=== PATIENT | female | born 1950 | race Caucasian/White ===

== ENCOUNTER 2016-08-09 11:06 | Inpatient (IN) | payer OTHER ==
[~2016-08-09] VITALS: Ht 162.6 cm; Wt 51.6 kg
[2016-08-09] MEDS ORDERED: VANCOMYCIN 1 GM (PMX) 250 ML IVPB STA (13:14)
[2016-08-09] MEDS ORDERED: ONDANSETRON 4 MG INJ IV STA (13:14)
[2016-08-09] MEDS ORDERED: CLINDAMYCIN 900 MG/D5W (PMX) 50 ML IVPB STA (13:14)
[2016-08-09] MEDS ORDERED: IMIPENEM-CILAST 500MG IV (PMX) 100 ML IVPB STA (13:14)
[2016-08-09] MEDS ORDERED: SODIUM CHLORIDE 0.9% 1L BAG IV* STA (13:14)
[2016-08-09] MEDS ORDERED: morphine 4 MG/ML VIAL IV STA (13:14)
[2016-08-09] MEDS ORDERED: LANT3I SC (13:15)
[2016-08-09] MEDS ORDERED: ELTR50TA PO (13:15)
--- NOTE | 2016-08-09 13:31 | ERA ---
ER Documentation Chief Complaint Date/Time DATE: 08/09/16 TIME: 13:27 Chief Complaint TIPS OF TOES BLACK X4 DAYS, SENT BY DR KNAPP FOR IV ABX HPI Patient is a 66-year-old female who has a history of ITP. She was on steroids for several weeks and then was switched to a new medication recently. Over the last several days she has noticed that 2 of her toes on her left foot have turned black with redness and pain. She noticed also that one of her toes on her right foot is now starting to turn black. She says they are all painful. She denies any fever or trauma. This is never happened to her before. Her doctor was not sure if this is arterial insufficiency or an infection. They are also not sure if this is a side effect of the new medication that she is taking. She denies any abnormal bruising or rashes elsewhere on her body. It hurts when she stands on her foot or applies pressure to the toes. It is better if she takes the pressure off of her foot. She denies any chest pain, shortness of breath, coughing, congestion, abdominal pain, nausea, vomiting, dysuria, abnormal bleeding, bruises, or rashes. Other than the above-mentioned rashes. The remainder of the systems are negative. ROS All systems reviewed and are negative except as per history of present illness. Medications Home Meds Reported Medications Insulin Glargine* (Lantus*) Unknown Strength Soln, SC DAILY, #1 VIAL 08/09/16 Eltrombopag Olamine (Promacta) 50 Mg Tablet, 50 MG PO DAILY for 14 Days, TAB 08/09/16 Allergies Allergies: Coded Allergies: Penicillins (Unverified Allergy, Unknown, RASH, 08/09/16) Physical Exam Vitals Vital Signs Date Time Temp Pulse Resp B/P Pulse Ox O2 Delivery O2 Flow Rate FiO2 08/09/16 11:28 98.3 97 20 172/72 98 Physical Exam Const: [] Well-developed well-nourished female sitting on the bed no acute distress Head: Atraumatic normocephalic Eyes: Normal Conjunctiva ENT: Normal External Ears, Nose and Mouth. Neck: Full range of motion..~ No meningismus. Resp: Clear to auscultation bilaterally Cardio: Regular rate and rhythm, no murmurs Abd: Soft, non tender, non distended. Normal bowel sounds Skin: Her toes on her left foot are erythematous and warm. They are tender to touch. They umu and quickly returned back to an erythematous color. The tips are black in color. This is most consistent with cellulitis with a gangrenous tip. She has one toe on her right foot which is developing into cellulitis with a gangrenous tip. I will order arterial and venous Dopplers As requested by her oncologist. Back: No midline or flank tenderness Ext: Exam most consistent with cellulitis and gangrene Neur: Awake and alert, GCS of 15 Psych: Normal Mood and Affect Result Diagram: 08/09/16 1345 08/09/16 1345 Results 24 hrs Laboratory Tests Test 08/09/16 13:45 White Blood Count 13.310^3/ul Red Blood Count 5.3210^6/ul Hemoglobin 15.4g/dl Hematocrit 47.7% Mean Corpuscular Volume 89.7fl Mean Corpuscular Hemoglobin 28.9pg Mean Corpuscular Hemoglobin Concent 32.3g/dl Red Cell Distribution Width 14.7% Platelet Count 87235^3/UL Mean Platelet Volume 12.6fl Neutrophils % 52.7% Lymphocytes % 35.2% Monocytes % 10.9% Eosinophils % 0.3% Basophils % 0.4% Nucleated Red Blood Cells % 0.0/100WBC Neutrophils # 7.010^3/ul Lymphocytes # 4.710^3/ul Monocytes # 1.410^3/ul Eosinophils # 0.010^3/ul Basophils # 0.110^3/ul Nucleated Red Blood Cells # 0.010^3/ul Erythrocyte Sedimentation Rate 26mm/Hr Prothrombin Time 13.6Sec Prothrombin Time Ratio 1.1 INR International Normalized Ratio 1.04 Activated Partial Thromboplast Time 27.5Sec Urine Color LT. YELLOW Urine Clarity CLEAR Urine pH 5.0 Urine Specific [place] 1.025 Urine Ketones TRACE Urine Nitrite NEGATIVE Urine Bilirubin NEGATIVE Urine Urobilinogen 0.2 E.U./dL Urine Leukocyte Esterase NEGATIVE Urine Hemoglobin NEGATIVE Urine Glucose 0.5%% Urine Total Protein NEGATIVE Sodium Level 135mmol/L Potassium Level 4.1mmol/L Chloride Level 95mmol/L Carbon Dioxide Level 29mmol/L Anion Gap 15 Blood Urea Nitrogen 12mg/dl Creatinine 0.61mg/dl Glucose Level 262mg/dl Lactic Acid Level 2.1mmol/L Calcium Level 9.8mg/dl Total Bilirubin 0.5mg/dl Direct Bilirubin 0.00mg/dl Indirect Bilirubin 0.5mg/dl Aspartate Amino Transf (AST/SGOT) 38IU/L Alanine Aminotransferase (ALT/SGPT) 38IU/L Alkaline Phosphatase 128IU/L Troponin I < 0.012ng/ml C-Reactive Protein 2.7mg/dl Total Protein 8.9g/dl Albumin 4.6g/dl Globulin 4.30g/dl Albumin/Globulin Ratio 1.06 Current Medications Medications (Trade) Dose Ordered Sig/[place] Route PRN Reason Start Time Stop Time Status Last Admin Dose Admin Sodium Chloride 1610 ml 1,610 ml BOLUS OVER 2 HOURS STAT IV* 08/09/16 13:14 08/09/16 13:24 DC 08/09/16 14:13 Vancomycin HCl 250 ml @ 125 mls/hr ONCE STAT IVPB 08/09/16 13:14 08/09/16 15:13 DC Clindamycin HCl/ Dextrose 50 ml @ 50 mls/hr ONCE STAT IVPB 08/09/16 13:14 08/09/16 14:13 DC 08/09/16 14:12 Imipenem/ Cilastatin Sodium (Primaxin 500 Mg/ 100 ml (Pmx)) 100 ml @ 100 mls/hr ONCE STAT IVPB 08/09/16 13:14 08/09/16 14:13 DC 08/09/16 15:22 Morphine Sulfate (morphine) 4 mg ONCE STAT IV 08/09/16 13:14 08/09/16 13:24 DC 08/09/16 15:22 Ondansetron HCl (Zofran Inj) 4 mg ONCE STAT IV 08/09/16 13:14 08/09/16 13:24 DC 08/09/16 15:22 Procedures/MDM Differential includes cellulitis, osteomyelitis, gangrenous toes, arterial insufficiency, sepsis EKG: Rate/Rhythm: Normal Sinus Rhythm at 85 beats a minute no evidence of acute ischemia noted, normal EKG available for comparison QRS, ST, T-waves: No changes consistent w/ acute ischemia Impression: No evidence of ischemia or arrhythmia Chest x-ray does not reveal any acute cardiopulmonary process X-ray of the right foot does not reveal any evidence of osteomyelitis X-ray left foot does not reveal any evidence of osteomyelitis Venous ultrasound does not reveal any evidence of deep vein thrombosis 1550: Reevaluation the patient this time reveals no change in her examination. She will be admitted for IV antibiotic therapy. Departure Diagnosis: Primary Impression: Cellulitis of third toe, left Additional Impressions: Cellulitis of fourth toe, left Cellulitis of fourth toe of right foot Gangrene of toe Condition: NELDA Harvey Aug 09, 2016 13:31
[2016-08-09 13:59] LABS: ADD SCAN DIFF NO
[2016-08-09 14:02] LABS: BASOPHIL # 0.1 10^3/ul (0.0-0.1); BASOPHILS % 0.4 % (0.0-2.0); EOSINOPHILS % 0.3 % (0.0-7.0); HEMATOCRIT 47.7 % (37.0-47.0); HEMOGLOBIN 15.4 g/dl (12.0-16.0); LYMPHOCYTES # 4.7 10^3/ul (0.8-2.9); LYMPHOCYTES % 35.2 % (15.0-51.0); MEAN CORPUSCULAR HEMOGLOBIN 28.9 pg (29.0-33.0); MEAN CORPUSCULAR HGB CONC 32.3 g/dl (32.0-37.0); MEAN CORPUSCULAR VOLUME 89.7 fl (82.0-101.0); MEAN PLATELET VOLUME 12.6 fl (7.4-10.4); MONOCYTE # 1.4 10^3/ul (0.3-0.9); MONOCYTES % 10.9 % (0.0-11.0); NEUTROPHILS % 52.7 % (39.0-77.0); PLATELET COUNT 145 10^3/UL (140-415); RED BLOOD COUNT 5.32 10^6/ul (4.20-5.40); RED CELL DISTRIBUTION WIDTH 14.7 % (11.5-14.5); WHITE BLOOD COUNT 13.3 10^3/ul (4.8-10.8)
[2016-08-09 14:09] LABS: ADD UMIC NO; URINE BILIRUBIN (Dip) NEGATIVE (NEGATIVE); URINE BLOOD (Dip) NEGATIVE (NEGATIVE); URINE COLOR LT. YELLOW (YELLOW); URINE KETONES (Dip) TRACE (NEGATIVE); URINE LEUKOCYTE ESTERASE (Dip) NEGATIVE (NEGATIVE); URINE NITRITE (Dip) NEGATIVE (NEGATIVE); URINE TOTAL PROTEIN (Dip) NEGATIVE (NEGATIVE); URINE UROBILINOGEN (Dip) 0.2 E.U./dL (0.1-1.0)
--- NOTE | 2016-08-09 14:10 | RADRPT ---
PROCEDURE: XR Chest 1 View. CLINICAL INDICATION: Shortness of breath, possible sepsis TECHNIQUE: AP view of the chest was obtained. COMPARISON: None. FINDINGS: The heart size is within normal limits. Calcified atherosclerosis is noted in the aorta. The lungs are hyperexpanded. Mild interstitial prominence is seen in both lungs. Atelectasis is noted at the left lung base. Mild elevation right hemidiaphragm is seen. No consolidations are identified. No pneumothorax is seen. The osseous structures are osteopenic, but appear intact. IMPRESSION: Calcified atherosclerosis in the aorta. Mild elevation right hemidiaphragm. Hyperexpanded lungs with diffuse mild interstitial prominence in both lungs. Interstitial prominenc e could be chronic. Findings could reflect COPD. Subsegmental atelectasis at the left lung base. RPTAT: AA .Pedro Arzate MD, Date Time Electronically viewed and signed by .Pedro Arzate MD, on 08/09/2016 14:10 .P/
[2016-08-09 14:19] LABS: INR 1.04; PROTIME 13.6 Sec (12.2-14.2); PT RATIO 1.1
[2016-08-09 14:20] LABS: CHLORIDE 95 mmol/L (97-110); PARTIAL THROMBOPLASTIN TIME 27.5 Sec (25.0-35.0)
[2016-08-09 14:21] LABS: ALBUMIN 4.6 g/dl (3.3-4.9); POTASSIUM 4.1 mmol/L (3.5-5.1); SODIUM 135 mmol/L (135-144)
[2016-08-09 14:24] LABS: ALANINE AMINOTRANSFERASE 38 IU/L (13-69); ALBUMIN/GLOBULIN RATIO 1.06; ALKALINE PHOSPHATASE 128 IU/L (42-121); ANION GAP 15 (8-16); ASPARTATE AMINO TRANSFERASE 38 IU/L (15-46); BILIRUBIN,INDIRECT 0.5 mg/dl (0-1.1); BILIRUBIN,TOTAL 0.5 mg/dl (0.2-1.3); BLOOD UREA NITROGEN 12 mg/dl (7-20); CARBON DIOXIDE 29 mmol/L (21-31); CREATININE 0.61 mg/dl (0.44-1.00); TOTAL PROTEIN 8.9 g/dl (6.1-8.1)
[2016-08-09 14:25] LABS: CALCIUM 9.8 mg/dl (8.4-10.2); GLUCOSE 262 mg/dl (70-220)
[2016-08-09 14:36] LABS: TROPONIN-I < 0.012 ng/ml (0.00-0.12)
--- NOTE | 2016-08-09 14:45 | RADRPT ---
PROCEDURE: US Lower extremity Venous. CLINICAL INDICATION: Bilateral lower extremity swelling TECHNIQUE: Multiple sonographic images of the bilateral lower extremity deep venous system was obt ained utilizing grayscale, color-flow, compressive sonography and doppler imaging with augmentation. The images were reviewed on a PACS workstation. COMPARISON: None. FINDINGS: There is normal compressibility and flow within the bilateral common femoral, superficial femoral , posterior tibial and popliteal veins. RPTAT: AA IMPRESSION: No sonographic evidence for deep venous thrombosis. .Teja Ann MD, MD Date Time Electronically viewed and signed by .Teja Ann MD, on 08/09/2016 14:44 .S/
--- NOTE | 2016-08-09 15:15 | RADRPT ---
PROCEDURE: XR Left Foot. CLINICAL INDICATION: Left foot pain. Gangrenous toes. TECHNIQUE: Two views. Frontal and lateral. COMPARISON: None. FINDINGS: There is no fracture or dislocation. The soft tissues are normal. Articular surfaces are intact. There is no lytic or blastic lesion. There is no radiopaque foreign body. IMPRESSION: 1. Normal images of the left foot. 2. No evidence of osteomyelitis. RPTAT: QQ .Jimmy Butler MD, MD Date Time Electronically viewed and signed by .Jimmy Butler MD, MD on 08/09/2016 15:15 .R/
--- NOTE | 2016-08-09 15:16 | RADRPT ---
PROCEDURE: XR Right Foot. CLINICAL INDICATION: Right foot pain. Gangrenous toes. TECHNIQUE: Two views. Frontal and lateral. COMPARISON: None. FINDINGS: There is no fracture or dislocation. The soft tissues are normal. Articular surfaces are intact. There is no lytic or blastic lesion. There is no radiopaque foreign body. IMPRESSION: 1. Normal images of the right foot. 2. No evidence of osteomyelitis. RPTAT: QQ .Jimmy Butler MD, MD Date Time Electronically viewed and signed by .Jimmy Butler MD, MD on 08/09/2016 15:16 .R/
[2016-08-09] MEDS ORDERED: ONDANSETRON 4 MG INJ IV PRN (16:00)
[2016-08-09] MEDS ORDERED: ACETAMINOPHEN 325 MG TAB PO PRN (16:00)
--- NOTE | 2016-08-09 16:20 | RADRPT ---
PROCEDURE: US Lower extremity Arteries. CLINICAL INDICATION: Peripheral arterial disease. Black appearance of left toes TECHNIQUE: Multiple longitudinal and transverse images of the bilateral lower extremity arteries w ere obtained with baig scale and color Doppler imaging. COMPARISON: No prior studies are available for comparison. FINDINGS: Peak systolic velocities are as follows: Location RightLeft waveforms UOP203 cm/vri076 cm/sec triphasic/triphasic IVDE834 cm/luy790 cm/sec triphasic/triphasic QPXV279 cm/vmq471 cm/sec triphasic/triphasic LVRA765 cm/sul866 cm/sec triphasic/triphasic POP91 cm/xtp909 cm/sec triphasic/triphasic DPA73 cm/yqn831 cm/sec triphasic/triphasic Ankle brachial index Posterior tibial artery: 1.2 1.0 Dorsalis pedis artery: 1.2 1.0 Toe indices: 0.81 0.68 RPTAT:HJJR IMPRESSION: 1. Mild plaque formation without evidence for hemodynamically significant stenosis or occlusion. 2. Toe pressure indices correlates with moderate to severe claudication, left side greater than righ t. 3. Normal bilateral ankle brachial indices. Physician Jesus Date Time Electronically viewed and signed by Physician Jesus on 08/09/2016 16:20 JR/
[2016-08-09 19:10] VITALS: TEMP 98.2
[2016-08-09 20:33] VITALS: Ht 162.6 cm; Wt 51.6 kg
[2016-08-09] MEDS ORDERED: DIPHENHYDRAMINE 50 MG INJ IV ONE (21:00)
[2016-08-09 21:18] VITALS: BP 129/58; RESP 18
[2016-08-09] MEDS ORDERED: VANCOMYCIN IV PER PHARMACY XX SCH (22:30)
[2016-08-09] MEDS ORDERED: GLUCOSE GEL 15 GRAM TUBE BUCCAL PRN (22:45)
[2016-08-09] MEDS ORDERED: GLUCAGON 1 MG INJ IM PRN (22:45)
[2016-08-09] MEDS ORDERED: GLUCOSE GEL 15 GRAM TUBE PO PRN ×2 (22:45)
[2016-08-09] MEDS ORDERED: DEXTROSE 50% 50 ML SYRINGE IV PRN ×2 (22:45)
--- NOTE | 2016-08-09 23:11 | QN ---
Documentation Comment [id number] ERICA MARAVILLA MD Aug 09, 2016 23:11
[2016-08-09] MEDS ORDERED: HEPARIN 1000 UNITS/ML 10 ML INJ IV ONE (23:30)
[2016-08-09] MEDS ORDERED: HEPARIN 1000 UNITS/ML 10 ML INJ IV PRN ×2 (23:30)
[2016-08-09 23:53] LABS: ADD SCAN DIFF NO
[2016-08-09 23:54] LABS: ABNORMAL IP MESSAGE 1; HEMATOCRIT 38.3 % (37.0-47.0); HEMOGLOBIN 12.7 g/dl (12.0-16.0); MEAN CORPUSCULAR HEMOGLOBIN 29.9 pg (29.0-33.0); MEAN CORPUSCULAR HGB CONC 33.2 g/dl (32.0-37.0); MEAN CORPUSCULAR VOLUME 90.1 fl (82.0-101.0); PLATELET COUNT 94 10^3/UL (140-415); RED BLOOD COUNT 4.25 10^6/ul (4.20-5.40); RED CELL DISTRIBUTION WIDTH 14.7 % (11.5-14.5); WHITE BLOOD COUNT 11.3 10^3/ul (4.8-10.8)
[2016-08-09] MEDS: IMIPENEM-CILAST 500MG IV (PMX) 100 ML IVPB SCH (23:56)
[2016-08-09] MEDS: INSULIN ASPART [NOVOLOG] 3 ML PEN SC SCH (23:58)
[2016-08-10 00:06] LABS: INR 1.09; PARTIAL THROMBOPLASTIN TIME 25.3 Sec (25.0-35.0); PROTIME 14.1 Sec (12.2-14.2); PT RATIO 1.1
--- NOTE | 2016-08-10 00:14 | HP ---
DATE OF ADMISSION: 08/09/2016 HISTORY OF PRESENT ILLNESS: The patient is 66-year-old female with history of ITP, history of diabe stefano mellitus. Presented with left foot toe pain, redness and also bluish toes for last couple of da ys. The patient sees Dr. Carrington, is currently on Promacta for ITP (eltrombopag). The patient also h as history of hypertension, diabetes mellitus. The patient's case was discussed with the ER heather yeager, Dr. Peters, as well as with Dr. Carrington, and Dr. Sultana was informed to see this patient in consul tation. The patient has ultrasound of the lower extremity, shows mild plaque formation without evid ence for hemodynamically significant stenosis or occlusion. Toe pressure indices, correlation with moderate to severe claudication. The patient has normal bilateral ankle brachial indices. PAST MEDICAL HISTORY: Diabetes, hypertension, ITP. ALLERGY HISTORY: PENICILLIN. SOCIAL HISTORY: Negative. FAMILY HISTORY: Negative. MEDICATION HISTORY: The patient is on: 1. Promacta. 2. Lantus. REVIEW OF SYSTEMS: HEENT: Unremarkable. RESPIRATORY: Unremarkable. CARDIOVASCULAR: Unremarkable. ABDOMEN: Unremarkable. EXTREMITIES: As mentioned above, left foot pain, swelling and blue toes last couple days. CENTRAL NERVOUS SYSTEM: Denies any numbness ____. PHYSICAL EXAMINATION: GENERAL: The patient is awake and alert. VITAL SIGNS: Stable with pulse 75, blood pressure 140/65. HEENT: Head is atraumatic, normocephalic. Pupils equal, reactive. NECK: Supple. No JVD. LUNGS: Clear. CARDIOVASCULAR: S1, S2 are normal. ABDOMEN: Soft. Bowel sounds are positive. No palpable mass or hepatosplenomegaly. No guarding, r ebound tenderness. EXTREMITIES: The patient has bluish discoloration of the toes and ____ foot is swollen, warm, tende r, red. CENTRAL NERVOUS SYSTEM: The patient is awake, alert. No focal deficit. LABORATORY DATA: WBC 13.3, hematocrit 47.7, platelet count of 145. The patient has glucose 238. IMAGING: Chest x-ray: Calcified atherosclerosis in the aorta, mild elevation of right hemidiaphrag m, hyperextended lungs with diffuse mild interstitial prominence in both lungs, subsegmental atelect asis at left lung base. IMPRESSION: 1. The patient has left foot cellulitis. 2. Peripheral vascular disease of the left lower extremity, rule out atheroembolization. 3. ITP history. Currently the patient's platelet count is 145. 4. Leukocytosis. 5. Diabetes mellitus. 6. Hypertension history. PLAN: Continue to give this patient diabetic diet, sliding scale, pain medication, antibiotic. The patient will have IV heparin. Discussed with Dr. Carrington. Dr. Sultana has been called. A 2D echo will be obtained. Dictated By: ERICA MARAVILLA MD BS/NTS Conf#: [id number] DID#: [id number]
[2016-08-10] MEDS: morphine 4 MG/ML VIAL IV PRN ×2 (00:40→11:10)
[2016-08-10] MEDS: HEPARIN 25000 UNITS/250 ML 250 ML IV SCH (00:56)
[2016-08-10] MEDS: VANCOMYCIN 750 MG in SOD CHLORIDE 0.9% 150 ML IVPB SCH ×2 (01:02→14:30)
[2016-08-10] MEDS: ACCU-CHEK XX SCH (02:18)
[2016-08-10 05:23] LABS: ADD SCAN DIFF NO
[2016-08-10 05:27] LABS: ABNORMAL IP MESSAGE 1; BASOPHIL # 0.1 10^3/ul (0.0-0.1); BASOPHILS % 0.6 % (0.0-2.0); EOSINOPHILS # 0.1 10^3/ul (0.0-0.5); EOSINOPHILS % 1.1 % (0.0-7.0); HEMATOCRIT 39.1 % (37.0-47.0); HEMOGLOBIN 12.6 g/dl (12.0-16.0); LYMPHOCYTES % 41.9 % (15.0-51.0); MEAN CORPUSCULAR HEMOGLOBIN 29.6 pg (29.0-33.0); MEAN CORPUSCULAR HGB CONC 32.2 g/dl (32.0-37.0); MEAN CORPUSCULAR VOLUME 91.8 fl (82.0-101.0); MEAN PLATELET VOLUME 12.1 fl (7.4-10.4); MONOCYTE # 1.4 10^3/ul (0.3-0.9); MONOCYTES % 11.7 % (0.0-11.0); NEUTROPHIL # 5.3 10^3/ul (1.6-7.5); NEUTROPHILS % 44.2 % (39.0-77.0); NUCLEATED RED BLOOD CELLS% 0.2 /100WBC (0.0-0.0); PLATELET COUNT 78 10^3/UL (140-415); RED BLOOD COUNT 4.26 10^6/ul (4.20-5.40); RED CELL DISTRIBUTION WIDTH 14.9 % (11.5-14.5)
[2016-08-10 05:45] LABS: POTASSIUM 4.2 mmol/L (3.5-5.1)
[2016-08-10 05:47] LABS: ALBUMIN/GLOBULIN RATIO 0.85; BILIRUBIN,INDIRECT 0.3 mg/dl (0-1.1); BILIRUBIN,TOTAL 0.3 mg/dl (0.2-1.3); CREATININE 0.72 mg/dl (0.44-1.00); TOTAL PROTEIN 6.5 g/dl (6.1-8.1)
[2016-08-10] MEDS: LEVOTHYROXINE 100 MCG TAB PO SCH (06:07)
[2016-08-10] MEDS: IMIPENEM-CILAST 500MG IV (PMX) 100 ML IVPB SCH ×3 (06:07→22:16)
[2016-08-10 06:20] LABS: EOSINOPHILS # 0.1 10^3/ul (0.0-0.5); LYMPHOCYTES # 2.5 10^3/ul (0.8-2.9); MONOCYTE # 1.5 10^3/ul (0.3-0.9); NEUTROPHIL # 7.2 10^3/ul (1.6-7.5)
[2016-08-10] MEDS ORDERED: INSULIN ASPART [NOVOLOG] 3 ML PEN SC SCH (08:00)
[2016-08-10] MEDS: INSULIN GLARGINE [LANtus] 3 ML PEN SC SCH (08:13)
[2016-08-10] MEDS: METOPROLOL 25 MG TAB PO SCH ×2 (08:19→20:17)
[2016-08-10] MEDS: LISINOPRIL 5 MG TAB PO SCH (08:19)
[2016-08-10 08:57] VITALS: BP 127/60; RESP 18
[2016-08-10] MEDS: INSULIN ASPART [NOVOLOG] 3 ML PEN SC SCH ×4 (09:08→20:32)
--- NOTE | 2016-08-10 12:11 | CONS ---
Date/Time of Note Date/Time of Note DATE: 08/10/16 TIME: 11:51 Assessment/Plan Assessment/Plan Chief Complaint/Hosp Course 64yo with # Thrombosis of Bilateral feet and toes - this is likely secondary to the rapid increase in platelet count from the promacta -hold promacta for now -continue heparin drip for now. will try to keep platelets > 50K while on heparin gtt to prevent spontaneous bleed # Left and Right foot Cellulitis -continue with broad spectrum antibiotics including vancomycin and primaxin. 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 Her baseline WBC count is 10-11 -no intervention to be done for this condition at this time -the higher wbc count at this time is secondary to her cellulitis -will continue to monitor her WBC count while on antibiotics Approximately 40 min were spent at patient's bedside and in coordination of her care Problems: Consultation Date/Type/Reason Admit Date/Time Aug 09, 2016 at 15:56 Date of Consultation: Aug 10, 2016 Type of Consultation: Hematology Reason for Consultation ITP/ coagulopathy Referring Provider: ERICA MARAVILLA MD Hx of Present Illness 66 yo poorly controlled diabetic female with long standing ITP 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 Pt last needed steroids 25 years ago. About 6 weeks ago , patient's platelets started to slowly decline. Given her platelet count of 7, despite prior splenectomy, patient was started on Promacta 50 mg q day. Now 2 weeks later, her platelets have dramatically improved but she has developed painful swelling of both feet Left greater than right, as well as cyanosis of several of her toe. She is barely able to bare any weight on her foot. She was thus instructed to go to the ER for further evaluation. Pt has since been started on broad spectrum antibiotics to cover infection in this poorly controlled diabetic. She has also been started on Heparin drip as it appears she has developed thrombosis with her rapidly increasing platelet count. Since admission, her foot swelling and pain have improved. Constitutional: other (pain in right foot has improved) Eyes: no complaints ENT: no complaints Respiratory: no complaints Cardiovascular: no complaints Gastrointestinal: no complaints Genitourinary: no complaints Musculoskeletal: swelling (Left > Right foot. ) Skin: no complaints Past Medical History monoclonal b cell lymphocytosis DM HTN osteoporosis Family History Significant Family History: no pertinent family hx Social History Alcohol Use: none Smoking Status: Never smoker Drug Use: none Exam/Review of Systems Vital Signs Vitals Vital Signs Date Time Temp Pulse Resp B/P Pulse Ox O2 Delivery O2 Flow Rate FiO2 08/10/16 08:57 98.5 79 18 127/60 98 08/09/16 19:10 Room Air Intake and Output 08/09/16 08/09/16 08/10/16 14:59 22:59 06:59 Intake Total 1147.5 ml Balance 1147.5 ml Exam Constitutional: alert, oriented Psych: no complaints Head: atraumatic, normocephalic Eyes: nl conjunctiva ENMT: nl external ears & nose Neck: non-tender, supple Respiratory: clear to auscultation Cardiovascular: regular rate and rhythm Gastrointestinal: soft Musculoskeletal: swelling (left > right foot . 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 II-XII intact Results Result Diagram: 08/10/16 0457 08/10/16 0457 Results 24 hrs Laboratory Tests Test 08/09/16 13:45 08/09/16 16:20 08/09/16 19:12 08/09/16 19:50 White Blood Count 13.3 H Red Blood Count 5.32 Hemoglobin 15.4 Hematocrit 47.7 H Mean Corpuscular Volume 89.7 Mean Corpuscular Hemoglobin 28.9 L Mean Corpuscular Hemoglobin Concent 32.3 Red Cell Distribution Width 14.7 H Platelet Count 145 Mean Platelet Volume 12.6 H Neutrophils % 52.7 Lymphocytes % 35.2 Monocytes % 10.9 Eosinophils % 0.3 Basophils % 0.4 Nucleated Red Blood Cells % 0.0 Neutrophils # 7.0 Lymphocytes # 4.7 H Monocytes # 1.4 H Eosinophils # 0.0 Basophils # 0.1 Nucleated Red Blood Cells # 0.0 Erythrocyte Sedimentation Rate 26 Prothrombin Time 13.6 Prothrombin Time Ratio 1.1 INR International Normalized Ratio 1.04 Activated Partial Thromboplast Time 27.5 Urine Color LT. YELLOW Urine Clarity CLEAR Urine pH 5.0 Urine Specific [place] 1.025 Urine Ketones TRACE H Urine Nitrite NEGATIVE Urine Bilirubin NEGATIVE Urine Urobilinogen 0.2 E.U./dL Urine Leukocyte Esterase NEGATIVE Urine Hemoglobin NEGATIVE Urine Glucose 0.5% H Urine Total Protein NEGATIVE Sodium Level 135 Potassium Level 4.1 Chloride Level 95 L Carbon Dioxide Level 29 Anion Gap 15 Blood Urea Nitrogen 12 Creatinine 0.61 Glucose Level 262 H Lactic Acid Level 2.1 2.6 H 2.9 H Calcium Level 9.8 Total Bilirubin 0.5 Direct Bilirubin 0.00 Indirect Bilirubin 0.5 Aspartate Amino Transf (AST/SGOT) 38 Alanine Aminotransferase (ALT/SGPT) 38 Alkaline Phosphatase 128 H Troponin I < 0.012 C-Reactive Protein 2.7 H Total Protein 8.9 H Albumin 4.6 Globulin 4.30 H Albumin/Globulin Ratio 1.06 Bedside Glucose 152 Test 08/09/16 22:25 08/09/16 23:40 08/10/16 02:16 08/10/16 04:57 Bedside Glucose 238 H 269 H White Blood Count 11.3 H 12.0 H Red Blood Count 4.25 # 4.26 Hemoglobin 12.7 12.6 Hematocrit 38.3 39.1 Mean Corpuscular Volume 90.1 91.8 Mean Corpuscular Hemoglobin 29.9 29.6 Mean Corpuscular Hemoglobin Concent 33.2 32.2 Red Cell Distribution Width 14.7 H 14.9 H Platelet Count 94 #L 78 L Mean Platelet Volume 13.0 H 12.1 H Neutrophils % 64.0 44.2 Lymphocytes % 22.0 41.9 Monocytes % 13.0 H 11.7 H Eosinophils % 1.0 1.1 Nucleated Red Blood Cells % 2.0 H 0.2 H Neutrophils # 7.2 5.3 Lymphocytes # 2.5 5.0 H Monocytes # 1.5 H 1.4 H Eosinophils # 0.1 0.1 Prothrombin Time 14.1 Prothrombin Time Ratio 1.1 INR International Normalized Ratio 1.09 Activated Partial Thromboplast Time 25.3 Basophils % 0.6 Basophils # 0.1 Nucleated Red Blood Cells # 0.0 Sodium Level 136 Potassium Level 4.2 Chloride Level 105 # Carbon Dioxide Level 27 Anion Gap 8 Blood Urea Nitrogen 12 Creatinine 0.72 Glucose Level 252 H Calcium Level 8.0 L Total Bilirubin 0.3 Direct Bilirubin 0.00 Indirect Bilirubin 0.3 Aspartate Amino Transf (AST/SGOT) 23 Alanine Aminotransferase (ALT/SGPT) 27 Alkaline Phosphatase 96 Total Protein 6.5 # Albumin 3.0 #L Globulin 3.50 H Albumin/Globulin Ratio 0.85 Test 08/10/16 06:23 08/10/16 07:50 Activated Partial Thromboplast Time 78.4 *H Bedside Glucose 155 Medications Medications Current Medications Imipenem/ Cilastatin Sodium (Primaxin 500 Mg/ 100 ml (Pmx)) 100 ml @ 100 mls/ hr Q8 IVPB Last administered on 08/10/16 06:07; Admin Dose 100 MLS/HR; Start 08/09/16 at 22:30 Morphine Sulfate (morphine) 3 mg Q4H PRN IV PAIN LEVEL 7-10 Last administered on 08/10/16 11:10; Admin Dose 3 MG; Start 08/09/16 at 22:30 Diagnostic Test (Pha) (Accu-Chek) 1 ea 02 XX Last administered on 08/10/16 02: 18; Admin Dose 1 EA; Start 08/10/16 at 02:00 Miscellaneous Information 1 ea NOTE XX ; Start 08/09/16 at 22:45 Glucose (Glutose) 15 gm Q15M PRN PO DECREASED GLUCOSE; Start 08/09/16 at 22:45 Glucose (Glutose) 22.5 gm Q15M PRN PO DECREASED GLUCOSE; Start 08/09/16 at 22: 45 Dextrose (D50w Syringe) 25 ml Q15M PRN IV DECREASED GLUCOSE; Start 08/09/16 at 22:45 Dextrose (D50w Syringe) 50 ml Q15M PRN IV DECREASED GLUCOSE; Start 08/09/16 at 22:45 Glucagon (Glucagen) 1 mg Q15M PRN IM DECREASED GLUCOSE; Start 08/09/16 at 22:45 Glucose 15 gm 15 gm Q15M PRN BUCCAL DECREASED GLUCOSE; Start 08/09/16 at 22:45 Vancomycin HCl/ Sodium Chloride (Vancocin/NS) 150 ml @ 75 mls/hr Q12H IVPB Last administered on 08/10/16 01:02; Admin Dose 75 MLS/HR; Start 08/10/16 at 01 :00 Lisinopril (Zestril) 5 mg DAILY PO Last administered on 08/10/16 08:19; Admin Dose 5 MG; Start 08/10/16 at 09:00 Levothyroxine Sodium (Synthroid) 100 mcg DAILY@06 PO Last administered on 06:07; Admin Dose 100 MCG; Start 08/10/16 at 06:00 Metoprolol Tartrate (Lopressor) 25 mg BID PO Last administered on 08/10/16 08: 19; Admin Dose 25 MG; Start 08/10/16 at 09:00 Miscellaneous Information (* Miscellaneous Pharmacy Order) PROMACTA ( ELTROMBOPAG OLAM... ONCE XX ; Start 08/11/16 at 09:00; Status UNV Miscellaneous Information (*Order Clarification Bulletin) MEDICATION REQUIRES CLARIFICATION:PROMA... Q8H XX ; Start 08/10/16 at 07:30 Miscellaneous Information (*Rx Drug Level Order Reminder*) VANCOMYCIN TROUGH AT 0000 ONCE ONCE XX ; Start 08/11/16 at 00:00; Stop 08/11/16 at 00:01 MILADY FONG M.D. Aug 10, 2016 12:01
--- NOTE | 2016-08-10 16:29 | RADRPT ---
Echocardiogram Report Patient Name: STORMY LUCAS Gender: Female Date: 1950 Study Date: 10-Aug-2016 Stunner: Jermain Choi [facility] Location: 2256 Ref. Physician: ERICA MARAVILLA Quality: Good Procedures: Transthoracic echocardiogram with complete 2D, M-Mode, and doppler examination. Indications: Evaluate Left Ventricular function. 2D/M Mode Doppler Measurement Value Normal Ranges Measurement Value Normal Ranges LVIDd 2D 4.0 3.5 - 5.6 cm AV Peak Anders 1.3 m/sec LVIDs 2D 1.9 2.1 - 4.1 cm AV Peak PG 7.0 mmHg FS 2D 53.0 % LVOT Peak Anders 0.9 m/sec LVPWd 2D 0.9 0.6 - 1.1 cm LVOT Peak PG 4.0 mmHg IVSd 2D 0.9 0.6 - 1.1 cm MV E Peak Anders 0.7 m/sec IVS/LVPW 2D 0.9 MV A Peak Anders 0.9 m/sec AoR Diam 2D 2.3 2.0 - 3.7 cm MV E/A 0.8 LA/Ao 2D 1 0 - 1 MV Decel Time 162 msec EDV 2D 65.9 cm3 MV E/A 0.8 ESV 2D 6.9 cm3 TR Peak Anders 2.3 m/sec LA Dimen 2D 2.9 2.3 - 4.0 cm TR Peak PG 21.0 mmHg RVSP 24.0 mmHg Findings Left Ventricle: Normal left ventricular systolic function. Normal left ventricular cavity size. Normal left ventricular wall thickness. Ejection fraction is visually estimated at 65 %. Right Ventricle: Normal right ventricular size. Normal right ventricular systolic function. Left Atrium: The left atrium is normal in size. Right Atrium: The right atrium is normal in size. Mitral Valve: Normal appearance and function of the mitral valve with trace physiologic regurgitation. Aortic Valve: Normal appearance of the aortic valve. No significant aortic stenosis or insufficiency. Tricuspid Valve: Normal appearance of the tricuspid valve. Estimated peak PA systolic pressure 24 mmHg. There is trace tricuspid regurgitation. Pulmonic Valve: Pulmonic valve not well visualized. Pericardium: Normal pericardium with no significant pericardial effusion. Aorta: Normal aortic root. IVC: Normal size and normal respiratory collapse consistent with normal right atrial pressure. Conclusions 1.The left ventricle is normal in size and systolic function. 2.Estimated left ventricular ejection fraction of 60-65%. Electronically Signed By: Prem Mejia 10-Aug-2016 16:28:14 -0700 Patient Name: STORMY LUCAS Study Date: 10-Aug-[id number]
--- NOTE | 2016-08-10 19:10 | PN ---
Date/Time of Note Date/Time of Note DATE: 08/10/16 TIME: 19:09 Assessment/Plan VTE Prophylaxis VTE Prophylaxis Intervention: other Lines/Catheters IV Catheter Type (from [facility]): Peripheral IV Urinary Cath still in place: No Assessment/Plan Chief Complaint/Hosp Course 1. The patient has left foot cellulitis. 2. Peripheral vascular disease of the left lower extremity, rule out atheroembolization. 3. ITP history. s/p promacta 4. Leukocytosis. 5. Diabetes mellitus. 6. Hypertension history. plan iv heparin Problems: Subjective 24 Hr Interval Summary Cardiovascular: no complaints Gastrointestinal: no complaints Genitourinary: no complaints Musculoskeletal: no complaints Skin: skin lesions (left foot/cyanosis) Exam/Review of Systems Vital Signs Vitals Vital Signs Date Time Temp Pulse Resp B/P Pulse Ox O2 Delivery O2 Flow Rate FiO2 08/10/16 08:57 98.5 79 18 127/60 98 08/09/16 19:10 Room Air Intake and Output 08/09/16 08/09/16 08/10/16 15:00 23:00 07:00 Intake Total 1147.5 ml Balance 1147.5 ml Exam Neck: supple Respiratory: clear to auscultation Cardiovascular: regular rate and rhythm Gastrointestinal: soft Musculoskeletal: nl extremities to inspection Extremities: normal pulses Results Result Diagram: 08/10/16 0457 08/10/16 0457 Results 24 hrs Laboratory Tests Test 08/09/16 19:12 08/09/16 19:50 08/09/16 22:25 08/09/16 23:40 Bedside Glucose 152 238 H Lactic Acid Level 2.9 H White Blood Count 11.3 H Red Blood Count 4.25 # Hemoglobin 12.7 Hematocrit 38.3 Mean Corpuscular Volume 90.1 Mean Corpuscular Hemoglobin 29.9 Mean Corpuscular Hemoglobin Concent 33.2 Red Cell Distribution Width 14.7 H Platelet Count 94 #L Mean Platelet Volume 13.0 H Neutrophils % 64.0 Lymphocytes % 22.0 Monocytes % 13.0 H Eosinophils % 1.0 Nucleated Red Blood Cells % 2.0 H Neutrophils # 7.2 Lymphocytes # 2.5 Monocytes # 1.5 H Eosinophils # 0.1 Prothrombin Time 14.1 Prothrombin Time Ratio 1.1 INR International Normalized Ratio 1.09 Activated Partial Thromboplast Time 25.3 Test 08/10/16 02:16 08/10/16 04:57 08/10/16 06:23 08/10/16 07:50 Bedside Glucose 269 H 155 White Blood Count 12.0 H Red Blood Count 4.26 Hemoglobin 12.6 Hematocrit 39.1 Mean Corpuscular Volume 91.8 Mean Corpuscular Hemoglobin 29.6 Mean Corpuscular Hemoglobin Concent 32.2 Red Cell Distribution Width 14.9 H Platelet Count 78 L Mean Platelet Volume 12.1 H Neutrophils % 44.2 Lymphocytes % 41.9 Monocytes % 11.7 H Eosinophils % 1.1 Basophils % 0.6 Nucleated Red Blood Cells % 0.2 H Neutrophils # 5.3 Lymphocytes # 5.0 H Monocytes # 1.4 H Eosinophils # 0.1 Basophils # 0.1 Nucleated Red Blood Cells # 0.0 Sodium Level 136 Potassium Level 4.2 Chloride Level 105 # Carbon Dioxide Level 27 Anion Gap 8 Blood Urea Nitrogen 12 Creatinine 0.72 Glucose Level 252 H Calcium Level 8.0 L Total Bilirubin 0.3 Direct Bilirubin 0.00 Indirect Bilirubin 0.3 Aspartate Amino Transf (AST/SGOT) 23 Alanine Aminotransferase (ALT/SGPT) 27 Alkaline Phosphatase 96 Total Protein 6.5 # Albumin 3.0 #L Globulin 3.50 H Albumin/Globulin Ratio 0.85 Activated Partial Thromboplast Time 78.4 *H Test 08/10/16 11:30 08/10/16 12:42 08/10/16 17:08 Bedside Glucose 231 H 160 Activated Partial Thromboplast Time 49.3 H Medications Medications Current Medications Imipenem/ Cilastatin Sodium (Primaxin 500 Mg/ 100 ml (Pmx)) 100 ml @ 100 mls/ hr Q8 IVPB Last administered on 08/10/16 18:14; Admin Dose 100 MLS/HR; Start 08/09/16 at 22:30 Morphine Sulfate (morphine) 3 mg Q4H PRN IV PAIN LEVEL 7-10 Last administered on 08/10/16 11:10; Admin Dose 3 MG; Start 08/09/16 at 22:30 Diagnostic Test (Pha) (Accu-Chek) 1 ea 02 XX Last administered on 08/10/16 02: 18; Admin Dose 1 EA; Start 08/10/16 at 02:00 Miscellaneous Information 1 ea NOTE XX ; Start 08/09/16 at 22:45 Glucose (Glutose) 15 gm Q15M PRN PO DECREASED GLUCOSE; Start 08/09/16 at 22:45 Glucose (Glutose) 22.5 gm Q15M PRN PO DECREASED GLUCOSE; Start 08/09/16 at 22: 45 Dextrose (D50w Syringe) 25 ml Q15M PRN IV DECREASED GLUCOSE; Start 08/09/16 at 22:45 Dextrose (D50w Syringe) 50 ml Q15M PRN IV DECREASED GLUCOSE; Start 08/09/16 at 22:45 Glucagon (Glucagen) 1 mg Q15M PRN IM DECREASED GLUCOSE; Start 08/09/16 at 22:45 Glucose 15 gm 15 gm Q15M PRN BUCCAL DECREASED GLUCOSE; Start 08/09/16 at 22:45 Vancomycin HCl/ Sodium Chloride (Vancocin/NS) 150 ml @ 75 mls/hr Q12H IVPB Last administered on 08/10/16 14:30; Admin Dose 75 MLS/HR; Start 08/10/16 at 01 :00 Lisinopril (Zestril) 5 mg DAILY PO Last administered on 08/10/16 08:19; Admin Dose 5 MG; Start 08/10/16 at 09:00 Levothyroxine Sodium (Synthroid) 100 mcg DAILY@06 PO Last administered on 06:07; Admin Dose 100 MCG; Start 08/10/16 at 06:00 Metoprolol Tartrate (Lopressor) 25 mg BID PO Last administered on 08/10/16 08: 19; Admin Dose 25 MG; Start 08/10/16 at 09:00 Miscellaneous Information (* Miscellaneous Pharmacy Order) PROMACTA ( ELTROMBOPAG OLAM... ONCE XX ; Start 08/11/16 at 09:00; Status UNV Miscellaneous Information (*Order Clarification Bulletin) MEDICATION REQUIRES CLARIFICATION:PROMA... Q8H XX ; Start 08/10/16 at 07:30 Miscellaneous Information (*Rx Drug Level Order Reminder*) VANCOMYCIN TROUGH AT 0000 ONCE ONCE XX ; Start 08/11/16 at 00:00; Stop 08/11/16 at 00:01 ERICA MARAVILLA MD Aug 10, 2016 19:10
[2016-08-10 20:14] VITALS: BP 129/55; RESP 20
[2016-08-11] MEDS: HEPARIN 25000 UNITS/250 ML 250 ML IV SCH ×2 (00:44→01:59)
[2016-08-11] MEDS: morphine 4 MG/ML VIAL IV PRN (00:47)
[2016-08-11] MEDS: VANCOMYCIN 750 MG in SOD CHLORIDE 0.9% 150 ML IVPB SCH ×4 (01:00→18:26)
[2016-08-11] MEDS: ACCU-CHEK XX SCH (02:00)
[2016-08-11] MEDS: LEVOTHYROXINE 100 MCG TAB PO SCH (06:00)
[2016-08-11] MEDS: IMIPENEM-CILAST 500MG IV (PMX) 100 ML IVPB SCH ×3 (06:00→21:06)
[2016-08-11 06:05] LABS: ADD SCAN DIFF NO
[2016-08-11 06:10] LABS: ABNORMAL IP MESSAGE 1; BASOPHIL # 0.1 10^3/ul (0.0-0.1); BASOPHILS % 0.6 % (0.0-2.0); EOSINOPHILS # 0.1 10^3/ul (0.0-0.5); EOSINOPHILS % 0.6 % (0.0-7.0); HEMATOCRIT 37.4 % (37.0-47.0); HEMOGLOBIN 12.4 g/dl (12.0-16.0); LYMPHOCYTES # 6.8 10^3/ul (0.8-2.9); LYMPHOCYTES % 42.3 % (15.0-51.0); MEAN CORPUSCULAR HEMOGLOBIN 29.7 pg (29.0-33.0); MEAN CORPUSCULAR HGB CONC 33.2 g/dl (32.0-37.0); MEAN CORPUSCULAR VOLUME 89.7 fl (82.0-101.0); MEAN PLATELET VOLUME 12.5 fl (7.4-10.4); MONOCYTE # 1.9 10^3/ul (0.3-0.9); MONOCYTES % 11.5 % (0.0-11.0); NEUTROPHIL # 7.2 10^3/ul (1.6-7.5); NEUTROPHILS % 44.6 % (39.0-77.0); NUCLEATED RED BLOOD CELLS% 0.1 /100WBC (0.0-0.0); PLATELET COUNT 92 10^3/UL (140-415); RED BLOOD COUNT 4.17 10^6/ul (4.20-5.40); RED CELL DISTRIBUTION WIDTH 14.9 % (11.5-14.5); WHITE BLOOD COUNT 16.1 10^3/ul (4.8-10.8)
[2016-08-11 06:47] LABS: ALBUMIN 3.2 g/dl (3.3-4.9)
[2016-08-11 06:49] LABS: BILIRUBIN,INDIRECT 0.4 mg/dl (0-1.1); BILIRUBIN,TOTAL 0.4 mg/dl (0.2-1.3); CREATININE 0.54 mg/dl (0.44-1.00)
[2016-08-11 06:50] LABS: ALBUMIN/GLOBULIN RATIO 1.06; CALCIUM 8.4 mg/dl (8.4-10.2); TOTAL PROTEIN 6.2 g/dl (6.1-8.1)
[2016-08-11 08:07] VITALS: BP 144/65; RESP 18
[2016-08-11] MEDS: METOPROLOL 25 MG TAB PO SCH ×2 (08:09→21:06)
[2016-08-11] MEDS: LISINOPRIL 5 MG TAB PO SCH (08:09)
[2016-08-11] MEDS: INSULIN GLARGINE [LANtus] 3 ML PEN SC SCH (08:13)
[2016-08-11] MEDS: INSULIN ASPART [NOVOLOG] 3 ML PEN SC SCH ×4 (08:14→21:08)
--- NOTE | 2016-08-11 08:19 | CONS ---
DATE OF ADMISSION: 08/09/2016 DATE OF CONSULTATION: 08/10/2016 TYPE OF CONSULTATION: Vascular surgery. Dear Doctors: Ms. Meyers is a 66-year-old noncompliant diabetic female with a myriad of medical conditions, who pr esented with a history of longstanding ITP in which she had undergone a splenectomy many years ago. The patient has been on steroids quite a long time and about 6 years ago had been started on a new medication called Promacta secondary to having thrombocytopenia. It seems that over the past week t he patient had developed bilateral lower extremity swelling and pain and discomfort in her feet. Sp ecifically, she feels more pain around the forefoot area and left upper quadrant abdominal pain. Th e patient does not speak [place] so a relative at the bedside is answering most of her questions. A t the moment the patient denies shortness of breath, chest pain, nausea, vomiting, fever or chills. REVIEW OF SYSTEMS: A 12-point review was performed and negative except for what is mentioned in the HPI. PAST MEDICAL HISTORY: Entails monoclonal B-cell lymphocytosis, diabetes mellitus type 2, poorly con trolled, hypertension, osteoporosis, noncompliance, bilateral lower extremity edema, unspecified, a history of smoking. PAST SURGICAL HISTORY: Splenectomy. FAMILY HISTORY: Positive for hypertension. SOCIAL HISTORY: Denies current alcohol, tobacco or illicit drug use. PHYSICAL EXAMINATION: GENERAL: The patient is alert and oriented x3, in no apparent distress. HEENT: Normocephalic, atraumatic. EOMI. Mucosa moist. NECK: Supple. No carotid bruit. PULMONARY: Clear to auscultation bilaterally. No crackles. CARDIOVASCULAR: S1, S2 present. No murmurs. ABDOMEN: Soft, nontender, nondistended. Bowel sounds positive. EXTREMITIES: Right lower extremity a palpable femoral pulse, palpable pedal pulse. Motor and senso ry intact. Cap refill of 3 to 4 seconds. Edema of 1+. Right 4th toe has bluish purple discolorati on. Left lower extremity palpable femoral pulse, palpable pedal pulse. Motor and sensory intact. Cap r efill of 3 to 4 seconds. Edema of 1 to 2+ and has 3rd and 4th toe blue/purplish discoloration. ASSESSMENT AND PLAN: 1. 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 It seems that the patient may have multiple things that can be causing these new findings. It seems that the patient's history of ITP and her new medication can be one differential that we will discuss with our hematology colleag ue, Dr. Carrington, as the possibility of the finding. Would like to also further rule out further proxi mal embolization such as cardiac source versus aortoiliac disease. Will plan to evaluate her labs a fter her IV fluid hydration and plan to obtain a CT scan of the abdomen and pelvis with angiography to evaluate for possibility of aortoiliac disease as well. 2. From the standpoint of vascular surgery, no further intervention needed at this time, as the ult rasound findings did not indicate any active thrombosis within the major vessels and the patient hav ing triphasic flow throughout. The patient does have appropriate toe brachial index as well. 3. Would recommend for the patient to be placed on antiplatelets when feasible. 4. Optimize vascular status (BP meds, diet, nutrition, exercise, sugar control, antiplatelets). 5. Bilateral lower extremity cellulitis. The patient does have some mild redness, possible erythema , from the ankle towards the knee area, and that can be managed with antibiotics per primary service recommend. 6. Discussed the findings, plan and management with the patient's family at the bedside and they un derstand. Thank you for allowing us to partake in the care of your patient. Please call with any questions. Dictated By: JAZMIN GARCIA/DYLAN Conf#: [id number] DID#: [id number]
--- NOTE | 2016-08-11 14:46 | CONS ---
Date/Time of Note Date/Time of Note DATE: 08/11/16 TIME: 14:36 Assessment/Plan Assessment/Plan Chief Complaint/Hosp Course 64yo with # Thrombosis of Bilateral feet and toes - this is likely secondary to the rapid increase in platelet count from the promacta -hold promacta for now -continue heparin drip for now. will try to keep platelets > 50K while on heparin gtt to prevent spontaneous bleed -appreciate vascular surgery recs. will add asa. f/u angiography # Left and Right foot Cellulitis -continue with broad spectrum antibiotics including vancomycin and primaxin. 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 Her baseline WBC count is 10-11 -no intervention to be done for this condition at this time -the higher wbc count at this time is secondary to her cellulitis -will continue to monitor her WBC count while on antibiotics Approximately 40 min were spent at patient's bedside and in coordination of her care Problems: Consultation Date/Type/Reason Admit Date/Time Aug 09, 2016 at 15:56 Initial Consult Date 08/10/16 Type of Consultation: Hematology Reason for Consultation ITP/ coagulopathy Referring Provider: ERICA MARAVILLA MD 24 HR Interval Summary Free Text/Dictation patient's left leg swelling and pain have improved by 50% per the patient. pt continues on Heparin and broad spectrum antibiotics Exam/Review of Systems Vital Signs Vitals Vital Signs Date Time Temp Pulse Resp B/P Pulse Ox O2 Delivery O2 Flow Rate FiO2 08/11/16 08:07 98.5 70 18 144/65 96 08/09/16 19:10 Room Air Intake and Output 08/10/16 08/10/16 08/11/16 15:00 23:00 07:00 Intake Total 100 ml 1390 ml 677 ml Output Total 1500 ml 900 ml Balance 100 ml -110 ml -223 ml Exam Constitutional: alert, frail, oriented Psych: no complaints Head: normocephalic Eyes: nl conjunctiva ENMT: nl external ears & nose Neck: non-tender, supple Respiratory: clear to auscultation, normal air movement Cardiovascular: nl pulses, regular rate and rhythm Gastrointestinal: soft Musculoskeletal: other (left foot pain and swelling have improved. still with 3 rd toe cyanosis) Results Result Diagram: 08/11/16 0520 08/11/16 0520 Results 24 hrs Laboratory Tests Test 08/10/16 17:08 08/10/16 18:28 08/10/16 20:21 08/11/16 00:10 Bedside Glucose 160 250 H Activated Partial Thromboplast Time 72.1 *H 60.3 H Vancomycin Level Trough 7.2 L Test 08/11/16 02:37 08/11/16 05:20 08/11/16 07:46 08/11/16 12:09 Bedside Glucose 147 170 274 H White Blood Count 16.1 #H Red Blood Count 4.17 L Hemoglobin 12.4 Hematocrit 37.4 Mean Corpuscular Volume 89.7 Mean Corpuscular Hemoglobin 29.7 Mean Corpuscular Hemoglobin Concent 33.2 Red Cell Distribution Width 14.9 H Platelet Count 92 L Mean Platelet Volume 12.5 H Neutrophils % 44.6 Lymphocytes % 42.3 Monocytes % 11.5 H Eosinophils % 0.6 Basophils % 0.6 Nucleated Red Blood Cells % 0.1 H Neutrophils # 7.2 Lymphocytes # 6.8 H Monocytes # 1.9 H Eosinophils # 0.1 Basophils # 0.1 Nucleated Red Blood Cells # 0.0 Activated Partial Thromboplast Time 69.6 H Sodium Level 137 Potassium Level 4.0 Chloride Level 103 Carbon Dioxide Level 25 Anion Gap 13 Blood Urea Nitrogen 10 Creatinine 0.54 Glucose Level 188 Calcium Level 8.4 Total Bilirubin 0.4 Direct Bilirubin 0.00 Indirect Bilirubin 0.4 Aspartate Amino Transf (AST/SGOT) 27 Alanine Aminotransferase (ALT/SGPT) 31 Alkaline Phosphatase 84 Total Protein 6.2 Albumin 3.2 L Globulin 3.00 Albumin/Globulin Ratio 1.06 Test 08/11/16 12:30 Activated Partial Thromboplast Time 72.6 *H Medications Medications Current Medications Imipenem/ Cilastatin Sodium (Primaxin 500 Mg/ 100 ml (Pmx)) 100 ml @ 100 mls/ hr Q8 IVPB Last administered on 08/11/16 06:00; Admin Dose 100 MLS/HR; Start 08/09/16 at 22:30 Morphine Sulfate (morphine) 3 mg Q4H PRN IV PAIN LEVEL 7-10 Last administered on 08/11/16 00:47; Admin Dose 3 MG; Start 08/09/16 at 22:30 Diagnostic Test (Pha) (Accu-Chek) 1 ea 02 XX Last administered on 08/10/16 02: 18; Admin Dose 1 EA; Start 08/10/16 at 02:00 Miscellaneous Information 1 ea NOTE XX ; Start 08/09/16 at 22:45 Glucose (Glutose) 15 gm Q15M PRN PO DECREASED GLUCOSE; Start 08/09/16 at 22:45 Glucose (Glutose) 22.5 gm Q15M PRN PO DECREASED GLUCOSE; Start 08/09/16 at 22: 45 Dextrose (D50w Syringe) 25 ml Q15M PRN IV DECREASED GLUCOSE; Start 08/09/16 at 22:45 Dextrose (D50w Syringe) 50 ml Q15M PRN IV DECREASED GLUCOSE; Start 08/09/16 at 22:45 Glucagon (Glucagen) 1 mg Q15M PRN IM DECREASED GLUCOSE; Start 08/09/16 at 22:45 Glucose (Glutose) 15 gm Q15M PRN BUCCAL DECREASED GLUCOSE; Start 08/09/16 at 22 :45 Lisinopril (Zestril) 5 mg DAILY PO Last administered on 08/11/16 08:09; Admin Dose 5 MG; Start 08/10/16 at 09:00 Levothyroxine Sodium (Synthroid) 100 mcg DAILY@06 PO Last administered on 06:00; Admin Dose 100 MCG; Start 08/10/16 at 06:00 Metoprolol Tartrate (Lopressor) 25 mg BID PO Last administered on 08/11/16 08: 09; Admin Dose 25 MG; Start 08/10/16 at 09:00 Miscellaneous Information (* Miscellaneous Pharmacy Order) PROMACTA ( ELTROMBOPAG OLAM... ONCE XX ; Start 08/11/16 at 09:00; Status UNV Miscellaneous Information MEDICATION REQUIRES CLARIFICATION:PROMA... Q8H XX ; Start 08/10/16 at 07:30 Vancomycin HCl/ Sodium Chloride (Vancocin/NS) 150 ml @ 75 mls/hr Q8H IVPB Last administered on 08/11/16 13:48; Admin Dose 75 MLS/HR; Start 08/11/16 at 11 :00 Miscellaneous Information (*Rx Drug Level Order Reminder*) VANCO TROUGH @ 1, 000 ON... ONCE ONCE XX ; Start 08/12/16 at 10:00; Stop 08/12/16 at 10:01 MILADY FONG M.D. Aug 11, 2016 14:46
--- NOTE | 2016-08-11 14:52 | PN ---
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 It seems that the patient may have multiple differentials that can be causing the new findings. With patient's history of ITP and her new medication can be one cause. Further, would rule out proximal embolization such as cardiac source versus aortoiliac disease. Will plan to obtain a CT Angiography abdomen and pelvis with runoff to evaluate for possibility of aortoiliac disease as well. -Appreciate hematology feedback and evaluation. Would like to also f -From the standpoint of vascular surgery, no further intervention needed at this time, as the ultrasound findings did not indicate any acute thrombosis within the major vessels and the patient having triphasic flow throughout. The patient does have appropriate toe brachial index as well. -Would recommend for the patient to be placed on antiplatelets when feasible. -Optimize vascular status (BP meds, diet, nutrition, exercise, sugar control, antiplatelets). -Discussed the findings, plan and management with the patient's family at the bedside and they understand. -Thank you for allowing us to partake in the care of your patient. Please call with any questions. Problems: Subjective 24 Hr Interval Summary no new vascular events overnight Exam/Review of Systems Vital Signs Vitals Vital Signs Date Time Temp Pulse Resp B/P Pulse Ox O2 Delivery O2 Flow Rate FiO2 08/11/16 08:07 98.5 70 18 144/65 96 08/09/16 19:10 Room Air Intake and Output 08/10/16 08/10/16 08/11/16 15:00 23:00 07:00 Intake Total 100 ml 1390 ml 677 ml Output Total 1500 ml 900 ml Balance 100 ml -110 ml -223 ml Exam Free Text/Dictation GENERAL: Alert and oriented x3, PULMONARY: Clear to auscultation bilaterally CARDIOVASCULAR: S1, S2 present. ABDOMEN: Soft, nontender, nondistended. Bowel sounds positive. EXTREMITIES: Right lower extremity a palpable femoral pulse, palpable pedal pulse. Motor and sensory intact. Cap refill of 3 to 4 seconds. Edema of 1+. Right 4th toe has bluish purple discoloration. Left lower extremity palpable femoral pulse, palpable pedal pulse. Motor and sensory intact. Cap refill of 3 to 4 seconds. Edema of 1 to 2+ and has 3rd and 4th toe blue/purplish discoloration. Results Result Diagram: 08/11/1651908/11/16519 JAZMIN HERRON MD Aug 11, 2016 14:52
[2016-08-11] MEDS ORDERED: SOD CHLORIDE 0.9% 100 ML ONE ×2 (17:35→17:56)
[2016-08-11] MEDS ORDERED: IOHEXOL 100 ML ONE ×2 (17:35→17:56)
[2016-08-11] MEDS ORDERED: IOHEXOL 350MG/ML 50 ML BTL ONE ×2 (17:36→17:56)
--- NOTE | 2016-08-11 18:22 | RADRPT ---
PROCEDURE: CT angiogram of the abdomen and pelvis with bilateral lower extremity runoff and with 3 -D reconstructions CLINICAL INDICATION: gangrene TECHNIQUE: CT angiogram of the abdomen and pelvis was performed on a multislice CT scanner . The patient was scanned after administration of intravenous contrast. Sagittal and coronal reformatted images were obtained from the axial source images. 3D MIP reformatted images were also created from the axial source images. DLP 1119.69 mGycm CTDI vol 16.43, 8.67 mGy COMPARISON: Duplex sonogram of the lower extremity arteries from 08/09/2016 FINDINGS: ANGIOGRAM FINDINGS: There is no acute dissection or aneurysm of the abdominal aorta. There are foci of mural thrombus within the distal descending thoracic aorta on series 3, image 12 a nd image 32 which occupy at most 15% of the luminal area. 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 The celiac, left gastric artery, and splenic artery are opacified, likely due to collatera l flow. The SMA is widely patent. There is a replaced common hepatic artery off the SMA which is widely patent. There are single renal arteries bilaterally which are widely patent. The SANG is widely patent. There is a focus of crescentic mural thrombus within the infrarenal aorta just above the iliac bifur cation which occupies approximately 20% of the luminal diameter of the aorta. Common, internal and external iliac arteries are patent bilaterally. RIGHT LOWER EXTREMITY: The [employer]STATE [employer]IST[employer], SFA, and profunda arteries are widely patent. The popliteal artery is widely patent. Infrapopliteal vessels are widely patent and there is good three-vessel runoff to the level of the a nkle. LEFT LOWER EXTREMITY: The COMM[employer] ESTATE ASSISTANT, SFA, and profunda arteries are widely patent. The popliteal artery is widely patent. Infrapopliteal vessels are widely patent and there is good three-vessel runoff to the level of the a nkle. ANCILLARY FINDINGS: There is a 2 cm left parapelvic renal cyst as well as sub-centimeter hypodensities in the left kidne y which are too small to characterize, but likely represent cysts. There are surgical clips in the gallbladder fossa consistent with cholecystectomy. There is prominent stool throughout the colon. IMPRESSION: No acute dissection or aneurysm of the abdominal aorta. The arteries of the lower extremities are widely patent bilaterally with good three-vessel runoff to the level of the ankles. 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 Replaced common hepatic artery off the SMA. RPTAT: EE Edgar Aguirre Physician Date Time Electronically viewed and signed by Edgar Aguirre Physician on 08/11/2016 18:22 RA/
[2016-08-11 21:03] VITALS: BP 123/55; RESP 19
--- NOTE | 2016-08-11 23:51 | PN ---
Date/Time of Note Date/Time of Note DATE: 08/11/16 TIME: 23:50 Assessment/Plan VTE Prophylaxis VTE Prophylaxis Intervention: other Lines/Catheters IV [facility] Type ([facility] Peripheral IV Urinary Cath still in place: No Assessment/Plan Chief Complaint/Hosp Course 1. The patient has left foot cellulitis. 2. Peripheral vascular disease of the left lower extremity, rule out atheroembolization. 3. ITP history. s/p promacta 4. Leukocytosis. 5. Diabetes mellitus. 6. Hypertension history. plan iv heparin per vascular and oncology Problems: Subjective 24 Hr Interval Summary Cardiovascular: no complaints Musculoskeletal: bone/joint pain Exam/Review of Systems Vital Signs Vitals Vital Signs Date Time Temp Pulse Resp B/P Pulse Ox O2 Delivery O2 Flow Rate FiO2 08/11/16 21:03 98.5 85 19 123/55 98 08/09/16 19:10 Room Air Intake and Output 08/10/16 08/10/16 08/11/16 15:00 23:00 07:00 Intake Total 185.5 ml 1423 ml 677 ml Output Total 1500 ml 900 ml Balance 185.5 ml -77 ml -223 ml Exam Respiratory: clear to auscultation Cardiovascular: regular rate and rhythm Gastrointestinal: soft Extremities: cyanosis Results Result Diagram: 08/11/16 0520 08/11/16 0520 Results 24 hrs Laboratory Tests Test 08/11/16 00:10 08/11/16 02:37 08/11/16 05:20 08/11/16 07:46 Activated Partial Thromboplast Time 60.3 H 69.6 H Vancomycin Level Trough 7.2 L Bedside Glucose 147 170 White Blood Count 16.1 #H Red Blood Count 4.17 L Hemoglobin 12.4 Hematocrit 37.4 Mean Corpuscular Volume 89.7 Mean Corpuscular Hemoglobin 29.7 Mean Corpuscular Hemoglobin Concent 33.2 Red Cell Distribution Width 14.9 H Platelet Count 92 L Mean Platelet Volume 12.5 H Neutrophils % 44.6 Lymphocytes % 42.3 Monocytes % 11.5 H Eosinophils % 0.6 Basophils % 0.6 Nucleated Red Blood Cells % 0.1 H Neutrophils # 7.2 Lymphocytes # 6.8 H Monocytes # 1.9 H Eosinophils # 0.1 Basophils # 0.1 Nucleated Red Blood Cells # 0.0 Sodium Level 137 Potassium Level 4.0 Chloride Level 103 Carbon Dioxide Level 25 Anion Gap 13 Blood Urea Nitrogen 10 Creatinine 0.54 Glucose Level 188 Calcium Level 8.4 Total Bilirubin 0.4 Direct Bilirubin 0.00 Indirect Bilirubin 0.4 Aspartate Amino Transf (AST/SGOT) 27 Alanine Aminotransferase (ALT/SGPT) 31 Alkaline Phosphatase 84 Total Protein 6.2 Albumin 3.2 L Globulin 3.00 Albumin/Globulin Ratio 1.06 Test 08/11/16 12:09 08/11/16 12:30 08/11/16 16:51 08/11/16 20:56 Bedside Glucose 274 H 190 256 H Activated Partial Thromboplast Time 72.6 *H Medications Medications Current Medications Imipenem/ Cilastatin Sodium (Primaxin 500 Mg/ 100 ml (Pmx)) 100 ml @ 100 mls/ hr Q8 IVPB Last administered on 08/11/16 21:06; Admin Dose 100 MLS/HR; Start 08/09/16 at 22:30 Morphine Sulfate (morphine) 3 mg Q4H PRN IV PAIN LEVEL 7-10 Last administered on 08/11/16 00:47; Admin Dose 3 MG; Start 08/09/16 at 22:30 Diagnostic Test (Pha) (Accu-Chek) 1 ea 02 XX Last administered on 08/10/16 02: 18; Admin Dose 1 EA; Start 08/10/16 at 02:00 Miscellaneous Information 1 ea NOTE XX ; Start 08/09/16 at 22:45 Glucose (Glutose) 15 gm Q15M PRN PO DECREASED GLUCOSE; Start 08/09/16 at 22:45 Glucose (Glutose) 22.5 gm Q15M PRN PO DECREASED GLUCOSE; Start 08/09/16 at 22: 45 Dextrose (D50w Syringe) 25 ml Q15M PRN IV DECREASED GLUCOSE; Start 08/09/16 at 22:45 Dextrose (D50w Syringe) 50 ml Q15M PRN IV DECREASED GLUCOSE; Start 08/09/16 at 22:45 Glucagon (Glucagen) 1 mg Q15M PRN IM DECREASED GLUCOSE; Start 08/09/16 at 22:45 Glucose (Glutose) 15 gm Q15M PRN BUCCAL DECREASED GLUCOSE; Start 08/09/16 at 22 :45 Lisinopril (Zestril) 5 mg DAILY PO Last administered on 08/11/16 08:09; Admin Dose 5 MG; Start 08/10/16 at 09:00 Levothyroxine Sodium (Synthroid) 100 mcg DAILY@06 PO Last administered on 06:00; Admin Dose 100 MCG; Start 08/10/16 at 06:00 Metoprolol Tartrate 25 mg 25 mg BID PO Last administered on 08/11/16 21:06; Admin Dose 25 MG; Start 08/10/16 at 09:00 Vancomycin HCl/ Sodium Chloride (Vancocin/NS) 150 ml @ 75 mls/hr Q8H IVPB Last administered on 08/11/16 18:26; Admin Dose 75 MLS/HR; Start 08/11/16 at 11 :00 Miscellaneous Information (*Rx Drug Level Order Reminder*) VANCO TROUGH @ 1, 000 ON... ONCE ONCE XX ; Start 08/12/16 at 10:00; Stop 08/12/16 at 10:01 ERICA MARAVILLA MD Aug 11, 2016 23:51
[2016-08-12] MEDS: HEPARIN 25000 UNITS/250 ML 250 ML IV SCH ×2 (01:36→21:22)
[2016-08-12] MEDS: ACCU-CHEK XX SCH (02:08)
[2016-08-12] MEDS: VANCOMYCIN 750 MG in SOD CHLORIDE 0.9% 150 ML IVPB SCH (03:27)
[2016-08-12] MEDS: IMIPENEM-CILAST 500MG IV (PMX) 100 ML IVPB SCH ×3 (06:05→21:20)
[2016-08-12] MEDS: LEVOTHYROXINE 100 MCG TAB PO SCH (06:05)
[2016-08-12 07:50] VITALS: BP 139/64; RESP 16
[2016-08-12] MEDS: INSULIN ASPART [NOVOLOG] 3 ML PEN SC SCH ×4 (08:00→21:23)
[2016-08-12 08:10] LABS: ADD SCAN DIFF NO
[2016-08-12 08:23] LABS: ABNORMAL IP MESSAGE 1; BASOPHIL # 0.1 10^3/ul (0.0-0.1); BASOPHILS % 0.6 % (0.0-2.0); EOSINOPHILS # 0.1 10^3/ul (0.0-0.5); EOSINOPHILS % 0.5 % (0.0-7.0); HEMATOCRIT 40.2 % (37.0-47.0); HEMOGLOBIN 13.2 g/dl (12.0-16.0); LYMPHOCYTES # 6.7 10^3/ul (0.8-2.9); LYMPHOCYTES % 43.5 % (15.0-51.0); MEAN CORPUSCULAR HEMOGLOBIN 29.3 pg (29.0-33.0); MEAN CORPUSCULAR HGB CONC 32.8 g/dl (32.0-37.0); MEAN CORPUSCULAR VOLUME 89.1 fl (82.0-101.0); MEAN PLATELET VOLUME 13.1 fl (7.4-10.4); MONOCYTE # 1.7 10^3/ul (0.3-0.9); MONOCYTES % 11.3 % (0.0-11.0); NEUTROPHIL # 6.7 10^3/ul (1.6-7.5); NEUTROPHILS % 43.8 % (39.0-77.0); NUCLEATED RED BLOOD CELLS% 0.1 /100WBC (0.0-0.0); PLATELET COUNT 81 10^3/UL (140-415); RED BLOOD COUNT 4.51 10^6/ul (4.20-5.40); RED CELL DISTRIBUTION WIDTH 14.9 % (11.5-14.5); WHITE BLOOD COUNT 15.3 10^3/ul (4.8-10.8)
[2016-08-12 08:37] LABS: ALBUMIN 3.5 g/dl (3.3-4.9)
[2016-08-12 08:38] LABS: POTASSIUM 3.7 mmol/L (3.5-5.1)
[2016-08-12 08:40] LABS: BILIRUBIN,INDIRECT 0.4 mg/dl (0-1.1); BILIRUBIN,TOTAL 0.4 mg/dl (0.2-1.3); CREATININE 0.53 mg/dl (0.44-1.00)
[2016-08-12 08:41] LABS: CALCIUM 8.8 mg/dl (8.4-10.2)
[2016-08-12] MEDS ORDERED: ASPIRIN 81 MG TAB PO SCH (09:00)
[2016-08-12] MEDS: METOPROLOL 25 MG TAB PO SCH ×2 (09:03→21:20)
[2016-08-12] MEDS: LISINOPRIL 5 MG TAB PO SCH (09:03)
[2016-08-12] MEDS: INSULIN GLARGINE [LANtus] 3 ML PEN SC SCH (09:04)
[2016-08-12] MEDS: ASPIRIN (EC) 325 MG TAB PO SCH (09:06)
--- NOTE | 2016-08-12 13:36 | CONS ---
Date/Time of Note Date/Time of Note DATE: 08/12/16 TIME: 13:32 Assessment/Plan Assessment/Plan Chief Complaint/Hosp Course 64yo with # Ischemia to Bilateral feet and toes - this is likely secondary to the rapid increase in platelet count from the promacta -hold promacta for now -continue heparin drip for now. will try to keep platelets > 50K while on heparin gtt to prevent spontaneous bleed -full dose asa 325 started - angiography reveals arteries of the lower extremities are widely patent bilaterally with good three-vessel runoff to the level of the ankles. will speak wt vascular as to whether any intervention would be needed but this is unlikely # Left and Right foot Cellulitis -continue with broad spectrum antibiotics including vancomycin and primaxin. 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 Her baseline WBC count is 10-11 -no intervention to be done for this condition at this time -the higher wbc count at this time is secondary to her cellulitis -will continue to monitor her WBC count while on antibiotics Approximately 40 min were spent at patient's bedside and in coordination of her care Problems: Consultation Date/Type/Reason Admit Date/Time Aug 09, 2016 at 15:56 Initial Consult Date 08/10/16 Type of Consultation: Hematology Reason for Consultation ITP/ coagulopathy Referring Provider: ERICA MARAVILLA MD 24 HR Interval Summary Free Text/Dictation pt still with L> R foot pain. not able to bear weight. swelling has improved Exam/Review of Systems Vital Signs Vitals Vital Signs Date Time Temp Pulse Resp B/P Pulse Ox O2 Delivery O2 Flow Rate FiO2 08/12/16 07:50 98.6 78 16 139/64 96 08/09/16 19:10 Room Air Intake and Output 08/11/16 08/11/16 08/12/16 15:00 23:00 07:00 Intake Total 482 ml 730 ml Balance 482 ml 730 ml Exam Constitutional: alert Psych: nl mood/affect, no complaints Head: normocephalic Eyes: nl conjunctiva ENMT: nl external ears & nose Neck: non-tender, supple Respiratory: clear to auscultation, normal air movement Cardiovascular: regular rate and rhythm Gastrointestinal: soft Musculoskeletal: other (L foot swelling, still with blue toes worse at 3rd digit) Extremities: normal pulses Results Result Diagram: 08/12/16 0725 08/12/16 0725 Results 24 hrs Laboratory Tests Test 08/11/16 16:51 08/11/16 20:56 08/12/16 02:07 08/12/16 07:25 Bedside Glucose 190 256 H 158 White Blood Count 15.3 H Red Blood Count 4.51 Hemoglobin 13.2 Hematocrit 40.2 Mean Corpuscular Volume 89.1 Mean Corpuscular Hemoglobin 29.3 Mean Corpuscular Hemoglobin Concent 32.8 Red Cell Distribution Width 14.9 H Platelet Count 81 L Mean Platelet Volume 13.1 H Neutrophils % 43.8 Lymphocytes % 43.5 Monocytes % 11.3 H Eosinophils % 0.5 Basophils % 0.6 Nucleated Red Blood Cells % 0.1 H Neutrophils # 6.7 Lymphocytes # 6.7 H Monocytes # 1.7 H Eosinophils # 0.1 Basophils # 0.1 Nucleated Red Blood Cells # 0.0 Activated Partial Thromboplast Time 67.1 H Sodium Level 138 Potassium Level 3.7 Chloride Level 104 Carbon Dioxide Level 27 Anion Gap 11 Blood Urea Nitrogen 7 Creatinine 0.53 Glucose Level 150 Calcium Level 8.8 Total Bilirubin 0.4 Direct Bilirubin 0.00 Indirect Bilirubin 0.4 Aspartate Amino Transf (AST/SGOT) 27 Alanine Aminotransferase (ALT/SGPT) 35 Alkaline Phosphatase 89 Total Protein 7.0 Albumin 3.5 Globulin 3.50 H Albumin/Globulin Ratio 1.00 Test 08/12/16 07:59 08/12/16 10:00 08/12/16 11:42 Bedside Glucose 135 279 H Vancomycin Level Trough 15.3 Medications Medications Current Medications Imipenem/ Cilastatin Sodium (Primaxin 500 Mg/ 100 ml (Pmx)) 100 ml @ 100 mls/ hr Q8 IVPB Last administered on 08/12/16 06:05; Admin Dose 100 MLS/HR; Start 08/09/16 at 22:30 Morphine Sulfate (morphine) 3 mg Q4H PRN IV PAIN LEVEL 7-10 Last administered on 08/11/16 00:47; Admin Dose 3 MG; Start 08/09/16 at 22:30 Diagnostic Test (Pha) (Accu-Chek) 1 02 XX Last administered on 08/12/16 02: 08; Admin Dose 1 EA; Start 08/10/16 at 02:00 Miscellaneous Information 1 ea NOTE XX ; Start 08/09/16 at 22:45 Glucose (Glutose) 15 gm Q15M PRN PO DECREASED GLUCOSE; Start 08/09/16 at 22:45 Glucose (Glutose) 22.5 gm Q15M PRN PO DECREASED GLUCOSE; Start 08/09/16 at 22: 45 Dextrose (D50w Syringe) 25 ml Q15M PRN IV DECREASED GLUCOSE; Start 08/09/16 at 22:45 Dextrose (D50w Syringe) 50 ml Q15M PRN IV DECREASED GLUCOSE; Start 08/09/16 at 22:45 Glucagon (Glucagen) 1 mg Q15M PRN IM DECREASED GLUCOSE; Start 08/09/16 at 22:45 Glucose (Glutose) 15 gm Q15M PRN BUCCAL DECREASED GLUCOSE; Start 08/09/16 at 22 :45 Lisinopril (Zestril) 5 mg DAILY PO Last administered on 08/12/16 09:03; Admin Dose 5 MG; Start 08/10/16 at 09:00 Levothyroxine Sodium (Synthroid) 100 mcg DAILY@06 PO Last administered on 06:05; Admin Dose 100 MCG; Start 08/10/16 at 06:00 Metoprolol Tartrate (Lopressor) 25 mg BID PO Last administered on 08/12/16 09: 03; Admin Dose 25 MG; Start 08/10/16 at 09:00 Insulin Glargine (Lantus) 45 unit DAILY SC Last administered on 08/12/16 09:04 ; Admin Dose 45 UNIT; Start 08/12/16 at 09:00 Aspirin 325 mg 325 mg DAILY PO Last administered on 08/12/16 09:06; Admin Dose 325 MG; Start 08/12/16 at 09:00 Vancomycin HCl (Vancocin) 100 ml @ 100 mls/hr Q8 IVPB ; Start 08/12/16 at 14:00 MILADY FONG M.D. Aug 12, 2016 13:36
--- NOTE | 2016-08-12 14:58 | PN ---
Date/Time of Note Date/Time of Note DATE: 08/12/16 TIME: 14:56 Assessment/Plan VTE Prophylaxis VTE Prophylaxis Intervention: ambulation, LMWH Lines/Catheters [facility] Type (from [facility] Peripheral IV Urinary Cath still in place: No Assessment/Plan Chief Complaint/Hosp Course 1. PVD of the left lower extremity, rule out atheroembolization. 2. COPD 3.. The patient has left foot cellulitis. 4. ITP history. Currently the patient's platelet count is 145. 5. Leukocytosis. 6. Diabetes mellitus. 7. Hypertension history. Problems: Assessment/Plan 1. Continue a/b 2. VAscular abnormalities mild Subjective 24 Hr Interval Summary Subjective hx not possible: other (pt speaking language is do not undersatnad, sign language involved) Musculoskeletal: bone/joint pain Exam/Review of Systems Vital Signs Vitals Vital Signs Date Time Temp Pulse Resp B/P Pulse Ox O2 Delivery O2 Flow Rate FiO2 08/12/16 07:50 98.6 78 16 139/64 96 08/09/16 19:10 Room Air Intake and Output 08/11/16 08/11/16 08/12/16 15:00 23:00 07:00 Intake Total 482 ml 730 ml Balance 482 ml 730 ml Exam Constitutional: alert, oriented, well developed Psych: nl mood/affect Head: normocephalic Eyes: nl conjunctiva ENMT: nl external ears & nose Neck: supple Respiratory: clear to auscultation Cardiovascular: regular rate and rhythm Gastrointestinal: soft Musculoskeletal: muscle weakness Results Result Diagram: 08/12/16 0725 08/12/16 0725 Results 24 hrs Laboratory Tests Test 08/11/16 16:51 08/11/16 20:56 08/12/16 02:07 08/12/16 07:25 Bedside Glucose 190 256 H 158 White Blood Count 15.3 H Red Blood Count 4.51 Hemoglobin 13.2 Hematocrit 40.2 Mean Corpuscular Volume 89.1 Mean Corpuscular Hemoglobin 29.3 Mean Corpuscular Hemoglobin Concent 32.8 Red Cell Distribution Width 14.9 H Platelet Count 81 L Mean Platelet Volume 13.1 H Neutrophils % 43.8 Lymphocytes % 43.5 Monocytes % 11.3 H Eosinophils % 0.5 Basophils % 0.6 Nucleated Red Blood Cells % 0.1 H Neutrophils # 6.7 Lymphocytes # 6.7 H Monocytes # 1.7 H Eosinophils # 0.1 Basophils # 0.1 Nucleated Red Blood Cells # 0.0 Activated Partial Thromboplast Time 67.1 H Sodium Level 138 Potassium Level 3.7 Chloride Level 104 Carbon Dioxide Level 27 Anion Gap 11 Blood Urea Nitrogen 7 Creatinine 0.53 Glucose Level 150 Calcium Level 8.8 Total Bilirubin 0.4 Direct Bilirubin 0.00 Indirect Bilirubin 0.4 Aspartate Amino Transf (AST/SGOT) 27 Alanine Aminotransferase (ALT/SGPT) 35 Alkaline Phosphatase 89 Total Protein 7.0 Albumin 3.5 Globulin 3.50 H Albumin/Globulin Ratio 1.00 Test 08/12/16 07:59 08/12/16 10:00 08/12/16 11:42 Bedside Glucose 135 279 H Vancomycin Level Trough 15.3 Medications Medications Current Medications Imipenem/ Cilastatin Sodium (Primaxin 500 Mg/ 100 ml (Pmx)) 100 ml @ 100 mls/ hr Q8 IVPB Last administered on 08/12/16 14:23; Admin Dose 100 MLS/HR; Start 08/09/16 at 22:30 Morphine Sulfate (morphine) 3 mg Q4H PRN IV PAIN LEVEL 7-10 Last administered on 08/11/16 00:47; Admin Dose 3 MG; Start 08/09/16 at 22:30 Diagnostic Test (Pha) (Accu-Chek) 1 ea 02 XX Last administered on 08/12/16 02: 08; Admin Dose 1 EA; Start 08/10/16 at 02:00 Miscellaneous Information 1 ea NOTE XX ; Start 08/09/16 at 22:45 Glucose (Glutose) 15 gm Q15M PRN PO DECREASED GLUCOSE; Start 08/09/16 at 22:45 Glucose (Glutose) 22.5 gm Q15M PRN PO DECREASED GLUCOSE; Start 08/09/16 at 22: 45 Dextrose (D50w Syringe) 25 ml Q15M PRN IV DECREASED GLUCOSE; Start 08/09/16 at 22:45 Dextrose (D50w Syringe) 50 ml Q15M PRN IV DECREASED GLUCOSE; Start 08/09/16 at 22:45 Glucagon (Glucagen) 1 mg Q15M PRN IM DECREASED GLUCOSE; Start 08/09/16 at 22:45 Glucose (Glutose) 15 gm Q15M PRN BUCCAL DECREASED GLUCOSE; Start 08/09/16 at 22 :45 Lisinopril (Zestril) 5 mg DAILY PO Last administered on 08/12/16 09:03; Admin Dose 5 MG; Start 08/10/16 at 09:00 Levothyroxine Sodium (Synthroid) 100 mcg DAILY@06 PO Last administered on 06:05; Admin Dose 100 MCG; Start 08/10/16 at 06:00 Metoprolol Tartrate (Lopressor) 25 mg BID PO Last administered on 08/12/16 09: 03; Admin Dose 25 MG; Start 08/10/16 at 09:00 Insulin Glargine (Lantus) 45 unit DAILY SC Last administered on 08/12/16 09:04 ; Admin Dose 45 UNIT; Start 08/12/16 at 09:00 Aspirin 325 mg 325 mg DAILY PO Last administered on 08/12/16 09:06; Admin Dose 325 MG; Start 08/12/16 at 09:00 Vancomycin HCl (Vancocin) 100 ml @ 100 mls/hr Q8 IVPB ; Start 08/12/16 at 14:00 BRANDON GREGORY Aug 12, 2016 14:58
--- NOTE | 2016-08-12 16:01 | CONS ---
DATE OF ADMISSION: 08/09/2016 DATE OF CONSULTATION: 08/12/2016 TYPE OF CONSULTATION: Infectious Disease. REASON FOR CONSULTATION: Antibiotic management. HISTORY OF PRESENT ILLNESS: The patient is a 66-year-old female who has a history of ITP and was on steroids for several weeks. She now presents with blackened tips of her toes x4 days. As noted, t he patient was on steroids for several weeks and was switched to a new medication. Over the last se veral days, she noted that 2 of her toes on her left foot began to turn black with redness and pain. One of her toes on her right foot is now starting to turn black and painful. She denies trauma. She therefore was admitted to the hospital. She is an adult onset diabetic on insulin. SHE IS ALLERGIC TO PENICILLIN. On admission, her white count was 13.3, H and H of 15.4 and 47.7, platelet count 145,000. BUN and creatinine 12 and 0.61. Patient was seen in consultation by Dr. Carrington , who noted thrombosis of bilateral feet and toes, probably secondary to rapid increase in platelet count from the Promacta that she was on. She was placed on heparin drip to try to keep platelets greate r than 50,000. Left and right foot cellulitis, started on vancomycin and Primaxin. This foot swell ing is already improved. Leukocytosis: The patient had a bone marrow biopsy proven monoclonal beta cell lymphocytosis or increased CLL. Her white count is 10 to 11. Her elevated white count is sec ondary to cellulitis. PAST MEDICAL HISTORY: Operations as outlined. FAMILY HISTORY: Noncontributory. She as noted is diabetic, hypertension and she also has osteoporosis. SOCIAL HISTORY: She does not smoke, drink or abuse drugs. ALLERGIES: NONE TO PENICILLIN, SULFA OR FOODS. MEDICATIONS: Per chart. REVIEW OF SYSTEMS: As per HPI. PHYSICAL EXAMINATION: GENERAL: The patient is a well-developed, well-nourished female, alert, responsive, in no acute dis tress. VITAL SIGNS: Stable. She is afebrile. SKIN: Without generalized rash. HEENT: Within normal limits. NECK: Supple. LYMPH NODES: None palpable. CHEST: Decreased breath sounds at the bases. HEART: Without murmur or gallop. ABDOMEN: Soft, nontender, without organosplenomegaly or masses. EXTREMITIES: As noted, gangrenous changes of the feet, left greater than right. RECTAL AND GENITAL: Deferred. NEUROLOGIC: No focal neurological abnormalities. HOSPITAL COURSE: The patient was seen by Dr. Green, vascular surgery. 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 The medication for the ITP as noted by Dr. Carrington seems to be the major cause. On August 11 her white count was still 16.1 and on August 12, she is aga in seen by oncology. She continued to have left foot cellulitis. White count is 15.3. IMPRESSION AND PLAN: The patient is currently on vancomycin and imipenem. Primary cause is not inf ectious, but she has cellulitis related to the gangrenous changes. We will continue her on vancomyc in and imipenem. I will dictate my findings to Dr. Carrington, Dr. Hennessy, Dr. Green and ____ . Dictated By: PA DE LA TORRE MD, JD/DYLAN Conf#: [id number] DID#: [id number]
[2016-08-12] MEDS: VANCOMYCIN 500MG/NS (PMX) 100 ML IVPB SCH ×2 (16:43→21:20)
[2016-08-12] MEDS ORDERED: WARFARIN 5 MG TAB PO SCH (20:00)
[2016-08-13] MEDS: ACCU-CHEK XX SCH (01:41)
[2016-08-13] MEDS: VANCOMYCIN 500MG/NS (PMX) 100 ML IVPB SCH ×2 (04:30→15:57)
[2016-08-13] MEDS: LEVOTHYROXINE 100 MCG TAB PO SCH (04:35)
[2016-08-13] MEDS: IMIPENEM-CILAST 500MG IV (PMX) 100 ML IVPB SCH ×2 (04:35→14:09)
[2016-08-13 07:38] LABS: ADD SCAN DIFF NO
[2016-08-13 07:43] LABS: ABNORMAL IP MESSAGE 1; BASOPHIL # 0.1 10^3/ul (0.0-0.1); BASOPHILS % 0.5 % (0.0-2.0); EOSINOPHILS # 0.1 10^3/ul (0.0-0.5); EOSINOPHILS % 0.5 % (0.0-7.0); HEMATOCRIT 37.8 % (37.0-47.0); HEMOGLOBIN 12.4 g/dl (12.0-16.0); LYMPHOCYTES # 4.5 10^3/ul (0.8-2.9); LYMPHOCYTES % 33.6 % (15.0-51.0); MEAN CORPUSCULAR HEMOGLOBIN 29.4 pg (29.0-33.0); MEAN CORPUSCULAR HGB CONC 32.8 g/dl (32.0-37.0); MEAN CORPUSCULAR VOLUME 89.6 fl (82.0-101.0); MEAN PLATELET VOLUME 12.4 fl (7.4-10.4); MONOCYTE # 1.7 10^3/ul (0.3-0.9); MONOCYTES % 13.1 % (0.0-11.0); NEUTROPHIL # 6.9 10^3/ul (1.6-7.5); NEUTROPHILS % 51.7 % (39.0-77.0); NUCLEATED RED BLOOD CELLS% 0.2 /100WBC (0.0-0.0); PLATELET COUNT 50 10^3/UL (140-415); RED BLOOD COUNT 4.22 10^6/ul (4.20-5.40); RED CELL DISTRIBUTION WIDTH 15.1 % (11.5-14.5); WHITE BLOOD COUNT 13.3 10^3/ul (4.8-10.8)
[2016-08-13 07:45] VITALS: BP 134/62; RESP 16
[2016-08-13 07:53] LABS: INR 1.03; PROTIME 13.5 Sec (12.2-14.2); PT RATIO 1.1
[2016-08-13] MEDS: LISINOPRIL 5 MG TAB PO SCH (08:33)
--- NOTE | 2016-08-13 08:33 | PN ---
Date/Time of Note Date/Time of Note DATE: 08/13/16 TIME: 08:32 Assessment/Plan Lines/Catheters IV Catheter Type (from [facility]): Peripheral IV Echols in Place (from [facility]): No Assessment/Plan Chief Complaint/Hosp Course -Bilateral lower extremity atherosclerosis and blue toe syndrome. It seems that the patient may have multiple differentials that can be causing the new findings. With patient's history of ITP and her new medication can be one cause. As far cardiac source - echo was negative and no significant atherosclerotic aortoiliac disease identified on CT Angiography of abdomen and pelvis. 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 -Recommend anticoagulation for now 3-6months and will repeat CTA as outpatient in few weeks. -Recommend hypercoagulable workup as the patient reports some history of being told when she was younger that she may had thrombotic syndrome in addition to ITP -Appreciate hematology feedback and evaluation. -No vascular intervention needed at this time will continue to follow her progress -Would recommend for the patient to be placed on antiplatelets ASA 81mg when feasible. -Optimize vascular status (BP meds, diet, nutrition, exercise, sugar control, antiplatelets). -Discussed the findings, plan and management with the patient's family at the bedside and they understand. -Thank you for allowing us to partake in the care of your patient. Please call with any questions. Problems: Subjective 24 Hr Interval Summary no new vascular events overnight. toe pain improved Exam/Review of Systems Vital Signs Vitals Vital Signs Date Time Temp Pulse Resp B/P Pulse Ox O2 Delivery O2 Flow Rate FiO2 08/13/16 07:45 98.3 77 16 134/62 98 08/09/16 19:10 Room Air Intake and Output 08/12/16 08/12/16 08/13/16 15:00 23:00 07:00 Intake Total 48 ml 1500 ml 1080 ml Balance 48 ml 1500 ml 1080 ml Exam Free Text/Dictation GENERAL: Alert and oriented x3, PULMONARY: Clear to auscultation bilaterally CARDIOVASCULAR: S1, S2 present. ABDOMEN: Soft, nontender, nondistended. Bowel sounds positive. EXTREMITIES: Right lower extremity a palpable femoral pulse, palpable pedal pulse. Motor and sensory intact. Cap refill of 3 to 4 seconds. Edema of 1+. Right 4th toe has bluish purple discoloration - seems somewhat improved. Left lower extremity palpable femoral pulse, palpable pedal pulse. Motor and sensory intact. Cap refill of 3 to 4 seconds. Edema of 1 to 2+ and has 3rd and 4th toe blue/purplish discoloration - seems somewhat improved. Results Result Diagram: 08/13/16 0552 08/12/16 0725 JAZMIN HERRON MD Aug 13, 2016 08:33
[2016-08-13] MEDS: METOPROLOL 25 MG TAB PO SCH ×2 (08:34→20:49)
[2016-08-13] MEDS: ASPIRIN (EC) 325 MG TAB PO SCH (08:34)
[2016-08-13] MEDS: INSULIN ASPART [NOVOLOG] 3 ML PEN SC SCH ×4 (08:35→20:50)
[2016-08-13] MEDS: INSULIN GLARGINE [LANtus] 3 ML PEN SC SCH (08:36)
[2016-08-13 08:57] LABS: POTASSIUM 3.7 mmol/L (3.5-5.1)
[2016-08-13 09:00] LABS: CREATININE 0.53 mg/dl (0.44-1.00)
[2016-08-13 09:01] LABS: CALCIUM 8.7 mg/dl (8.4-10.2)
[2016-08-13] MEDS: HEPARIN 25000 UNITS/250 ML 250 ML IV SCH (10:53)
--- NOTE | 2016-08-13 14:30 | CONS ---
Date/Time of Note Date/Time of Note DATE: 08/13/16 TIME: 14:28 Assessment/Plan Assessment/Plan Chief Complaint/Hosp Course 64yo with # Ischemia to Bilateral feet and toes - this is likely secondary to the rapid increase in platelet count from the promacta -hold promacta for now -given platelets have falledn to 50K will hold coumadin for now but will continue with baby asa 81 -angiography reveals arteries of the lower extremities are widely patent bilaterally with good three-vessel runoff to the level of the ankles. will speak wt vascular as to whether any intervention would be needed but this is unlikely -hypercoag workup ordered # Left and Right foot Cellulitis -continue with broad spectrum antibiotics including vancomycin and primaxin. 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 Her baseline WBC count is 10-11 -no intervention to be done for this condition at this time -the higher wbc count at this time is secondary to her cellulitis -will continue to monitor her WBC count while on antibiotics Approximately 40 min were spent at patient's bedside and in coordination of her care Problems: Consultation Date/Type/Reason Admit Date/Time Aug 09, 2016 at 15:56 Initial Consult Date 08/10/16 Type of Consultation: Hematology Reason for Consultation ITP, ischemic digits Referring Provider: ERICA MARAVILLA MD 24 HR Interval Summary Free Text/Dictation pt's L foot pain has greatly improved. swelling has decreased. platelets did drop to 50K. no overt signs of bleeding Exam/Review of Systems Vital Signs Vitals Vital Signs Date Time Temp Pulse Resp B/P Pulse Ox O2 Delivery O2 Flow Rate FiO2 08/13/16 07:45 98.3 77 16 134/62 98 08/09/16 19:10 Room Air Intake and Output 08/12/16 08/12/16 08/13/16 15:00 23:00 07:00 Intake Total 48 ml 1500 ml 1080 ml Balance 48 ml 1500 ml 1080 ml Exam Constitutional: alert, oriented Psych: no complaints Head: normocephalic Eyes: nl conjunctiva ENMT: nl external ears & nose Neck: non-tender, supple Respiratory: clear to auscultation Cardiovascular: regular rate and rhythm Gastrointestinal: soft Musculoskeletal: nl extremities to inspection Extremities: other (L foot swelling has improved, still with cyanotic 3rd digit. less pain) Results Result Diagram: 08/13/16 0552 08/13/16 0552 Results 24 hrs Laboratory Tests Test 08/12/16 16:25 08/12/16 16:47 08/12/16 21:18 08/12/16 23:19 Activated Partial Thromboplast Time 64.0 H 72.8 *H Bedside Glucose 163 224 H Test 08/13/16 05:52 08/13/16 07:51 08/13/16 11:56 White Blood Count 13.3 H Red Blood Count 4.22 Hemoglobin 12.4 Hematocrit 37.8 Mean Corpuscular Volume 89.6 Mean Corpuscular Hemoglobin 29.4 Mean Corpuscular Hemoglobin Concent 32.8 Red Cell Distribution Width 15.1 H Platelet Count 50 #L Mean Platelet Volume 12.4 H Neutrophils % 51.7 Lymphocytes % 33.6 Monocytes % 13.1 H Eosinophils % 0.5 Basophils % 0.5 Nucleated Red Blood Cells % 0.2 H Neutrophils # 6.9 Lymphocytes # 4.5 H Monocytes # 1.7 H Eosinophils # 0.1 Basophils # 0.1 Nucleated Red Blood Cells # 0.0 Prothrombin Time 13.5 Prothrombin Time Ratio 1.1 INR International Normalized Ratio 1.03 Activated Partial Thromboplast Time 105.0 *H Sodium Level 138 Potassium Level 3.7 Chloride Level 107 Carbon Dioxide Level 23 Anion Gap 12 Blood Urea Nitrogen 9 Creatinine 0.53 Glucose Level 165 Calcium Level 8.7 Bedside Glucose 165 240 H Medications Medications Current Medications Imipenem/ Cilastatin Sodium (Primaxin 500 Mg/ 100 ml (Pmx)) 100 ml @ 100 mls/ hr Q8 IVPB Last administered on 08/13/16 14:09; Admin Dose 100 MLS/HR; Start at 22:30 Morphine Sulfate (morphine) 3 mg Q4H PRN IV PAIN LEVEL 7-10 Last administered on 08/11/16 00:47; Admin Dose 3 MG; Start 08/09/16 at 22:30 Diagnostic Test (Pha) (Accu-Chek) 1 ea 02 XX Last administered on 08/12/16 02: 08; Admin Dose 1 EA; Start 08/10/16 at 02:00 Miscellaneous Information 1 ea NOTE XX ; Start 08/09/16 at 22:45 Glucose (Glutose) 15 gm Q15M PRN PO DECREASED GLUCOSE; Start 08/09/16 at 22:45 Glucose (Glutose) 22.5 gm Q15M PRN PO DECREASED GLUCOSE; Start 08/09/16 at 22: 45 Dextrose (D50w Syringe) 25 ml Q15M PRN IV DECREASED GLUCOSE; Start 08/09/16 at 22:45 Dextrose (D50w Syringe) 50 ml Q15M PRN IV DECREASED GLUCOSE; Start 08/09/16 at 22:45 Glucagon (Glucagen) 1 mg Q15M PRN IM DECREASED GLUCOSE; Start 08/09/16 at 22:45 Glucose (Glutose) 15 gm Q15M PRN BUCCAL DECREASED GLUCOSE; Start 08/09/16 at 22 :45 Lisinopril (Zestril) 5 mg DAILY PO Last administered on 08/13/16 08:33; Admin Dose 5 MG; Start 08/10/16 at 09:00 Levothyroxine Sodium (Synthroid) 100 mcg DAILY@06 PO Last administered on 04:35; Admin Dose 100 MCG; Start 08/10/16 at 06:00 Metoprolol Tartrate (Lopressor) 25 mg BID PO Last administered on 08/13/16 08: 34; Admin Dose 25 MG; Start 08/10/16 at 09:00 Insulin Glargine 45 unit 45 unit DAILY SC Last administered on 08/13/16 08:36; Admin Dose 45 UNIT; Start 08/12/16 at 09:00 Vancomycin HCl (Vancocin) 100 ml @ 100 mls/hr Q8 IVPB Last administered on 08/13 04:30; Admin Dose 100 MLS/HR; Start 08/12/16 at 14:00 Warfarin Sodium (Coumadin) 5 mg DAILY@17 PO Last administered on 08/12/16 21: 14; Admin Dose 5 MG; Start 08/12/16 at 20:00; Status Future Hold Aspirin (Aspirin) 81 mg DAILY PO ; Start 08/14/16 at 09:00 MILADY FONG M.D. Aug 13, 2016 14:30
--- NOTE | 2016-08-13 14:55 | PN ---
Date/Time of Note Date/Time of Note DATE: 08/13/16 TIME: 14:54 Assessment/Plan VTE Prophylaxis VTE Prophylaxis Intervention: ambulation Lines/Catheters IV C[facility] Type (from [facility]): Peripheral IV Urinary Cath still in place: No Assessment/Plan Chief Complaint/Hosp Course 1. PVD of the left lower extremity, rule out atheroembolization. 2. COPD 3.. The patient has left foot cellulitis. 4. ITP history. Currently the patient's platelet count is 145. 5. Leukocytosis. 6. Diabetes mellitus. 7. Hypertension history. Problems: Assessment/Plan 1. Continue coumadin 7 mg by mouth f for 3 days to have therapeutic PT Subjective 24 Hr Interval Summary Constitutional: no complaints Eyes: no complaints ENT: no complaints Respiratory: no complaints Cardiovascular: no complaints Exam/Review of Systems Vital Signs Vitals Vital Signs Date Time Temp Pulse Resp B/P Pulse Ox O2 Delivery O2 Flow Rate FiO2 08/13/16 07:45 98.3 77 16 134/62 98 08/09/16 19:10 Room Air Intake and Output 08/12/16 08/12/16 08/13/16 15:00 23:00 07:00 Intake Total 48 ml 1500 ml 1080 ml Balance 48 ml 1500 ml 1080 ml Exam Constitutional: alert, oriented, well developed Psych: nl mood/affect, no complaints Head: normocephalic Eyes: nl conjunctiva ENMT: nl external ears & nose Neck: supple Respiratory: clear to auscultation Cardiovascular: regular rate and rhythm Results Result Diagram: 08/13/16 0552 08/13/16 0552 Results 24 hrs Laboratory Tests Test 08/12/16 16:25 08/12/16 16:47 08/12/16 21:18 08/12/16 23:19 Activated Partial Thromboplast Time 64.0 H 72.8 *H Bedside Glucose 163 224 H Test 08/13/16 05:52 08/13/16 07:51 08/13/16 11:56 White Blood Count 13.3 H Red Blood Count 4.22 Hemoglobin 12.4 Hematocrit 37.8 Mean Corpuscular Volume 89.6 Mean Corpuscular Hemoglobin 29.4 Mean Corpuscular Hemoglobin Concent 32.8 Red Cell Distribution Width 15.1 H Platelet Count 50 #L Mean Platelet Volume 12.4 H Neutrophils % 51.7 Lymphocytes % 33.6 Monocytes % 13.1 H Eosinophils % 0.5 Basophils % 0.5 Nucleated Red Blood Cells % 0.2 H Neutrophils # 6.9 Lymphocytes # 4.5 H Monocytes # 1.7 H Eosinophils # 0.1 Basophils # 0.1 Nucleated Red Blood Cells # 0.0 Prothrombin Time 13.5 Prothrombin Time Ratio 1.1 INR International Normalized Ratio 1.03 Activated Partial Thromboplast Time 105.0 *H Sodium Level 138 Potassium Level 3.7 Chloride Level 107 Carbon Dioxide Level 23 Anion Gap 12 Blood Urea Nitrogen 9 Creatinine 0.53 Glucose Level 165 Calcium Level 8.7 Bedside Glucose 165 240 H Medications Medications Current Medications Imipenem/ Cilastatin Sodium (Primaxin 500 Mg/ 100 ml (Pmx)) 100 ml @ 100 mls/ hr Q8 IVPB Last administered on 08/13/16 14:09; Admin Dose 100 MLS/HR; Start at 22:30 Morphine Sulfate (morphine) 3 mg Q4H PRN IV PAIN LEVEL 7-10 Last administered on 08/11/16 00:47; Admin Dose 3 MG; Start 08/09/16 at 22:30 Diagnostic Test (Pha) (Accu-Chek) 1 ea 02 XX Last administered on 08/12/16 02: 08; Admin Dose 1 EA; Start 08/10/16 at 02:00 Miscellaneous Information 1 ea NOTE XX ; Start 08/09/16 at 22:45 Glucose (Glutose) 15 gm Q15M PRN PO DECREASED GLUCOSE; Start 08/09/16 at 22:45 Glucose (Glutose) 22.5 gm Q15M PRN PO DECREASED GLUCOSE; Start 08/09/16 at 22: 45 Dextrose (D50w Syringe) 25 ml Q15M PRN IV DECREASED GLUCOSE; Start 08/09/16 at 22:45 Dextrose (D50w Syringe) 50 ml Q15M PRN IV DECREASED GLUCOSE; Start 08/09/16 at 22:45 Glucagon (Glucagen) 1 mg Q15M PRN IM DECREASED GLUCOSE; Start 08/09/16 at 22:45 Glucose (Glutose) 15 gm Q15M PRN BUCCAL DECREASED GLUCOSE; Start 08/09/16 at 22 :45 Lisinopril (Zestril) 5 mg DAILY PO Last administered on 08/13/16 08:33; Admin Dose 5 MG; Start 08/10/16 at 09:00 Levothyroxine Sodium (Synthroid) 100 mcg DAILY@06 PO Last administered on 04:35; Admin Dose 100 MCG; Start 08/10/16 at 06:00 Metoprolol Tartrate (Lopressor) 25 mg BID PO Last administered on 08/13/16 08: 34; Admin Dose 25 MG; Start 08/10/16 at 09:00 Insulin Glargine 45 unit 45 unit DAILY SC Last administered on 08/13/16 08:36; Admin Dose 45 UNIT; Start 08/12/16 at 09:00 Vancomycin HCl (Vancocin) 100 ml @ 100 mls/hr Q8 IVPB Last administered on 08/13 04:30; Admin Dose 100 MLS/HR; Start 08/12/16 at 14:00 Warfarin Sodium (Coumadin) 5 mg DAILY@17 PO Last administered on 08/12/16 21: 14; Admin Dose 5 MG; Start 08/12/16 at 20:00; Status Future Hold Aspirin (Aspirin) 81 mg DAILY PO ; Start 08/14/16 at 09:00 Miscellaneous Information (*Rx Drug Level Order Reminder*) VANCOMYCIN TROUGH 08/13 AT 2100 ONCE ONCE XX ; Start 08/13/16 at 21:00; Stop 08/13/16 at 21:01 BRANDON GREGORY Aug 13, 2016 14:55
[2016-08-13 20:55] VITALS: BP 134/60; RESP 20
[2016-08-14] MEDS: ACCU-CHEK XX SCH (02:21)
--- NOTE | 2016-08-14 05:26 | PN ---
DATE: 08/13/2016 INFECTIOUS DISEASE PROGRESS NOTE SUBJECTIVE: No acute changes overnight. The patient is alert, feels okay, looks comfortable. She is afebrile. LABORATORY DATA: WBC 13.3, platelets 60, neutrophils 51.7. BUN 9, creatinine 0.53. MICROBIOLOGY: Blood cultures remain negative. Urinalysis on admission was negative. DIAGNOSTICS: Chest x-ray on admission revealed possible COPD with atelectasis at the lung bases. ANTIMICROBIALS: The patient is on IV vancomycin and imipenem. PHYSICAL EXAMINATION: GENERAL: This is a well-developed, well-nourished elderly [place] woman who is alert, in no distress. HEENT: Atraumatic, normocephalic. Sclerae anicteric. Buccal mucosa pink. NECK: Supple. CHEST: Rise symmetrical. Breath sounds clear. HEART: S1, S2. ABDOMEN: Soft, bowel sounds present. EXTREMITIES: With cyanotic toes, more on the left. ASSESSMENT: 1. Systemic inflammatory response syndrome with leukocytosis==> multifactorial. 2. Bilateral lower extremity ischemia with resolving cellulitis of L foot. 3. Idiopathic thrombocytopenic purpura. 4. 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 PLAN: The patient remained stable. SHE IS ALLERGIC TO PENICILLIN. She is afebrile We are going to discontinue Primaxin and start PO Levaquin. If she spikes fever, we will kim culture her. Dictated By: EDWARD RHODES PILLOW FILLER for PA DE LA TORRE MD NI/NTS Conf#: [id number] DID#: [id number] [facility] PSY[facility]ATRIC CENTERAshley
[2016-08-14] MEDS: LEVOTHYROXINE 100 MCG TAB PO SCH (05:27)
[2016-08-14 06:46] LABS: INR 1.12; PROTIME 14.4 Sec (12.2-14.2); PT RATIO 1.1
[2016-08-14 06:49] LABS: POTASSIUM 3.6 mmol/L (3.5-5.1)
[2016-08-14 06:51] LABS: CREATININE 0.5 mg/dl (0.44-1.00)
[2016-08-14 06:52] LABS: CALCIUM 9.1 mg/dl (8.4-10.2)
[2016-08-14 07:40] VITALS: BP 135/59; RESP 18
[2016-08-14] MEDS: INSULIN ASPART [NOVOLOG] 3 ML PEN SC SCH ×4 (08:00→20:21)
[2016-08-14] MEDS: LISINOPRIL 5 MG TAB PO SCH (08:35)
[2016-08-14] MEDS: METOPROLOL 25 MG TAB PO SCH ×2 (08:35→21:13)
[2016-08-14] MEDS: INSULIN GLARGINE [LANtus] 3 ML PEN SC SCH (08:36)
[2016-08-14] MEDS ORDERED: ASPIRIN 81 MG TAB PO SCH (09:00)
[2016-08-14 11:19] LABS: ADD SCAN DIFF NO
[2016-08-14 11:35] LABS: ABNORMAL IP MESSAGE 1; BASOPHIL # 0.1 10^3/ul (0.0-0.1); BASOPHILS % 0.5 % (0.0-2.0); EOSINOPHILS # 0.1 10^3/ul (0.0-0.5); EOSINOPHILS % 0.4 % (0.0-7.0); HEMATOCRIT 38.3 % (37.0-47.0); HEMOGLOBIN 12.7 g/dl (12.0-16.0); LYMPHOCYTES # 5.8 10^3/ul (0.8-2.9); LYMPHOCYTES % 40.7 % (15.0-51.0); MEAN CORPUSCULAR HEMOGLOBIN 29.8 pg (29.0-33.0); MEAN CORPUSCULAR HGB CONC 33.2 g/dl (32.0-37.0); MEAN CORPUSCULAR VOLUME 89.9 fl (82.0-101.0); MONOCYTE # 1.7 10^3/ul (0.3-0.9); MONOCYTES % 11.7 % (0.0-11.0); NEUTROPHIL # 6.6 10^3/ul (1.6-7.5); NEUTROPHILS % 46.1 % (39.0-77.0); NUCLEATED RED BLOOD CELLS% 0.2 /100WBC (0.0-0.0); PLATELET COUNT 51 10^3/UL (140-415); RED BLOOD COUNT 4.26 10^6/ul (4.20-5.40); RED CELL DISTRIBUTION WIDTH 15.2 % (11.5-14.5); WHITE BLOOD COUNT 14.2 10^3/ul (4.8-10.8)
[2016-08-14] MEDS ORDERED: VANCOMYCIN IV PER PHARMACY XX SCH (14:00)
[2016-08-14] MEDS: LEVOFLOXACIN 500 MG TAB PO SCH (14:48)
[2016-08-14] MEDS ORDERED: VANCOMYCIN 500MG/NS (PMX) 100 ML IVPB SCH (15:00)
--- NOTE | 2016-08-14 16:54 | PN ---
Date/Time of Note Date/Time of Note DATE: 08/14/16 TIME: 16:53 Assessment/Plan VTE Prophylaxis VTE Prophylaxis Intervention: other Lines/Catheters IV Catheter Type (from [facility]): Peripheral IV Urinary Cath still in place: No Assessment/Plan Chief Complaint/Hosp Course 1. The patient has left foot cellulitis.better 2. Peripheral vascular disease of the left lower extremity, rule out atheroembolization. 3. ITP history. s/p promacta 4. Leukocytosis. 5. Diabetes mellitus. 6. Hypertension history. plan asa per vascular and oncology Problems: Subjective 24 Hr Interval Summary ENT: no complaints Respiratory: no complaints Gastrointestinal: no complaints Genitourinary: no complaints Exam/Review of Systems Vital Signs Vitals Vital Signs Date Time Temp Pulse Resp B/P Pulse Ox O2 Delivery O2 Flow Rate FiO2 08/14/16 07:40 98.0 77 18 135/59 97 Intake and Output 08/13/16 08/13/16 08/14/16 15:00 23:00 07:00 Intake Total 1201.5 ml 900 ml Balance 1201.5 ml 900 ml Exam Respiratory: clear to auscultation Cardiovascular: regular rate and rhythm Gastrointestinal: soft Musculoskeletal: nl extremities to inspection Extremities: No edema Results Result Diagram: 08/14/16 0539 08/14/16 0530 Results 24 hrs Laboratory Tests Test 08/13/16 17:03 08/13/16 20:47 08/13/16 21:00 08/14/16 02:17 Bedside Glucose 151 284 H 109 Vancomycin Level Trough 9.7 L Test 08/14/16 05:30 08/14/16 05:39 08/14/16 08:03 08/14/16 11:52 Prothrombin Time 14.4 H Prothrombin Time Ratio 1.1 INR International Normalized Ratio 1.12 Sodium Level 144 Potassium Level 3.6 Chloride Level 105 Carbon Dioxide Level 27 Anion Gap 16 Blood Urea Nitrogen 8 Creatinine 0.50 Glucose Level 101 # Calcium Level 9.1 White Blood Count 14.2 H Red Blood Count 4.26 Hemoglobin 12.7 Hematocrit 38.3 Mean Corpuscular Volume 89.9 Mean Corpuscular Hemoglobin 29.8 Mean Corpuscular Hemoglobin Concent 33.2 Red Cell Distribution Width 15.2 H Platelet Count 51 L Mean Platelet Volume 14.0 H Neutrophils % 46.1 Lymphocytes % 40.7 Monocytes % 11.7 H Eosinophils % 0.4 Basophils % 0.5 Nucleated Red Blood Cells % 0.2 H Neutrophils # 6.6 Lymphocytes # 5.8 H Monocytes # 1.7 H Eosinophils # 0.1 Basophils # 0.1 Nucleated Red Blood Cells # 0.0 Bedside Glucose 119 160 Medications Medications Current Medications Morphine Sulfate (morphine) 3 mg Q4H PRN IV PAIN LEVEL 7-10 Last administered on 08/11/16 00:47; Admin Dose 3 MG; Start 08/09/16 at 22:30 Diagnostic Test (Pha) (Accu-Chek) 1 ea 02 XX Last administered on 08/14/16 02: 21; Admin Dose 1 EA; Start 08/10/16 at 02:00 Miscellaneous Information 1 ea NOTE XX ; Start 08/09/16 at 22:45 Glucose (Glutose) 15 gm Q15M PRN PO DECREASED GLUCOSE; Start 08/09/16 at 22:45 Glucose (Glutose) 22.5 gm Q15M PRN PO DECREASED GLUCOSE; Start 08/09/16 at 22: 45 Dextrose (D50w Syringe) 25 ml Q15M PRN IV DECREASED GLUCOSE; Start 08/09/16 at 22:45 Dextrose (D50w Syringe) 50 ml Q15M PRN IV DECREASED GLUCOSE; Start 08/09/16 at 22:45 Glucagon (Glucagen) 1 mg Q15M PRN IM DECREASED GLUCOSE; Start 08/09/16 at 22:45 Glucose (Glutose) 15 gm Q15M PRN BUCCAL DECREASED GLUCOSE; Start 08/09/16 at 22 :45 Lisinopril (Zestril) 5 mg DAILY PO Last administered on 08/14/16 08:35; Admin Dose 5 MG; Start 08/10/16 at 09:00 Levothyroxine Sodium (Synthroid) 100 mcg DAILY@06 PO Last administered on 05:27; Admin Dose 100 MCG; Start 08/10/16 at 06:00 Metoprolol Tartrate (Lopressor) 25 mg BID PO Last administered on 08/14/16 08: 35; Admin Dose 25 MG; Start 08/10/16 at 09:00 Insulin Glargine (Lantus) 45 unit DAILY SC Last administered on 08/14/16 08:36 ; Admin Dose 45 UNIT; Start 08/12/16 at 09:00 Warfarin Sodium (Coumadin) 5 mg DAILY@17 PO Last administered on 08/12/16 21: 14; Admin Dose 5 MG; Start 08/12/16 at 20:00; Status Future Hold Aspirin (Aspirin) 81 mg DAILY PO Last administered on 08/14/16 08:35; Admin Dose 81 MG; Start 08/14/16 at 09:00 Levofloxacin 500 mg 500 mg DAILY@06 PO Last administered on 08/14/16 14:48; Admin Dose 500 MG; Start 08/14/16 at 14:00 Vancomycin HCl (Vancocin) 250 ml @ 125 mls/hr Q12H IVPB ; Start 08/14/16 at 22: 00 ERICA MARAVILLA MD Aug 14, 2016 16:54
--- NOTE | 2016-08-14 17:46 | CONS ---
Date/Time of Note Date/Time of Note DATE: 08/14/16 TIME: 17:44 Assessment/Plan Assessment/Plan Chief Complaint/Hosp Course SUBJECTIVE: No acute changes overnight. The patient is alert, feels okay, looks comfortable. She is afebrile. MICROBIOLOGY: Blood cultures remain negative. Urinalysis on admission was negative. DIAGNOSTICS: Chest x-ray on admission revealed possible COPD with atelectasis at the lung bases. ANTIMICROBIALS: IV vancomycin, Levaquin PHYSICAL EXAMINATION: GENERAL: This is a well-developed, well-nourished elderly [place]ian woman who is alert, in no distress. HEENT: Atraumatic, normocephalic. Sclerae anicteric. Buccal mucosa pink. NECK: Supple. CHEST: Rise symmetrical. Breath sounds clear. HEART: S1, S2. ABDOMEN: Soft, bowel sounds present. EXTREMITIES: With cyanotic toes, more on the left. ASSESSMENT: 1. Systemic inflammatory response syndrome with leukocytosis==> multifactorial. 2. Bilateral lower extremity ischemia with resolving cellulitis of L foot. 3. Idiopathic thrombocytopenic purpura. 4. 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 PLAN: The patient remained stable. Continue abx, monitor L foot for cellulitis= => improving, f/u recommendations of specialists DW staff Problems: Consultation Date/Type/Reason Admit Date/Time Aug 09, 2016 at 15:56 Initial Consult Date 08/10/16 Type of Consultation: id Referring Provider: ERICA MARAVILLA MD Exam/Review of Systems Vital Signs Vitals Vital Signs Date Time Temp Pulse Resp B/P Pulse Ox O2 Delivery O2 Flow Rate FiO2 08/14/16 07:40 98.0 77 18 135/59 97 Intake and Output 08/13/16 08/13/16 08/14/16 15:00 23:00 07:00 Intake Total 1201.5 ml 900 ml Balance 1201.5 ml 900 ml Results Result Diagram: 08/14/16 0539 08/14/16 0530 Results 24 hrs Laboratory Tests Test 08/13/16 20:47 08/13/16 21:00 08/14/16 02:17 08/14/16 05:30 Bedside Glucose 284 H 109 Vancomycin Level Trough 9.7 L Prothrombin Time 14.4 H Prothrombin Time Ratio 1.1 INR International Normalized Ratio 1.12 Sodium Level 144 Potassium Level 3.6 Chloride Level 105 Carbon Dioxide Level 27 Anion Gap 16 Blood Urea Nitrogen 8 Creatinine 0.50 Glucose Level 101 # Calcium Level 9.1 Test 08/14/16 05:39 08/14/16 08:03 08/14/16 11:52 08/14/16 16:54 White Blood Count 14.2 H Red Blood Count 4.26 Hemoglobin 12.7 Hematocrit 38.3 Mean Corpuscular Volume 89.9 Mean Corpuscular Hemoglobin 29.8 Mean Corpuscular Hemoglobin Concent 33.2 Red Cell Distribution Width 15.2 H Platelet Count 51 L Mean Platelet Volume 14.0 H Neutrophils % 46.1 Lymphocytes % 40.7 Monocytes % 11.7 H Eosinophils % 0.4 Basophils % 0.5 Nucleated Red Blood Cells % 0.2 H Neutrophils # 6.6 Lymphocytes # 5.8 H Monocytes # 1.7 H Eosinophils # 0.1 Basophils # 0.1 Nucleated Red Blood Cells # 0.0 Bedside Glucose 119 160 276 H Medications Medications Current Medications Morphine Sulfate (morphine) 3 mg Q4H PRN IV PAIN LEVEL 7-10 Last administered on 08/11/16 00:47; Admin Dose 3 MG; Start 08/09/16 at 22:30 Diagnostic Test (Pha) (Accu-Chek) 1 ea 02 XX Last administered on 08/14/16 02: 21; Admin Dose 1 EA; Start 08/10/16 at 02:00 Miscellaneous Information 1 ea NOTE XX ; Start 08/09/16 at 22:45 Glucose (Glutose) 15 gm Q15M PRN PO DECREASED GLUCOSE; Start 08/09/16 at 22:45 Glucose (Glutose) 22.5 gm Q15M PRN PO DECREASED GLUCOSE; Start 08/09/16 at 22: 45 Dextrose (D50w Syringe) 25 ml Q15M PRN IV DECREASED GLUCOSE; Start 08/09/16 at 22:45 Dextrose (D50w Syringe) 50 ml Q15M PRN IV DECREASED GLUCOSE; Start 08/09/16 at 22:45 Glucagon (Glucagen) 1 mg Q15M PRN IM DECREASED GLUCOSE; Start 08/09/16 at 22:45 Glucose (Glutose) 15 gm Q15M PRN BUCCAL DECREASED GLUCOSE; Start 08/09/16 at 22 :45 Lisinopril (Zestril) 5 mg DAILY PO Last administered on 08/14/16 08:35; Admin Dose 5 MG; Start 08/10/16 at 09:00 Levothyroxine Sodium (Synthroid) 100 mcg DAILY@06 PO Last administered on 05:27; Admin Dose 100 MCG; Start 08/10/16 at 06:00 Metoprolol Tartrate (Lopressor) 25 mg BID PO Last administered on 08/14/16 08: 35; Admin Dose 25 MG; Start 08/10/16 at 09:00 Insulin Glargine (Lantus) 45 unit DAILY SC Last administered on 08/14/16 08:36 ; Admin Dose 45 UNIT; Start 08/12/16 at 09:00 Warfarin Sodium (Coumadin) 5 mg DAILY@17 PO Last administered on 08/12/16 21: 14; Admin Dose 5 MG; Start 08/12/16 at 20:00; Status Future Hold Levofloxacin 500 mg 500 mg DAILY@06 PO Last administered on 08/14/16 14:48; Admin Dose 500 MG; Start 08/14/16 at 14:00 Vancomycin HCl (Vancocin) 250 ml @ 125 mls/hr Q12H IVPB ; Start 08/14/16 at 22: 00 Aspirin (Aspirin) 325 mg DAILY PO ; Start 08/15/16 at 09:00 EDWARD RHODES NP Aug 14, 2016 17:46
[2016-08-14 20:20] VITALS: BP 132/60; RESP 18
[2016-08-14] MEDS: VANCOMYCIN 1 GM in NS 250 ML IVPB SCH (21:13)
[2016-08-15] MEDS: ACCU-CHEK XX SCH (02:00)
[2016-08-15] MEDS: LEVOTHYROXINE 100 MCG TAB PO SCH (05:31)
[2016-08-15] MEDS: LEVOFLOXACIN 500 MG TAB PO SCH (05:31)
[2016-08-15 05:58] LABS: ADD SCAN DIFF NO
[2016-08-15 06:17] LABS: ABNORMAL IP MESSAGE 1; BASOPHIL # 0.1 10^3/ul (0.0-0.1); BASOPHILS % 0.7 % (0.0-2.0); EOSINOPHILS # 0.1 10^3/ul (0.0-0.5); EOSINOPHILS % 0.5 % (0.0-7.0); HEMATOCRIT 39.2 % (37.0-47.0); HEMOGLOBIN 12.7 g/dl (12.0-16.0); LYMPHOCYTES # 3.9 10^3/ul (0.8-2.9); LYMPHOCYTES % 32.1 % (15.0-51.0); MEAN CORPUSCULAR HEMOGLOBIN 29.3 pg (29.0-33.0); MEAN CORPUSCULAR HGB CONC 32.4 g/dl (32.0-37.0); MEAN CORPUSCULAR VOLUME 90.3 fl (82.0-101.0); MEAN PLATELET VOLUME 14.1 fl (7.4-10.4); MONOCYTE # 1.5 10^3/ul (0.3-0.9); MONOCYTES % 11.9 % (0.0-11.0); NEUTROPHIL # 6.6 10^3/ul (1.6-7.5); NEUTROPHILS % 54.1 % (39.0-77.0); PLATELET COUNT 51 10^3/UL (140-415); RED BLOOD COUNT 4.34 10^6/ul (4.20-5.40); RED CELL DISTRIBUTION WIDTH 15.3 % (11.5-14.5); WHITE BLOOD COUNT 12.2 10^3/ul (4.8-10.8)
[2016-08-15 06:28] LABS: INR 1.16; PROTIME 14.9 Sec (12.2-14.2); PT RATIO 1.2
[2016-08-15 07:50] VITALS: BP 143/64; RESP 16
[2016-08-15] MEDS: INSULIN ASPART [NOVOLOG] 3 ML PEN SC SCH ×3 (08:00→17:19)
[2016-08-15] MEDS: INSULIN GLARGINE [LANtus] 3 ML PEN SC SCH (08:55)
[2016-08-15] MEDS: METOPROLOL 25 MG TAB PO SCH (08:57)
[2016-08-15] MEDS: LISINOPRIL 5 MG TAB PO SCH (08:57)
[2016-08-15] MEDS ORDERED: ASPIRIN 325 MG TAB PO SCH (09:00)
[2016-08-15] MEDS: VANCOMYCIN 1 GM in NS 250 ML IVPB SCH (10:00)
--- NOTE | 2016-08-15 11:59 | CONS ---
Date/Time of Note Date/Time of Note DATE: 08/15/16 TIME: 11:54 Assessment/Plan Assessment/Plan Chief Complaint/Hosp Course 64yo with # Ischemia to Bilateral feet and toes - this is likely secondary to the rapid increase in platelet count from the promacta. this has significantly improved with anticoagulation -hold promacta for now -given platelets have fallen to 50K and there was evidence of epistaxis, will hold coumadin for now but will continue with baby asa 81 -angiography reveals arteries of the lower extremities are widely patent bilaterally with good three-vessel runoff to the level of the ankles. will speak [facility] vascular as to whether any intervention would be needed but this is unlikely -hypercoag workup ordered # Left and Right foot Cellulitis -continue with broad spectrum antibiotics including vancomycin and primaxin. 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 Her baseline WBC count is 10-11 -no intervention to be done for this condition at this time -the higher wbc count at this time is secondary to her cellulitis -will continue to monitor her WBC count while on antibiotics Approximately 40 min were spent at patient's bedside and in coordination of her care Problems: Consultation Date/Type/Reason Admit Date/Time Aug 09, 2016 at 15:56 Initial Consult Date 08/10/16 Type of Consultation: Hematology Reason for Consultation ITP/ toe ischemia Referring Provider: ERICA MARAVILLA MD 24 HR Interval Summary Free Text/Dictation pt continues to have marked improvement in her L foot cellulitis and ischemic digits. She did have 1 episode of epistaxis which has resolved. Coumadin is on hold . Pt continues on baby asa Exam/Review of Systems Vital Signs Vitals Vital Signs Date Time Temp Pulse Resp B/P Pulse Ox O2 Delivery O2 Flow Rate FiO2 08/15/16 07:50 98.1 82 16 143/64 95 Intake and Output 08/14/16 08/14/16 08/15/16 15:00 23:00 07:00 Intake Total 1130 ml 610 ml Balance 1130 ml 610 ml Exam Constitutional: alert Psych: nl mood/affect, no complaints Head: normocephalic Eyes: nl conjunctiva ENMT: nl external ears & nose Neck: non-tender, supple Respiratory: clear to auscultation, normal air movement Cardiovascular: regular rate and rhythm Gastrointestinal: soft Musculoskeletal: other (L Foot swelling improved. toe cyanosis has improved) Results Result Diagram: 08/15/16 0540 08/14/16 0530 Results 24 hrs Laboratory Tests Test 08/14/16 16:54 08/14/16 20:18 08/15/16 05:40 08/15/16 08:08 Bedside Glucose 276 H 174 134 White Blood Count 12.2 H Red Blood Count 4.34 Hemoglobin 12.7 Hematocrit 39.2 Mean Corpuscular Volume 90.3 Mean Corpuscular Hemoglobin 29.3 Mean Corpuscular Hemoglobin Concent 32.4 Red Cell Distribution Width 15.3 H Platelet Count 51 L Mean Platelet Volume 14.1 H Neutrophils % 54.1 Lymphocytes % 32.1 Monocytes % 11.9 H Eosinophils % 0.5 Basophils % 0.7 Nucleated Red Blood Cells % 0.0 Neutrophils # 6.6 Lymphocytes # 3.9 H Monocytes # 1.5 H Eosinophils # 0.1 Basophils # 0.1 Nucleated Red Blood Cells # 0.0 Prothrombin Time 14.9 H Prothrombin Time Ratio 1.2 INR International Normalized Ratio 1.16 Medications Medications Current Medications Morphine Sulfate (morphine) 3 mg Q4H PRN IV PAIN LEVEL 7-10 Last administered on 08/11/16 00:47; Admin Dose 3 MG; Start 08/09/16 at 22:30 Diagnostic Test (Pha) (Accu-Chek) 1 ea 02 XX Last administered on 08/14/16 02: 21; Admin Dose 1 EA; Start 08/10/16 at 02:00 Miscellaneous Information 1 ea NOTE XX ; Start 08/09/16 at 22:45 Glucose (Glutose) 15 gm Q15M PRN PO DECREASED GLUCOSE; Start 08/09/16 at 22:45 Glucose (Glutose) 22.5 gm Q15M PRN PO DECREASED GLUCOSE; Start 08/09/16 at 22: 45 Dextrose (D50w Syringe) 25 ml Q15M PRN IV DECREASED GLUCOSE; Start 08/09/16 at 22:45 Dextrose (D50w Syringe) 50 ml Q15M PRN IV DECREASED GLUCOSE; Start 08/09/16 at 22:45 Glucagon (Glucagen) 1 mg Q15M PRN IM DECREASED GLUCOSE; Start 08/09/16 at 22:45 Glucose (Glutose) 15 gm Q15M PRN BUCCAL DECREASED GLUCOSE; Start 08/09/16 at 22 :45 Lisinopril (Zestril) 5 mg DAILY PO Last administered on 08/15/16 08:57; Admin Dose 5 MG; Start 08/10/16 at 09:00 Levothyroxine Sodium (Synthroid) 100 mcg DAILY@06 PO Last administered on 05:31; Admin Dose 100 MCG; Start 08/10/16 at 06:00 Metoprolol Tartrate (Lopressor) 25 mg BID PO Last administered on 08/15/16 08: 57; Admin Dose 25 MG; Start 08/10/16 at 09:00 Insulin Glargine (Lantus) 45 unit DAILY SC Last administered on 08/15/16 08:55 ; Admin Dose 45 UNIT; Start 08/12/16 at 09:00 Warfarin Sodium (Coumadin) 5 mg DAILY@17 PO Last administered on 08/12/16 21: 14; Admin Dose 5 MG; Start 08/12/16 at 20:00; Status Future Hold Levofloxacin 500 mg 500 mg DAILY@06 PO Last administered on 08/15/16 05:31; Admin Dose 500 MG; Start 08/14/16 at 14:00 Vancomycin HCl (Vancocin) 250 ml @ 125 mls/hr Q12H IVPB Last administered on 10:00; Admin Dose 125 MLS/HR; Start 08/14/16 at 22:00 Aspirin (Aspirin) 325 mg DAILY PO Last administered on 08/15/16 08:57; Admin Dose 325 MG; Start 08/15/16 at 09:00 Miscellaneous Information (*Rx Drug Level Order Reminder*) VANCOMYCIN TROUGH 08/16 AT 0900 ONCE ONCE XX ; Start 08/16/16 at 09:00; Stop 08/16/16 at 09:01 MILADY FONG M.D. Aug 15, 2016 11:59
--- NOTE | 2016-08-15 14:20 | CONS ---
Date/Time of Note Date/Time of Note DATE: 08/15/16 TIME: 14:20 Assessment/Plan Assessment/Plan Chief Complaint/Hosp Course SUBJECTIVE: No acute changes overnight. The patient is alert, feels okay, looks comfortable. She is afebrile. MICROBIOLOGY: Blood cultures remain negative. Urinalysis on admission was negative. DIAGNOSTICS: Chest x-ray on admission revealed possible COPD with atelectasis at the lung bases. ANTIMICROBIALS: IV vancomycin, Levaquin PHYSICAL EXAMINATION: GENERAL: This is a well-developed, well-nourished elderly [place] woman who is alert, in no distress. HEENT: Atraumatic, normocephalic. Sclerae anicteric. Buccal mucosa pink. NECK: Supple. CHEST: Rise symmetrical. Breath sounds clear. HEART: S1, S2. ABDOMEN: Soft, bowel sounds present. EXTREMITIES: With cyanotic toes, more on the left. ASSESSMENT: 1. Systemic inflammatory response syndrome with leukocytosis==> multifactorial. 2. Bilateral lower extremity ischemia with resolving cellulitis of L foot. 3. Idiopathic thrombocytopenic purpura. 4. 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 PLAN: The patient remained stable. Continue abx, monitor L foot for cellulitis= => improving, f/u recommendations of specialists [facility] staff Problems: Consultation Date/Type/Reason Admit Date/Time Aug 09, 2016 at 15:56 Initial Consult Date 08/10/16 Type of Consultation: ID Referring Provider: ERICA MARAVILLA MD Exam/Review of Systems Vital Signs Vitals Vital Signs Date Time Temp Pulse Resp B/P Pulse Ox O2 Delivery O2 Flow Rate FiO2 08/15/16 07:50 98.1 82 16 143/64 95 Intake and Output 08/14/16 08/14/16 08/15/16 15:00 23:00 07:00 Intake Total 1130 ml 610 ml Balance 1130 ml 610 ml Results Result Diagram: 08/15/16 0540 08/14/16 0530 Results 24 hrs Laboratory Tests Test 08/14/16 16:54 08/14/16 20:18 08/15/16 05:40 08/15/16 08:08 Bedside Glucose 276 H 174 134 White Blood Count 12.2 H Red Blood Count 4.34 Hemoglobin 12.7 Hematocrit 39.2 Mean Corpuscular Volume 90.3 Mean Corpuscular Hemoglobin 29.3 Mean Corpuscular Hemoglobin Concent 32.4 Red Cell Distribution Width 15.3 H Platelet Count 51 L Mean Platelet Volume 14.1 H Neutrophils % 54.1 Lymphocytes % 32.1 Monocytes % 11.9 H Eosinophils % 0.5 Basophils % 0.7 Nucleated Red Blood Cells % 0.0 Neutrophils # 6.6 Lymphocytes # 3.9 H Monocytes # 1.5 H Eosinophils # 0.1 Basophils # 0.1 Nucleated Red Blood Cells # 0.0 Prothrombin Time 14.9 H Prothrombin Time Ratio 1.2 INR International Normalized Ratio 1.16 Test 08/15/16 12:16 Bedside Glucose 204 Medications Medications Current Medications Morphine Sulfate (morphine) 3 mg Q4H PRN IV PAIN LEVEL 7-10 Last administered on 08/11/16 00:47; Admin Dose 3 MG; Start 08/09/16 at 22:30 Diagnostic Test (Pha) (Accu-Chek) 1 ea 02 XX Last administered on 08/14/16 02: 21; Admin Dose 1 EA; Start 08/10/16 at 02:00 Miscellaneous Information 1 ea NOTE XX ; Start 08/09/16 at 22:45 Glucose (Glutose) 15 gm Q15M PRN PO DECREASED GLUCOSE; Start 08/09/16 at 22:45 Glucose (Glutose) 22.5 gm Q15M PRN PO DECREASED GLUCOSE; Start 08/09/16 at 22: 45 Dextrose (D50w Syringe) 25 ml Q15M PRN IV DECREASED GLUCOSE; Start 08/09/16 at 22:45 Dextrose (D50w Syringe) 50 ml Q15M PRN IV DECREASED GLUCOSE; Start 08/09/16 at 22:45 Glucagon (Glucagen) 1 mg Q15M PRN IM DECREASED GLUCOSE; Start 08/09/16 at 22:45 Glucose (Glutose) 15 gm Q15M PRN BUCCAL DECREASED GLUCOSE; Start 08/09/16 at 22 :45 Lisinopril (Zestril) 5 mg DAILY PO Last administered on 08/15/16 08:57; Admin Dose 5 MG; Start 08/10/16 at 09:00 Levothyroxine Sodium (Synthroid) 100 mcg DAILY@06 PO Last administered on 05:31; Admin Dose 100 MCG; Start 08/10/16 at 06:00 Metoprolol Tartrate (Lopressor) 25 mg BID PO Last administered on 08/15/16 08: 57; Admin Dose 25 MG; Start 08/10/16 at 09:00 Insulin Glargine (Lantus) 45 unit DAILY SC Last administered on 08/15/16 08:55 ; Admin Dose 45 UNIT; Start 08/12/16 at 09:00 Warfarin Sodium (Coumadin) 5 mg DAILY@17 PO Last administered on 08/12/16 21: 14; Admin Dose 5 MG; Start 08/12/16 at 20:00; Status Future Hold Levofloxacin 500 mg 500 mg DAILY@06 PO Last administered on 08/15/16 05:31; Admin Dose 500 MG; Start 08/14/16 at 14:00 Vancomycin HCl (Vancocin) 250 ml @ 125 mls/hr Q12H IVPB Last administered on 10:00; Admin Dose 125 MLS/HR; Start 08/14/16 at 22:00 Aspirin (Aspirin) 325 mg DAILY PO Last administered on 08/15/16 08:57; Admin Dose 325 MG; Start 08/15/16 at 09:00 Miscellaneous Information (*Rx Drug Level Order Reminder*) VANCOMYCIN TROUGH 08/16 AT 0900 ONCE ONCE XX ; Start 08/16/16 at 09:00; Stop 08/16/16 at 09:01 EDWARD RHODES NP Aug 15, 2016 14:20
--- NOTE | 2016-08-15 17:15 | PDOCDIS ---
Discharge Instructions CONDITION Patient Condition: Stable ACTIVITY: Activity Restrictions: Slowly Increase Activity FOLLOW UP/APPOINTMENTS Appointments f/u dr solomon [address] khanna [address] rivers 2 wks see own pcp 1 wk ERICA MARAVILLA MD Aug 15, 2016 17:15
[2016-08-15] MEDS ORDERED: DOXY100T20 PO (17:18)
[2016-08-15] MEDS ORDERED: LISI-313 PO (17:18)
[2016-08-15] MEDS ORDERED: METO-448 PO (17:18)
[2016-08-15] MEDS ORDERED: LANT3I SC (17:18)
[2016-08-15] MEDS ORDERED: SYN1 PO (17:18)
[2016-08-15] MEDS ORDERED: ASPI-664 PO (17:20)
--- NOTE | 2016-08-15 17:21 | PDOCDIS ---
Discharge Instructions CONDITION Patient Condition: Stable ACTIVITY: Activity Restrictions: Slowly Increase Activity ERICA MARAVILLA MD Aug 15, 2016 17:21
--- NOTE | 2016-08-15 18:53 | PN ---
Date/Time of Note Date/Time of Note DATE: 08/15/16 TIME: 18:52 Assessment/Plan VTE Prophylaxis VTE Prophylaxis Intervention: other Lines/Catheters IV [facility] Urinary Cath still in place: No Assessment/Plan Chief Complaint/Hosp Course 1. The patient has left foot cellulitis.better 2. Peripheral vascular disease of the left lower extremity, rule out atheroembolization. 3. ITP history. s/p promacta 4. Leukocytosis. 5. Diabetes mellitus. 6. Hypertension history. plan asa per vascular and oncology home Problems: Subjective 24 Hr Interval Summary Subjective hx not possible: other (feeling better) Exam/Review of Systems Vital Signs Vitals Vital Signs Date Time Temp Pulse Resp B/P Pulse Ox O2 Delivery O2 Flow Rate FiO2 08/15/16 07:50 98.1 82 16 143/64 95 Intake and Output 08/14/16 08/14/16 08/15/16 15:00 23:00 07:00 Intake Total 1130 ml 610 ml Balance 1130 ml 610 ml Exam ENMT: nl external ears & nose Neck: supple Respiratory: clear to auscultation Cardiovascular: regular rate and rhythm Gastrointestinal: soft Results Result Diagram: 08/15/16 0540 08/14/16 0530 Results 24 hrs Laboratory Tests Test 08/14/16 20:18 08/15/16 05:40 08/15/16 08:08 08/15/16 12:16 Bedside Glucose 174 134 204 White Blood Count 12.2 H Red Blood Count 4.34 Hemoglobin 12.7 Hematocrit 39.2 Mean Corpuscular Volume 90.3 Mean Corpuscular Hemoglobin 29.3 Mean Corpuscular Hemoglobin Concent 32.4 Red Cell Distribution Width 15.3 H Platelet Count 51 L Mean Platelet Volume 14.1 H Neutrophils % 54.1 Lymphocytes % 32.1 Monocytes % 11.9 H Eosinophils % 0.5 Basophils % 0.7 Nucleated Red Blood Cells % 0.0 Neutrophils # 6.6 Lymphocytes # 3.9 H Monocytes # 1.5 H Eosinophils # 0.1 Basophils # 0.1 Nucleated Red Blood Cells # 0.0 Prothrombin Time 14.9 H Prothrombin Time Ratio 1.2 INR International Normalized Ratio 1.16 Test 08/15/16 17:16 Bedside Glucose 164 Medications Medications Current Medications Morphine Sulfate (morphine) 3 mg Q4H PRN IV PAIN LEVEL 7-10 Last administered on 08/11/16 00:47; Admin Dose 3 MG; Start 08/09/16 at 22:30 Diagnostic Test (Pha) (Accu-Chek) 1 ea 02 XX Last administered on 08/14/16 02: 21; Admin Dose 1 EA; Start 08/10/16 at 02:00 Miscellaneous Information 1 ea NOTE XX ; Start 08/09/16 at 22:45 Glucose (Glutose) 15 gm Q15M PRN PO DECREASED GLUCOSE; Start 08/09/16 at 22:45 Glucose (Glutose) 22.5 gm Q15M PRN PO DECREASED GLUCOSE; Start 08/09/16 at 22: 45 Dextrose (D50w Syringe) 25 ml Q15M PRN IV DECREASED GLUCOSE; Start 08/09/16 at 22:45 Dextrose (D50w Syringe) 50 ml Q15M PRN IV DECREASED GLUCOSE; Start 08/09/16 at 22:45 Glucagon (Glucagen) 1 mg Q15M PRN IM DECREASED GLUCOSE; Start 08/09/16 at 22:45 Glucose (Glutose) 15 gm Q15M PRN BUCCAL DECREASED GLUCOSE; Start 08/09/16 at 22 :45 Lisinopril (Zestril) 5 mg DAILY PO Last administered on 08/15/16 08:57; Admin Dose 5 MG; Start 08/10/16 at 09:00 Levothyroxine Sodium (Synthroid) 100 mcg DAILY@06 PO Last administered on 05:31; Admin Dose 100 MCG; Start 08/10/16 at 06:00 Metoprolol Tartrate (Lopressor) 25 mg BID PO Last administered on 08/15/16 08: 57; Admin Dose 25 MG; Start 08/10/16 at 09:00 Insulin Glargine (Lantus) 45 unit DAILY SC Last administered on 08/15/16 08:55 ; Admin Dose 45 UNIT; Start 08/12/16 at 09:00 Warfarin Sodium (Coumadin) 5 mg DAILY@17 PO Last administered on 08/12/16 21: 14; Admin Dose 5 MG; Start 08/12/16 at 20:00; Status Future Hold Levofloxacin 500 mg 500 mg DAILY@06 PO Last administered on 08/15/16 05:31; Admin Dose 500 MG; Start 08/14/16 at 14:00 Vancomycin HCl (Vancocin) 250 ml @ 125 mls/hr Q12H IVPB Last administered on 10:00; Admin Dose 125 MLS/HR; Start 08/14/16 at 22:00 Aspirin (Aspirin) 325 mg DAILY PO Last administered on 08/15/16 08:57; Admin Dose 325 MG; Start 08/15/16 at 09:00 Miscellaneous Information (*Rx Drug Level Order Reminder*) VANCOMYCIN TROUGH 08/16 AT 0900 ONCE ONCE XX ; Start 08/16/16 at 09:00; Stop 08/16/16 at 09:01 ERICA MARAVILLA MD Aug 15, 2016 18:52
[2016-08-15 20:20] VITALS: BP 119/56; PULSE 82; RESP 18
--- NOTE | 2016-08-25 13:07 | QN ---
Documentation Comment [id number] ERICA MARAVILLA MD Aug 25, 2016 13:07
--- NOTE | 2016-08-25 17:55 | DS ---
DATE OF ADMISSION: 08/09/2016 DATE OF DISCHARGE: 08/15/2016 HOSPITAL COURSE: The patient was admitted with diagnosis of a left foot cellulitis, PVD, ITP history, leukocytosis, diabetes mellitus and hypertension. The patient was seen by Dr. Lucero Carrington in consultation. Their ITP. The patient was seen by Dr. Madhu Green in consultation as well as Dr. Choudhury in consultation. Their recommendations were as follows. Patient was started on anticoagulation, which was tapered down to aspirin. The patient was cleared by Dr. Carrington and infectious disease consultants to be discharged. DISCHARGE DIAGNOSES: Include: 1. Systemic inflammatory response syndrome with leukocytosis. 2. Bilateral lower extremity ischemia and resolving cellulitis of the left foot. 3. Idiopathic thrombocytopenic purpura. 4. Bilateral lower extremity atherosclerosis and blue toe. The patient has gangrene of the lower extremity. 5. Status post _. The patient has leukocytosis. The patient had abdominal angiography extremity arterial study and extremity venous study. Mild plaque formation without evidence of hemodynamically significant stenosis. The patient is cleared to be discharged with further workup as an outpatient. DISCHARGE DIAGNOSES: Include: 1. Left foot cellulitis. 2. Peripheral vascular disease. 3. Idiopathic thrombocytic purpura. 4. Leukocytosis. 5. Diabetes mellitus. 6. Hypertension. DISCHARGE MEDICATIONS: To continue home medication. The patient to continue on : 1. Aspirin. 2. Doxacillin. 3. Doxycycline. 4. Levothyroxine. 5. Metoprolol. The patient to follow with Dr. Carrington, Dr. Madhu Green and the patient's PCP as an outpatient. DISPOSITION: Patient is stable at the time of discharge. Dictated By: ERICA MARAVILLA MD BS/NTS Conf#: [id number] DID#: [id number] MTDD
== END 2016-08-15 20:32 | disposition home or self-care (01) | DRG 603 ==
LOC: E/R 11:06 → PP2 15:56
PROVIDERS: ADMIT Internal Medicine Nephrology; ATTEND Internal Medicine Nephrology
DX: L03.116 Cellulitis of left lower limb (principal); I75.023 Atheroembolism of bilateral lower extremities; D69.3 Immune thrombocytopenic purpura; I70.263 Atherosclerosis of native arteries of extremities with gangrene, bilateral legs; E11.52 Type 2 diabetes mellitus with diabetic peripheral angiopathy with gangrene; J98.11 Atelectasis; D72.829 Elevated white blood cell count, unspecified; I10 Essential (primary) hypertension; Z79.4 Long term (current) use of insulin
CPT/HCPCS: 36415; 71010; 73620; 75635; 80048; 80053; 80202; 81003; 81240; 82962; 83605; 83890; 84484; 85025; 85300; 85302; 85305; 85610; 85613; 85651; 85730; 86140; 86146; 86147; 87040; 87045; 87086; 93005; 93306; 93922; 93923; 96374; 96375; J0743; J1200; J1644; J1815; J2270; J2405; J3370; J7030; Q9967

== ENCOUNTER 2016-08-19 02:23 | Inpatient (IN) | payer OTHER ==
[~2016-08-19] VITALS: Ht 152.4 cm; Wt 52.0 kg
[~2016-08-19 02:23] MED LIST: ASPI-664 PO; DOXY100T20 PO; LANT3I SC; LISI-313 PO; METO-448 PO; SYN1 PO
--- NOTE | 2016-08-19 03:34 | ERA ---
ER Documentation Chief Complaint Date/Time DATE: 08/19/16 TIME: 03:33 Chief Complaint Low platelet HPI The patient is a 66-year-old female, was asked by her oncologist Dr. Ureña, to go to the ER because of low platelet 1,700. She had similar symptoms previously, was discharge about 4 days ago from the hospital. She had history of ITP, thrombosis of bilateral lateral feet, cellulitis of bilateral feet, peripheral vascular disease. She denies any bleeding, headache, neck pain, chest pain, abdominal pain, vomiting, dysuria, diarrhea. He does not smoke nor drink Past medical history: Hypothyroidism, hypertension, diabetes mellitus, osteoporosis Past surgical history: Thyroidectomy, splenectomy, cholecystectomy, hysterectomy ROS All systems reviewed and are negative except as per history of present illness. Medications Home Meds Active Scripts Aspirin* (Aspirin* EC) 81 Mg Tablet.dr, 81 MG PO DAILY for 28 Days, TAB Prov:ERICA MARAVILLA MD 08/15/16 Doxycycline Hyclate* (Doxycycline Hyclate*) 100 Mg Tablet.dr, 100 MG PO BID for 10 Days, TAB Prov:ERICA MARAVILLA MD 08/15/16 Levothyroxine Sodium (Levothroid) 100 Mcg Tablet, 100 MCG PO DAILY@06 for 14 Days, TAB Prov:ERICA MARAVILLA MD 08/15/16 Insulin Glargine* (Lantus*) 100 Unit/Ml Soln, 45 UNIT SC DAILY for 28 Days Prov:ERICA MARAVILLA MD 08/15/16 Metoprolol Tartrate* (Lopressor*) 25 Mg Tab, 25 MG PO BID for 28 Days, TAB Prov:ERICA MARAVILLA MD 08/15/16 Lisinopril* (Lisinopril*) 5 Mg Tablet, 5 MG PO DAILY for 28 Days, TAB Prov:ERICA MARAVILLA MD 08/15/16 Reported Medications Insulin Glargine* (Lantus*) Unknown Strength Soln, SC DAILY, #1 VIAL 08/09/16 Discontinued Reported Medications Eltrombopag Olamine (Promacta) 50 Mg Tablet, 50 MG PO DAILY for 14 Days, TAB 08/09/16 Allergies Allergies: Coded Allergies: Penicillins (Unverified Allergy, Unknown, RASH, 08/09/16) PMhx/Soc History of Surgery: Yes (SPLEEN REMOVED ,THYROID REMOVED , GALLBLADDER REMOVED , HYSTERECTOMY ) Anesthesia Reaction: No Hx Neurological Disorder: No Hx Respiratory Disorders: No Hx Cardiac Disorders: Yes (HTN ) Hx Psychiatric Problems: No Hx Miscellaneous Medical Probl: No Hx Alcohol Use: No Hx Substance Use: No Hx Tobacco Use: No Physical Exam Vitals Vital Signs Date Time Temp Pulse Resp B/P Pulse Ox O2 Delivery O2 Flow Rate FiO2 08/19/16 02:26 97.7 99 18 186/81 98 Physical Exam Const: No acute distress. Head: Atraumatic. Eyes: Normal Conjunctiva. ENT: Normal External Ears, Nose and Mouth. Neck: Full range of motion. No meningismus. Resp: Clear to auscultation bilaterally. Cardio: Regular rate and rhythm, no murmurs. Abd: Soft, non distended, normal bowel sounds, non tender. Skin: No petechiae or rashes. Back: No midline or flank tenderness. Ext: No cyanosis, or edema. Petechia Neur: Awake and alert. No focal deficit Psych: Normal Mood and Affect. Result Diagram: 08/19/16 0432 Results 24 hrs Laboratory Tests Test 08/19/16 04:32 Sodium Level 137mmol/L Potassium Level 5.1mmol/L Chloride Level 102mmol/L Carbon Dioxide Level 22mmol/L Anion Gap 18 Blood Urea Nitrogen 18mg/dl Creatinine 0.55mg/dl Glucose Level 308mg/dl Calcium Level 9.4mg/dl Total Bilirubin 0.3mg/dl Direct Bilirubin 0.00mg/dl Indirect Bilirubin 0.3mg/dl Aspartate Amino Transf (AST/SGOT) 50IU/L Alanine Aminotransferase (ALT/SGPT) 45IU/L Alkaline Phosphatase 112IU/L Total Protein 8.7g/dl Albumin 4.5g/dl Globulin 4.20g/dl Albumin/Globulin Ratio 1.07 Current Medications Medications (Trade) Dose Ordered Sig/[place] Route PRN Reason Start Time Stop Time Status Last Admin Dose Admin Prednisone (Prednisone) 50 mg ONCE ONCE PO 08/19/16 05:00 08/19/16 05:01 DC 08/19/16 05:21 Procedures/MDM MEDICAL MAKING DECISION: The patient is a 66-year-old female, presenting with worsening thrombocytopenia of unclear etiology. She would need to be evaluated by cardiovascular invasive specialist. He was treated with prednisone 1 mg/kg p.o. per Dr. Ureña's recommendation. She does not want to transfuse platelets yet because of thrombosis concern Departure Diagnosis: Primary Impression: Thrombocytopenia Additional Impression: Diabetes mellitus with hyperglycemia Condition: Stable Comments I discussed the findings with the patient. I discussed the patient with his physician Dr. Maravilla who was made aware of the lab, the treatment, the patient condition. The patient is admitted to medical surgery bed at 5 AM JAJA JAVIER MD Aug 19, 2016 03:34
[2016-08-19] MEDS ORDERED: predniSONE 50 MG TAB PO ONE (05:00)
[2016-08-19 05:30] LABS: ALBUMIN 4.5 g/dl (3.3-4.9); ALBUMIN/GLOBULIN RATIO 1.07; BILIRUBIN,INDIRECT 0.3 mg/dl (0-1.1); BILIRUBIN,TOTAL 0.3 mg/dl (0.2-1.3); CALCIUM 9.4 mg/dl (8.4-10.2); CREATININE 0.55 mg/dl (0.44-1.00); POTASSIUM 5.1 mmol/L (3.5-5.1); TOTAL PROTEIN 8.7 g/dl (6.1-8.1)
[2016-08-19 06:00] LABS: ADD SCAN DIFF NO
[2016-08-19 06:19] LABS: ABNORMAL IP MESSAGE 1; BASOPHIL # 0.1 10^3/ul (0.0-0.1); BASOPHILS % 0.7 % (0.0-2.0); EOSINOPHILS % 0.1 % (0.0-7.0); HEMOGLOBIN 13.9 g/dl (12.0-16.0); LYMPHOCYTES # 3.7 10^3/ul (0.8-2.9); LYMPHOCYTES % 23.7 % (15.0-51.0); MEAN CORPUSCULAR HEMOGLOBIN 29.7 pg (29.0-33.0); MEAN CORPUSCULAR HGB CONC 33.1 g/dl (32.0-37.0); MEAN CORPUSCULAR VOLUME 89.7 fl (82.0-101.0); MONOCYTE # 1.3 10^3/ul (0.3-0.9); MONOCYTES % 8.4 % (0.0-11.0); NEUTROPHIL # 10.3 10^3/ul (1.6-7.5); NEUTROPHILS % 66.6 % (39.0-77.0); RED BLOOD COUNT 4.68 10^6/ul (4.20-5.40); RED CELL DISTRIBUTION WIDTH 14.7 % (11.5-14.5); WHITE BLOOD COUNT 15.5 10^3/ul (4.8-10.8)
[2016-08-19 06:24] LABS: INR 0.98
[2016-08-19 06:25] LABS: PARTIAL THROMBOPLASTIN TIME 25.3 Sec (25.0-35.0)
[2016-08-19 06:35] VITALS: BP 180/79; PULSE 86; RESP 18
[2016-08-19] MEDS ORDERED: GLUCOSE GEL 15 GRAM TUBE BUCCAL PRN (07:30)
[2016-08-19] MEDS ORDERED: GLUCOSE GEL 15 GRAM TUBE PO PRN ×2 (07:30)
[2016-08-19] MEDS ORDERED: DEXTROSE 50% 50 ML SYRINGE IV PRN ×2 (07:30)
[2016-08-19] MEDS ORDERED: ONDANSETRON 4 MG INJ IV PRN (07:30)
[2016-08-19] MEDS ORDERED: GLUCAGON 1 MG INJ IM PRN (07:30)
[2016-08-19 08:01] VITALS: BP 174/73; RESP 18
[2016-08-19] MEDS: METOPROLOL 25 MG TAB PO SCH ×2 (08:22→21:13)
[2016-08-19] MEDS: LISINOPRIL 5 MG TAB PO SCH (08:23)
[2016-08-19] MEDS: PANTOPRAZOLE (EC) 40 MG TAB PO SCH (08:23)
[2016-08-19] MEDS: LEVOTHYROXINE 100 MCG TAB PO SCH (08:23)
[2016-08-19] MEDS ORDERED: IMMUNE GLOBULIN (HUMAN) 6 GM INJ IV SCH (08:30)
[2016-08-19] MEDS: INSULIN ASPART [NOVOLOG] 3 ML PEN SC SCH ×4 (08:31→21:21)
[2016-08-19] MEDS: INSULIN GLARGINE [LANtus] 3 ML PEN SC SCH (08:34)
--- NOTE | 2016-08-19 09:12 | CONS ---
Date/Time of Note Date/Time of Note DATE: 08/19/16 TIME: 08:55 Assessment/Plan Assessment/Plan Chief Complaint/Hosp Course 64yo with #IITP- pt was off promacta and her platelet count fell to <4K. She has been given 1 dose of prednisone 1mg/Kg in the ER. She currently has no evidence of active bleed and her Hg is stable at 13. -Patient's daughter is to bring in her home dose of Promacta. Will start the patient on 25mg of Promacta once the medication arrives at the hospital (note the promacta tablets are 50mg each. We will need to cut in half each tablet and given it daily). The platelet count should begin to rise after a few days. After platelet count is >50K, will need to start ASA 81mg. Once her platelet count is consistently greater than 50K, we should decrease the promacta dose to 12.5mg, which the patient will have delivered to her home. Once her platelets are greater than 50K and she is on ASA, she can be discharged to continue with Promacta 12.5mg with ASA 81 to take on a daily basis. -will stop steroids given patient has severe diabetes -will start IVIG 400mg/kg. Will write for 1 dose at this time # Ischemia to Bilateral feet and toes - this was likely secondary to the rapid increase in platelet count from the promacta. -this has dramatically improved since last admission -as stated above, cannot start Aspirin until patient's platelet count is consistently greater than 50K - Note, angiography done during last admission reveals arteries of the lower extremities are widely patent bilaterally with good three-vessel runoff to the level of the ankles. 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 Her baseline WBC count is 10-11 -no intervention to be done for this condition at this time -the WBC count of 15 may be secondary to the steroids she was receiving. 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 Pt last needed steroids 25 years ago. About 2months ago , patient's platelets started to slowly decline. Given her platelet count of 7, despite prior splenectomy, patient was started on Promacta 50 mg q day. After 2 weeks of taking Promacta, her platelet count jumped to greater than 140K. With the dramatic increase in her platelet count she developed painful swelling of both feet Left greater than right, as well as cyanosis of several of her toe. She was admitted and started on broad spectrum antibiotics as well as anticoagulation with vascular surgery consultation. It Her L foot sx improved greatly and she was discharged on baby Aspirin without Promacta given the cyanosis and ischemia thought to be secondary to the Promacta. Now 1 week later , off Promacta, she has developed a petechial rash over her bilateral lower extremities and trunk. As an out patient platelet count was found to be 1K. She was instructed to come to the ER where a dose of steroids 1mg/kg were given to her. She is now on the fourth floor. Despite the petechial rash, she denies any blood in the stool , or urine. Her mental status is at baseline. She also denies any pain or swelling in that left foot. Constitutional: no complaints Eyes: no complaints ENT: no complaints Respiratory: no complaints Cardiovascular: no complaints Gastrointestinal: no complaints Genitourinary: no complaints Musculoskeletal: no complaints Skin: other (rash over her BLE and trunk) Past Medical History monoclonal b cell lymphocytosis DM HTN osteoporosis Family History Significant Family History: no pertinent family hx Social History Alcohol Use: none Smoking Status: Never smoker Drug Use: none Exam/Review of Systems Vital Signs Vitals Vital Signs Date Time Temp Pulse Resp B/P Pulse Ox O2 Delivery O2 Flow Rate FiO2 08/19/16 08:01 97.9 82 18 174/73 97 08/19/16 06:35 Room Air Exam Constitutional: alert, oriented Head: atraumatic, normocephalic Eyes: nl conjunctiva ENMT: nl external ears & nose Neck: non-tender, supple Respiratory: clear to auscultation, normal air movement Cardiovascular: nl pulses, regular rate and rhythm Gastrointestinal: soft Musculoskeletal: nl extremities to inspection, nl gait and stance Extremities: other (petichael rash over her BLE and BLE as well as trunk) Results Result Diagram: 08/19/16 0548 08/19/16 0432 Results 24 hrs Laboratory Tests Test 08/19/16 04:32 08/19/16 05:48 08/19/16 08:03 Sodium Level 137 Potassium Level 5.1 Chloride Level 102 Carbon Dioxide Level 22 Anion Gap 18 H Blood Urea Nitrogen 18 Creatinine 0.55 Glucose Level 308 H Calcium Level 9.4 Total Bilirubin 0.3 Direct Bilirubin 0.00 Indirect Bilirubin 0.3 Aspartate Amino Transf (AST/SGOT) 50 H Alanine Aminotransferase (ALT/SGPT) 45 Alkaline Phosphatase 112 Total Protein 8.7 H Albumin 4.5 Globulin 4.20 H Albumin/Globulin Ratio 1.07 White Blood Count 15.5 #H Red Blood Count 4.68 Hemoglobin 13.9 Hematocrit 42.0 Mean Corpuscular Volume 89.7 Mean Corpuscular Hemoglobin 29.7 Mean Corpuscular Hemoglobin Concent 33.1 Red Cell Distribution Width 14.7 H Platelet Count 4 #*L Mean Platelet Volume Neutrophils % 66.6 Lymphocytes % 23.7 Monocytes % 8.4 Eosinophils % 0.1 Basophils % 0.7 Nucleated Red Blood Cells % 0.0 Neutrophils # 10.3 H Lymphocytes # 3.7 H Monocytes # 1.3 H Eosinophils # 0.0 Basophils # 0.1 Nucleated Red Blood Cells # 0.0 Prothrombin Time 13.0 Prothrombin Time Ratio 1.0 INR International Normalized Ratio 0.98 Activated Partial Thromboplast Time 25.3 Bedside Glucose 265 H Medications Medications Current Medications Insulin Glargine (Lantus) 45 unit DAILY SC Last administered on 08/19/16 08:34 ; Admin Dose 45 UNIT; Start 08/19/16 at 09:00 Levothyroxine Sodium (Synthroid) 100 mcg DAILY@06 PO Last administered on 08:23; Admin Dose 100 MCG; Start 08/19/16 at 07:30 Lisinopril (Zestril) 5 mg DAILY PO Last administered on 08/19/16 08:23; Admin Dose 5 MG; Start 08/19/16 at 09:00 Metoprolol Tartrate (Lopressor) 25 mg BID PO Last administered on 08/19/16 08: 22; Admin Dose 25 MG; Start 08/19/16 at 09:00 Acetaminophen (Tylenol Tab) 650 mg Q6H PRN PO PAIN AND OR ELEVATED TEMP; Start 08/19/16 at 07:30 Ondansetron HCl (Zofran Inj) 4 mg Q6H PRN IV NAUSEA AND/OR VOMITING; Start 08/19 at 07:30 Pantoprazole (Protonix Tab) 40 mg DAILY@06 PO Last administered on 08/19/16 08: 23; Admin Dose 40 MG; Start 08/19/16 at 07:30 Miscellaneous Information 1 ea NOTE XX ; Start 08/19/16 at 07:30 Glucose (Glutose) 15 gm Q15M PRN PO DECREASED GLUCOSE; Start 08/19/16 at 07:30 Glucose (Glutose) 22.5 gm Q15M PRN PO DECREASED GLUCOSE; Start 08/19/16 at 07:30 Dextrose (D50w Syringe) 25 ml Q15M PRN IV DECREASED GLUCOSE; Start 08/19/16 at 07:30 Dextrose (D50w Syringe) 50 ml Q15M PRN IV DECREASED GLUCOSE; Start 08/19/16 at 07:30 Glucagon (Glucagen) 1 mg Q15M PRN IM DECREASED GLUCOSE; Start 08/19/16 at 07:30 Glucose (Glutose) 15 gm Q15M PRN BUCCAL DECREASED GLUCOSE; Start 08/19/16 at 07: 30 Immune Globulin (Carimune Nf) 0.4 gm ONCE IV ; Start 08/19/16 at 08:30; Status MILADY KOROMA M.D. Aug 19, 2016 09:10
[2016-08-19] MEDS ORDERED: PROMACTA 50 MG PO SCH (11:00)
[2016-08-19] MEDS ORDERED: EVAC CONTAINER IV ONE (11:00)
[2016-08-19] MEDS ORDERED: WATER STERILE FOR IV ONE (11:00)
[2016-08-19] MEDS ORDERED: IMMUNE GLOBULIN IV ONE (11:00)
[2016-08-19] MEDS: ACETAMINOPHEN 325 MG TAB PO PRN (12:05)
[2016-08-19 12:06] VITALS: BP 132/66; PULSE 77; RESP 16
[2016-08-19] MEDS: PROMACTA 50 MG PO SCH (12:06)
[2016-08-19 13:02] VITALS: BP 128/61; PULSE 73; RESP 16
--- NOTE | 2016-08-19 17:15 | QN ---
Documentation Comment [id number] ERICA MARAVILLA MD Aug 19, 2016 17:15
[2016-08-19 17:43] VITALS: BP 144/67; PULSE 74; RESP 16
--- NOTE | 2016-08-19 17:57 | HP ---
DATE OF ADMISSION: 08/19/2016 HISTORY OF PRESENT ILLNESS: The patient is a 66-year-old female recently discharged with a history of left foot toe gangrene and cellulitis. The patient has history of ITP on treatment. She present ed with severe thrombocytopenia and is being admitted for further management. PAST MEDICAL HISTORY: The patient has history of left foot toe gangrene. The patient has thromboc ytopenia. The patient's other history includes diabetes, hypertension and ITP. ALLERGY HISTORY: PENICILLIN. SOCIAL HISTORY: Negative. MEDICATION HISTORY: Includes at home. 1. Aspirin. 2. Doxycycline. 3. Insulin. 4. Levothyroxine. 5. Metoprolol. 6. Lisinopril. REVIEW OF SYSTEMS HEENT: Unremarkable. RESPIRATORY: Unremarkable. CARDIOVASCULAR: Unremarkable. ABDOMEN: Unremarkable for any GI bleed. No hematemesis, melena. EXTREMITIES: The patient has petechia left foot toe, gangrene noted. PHYSICAL EXAMINATION: GENERAL: The patient is awake, alert. VITAL SIGNS: Stable. HEAD: Atraumatic, normocephalic. Pupils equal, reactive to light. NECK: Supple. No JVD. LUNGS: Clear. CARDIOVASCULAR: S1, S2 normal. ABDOMEN: Soft, nontender. Bowel sounds present. No palpable mass. EXTREMITIES: No cyanosis, clubbing, or edema. CENTRAL NERVOUS SYSTEM: The patient is awake, alert, no focal deficit. LABORATORY DATA: As mentioned above. The patient has WBC 15.5, hematocrit 42. Sodium 130, potassi um 5.1. Patient's platelet count is 4. IMPRESSION: Thrombocytopenia, diabetes mellitus, peripheral vascular disease, hypertension and hist ory of idiopathic thrombocytopenic purpura. PLAN: To follow recommendation from hematology. Continue sliding scale insulin, pain medications. IVIG orders were done. Dictated By: ERICA MARAVILLA MD BS/NTS Conf#: [id number] DID#: [id number]
[2016-08-19 19:20] VITALS: BP 157/66; RESP 18
[2016-08-20 05:29] LABS: ADD SCAN DIFF NO
[2016-08-20 05:31] LABS: ABNORMAL IP MESSAGE 1; HEMOGLOBIN 12.6 g/dl (12.0-16.0); MEAN CORPUSCULAR HEMOGLOBIN 29.5 pg (29.0-33.0); MEAN CORPUSCULAR HGB CONC 33.2 g/dl (32.0-37.0); RED BLOOD COUNT 4.27 10^6/ul (4.20-5.40); RED CELL DISTRIBUTION WIDTH 14.6 % (11.5-14.5); WHITE BLOOD COUNT 14.2 10^3/ul (4.8-10.8)
[2016-08-20 05:50] LABS: ALBUMIN 3.8 g/dl (3.3-4.9)
[2016-08-20 05:51] LABS: POTASSIUM 3.3 mmol/L (3.5-5.1)
[2016-08-20 05:53] LABS: BILIRUBIN,INDIRECT 0.7 mg/dl (0-1.1); BILIRUBIN,TOTAL 0.7 mg/dl (0.2-1.3); CREATININE 0.59 mg/dl (0.44-1.00)
[2016-08-20 05:54] LABS: ALBUMIN/GLOBULIN RATIO 0.88; CALCIUM 9.3 mg/dl (8.4-10.2); TOTAL PROTEIN 8.1 g/dl (6.1-8.1)
[2016-08-20 06:14] LABS: PLATELET COUNT 2 10^3/UL (140-415)
[2016-08-20 06:30] VITALS: BP 143/65; PULSE 80; RESP 18
[2016-08-20] MEDS: PANTOPRAZOLE (EC) 40 MG TAB PO SCH (06:39)
[2016-08-20] MEDS: LEVOTHYROXINE 100 MCG TAB PO SCH (06:41)
--- NOTE | 2016-08-20 07:28 | CONS ---
Date/Time of Note Date/Time of Note DATE: 08/20/16 TIME: 07:23 Assessment/Plan Assessment/Plan Chief Complaint/Hosp Course 64yo with #IITP- pt was off promacta and her platelet count fell to <4K. She was given 1 dose of prednisone 1mg/kg in the ER. This morning she has bleeding in her left sclera and complains of neck/ear pain though now improved. - Will give 1 unit platelets, along with concurrent IVIG 0.5 gm/kg today and re- check platelet count after IVIG/platelets - Will continue home dose of Promacta 25 mg daily (note the promacta tablets are 50mg each. We will need to cut in half each tablet and given it daily). The platelet count should begin to rise after a few days. After platelet count is >50K, will need to start ASA 81mg. Once her platelet count is consistently greater than 50K, we should decrease the promacta dose to 12.5mg, which the patient will have delivered to her home. Once her platelets are greater than 50K and she is on ASA, she can be discharged to continue with Promacta 12.5mg with ASA 81 to take on a daily basis. - Will stop steroids given patient has severe diabetes - Will obtain STAT non-contrast head and neck CT to rule out bleed. CT head 08/20 showed 1. Limited examination secondary to motion artifact. 2. Otherwise, no acute intracranial pathology. 3. Right frontal calvarial exostosis. # Ischemia to Bilateral feet and toes - this was likely secondary to the rapid increase in platelet count from the promacta. - This has dramatically improved since last admission - As stated above, cannot start Aspirin until patient's platelet count is consistently greater than 50K - Note, angiography done during last admission reveals arteries of the lower extremities are widely patent bilaterally with good three-vessel runoff to the level of the ankles. 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 Her baseline WBC count is 10-11 - No intervention to be done for this condition at this time - The WBC count of 14-15 may be secondary to the steroids she was receiving. at this time there is no evidence of active infection Problems: Consultation Date/Type/Reason Admit Date/Time Aug 19, 2016 at 05:00 Initial Consult Date 08/19/16 Type of Consultation: Hematology Referring Provider: ERICA MARAVILLA MD 24 HR Interval Summary Free Text/Dictation Patient has bleeding in her left sclera this morning and complained of pain in her neck and ear. Now only has tenderness of right scalp, improved. She is walking without problems. Exam/Review of Systems Vital Signs Vitals Vital Signs Date Time Temp Pulse Resp B/P Pulse Ox O2 Delivery O2 Flow Rate FiO2 08/19/16 19:20 98.0 72 18 157/66 94 08/19/16 17:43 Room Air Intake and Output 08/19/16 08/19/16 08/20/16 15:00 23:00 07:00 Intake Total 800 ml 600 ml Balance 800 ml 600 ml Exam Constitutional: alert, oriented Eyes: other (left conjuntival hemorrahge) Neck: supple Respiratory: clear to auscultation Cardiovascular: regular rate and rhythm Gastrointestinal: non-tender, soft Musculoskeletal: other (diffuse petechiae) Results Result Diagram: 08/20/16 0424 08/20/16 0424 Results 24 hrs Laboratory Tests Test 08/19/16 08:03 08/19/16 11:41 08/19/16 17:42 08/19/16 21:12 Bedside Glucose 265 H 301 H 234 H 226 H Test 08/20/16 03:50 08/20/16 04:24 Bedside Glucose 98 White Blood Count 14.2 H Red Blood Count 4.27 Hemoglobin 12.6 Hematocrit 38.0 Mean Corpuscular Volume 89.0 Mean Corpuscular Hemoglobin 29.5 Mean Corpuscular Hemoglobin Concent 33.2 Red Cell Distribution Width 14.6 H Platelet Count 2 #*L Mean Platelet Volume Pending Neutrophils % Lymphocytes % Monocytes % Eosinophils % Basophils % Nucleated Red Blood Cells % Neutrophils # Lymphocytes # Monocytes # Eosinophils # Basophils # Nucleated Red Blood Cells # Sodium Level 141 Potassium Level 3.3 L Chloride Level 101 Carbon Dioxide Level 26 Anion Gap 17 H Blood Urea Nitrogen 18 Creatinine 0.59 Glucose Level 99 # Calcium Level 9.3 Total Bilirubin 0.7 Direct Bilirubin 0.00 Indirect Bilirubin 0.7 Aspartate Amino Transf (AST/SGOT) 19 Alanine Aminotransferase (ALT/SGPT) 31 Alkaline Phosphatase 73 Total Protein 8.1 Albumin 3.8 Globulin 4.30 H Albumin/Globulin Ratio 0.88 Medications Medications Current Medications Insulin Glargine (Lantus) 45 unit DAILY SC Last administered on 08/19/16 08:34 ; Admin Dose 45 UNIT; Start 08/19/16 at 09:00 Levothyroxine Sodium (Synthroid) 100 mcg DAILY@06 PO Last administered on 06:41; Admin Dose 100 MCG; Start 08/19/16 at 07:30 Lisinopril (Zestril) 5 mg DAILY PO Last administered on 08/19/16 08:23; Admin Dose 5 MG; Start 08/19/16 at 09:00 Metoprolol Tartrate (Lopressor) 25 mg BID PO Last administered on 08/19/16 21: 13; Admin Dose 25 MG; Start 08/19/16 at 09:00 Acetaminophen (Tylenol Tab) 650 mg Q6H PRN PO PAIN AND OR ELEVATED TEMP Last administered on 08/19/16 12:05; Admin Dose 650 MG; Start 08/19/16 at 07:30 Ondansetron HCl (Zofran Inj) 4 mg Q6H PRN IV NAUSEA AND/OR VOMITING; Start 08/19 at 07:30 Pantoprazole (Protonix Tab) 40 mg DAILY@06 PO Last administered on 08/20/16 06: 39; Admin Dose 40 MG; Start 08/19/16 at 07:30 Miscellaneous Information 1 ea NOTE XX ; Start 08/19/16 at 07:30 Glucose (Glutose) 15 gm Q15M PRN PO DECREASED GLUCOSE; Start 08/19/16 at 07:30 Glucose (Glutose) 22.5 gm Q15M PRN PO DECREASED GLUCOSE; Start 08/19/16 at 07:30 Dextrose (D50w Syringe) 25 ml Q15M PRN IV DECREASED GLUCOSE; Start 08/19/16 at 07:30 Dextrose (D50w Syringe) 50 ml Q15M PRN IV DECREASED GLUCOSE; Start 08/19/16 at 07:30 Glucagon (Glucagen) 1 mg Q15M PRN IM DECREASED GLUCOSE; Start 08/19/16 at 07:30 Glucose (Glutose) 15 gm Q15M PRN BUCCAL DECREASED GLUCOSE; Start 08/19/16 at 07: 30 Patient Own Medication 0.5 ea DAILY PO Last administered on 08/19/16t 12:06; Admin Dose 0.5 EA; Start 08/19/16 at 11:00 Immune Globulin (Carimune Nf) 26 gm ONCE ONCE IV ; Start 08/20/16 at 07:30; Stop 08/20/16 at 07:31; Status UNV TO,DA Ibrahim MD Aug 20, 2016 07:28
[2016-08-20 08:09] VITALS: BP 128/62; RESP 18
[2016-08-20] MEDS ORDERED: PATIENT'S OWN MEDICATION PO SCH (09:00)
[2016-08-20] MEDS: INSULIN ASPART [NOVOLOG] 3 ML PEN SC SCH ×4 (09:04→20:43)
[2016-08-20] MEDS: INSULIN GLARGINE [LANtus] 3 ML PEN SC SCH (09:05)
[2016-08-20] MEDS: LISINOPRIL 5 MG TAB PO SCH (09:10)
[2016-08-20] MEDS: METOPROLOL 25 MG TAB PO SCH ×2 (09:11→20:31)
[2016-08-20] MEDS: PROMACTA 50 MG PO SCH (09:14)
--- NOTE | 2016-08-20 09:50 | RADRPT ---
PROCEDURE: CT Head without contrast. CLINICAL INDICATION: Pain TECHNIQUE: The study was performed utilizing a GE 64-slice multidetector CT scanner. Direct spiral axial CT images of the brain were obtained from the vertex to the skull base without contrast. Cor onal and sagittal reformat images are provided. The CTDI vol is 44.19 mGy and the DLP is 720.23 mGy -cm. The images were reviewed on a PACS workstation. COMPARISON: No prior studies are available for comparison. FINDINGS: Exam is limited secondary to motion artifact. The ventricles and cortical sulci are within normal l imits. The baig-white matter differentiation is maintained. No intra or extra-axial fluid collecti on or mass effect or shift in the midline structures is seen. An exostosis is seen in the right fro ntal calvarium measuring approximately 1.5 cm in size. The visualized paranasal sinuses, mastoid ai r cells, orbits, and remainder of the calvarium are unremarkable. IMPRESSION: 1. Limited examination secondary to motion artifact. 2. Otherwise, no acute intracranial pathology. 3. Right frontal calvarial exostosis. RPTAT: HPNM Physician Carter Date Time Electronically viewed and signed by Physician Carter on 08/20/2016 09:50 /
[2016-08-20 09:59] LABS: BASOPHIL # 0.3 10^3/ul (0.0-0.1); LYMPHOCYTES # 5.7 10^3/ul (0.8-2.9); MONOCYTE # 1.4 10^3/ul (0.3-0.9); NEUTROPHIL # 6.8 10^3/ul (1.6-7.5)
[2016-08-20 10:00] LABS: PLATELET ESTIMATE PLT APPEAR DECREASED
[2016-08-20 10:01] LABS: TARGET CELLS OCCASIONAL
[2016-08-20 10:18] LABS: PLATELET COUNT 4 10^3/UL (140-415)
--- NOTE | 2016-08-20 11:46 | RADRPT ---
PROCEDURE: CT soft tissue neck without contrast. CLINICAL INDICATION: Neck pain. History of diabetes, hypertension, and ITP. TECHNIQUE: The study was performed utilizing a GE 64-slice multidetector CT scanner. Direct thin s ection helically acquired axial sections were obtained through the neck without contrast. Coronal a nd sagittal reformations were obtained. The images were reviewed on a PACS workstation. One or more the following does reduction techniques were utilized: Automated exposure control, adjustment of th e mA/ or kV according to patient's size, or use of iterative reconstruction technique. The CTDIvol is 9.3 mGy and the DLP is 214.8 mGycm. COMPARISON: No prior studies are available for comparison. FINDINGS: The nasopharynx, oropharynx, hypopharynx, and larynx are all normal in appearance. There is a 2.3 x 2.1 x 3.1 cm heterogeneous nodule in the left lobe of the thyroid gland with 2 coarse calcification s. This nodule does not cause significant mass effect upon the trachea. The submandibular and paro tid glands are unremarkable and normal in appearance. No pathologically enlarged lymph nodes are de tected. Note is made of a mixed lucent and sclerotic lesion filling the T1 vertebral body, most com patible with an intraosseous hemangioma. IMPRESSION: 1. There is a 2.3 x 2.1 x 3.1 cm heterogeneous solid nodule in the left lobe of the thyroid gland w ith 2 coarse calcifications. This can be followed with ultrasound and possible FNA. 2. 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 3. Otherwise, grossly unremarkable noncontrast CT of the soft tissues of the neck. RPTAT: AA .Korin Sharma MD, MD Date Time Electronically viewed and signed by .Korin Sharma MD, MD on 08/20/2016 11:46 .H/
[2016-08-20] MEDS ORDERED: WATER STERILE FOR IV SCH ×2 (12:30→14:00)
[2016-08-20] MEDS ORDERED: IMMUNE GLOBULIN IV SCH ×2 (12:30→14:00)
[2016-08-20] MEDS ORDERED: POTASSIUM CHLORIDE (SR) 20 MEQ TAB PO STA (13:44)
[2016-08-20] MEDS ORDERED: IMMUNE GLOBULIN (HUMAN) 6 GM INJ IV ONE (14:00)
[2016-08-20 14:55] VITALS: BP 120/70; PULSE 70; RESP 18
[2016-08-20 17:28] LABS: ADD SCAN DIFF NO
[2016-08-20 17:33] LABS: ABNORMAL IP MESSAGE 1; HEMATOCRIT 37.5 % (37.0-47.0); HEMOGLOBIN 12.7 g/dl (12.0-16.0); MEAN CORPUSCULAR HGB CONC 33.9 g/dl (32.0-37.0); MEAN CORPUSCULAR VOLUME 88.7 fl (82.0-101.0); MEAN PLATELET VOLUME 9.6 fl (7.4-10.4); RED BLOOD COUNT 4.23 10^6/ul (4.20-5.40); RED CELL DISTRIBUTION WIDTH 14.6 % (11.5-14.5); WHITE BLOOD COUNT 13.9 10^3/ul (4.8-10.8)
[2016-08-20 17:40] LABS: PLATELET COUNT 12 10^3/UL (140-415)
[2016-08-20 18:22] LABS: BASOPHIL # 0.1 10^3/ul (0.0-0.1); LYMPHOCYTES # 4.9 10^3/ul (0.8-2.9); MONOCYTE # 1.1 10^3/ul (0.3-0.9); NEUTROPHIL # 7.4 10^3/ul (1.6-7.5)
[2016-08-20 18:23] LABS: PLATELET ESTIMATE PLT APPEAR DECREASED
[2016-08-20 19:53] VITALS: BP 123/60; RESP 20
[2016-08-20] MEDS ORDERED: DIPHENHYDRAMINE 25 MG CAP PO PRN (20:30)
--- NOTE | 2016-08-20 22:04 | PN ---
Date/Time of Note Date/Time of Note DATE: 08/20/16 TIME: 22:03 Assessment/Plan VTE Prophylaxis VTE Prophylaxis Intervention: other Lines/Catheters IV [facility]from [facility] Saline Lock Assessment/Plan Chief Complaint/Hosp Course IMPRESSION: Thrombocytopenia, diabetes mellitus, peripheral vascular disease, hypertension and history of idiopathic thrombocytopenic purpura. plan ivig and prednisone Problems: Subjective 24 Hr Interval Summary Respiratory: No shortness of breath Cardiovascular: no complaints Gastrointestinal: no complaints Genitourinary: no complaints Exam/Review of Systems Vital Signs Vitals Vital Signs Date Time Temp Pulse Resp B/P Pulse Ox O2 Delivery O2 Flow Rate FiO2 08/20/16 19:53 98.5 74 20 123/60 96 08/20/16 14:55 Room Air Intake and Output 08/19/16 08/19/16 08/20/16 15:00 23:00 07:00 Intake Total 800 ml 600 ml Balance 800 ml 600 ml Exam Respiratory: diminished breath sounds Cardiovascular: regular rate and rhythm Gastrointestinal: soft Extremities: normal pulses Neurological: NURSE ASSESSOR II-XII intact Results Result Diagram: 08/20/16 1703 08/20/16 0424 Results 24 hrs Laboratory Tests Test 08/20/16 03:50 08/20/16 04:24 08/20/16 08:13 08/20/16 11:41 Bedside Glucose 98 124 304 H White Blood Count 14.2 H Red Blood Count 4.27 Hemoglobin 12.6 Hematocrit 38.0 Mean Corpuscular Volume 89.0 Mean Corpuscular Hemoglobin 29.5 Mean Corpuscular Hemoglobin Concent 33.2 Red Cell Distribution Width 14.6 H Platelet Count 2 #*L Mean Platelet Volume Neutrophils % 48.0 Lymphocytes % 40.0 Monocytes % 10.0 Eosinophils % Basophils % 2.0 Nucleated Red Blood Cells % Neutrophils # 6.8 Lymphocytes # 5.7 H Monocytes # 1.4 H Eosinophils # Basophils # 0.3 H Nucleated Red Blood Cells # Platelet Estimate PLT APPEAR DECREASED Large Platelets OCCASIONAL Giant Platelets OCCASIONAL Target Cells OCCASIONAL Sodium Level 141 Potassium Level 3.3 L Chloride Level 101 Carbon Dioxide Level 26 Anion Gap 17 H Blood Urea Nitrogen 18 Creatinine 0.59 Glucose Level 99 # Calcium Level 9.3 Total Bilirubin 0.7 Direct Bilirubin 0.00 Indirect Bilirubin 0.7 Aspartate Amino Transf (AST/SGOT) 19 Alanine Aminotransferase (ALT/SGPT) 31 Alkaline Phosphatase 73 Total Protein 8.1 Albumin 3.8 Globulin 4.30 H Albumin/Globulin Ratio 0.88 Test 08/20/16 17:03 08/20/16 18:05 08/20/16 20:34 White Blood Count 13.9 H Red Blood Count 4.23 Hemoglobin 12.7 Hematocrit 37.5 Mean Corpuscular Volume 88.7 Mean Corpuscular Hemoglobin 30.0 Mean Corpuscular Hemoglobin Concent 33.9 Red Cell Distribution Width 14.6 H Platelet Count 12 #*L Mean Platelet Volume 9.6 # Neutrophils % 53.0 Lymphocytes % 35.0 Reactive Lymphocytes % 3.0 Monocytes % 8.0 Basophils % 1.0 Neutrophils # 7.4 Lymphocytes # 4.9 H Monocytes # 1.1 H Basophils # 0.1 Platelet Estimate PLT APPEAR DECREASED Bedside Glucose 167 191 Medications Medications Current Medications Insulin Glargine (Lantus) 45 unit DAILY SC Last administered on 08/20/16 09:05 ; Admin Dose 45 UNIT; Start 08/19/16 at 09:00 Levothyroxine Sodium (Synthroid) 100 mcg DAILY@06 PO Last administered on 06:41; Admin Dose 100 MCG; Start 08/19/16 at 07:30 Lisinopril (Zestril) 5 mg DAILY PO Last administered on 08/20/16 09:10; Admin Dose 5 MG; Start 08/19/16 at 09:00 Metoprolol Tartrate (Lopressor) 25 mg BID PO Last administered on 08/20/16 20: 31; Admin Dose 25 MG; Start 08/19/16 at 09:00 Acetaminophen (Tylenol Tab) 650 mg Q6H PRN PO PAIN AND OR ELEVATED TEMP Last administered on 08/19/16 12:05; Admin Dose 650 MG; Start 08/19/16 at 07:30 Ondansetron HCl (Zofran Inj) 4 mg Q6H PRN IV NAUSEA AND/OR VOMITING; Start 08/19 at 07:30 Pantoprazole (Protonix Tab) 40 mg DAILY@06 PO Last administered on 08/20/16 06: 39; Admin Dose 40 MG; Start 08/19/16 at 07:30 Miscellaneous Information 1 ea NOTE XX ; Start 08/19/16 at 07:30 Glucose (Glutose) 15 gm Q15M PRN PO DECREASED GLUCOSE; Start 08/19/16 at 07:30 Glucose (Glutose) 22.5 gm Q15M PRN PO DECREASED GLUCOSE; Start 08/19/16 at 07:30 Dextrose (D50w Syringe) 25 ml Q15M PRN IV DECREASED GLUCOSE; Start 08/19/16 at 07:30 Dextrose (D50w Syringe) 50 ml Q15M PRN IV DECREASED GLUCOSE; Start 08/19/16 at 07:30 Glucagon (Glucagen) 1 mg Q15M PRN IM DECREASED GLUCOSE; Start 08/19/16 at 07:30 Glucose 15 gm 15 gm Q15M PRN BUCCAL DECREASED GLUCOSE; Start 08/19/16 at 07:30 Immune Globulin/ Sterile Water (Carimune Nf/ Water Sterile For Inj) 870 ml @ 0 mls/hr Q0M IV Last administered on 08/20/16 14:55; Admin Dose 50 MLS/HR; Start 08/20/16 at 14:00; Stop 08/20/16 at 23:45 Patient Own Medication 1 ea DAILY PO ; Start 08/21/16 at 09:00 Diphenhydramine HCl (Benadryl) 25 mg TID PRN PO ITCHING Last administered on 20:31; Admin Dose 25 MG; Start 08/20/16 at 20:30 ERICA MARAVILLA MD Aug 20, 2016 22:04
[2016-08-21 00:50] VITALS: BP 140/66; RESP 20
[2016-08-21] MEDS: PANTOPRAZOLE (EC) 40 MG TAB PO SCH (05:28)
[2016-08-21] MEDS: LEVOTHYROXINE 100 MCG TAB PO SCH (05:28)
[2016-08-21 05:30] VITALS: BP 142/75; PULSE 76; RESP 18
[2016-08-21 05:31] LABS: ADD SCAN DIFF NO
[2016-08-21 05:54] LABS: ABNORMAL IP MESSAGE 1; HEMATOCRIT 40.5 % (37.0-47.0); HEMOGLOBIN 13.5 g/dl (12.0-16.0); MEAN CORPUSCULAR HEMOGLOBIN 29.9 pg (29.0-33.0); MEAN CORPUSCULAR HGB CONC 33.3 g/dl (32.0-37.0); MEAN CORPUSCULAR VOLUME 89.8 fl (82.0-101.0); MEAN PLATELET VOLUME 9.6 fl (7.4-10.4); RED BLOOD COUNT 4.51 10^6/ul (4.20-5.40); RED CELL DISTRIBUTION WIDTH 14.7 % (11.5-14.5); WHITE BLOOD COUNT 12.2 10^3/ul (4.8-10.8)
[2016-08-21 06:14] LABS: POTASSIUM 4.5 mmol/L (3.5-5.1)
[2016-08-21 06:17] LABS: CREATININE 0.64 mg/dl (0.44-1.00)
[2016-08-21 06:18] LABS: CALCIUM 9.6 mg/dl (8.4-10.2)
[2016-08-21 07:10] LABS: PLATELET COUNT 11 10^3/UL (140-415)
--- NOTE | 2016-08-21 07:37 | CONS ---
Date/Time of Note Date/Time of Note DATE: 08/21/16 TIME: 07:27 Assessment/Plan Assessment/Plan Chief Complaint/Hosp Course 64yo with #IITP- pt was off promacta and her platelet count fell to <4K. She was given 1 dose of prednisone 1mg/kg in the ER. This morning she has bleeding in her left sclera and complains of neck/ear pain though now improved. - s/p 1 unit platelets, along with concurrent IVIG 0.5 gm/kg on 08/20/16 with rise in platelet count from 2 to 12, now 11 today. Will give an additional dose of IVIG 0.5 gm/kg today. - Will start Promacta 12.5 mg daily given that she had previously developed ischemic feet/toes on 25 mg daily. The platelet count should begin to rise after a few days. After platelet count is >50K, will need to start ASA 81mg. Once her platelets are greater than 50K and she is on ASA, she can be discharged to continue with Promacta 12.5mg with ASA 81 to take on a daily basis. - Will stop steroids given patient has severe diabetes - Non-contrast head and neck CT was obtained to rule out bleed. CT head 08/20/16 showed 1. Limited examination secondary to motion artifact. 2. Otherwise, no acute intracranial pathology. 3. Right frontal calvarial exostosis. CT neck with and without contrast showed 1. There is a 2.3 x 2.1 x 3.1 cm heterogeneous solid nodule in the left lobe of the thyroid gland with 2 coarse calcifications. This can be followed with ultrasound and possible FNA. 2. 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 3. Otherwise, grossly unremarkable noncontrast CT of the soft tissues of the neck. Discussed with Dr. Butler, intraosseous hemangioma is benign and thyroid nodule and hemangioma are incidental findings. Otherwise unremarkable CT head and neck. Can obtain ultrasound of thyroid and possible FNA once platelets improved. # Ischemia to Bilateral feet and toes - this was likely secondary to the rapid increase in platelet count from the promacta. - This has dramatically improved since last admission - As stated above, cannot start Aspirin until patient's platelet count is consistently greater than 50K - Note, angiography done during last admission reveals arteries of the lower extremities are widely patent bilaterally with good three-vessel runoff to the level of the ankles. 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 Her baseline WBC count is 10-11 - No intervention to be done for this condition at this time - May be secondary to the steroids she was receiving. At this time there is no evidence of active infection Problems: Consultation Date/Type/Reason Admit Date/Time Aug 19, 2016 at 05:00 Initial Consult Date 08/19/16 Type of Consultation: Hematology Referring Provider: ERICA MARAVILLA MD 24 HR Interval Summary Free Text/Dictation No bleeding. Subconjuntival hemorrhage in left eye stable. Exam/Review of Systems Vital Signs Vitals Vital Signs Date Time Temp Pulse Resp B/P Pulse Ox O2 Delivery O2 Flow Rate FiO2 08/21/16 05:30 98.0 76 18 142/75 97 Room Air Intake and Output 08/20/16 08/20/16 08/21/16 15:00 23:00 07:00 Intake Total 1828 ml 700 ml Output Total 800 ml 900 ml Balance 1028 ml -200 ml Exam Constitutional: alert, oriented Head: atraumatic, normocephalic Eyes: nl conjunctiva ENMT: nl external ears & nose Neck: non-tender, supple Respiratory: clear to auscultation, normal air movement Cardiovascular: nl pulses, regular rate and rhythm Gastrointestinal: soft Musculoskeletal: nl extremities to inspection, nl gait and stance Extremities: other (petichael rash over her BLE and BLE as well as trunk) Results Result Diagram: 08/21/16 0454 08/21/16 0454 Results 24 hrs Laboratory Tests Test 08/20/16 08:13 08/20/16 11:41 08/20/16 17:03 08/20/16 18:05 Bedside Glucose 124 304 H 167 White Blood Count 13.9 H Red Blood Count 4.23 Hemoglobin 12.7 Hematocrit 37.5 Mean Corpuscular Volume 88.7 Mean Corpuscular Hemoglobin 30.0 Mean Corpuscular Hemoglobin Concent 33.9 Red Cell Distribution Width 14.6 H Platelet Count 12 #*L Mean Platelet Volume 9.6 # Neutrophils % 53.0 Lymphocytes % 35.0 Reactive Lymphocytes % 3.0 Monocytes % 8.0 Basophils % 1.0 Neutrophils # 7.4 Lymphocytes # 4.9 H Monocytes # 1.1 H Basophils # 0.1 Platelet Estimate PLT APPEAR DECREASED Test 08/20/16 20:34 08/21/16 02:40 08/21/16 04:54 Bedside Glucose 191 231 H White Blood Count 12.2 H Red Blood Count 4.51 Hemoglobin 13.5 Hematocrit 40.5 Mean Corpuscular Volume 89.8 Mean Corpuscular Hemoglobin 29.9 Mean Corpuscular Hemoglobin Concent 33.3 Red Cell Distribution Width 14.7 H Platelet Count 11 *L Mean Platelet Volume 9.6 Sodium Level 137 Potassium Level 4.5 Chloride Level 101 Carbon Dioxide Level 22 Anion Gap 19 H Blood Urea Nitrogen 19 Creatinine 0.64 Glucose Level 234 #H Calcium Level 9.6 Medications Medications Current Medications Insulin Glargine (Lantus) 45 unit DAILY SC Last administered on 08/20/16 09:05 ; Admin Dose 45 UNIT; Start 08/19/16 at 09:00 Levothyroxine Sodium (Synthroid) 100 mcg DAILY@06 PO Last administered on 05:28; Admin Dose 100 MCG; Start 08/19/16 at 07:30 Lisinopril (Zestril) 5 mg DAILY PO Last administered on 08/20/16 09:10; Admin Dose 5 MG; Start 08/19/16 at 09:00 Metoprolol Tartrate (Lopressor) 25 mg BID PO Last administered on 08/20/16 20: 31; Admin Dose 25 MG; Start 08/19/16 at 09:00 Acetaminophen (Tylenol Tab) 650 mg Q6H PRN PO PAIN AND OR ELEVATED TEMP Last administered on 08/19/16 12:05; Admin Dose 650 MG; Start 08/19/16 at 07:30 Ondansetron HCl (Zofran Inj) 4 mg Q6H PRN IV NAUSEA AND/OR VOMITING; Start 08/19 at 07:30 Pantoprazole (Protonix Tab) 40 mg DAILY@06 PO Last administered on 08/21/16 05: 28; Admin Dose 40 MG; Start 08/19/16 at 07:30 Miscellaneous Information 1 ea NOTE XX ; Start 08/19/16 at 07:30 Glucose (Glutose) 15 gm Q15M PRN PO DECREASED GLUCOSE; Start 08/19/16 at 07:30 Glucose (Glutose) 22.5 gm Q15M PRN PO DECREASED GLUCOSE; Start 08/19/16 at 07:30 Dextrose (D50w Syringe) 25 ml Q15M PRN IV DECREASED GLUCOSE; Start 08/19/16 at 07:30 Dextrose (D50w Syringe) 50 ml Q15M PRN IV DECREASED GLUCOSE; Start 08/19/16 at 07:30 Glucagon (Glucagen) 1 mg Q15M PRN IM DECREASED GLUCOSE; Start 08/19/16 at 07:30 Glucose (Glutose) 15 gm Q15M PRN BUCCAL DECREASED GLUCOSE; Start 08/19/16 at 07: 30 Patient Own Medication 1 ea DAILY PO ; Start 08/21/16 at 09:00 Diphenhydramine HCl (Benadryl) 25 mg TID PRN PO ITCHING Last administered on t 20:31; Admin Dose 25 MG; Start 08/20/16 at 20:30 TODA MD Aug 21, 2016 07:37
[2016-08-21 08:42] VITALS: BP 146/69; RESP 18
[2016-08-21] MEDS: INSULIN GLARGINE [LANtus] 3 ML PEN SC SCH (09:08)
[2016-08-21] MEDS: INSULIN ASPART [NOVOLOG] 3 ML PEN SC SCH ×4 (09:10→21:05)
[2016-08-21] MEDS: LISINOPRIL 5 MG TAB PO SCH (09:11)
[2016-08-21] MEDS: METOPROLOL 25 MG TAB PO SCH ×2 (09:12→20:56)
[2016-08-21] MEDS: PROMACTA 12.5 MG PO SCH (09:15)
[2016-08-21 10:19] LABS: BASOPHIL # 0.1 10^3/ul (0.0-0.1); EOSINOPHILS # 0.1 10^3/ul (0.0-0.5); LYMPHOCYTES # 4.5 10^3/ul (0.8-2.9); MONOCYTE # 1.1 10^3/ul (0.3-0.9); NEUTROPHIL # 6.2 10^3/ul (1.6-7.5); PLATELET ESTIMATE PLT APPEAR DECREASED; POLYCHROMASIA OCCASIONAL
[2016-08-21] MEDS ORDERED: IMMUNE GLOBULIN (HUMAN) 6 GM INJ IV ONE (14:00)
[2016-08-21] MEDS ORDERED: IMMUNE GLOBULIN IV SCH (14:00)
[2016-08-21] MEDS ORDERED: WATER STERILE FOR IV SCH (14:00)
[2016-08-21 19:47] VITALS: BP 126/59; RESP 18
--- NOTE | 2016-08-21 22:35 | PN ---
Date/Time of Note Date/Time of Note DATE: 08/21/16 TIME: 22:34 Assessment/Plan VTE Prophylaxis VTE Prophylaxis Intervention: other Lines/Catheters IV [facility] Type (from [facility]): Peripheral IV Assessment/Plan Chief Complaint/Hosp Course IMPRESSION: Thrombocytopenia, diabetes mellitus, peripheral vascular disease, hypertension and history of idiopathic thrombocytopenic purpura. plan ivig and prednisone lantus Problems: Subjective 24 Hr Interval Summary Eyes: redness (left+) Respiratory: no complaints Cardiovascular: no complaints Gastrointestinal: no complaints Exam/Review of Systems Vital Signs Vitals Vital Signs Date Time Temp Pulse Resp B/P Pulse Ox O2 Delivery O2 Flow Rate FiO2 08/21/16 19:47 98.4 84 18 126/59 96 08/21/16 05:30 Room Air Intake and Output 08/20/16 08/20/16 08/21/16 14:59 22:59 06:59 Intake Total 1828 ml 700 ml Output Total 800 ml 900 ml Balance 1028 ml -200 ml Exam Respiratory: clear to auscultation Cardiovascular: regular rate and rhythm Gastrointestinal: soft Musculoskeletal: nl extremities to inspection Extremities: normal pulses Results Result Diagram: 08/21/16 0800 08/21/16 0454 Results 24 hrs Laboratory Tests Test 08/21/16 02:40 08/21/16 04:54 08/21/16 08:00 08/21/16 08:10 Bedside Glucose 231 H 223 H Sodium Level 137 Potassium Level 4.5 Chloride Level 101 Carbon Dioxide Level 22 Anion Gap 19 H Blood Urea Nitrogen 19 Creatinine 0.64 Glucose Level 234 #H Calcium Level 9.6 White Blood Count 12.2 H Red Blood Count 4.51 Hemoglobin 13.5 Hematocrit 40.5 Mean Corpuscular Volume 89.8 Mean Corpuscular Hemoglobin 29.9 Mean Corpuscular Hemoglobin Concent 33.3 Red Cell Distribution Width 14.7 H Platelet Count 11 *L Mean Platelet Volume 9.6 Neutrophils % 51.0 Lymphocytes % 37.0 Monocytes % 9.0 Eosinophils % 1.0 Basophils % 1.0 Metamyelocytes % 1.0 H Neutrophils # 6.2 Lymphocytes # 4.5 H Monocytes # 1.1 H Eosinophils # 0.1 Basophils # 0.1 Metamyelocytes # 0.1 Differential Comment MANUAL DIFF Platelet Estimate PLT APPEAR DECREASED Giant Platelets OCCASIONAL Polychromasia OCCASIONAL Test 08/21/16 11:26 08/21/16 17:32 08/21/16 20:58 Bedside Glucose 274 H 124 247 H Medications Medications Current Medications Insulin Glargine (Lantus) 45 unit DAILY SC Last administered on 08/21/16 09:08 ; Admin Dose 45 UNIT; Start 08/19/16 at 09:00 Levothyroxine Sodium (Synthroid) 100 mcg DAILY@06 PO Last administered on 05:28; Admin Dose 100 MCG; Start 08/19/16 at 07:30 Lisinopril (Zestril) 5 mg DAILY PO Last administered on 08/21/16 09:11; Admin Dose 5 MG; Start 08/19/16 at 09:00 Metoprolol Tartrate (Lopressor) 25 mg BID PO Last administered on 08/21/16 20: 56; Admin Dose 25 MG; Start 08/19/16 at 09:00 Acetaminophen (Tylenol Tab) 650 mg Q6H PRN PO PAIN AND OR ELEVATED TEMP Last administered on 08/19/16 12:05; Admin Dose 650 MG; Start 08/19/16 at 07:30 Ondansetron HCl (Zofran Inj) 4 mg Q6H PRN IV NAUSEA AND/OR VOMITING; Start 08/19 at 07:30 Pantoprazole (Protonix Tab) 40 mg DAILY@06 PO Last administered on 08/21/16 05: 28; Admin Dose 40 MG; Start 08/19/16 at 07:30 Miscellaneous Information 1 ea NOTE XX ; Start 08/19/16 at 07:30 Glucose (Glutose) 15 gm Q15M PRN PO DECREASED GLUCOSE; Start 08/19/16 at 07:30 Glucose (Glutose) 22.5 gm Q15M PRN PO DECREASED GLUCOSE; Start 08/19/16 at 07:30 Dextrose (D50w Syringe) 25 ml Q15M PRN IV DECREASED GLUCOSE; Start 08/19/16 at 07:30 Dextrose (D50w Syringe) 50 ml Q15M PRN IV DECREASED GLUCOSE; Start 08/19/16 at 07:30 Glucagon (Glucagen) 1 mg Q15M PRN IM DECREASED GLUCOSE; Start 08/19/16 at 07:30 Glucose (Glutose) 15 gm Q15M PRN BUCCAL DECREASED GLUCOSE; Start 08/19/16 at 07: 30 Patient Own Medication 1 ea DAILY PO Last administered on 08/21/16 09:15; Admin Dose 1 EA; Start 08/21/16 at 09:00 Diphenhydramine HCl 25 mg 25 mg TID PRN PO ITCHING Last administered on 20:31; Admin Dose 25 MG; Start 08/20/16 at 20:30 Immune Globulin/ Sterile Water (Carimune Nf/ Water Sterile For Inj) 870 ml @ 0 mls/hr Q0M IV Last administered on 08/21/16 14:43; Admin Dose 50 MLS/HR; Start 08/21/16 at 14:00; Stop 08/21/16 at 23:45 ERICA MARAVILLA MD Aug 21, 2016 22:35
[2016-08-22 04:53] LABS: ADD SCAN DIFF NO
[2016-08-22 05:04] LABS: ABNORMAL IP MESSAGE 1; BASOPHIL # 0.1 10^3/ul (0.0-0.1); BASOPHILS % 0.8 % (0.0-2.0); EOSINOPHILS # 0.1 10^3/ul (0.0-0.5); EOSINOPHILS % 0.9 % (0.0-7.0); HEMATOCRIT 37.6 % (37.0-47.0); HEMOGLOBIN 12.7 g/dl (12.0-16.0); LYMPHOCYTES # 4.2 10^3/ul (0.8-2.9); LYMPHOCYTES % 34.2 % (15.0-51.0); MEAN CORPUSCULAR HEMOGLOBIN 29.9 pg (29.0-33.0); MEAN CORPUSCULAR HGB CONC 33.8 g/dl (32.0-37.0); MEAN CORPUSCULAR VOLUME 88.5 fl (82.0-101.0); MEAN PLATELET VOLUME 13.3 fl (7.4-10.4); MONOCYTE # 1.4 10^3/ul (0.3-0.9); MONOCYTES % 11.3 % (0.0-11.0); NEUTROPHIL # 6.5 10^3/ul (1.6-7.5); NEUTROPHILS % 52.4 % (39.0-77.0); PLATELET COUNT 39 10^3/UL (140-415); RED BLOOD COUNT 4.25 10^6/ul (4.20-5.40); RED CELL DISTRIBUTION WIDTH 14.6 % (11.5-14.5); WHITE BLOOD COUNT 12.4 10^3/ul (4.8-10.8)
[2016-08-22] MEDS: LEVOTHYROXINE 100 MCG TAB PO SCH (06:54)
[2016-08-22] MEDS: PANTOPRAZOLE (EC) 40 MG TAB PO SCH (06:54)
[2016-08-22 08:20] VITALS: BP 142/62; RESP 16
[2016-08-22] MEDS: INSULIN ASPART [NOVOLOG] 3 ML PEN SC SCH ×4 (09:22→22:14)
[2016-08-22] MEDS: INSULIN GLARGINE [LANtus] 3 ML PEN SC SCH (09:23)
[2016-08-22] MEDS: METOPROLOL 25 MG TAB PO SCH ×2 (09:24→22:24)
[2016-08-22] MEDS: LISINOPRIL 5 MG TAB PO SCH (09:24)
[2016-08-22] MEDS: PROMACTA 12.5 MG PO SCH (09:25)
--- NOTE | 2016-08-22 14:12 | CONS ---
Date/Time of Note Date/Time of Note DATE: 08/22/16 TIME: 14:10 Assessment/Plan Assessment/Plan Chief Complaint/Hosp Course 64yo with #IITP- pt was off promacta and her platelet count fell to <4K. She was given 1 dose of prednisone 1mg/kg in the ER. This morning she has bleeding in her left sclera and complains of neck/ear pain though now improved. - s/p 3 days of IVIG 0.5 gm/kg 08/19/16-08/21/16, with 1 unit of platelets on . Plt now improved to 39. - Will continue Promacta 12.5 mg daily given that she had previously developed ischemic feet/toes on 25 mg daily. After platelet count is >50K, will need to start ASA 81mg. Once her platelets are greater than 50K and she is on ASA, she can be discharged to continue with Promacta 12.5mg with ASA 81 to take on a daily basis. - Will stop steroids given patient has severe diabetes - Non-contrast head and neck CT was obtained to rule out bleed. CT head 08/20/16 showed 1. Limited examination secondary to motion artifact. 2. Otherwise, no acute intracranial pathology. 3. Right frontal calvarial exostosis. CT neck with and without contrast showed 1. There is a 2.3 x 2.1 x 3.1 cm heterogeneous solid nodule in the left lobe of the thyroid gland with 2 coarse calcifications. This can be followed with ultrasound and possible FNA. 2. 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 3. Otherwise, grossly unremarkable noncontrast CT of the soft tissues of the neck. Discussed with Dr. Butler, intraosseous hemangioma is benign and thyroid nodule and hemangioma are incidental findings. Otherwise unremarkable CT head and neck. Will obtain ultrasound of thyroid, only biopsy once platelets improved. # Ischemia to Bilateral feet and toes - this was likely secondary to the rapid increase in platelet count from the promacta. - This has dramatically improved since last admission - As stated above, cannot start Aspirin until patient's platelet count is consistently greater than 50K - Note, angiography done during last admission reveals arteries of the lower extremities are widely patent bilaterally with good three-vessel runoff to the level of the ankles. 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 Her baseline WBC count is 10-11 - No intervention to be done for this condition at this time - May be secondary to the steroids she was receiving. At this time there is no evidence of active infection Problems: Consultation Date/Type/Reason Admit Date/Time Aug 19, 2016 at 05:00 Initial Consult Date 08/19/16 Type of Consultation: Hematology Referring Provider: ERICA MARAVILLA MD 24 HR Interval Summary Free Text/Dictation Patient feels better today, no bleeding. Bleeding in left eye improved. Exam/Review of Systems Vital Signs Vitals Vital Signs Date Time Temp Pulse Resp B/P Pulse Ox O2 Delivery O2 Flow Rate FiO2 08/22/16 08:20 98.2 76 16 142/62 98 08/21/16 05:30 Room Air Intake and Output 08/21/16 08/21/16 08/22/16 15:00 23:00 07:00 Intake Total 700 ml 1070 ml Output Total 600 ml 1000 ml Balance 100 ml 70 ml Exam Constitutional: alert, oriented Head: atraumatic, normocephalic Eyes: left conjunctival hemorrhage, resolving ENMT: nl external ears & nose Neck: non-tender, supple Respiratory: clear to auscultation, normal air movement Cardiovascular: nl pulses, regular rate and rhythm Gastrointestinal: soft Musculoskeletal: nl extremities to inspection, nl gait and stance Extremities: other (petichael rash over her BLE and BLE as well as trunk) Results Result Diagram: 08/22/16 0430 08/21/16 0454 Results 24 hrs Laboratory Tests Test 08/21/16 17:32 08/21/16 20:58 08/22/16 02:33 08/22/16 04:30 Bedside Glucose 124 247 H 143 White Blood Count 12.4 H Red Blood Count 4.25 Hemoglobin 12.7 Hematocrit 37.6 Mean Corpuscular Volume 88.5 Mean Corpuscular Hemoglobin 29.9 Mean Corpuscular Hemoglobin Concent 33.8 Red Cell Distribution Width 14.6 H Platelet Count 39 #L Mean Platelet Volume 13.3 #H Neutrophils % 52.4 Lymphocytes % 34.2 Monocytes % 11.3 H Eosinophils % 0.9 Basophils % 0.8 Nucleated Red Blood Cells % 0.0 Neutrophils # 6.5 Lymphocytes # 4.2 H Monocytes # 1.4 H Eosinophils # 0.1 Basophils # 0.1 Nucleated Red Blood Cells # 0.0 Test 08/22/16 07:48 08/22/16 11:53 Bedside Glucose 148 215 Medications Medications Current Medications Levothyroxine Sodium (Synthroid) 100 mcg DAILY@06 PO Last administered on 06:54; Admin Dose 100 MCG; Start 08/19/16 at 07:30 Lisinopril (Zestril) 5 mg DAILY PO Last administered on 08/22/16 09:24; Admin Dose 5 MG; Start 08/19/16 at 09:00 Metoprolol Tartrate (Lopressor) 25 mg BID PO Last administered on 08/22/16 09: 24; Admin Dose 25 MG; Start 08/19/16 at 09:00 Acetaminophen (Tylenol Tab) 650 mg Q6H PRN PO PAIN AND OR ELEVATED TEMP Last administered on 08/19/16 12:05; Admin Dose 650 MG; Start 08/19/16 at 07:30 Ondansetron HCl (Zofran Inj) 4 mg Q6H PRN IV NAUSEA AND/OR VOMITING; Start 08/19 at 07:30 Pantoprazole (Protonix Tab) 40 mg DAILY@06 PO Last administered on 08/22/16 06 :54; Admin Dose 40 MG; Start 08/19/16 at 07:30 Miscellaneous Information 1 ea NOTE XX ; Start 08/19/16 at 07:30 Glucose (Glutose) 15 gm Q15M PRN PO DECREASED GLUCOSE; Start 08/19/16 at 07:30 Glucose (Glutose) 22.5 gm Q15M PRN PO DECREASED GLUCOSE; Start 08/19/16 at 07:30 Dextrose (D50w Syringe) 25 ml Q15M PRN IV DECREASED GLUCOSE; Start 08/19/16 at 07:30 Dextrose (D50w Syringe) 50 ml Q15M PRN IV DECREASED GLUCOSE; Start 08/19/16 at 07:30 Glucagon (Glucagen) 1 mg Q15M PRN IM DECREASED GLUCOSE; Start 08/19/16 at 07:30 Glucose (Glutose) 15 gm Q15M PRN BUCCAL DECREASED GLUCOSE; Start 08/19/16 at 07: 30 Patient Own Medication 1 ea DAILY PO Last administered on 08/22/16 09:25; Admin Dose 1 EA; Start 08/21/16 at 09:00 Diphenhydramine HCl (Benadryl) 25 mg TID PRN PO ITCHING Last administered on 20:31; Admin Dose 25 MG; Start 08/20/16 at 20:30 Insulin Glargine (Lantus) 50 unit DAILY SC Last administered on 08/22/16 09:23 ; Admin Dose 50 UNIT; Start 08/22/16 at 09:00 DA ROJAS MD Aug 22, 2016 14:12
[2016-08-22 19:35] VITALS: BP 133/63; RESP 18
--- NOTE | 2016-08-22 22:43 | PN ---
Date/Time of Note Date/Time of Note DATE: 08/22/16 TIME: 22:41 Assessment/Plan VTE Prophylaxis VTE Prophylaxis Intervention: other Lines/Catheters IV [facility] [place] Assessment/Plan Chief Complaint/Hosp Course IMPRESSION: Thrombocytopenia, diabetes mellitus, peripheral vascular disease, hypertension and history of idiopathic thrombocytopenic purpura. plan ivig and prednisone lantus promacta Problems: Subjective 24 Hr Interval Summary Cardiovascular: no complaints Gastrointestinal: no complaints Exam/Review of Systems Vital Signs Vitals Vital Signs Date Time Temp Pulse Resp B/P Pulse Ox O2 Delivery O2 Flow Rate FiO2 08/22/16 19:35 97.7 84 18 133/63 95 08/21/16 05:30 Room Air Intake and Output 08/21/16 08/21/16 08/22/16 14:59 22:59 06:59 Intake Total 700 ml 1070 ml Output Total 600 ml 1000 ml Balance 100 ml 70 ml Exam Respiratory: clear to auscultation Cardiovascular: regular rate and rhythm Gastrointestinal: soft Extremities: cyanosis, No edema Results Result Diagram: 08/22/16 0430 08/21/16 0454 Results 24 hrs Laboratory Tests Test 08/22/16 02:33 08/22/16 04:30 08/22/16 07:48 08/22/16 11:53 Bedside Glucose 143 148 215 White Blood Count 12.4 H Red Blood Count 4.25 Hemoglobin 12.7 Hematocrit 37.6 Mean Corpuscular Volume 88.5 Mean Corpuscular Hemoglobin 29.9 Mean Corpuscular Hemoglobin Concent 33.8 Red Cell Distribution Width 14.6 H Platelet Count 39 #L Mean Platelet Volume 13.3 #H Neutrophils % 52.4 Lymphocytes % 34.2 Monocytes % 11.3 H Eosinophils % 0.9 Basophils % 0.8 Nucleated Red Blood Cells % 0.0 Neutrophils # 6.5 Lymphocytes # 4.2 H Monocytes # 1.4 H Eosinophils # 0.1 Basophils # 0.1 Nucleated Red Blood Cells # 0.0 Test 08/22/16 16:45 08/22/16 22:11 Bedside Glucose 153 188 Medications Medications Current Medications Levothyroxine Sodium (Synthroid) 100 mcg DAILY@06 PO Last administered on t 06:54; Admin Dose 100 MCG; Start 08/19/16 at 07:30 Lisinopril (Zestril) 5 mg DAILY PO Last administered on 08/22/16 09:24; Admin Dose 5 MG; Start 08/19/16 at 09:00 Metoprolol Tartrate (Lopressor) 25 mg BID PO Last administered on 08/22/16 22: 24; Admin Dose 25 MG; Start 08/19/16 at 09:00 Acetaminophen (Tylenol Tab) 650 mg Q6H PRN PO PAIN AND OR ELEVATED TEMP Last administered on 08/19/16 12:05; Admin Dose 650 MG; Start 08/19/16 at 07:30 Ondansetron HCl (Zofran Inj) 4 mg Q6H PRN IV NAUSEA AND/OR VOMITING; Start 08/19 at 07:30 Pantoprazole (Protonix Tab) 40 mg DAILY@06 PO Last administered on 08/22/16 06 :54; Admin Dose 40 MG; Start 08/19/16 at 07:30 Miscellaneous Information 1 ea NOTE XX ; Start 08/19/16 at 07:30 Glucose (Glutose) 15 gm Q15M PRN PO DECREASED GLUCOSE; Start 08/19/16 at 07:30 Glucose (Glutose) 22.5 gm Q15M PRN PO DECREASED GLUCOSE; Start 08/19/16 at 07:30 Dextrose (D50w Syringe) 25 ml Q15M PRN IV DECREASED GLUCOSE; Start 08/19/16 at 07:30 Dextrose (D50w Syringe) 50 ml Q15M PRN IV DECREASED GLUCOSE; Start 08/19/16 at 07:30 Glucagon (Glucagen) 1 mg Q15M PRN IM DECREASED GLUCOSE; Start 08/19/16 at 07:30 Glucose (Glutose) 15 gm Q15M PRN BUCCAL DECREASED GLUCOSE; Start 08/19/16 at 07: 30 Patient Own Medication 1 ea DAILY PO Last administered on 08/22/16 09:25; Admin Dose 1 EA; Start 08/21/16 at 09:00 Diphenhydramine HCl (Benadryl) 25 mg TID PRN PO ITCHING Last administered on 20:31; Admin Dose 25 MG; Start 08/20/16 at 20:30 Insulin Glargine (Lantus) 50 unit DAILY SC Last administered on 08/22/16 09:23 ; Admin Dose 50 UNIT; Start 08/22/16 at 09:00 ERICA MARAVILLA MD Aug 22, 2016 22:43
[2016-08-23] MEDS: LEVOTHYROXINE 100 MCG TAB PO SCH (06:34)
[2016-08-23] MEDS: PANTOPRAZOLE (EC) 40 MG TAB PO SCH (06:34)
[2016-08-23 07:47] VITALS: BP 127/59; RESP 18
[2016-08-23] MEDS: INSULIN ASPART [NOVOLOG] 3 ML PEN SC SCH ×4 (07:50→20:33)
[2016-08-23] MEDS: LISINOPRIL 5 MG TAB PO SCH (08:53)
[2016-08-23] MEDS: PROMACTA 12.5 MG PO SCH (08:54)
[2016-08-23] MEDS: METOPROLOL 25 MG TAB PO SCH ×2 (08:54→20:31)
[2016-08-23] MEDS: INSULIN GLARGINE [LANtus] 3 ML PEN SC SCH (08:59)
[2016-08-23 10:52] LABS: ADD SCAN DIFF NO
[2016-08-23 10:57] LABS: ABNORMAL IP MESSAGE 1; BASOPHIL # 0.1 10^3/ul (0.0-0.1); EOSINOPHILS # 0.1 10^3/ul (0.0-0.5); EOSINOPHILS % 0.9 % (0.0-7.0); HEMATOCRIT 38.7 % (37.0-47.0); HEMOGLOBIN 12.7 g/dl (12.0-16.0); LYMPHOCYTES # 2.7 10^3/ul (0.8-2.9); LYMPHOCYTES % 29.4 % (15.0-51.0); MEAN CORPUSCULAR HEMOGLOBIN 29.5 pg (29.0-33.0); MEAN CORPUSCULAR HGB CONC 32.8 g/dl (32.0-37.0); MEAN CORPUSCULAR VOLUME 89.8 fl (82.0-101.0); MEAN PLATELET VOLUME 12.2 fl (7.4-10.4); MONOCYTE # 1.1 10^3/ul (0.3-0.9); MONOCYTES % 11.8 % (0.0-11.0); NEUTROPHIL # 5.2 10^3/ul (1.6-7.5); NEUTROPHILS % 56.7 % (39.0-77.0); RED BLOOD COUNT 4.31 10^6/ul (4.20-5.40); RED CELL DISTRIBUTION WIDTH 14.9 % (11.5-14.5); WHITE BLOOD COUNT 9.2 10^3/ul (4.8-10.8)
[2016-08-23 10:58] LABS: PLATELET COUNT 69 10^3/UL (140-415)
[2016-08-23 11:07] LABS: ALBUMIN 3.7 g/dl (3.3-4.9); ALBUMIN/GLOBULIN RATIO 0.75; BILIRUBIN,INDIRECT 0.4 mg/dl (0-1.1); BILIRUBIN,TOTAL 0.4 mg/dl (0.2-1.3); CALCIUM 8.8 mg/dl (8.4-10.2); CREATININE 0.64 mg/dl (0.44-1.00); POTASSIUM 4.1 mmol/L (3.5-5.1); TOTAL PROTEIN 8.6 g/dl (6.1-8.1)
--- NOTE | 2016-08-23 11:08 | RADRPT ---
PROCEDURE: Ultrasound of the soft tissues of the neck. CLINICAL INDICATION: History of thyroidectomy. CT scan of the neck dated 08/20/2016 demonstrated a solid nodule in the left thyroid bed measuring 2.3 x 2.1 x 3.1 cm. TECHNIQUE: High-resolution sonography of the thyroid bed and the left side of the neck was perform ed in the axial and sagittal planes. COMPARISON: CT scan of the neck dated 08/20/2016. FINDINGS: The thyroid is surgically absent. There is a solid heterogeneous mass in the left side of the neck as seen on prior CT scan measuring 3.7 x 2.1 x 2.2 cm. There is no other neck mass. IMPRESSION: 1. Status post thyroidectomy. 2. Solid heterogeneous mass in the left side of the neck measuring 3.7 x 2.1 x 2.2 cm. Ultrasound- guided biopsy should be considered. RPTAT: QQ .Jimmy Butler MD, MD Date Time Electronically viewed and signed by .Jimmy Butler MD, MD on 08/23/2016 11:08 .R/
--- NOTE | 2016-08-23 15:28 | CONS ---
Date/Time of Note Date/Time of Note DATE: 08/23/16 TIME: 15:25 Assessment/Plan Assessment/Plan Chief Complaint/Hosp Course 64yo with #IITP- pt was off promacta and her platelet count fell to <4K. She was given 1 dose of prednisone 1mg/kg in the ER. This morning she has bleeding in her left sclera and complains of neck/ear pain though now improved. - s/p 3 days of IVIG 0.5 gm/kg 08/19/16-08/21/16, with 1 unit of platelets on . Plt now improved to 69 from 39 yesterday. - Will continue Promacta 12.5 mg daily given that she had previously developed ischemic feet/toes on 25 mg daily. Now that platelet count is >50K, will need to start ASA 81mg after thyroid biopsy (see below). Once her platelets are greater than 50K and she is on ASA, she can be discharged to continue with Promacta 12.5mg with ASA 81 to take on a daily basis. - Will stop steroids given patient has severe diabetes - Non-contrast head and neck CT was obtained to rule out bleed. CT head 08/20/16 showed 1. Limited examination secondary to motion artifact. 2. Otherwise, no acute intracranial pathology. 3. Right frontal calvarial exostosis. CT neck with and without contrast showed 1. There is a 2.3 x 2.1 x 3.1 cm heterogeneous solid nodule in the left lobe of the thyroid gland with 2 coarse calcifications. This can be followed with ultrasound and possible FNA. 2. 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 3. Otherwise, grossly unremarkable noncontrast CT of the soft tissues of the neck. Discussed with Dr. Butler, intraosseous hemangioma is benign and thyroid nodule and hemangioma are incidental findings. Otherwise unremarkable CT head and neck. - US neck 08/23/16 showed 1. Status post thyroidectomy. 2. Solid heterogeneous mass in the left side of the neck measuring 3.7 x 2.1 x 2.2 cm. Ultrasound-guided biopsy should be considered. Will obtain biopsy tomorrow now that platelets improved. NPO after midnight. # Ischemia to Bilateral feet and toes - this was likely secondary to the rapid increase in platelet count from the promacta. - This has dramatically improved since last admission - As stated above, cannot start Aspirin until patient's platelet count is consistently greater than 50K - Note, angiography done during last admission reveals arteries of the lower extremities are widely patent bilaterally with good three-vessel runoff to the level of the ankles. 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 Her baseline WBC count is 10-11. Now resolved. - No intervention to be done for this condition at this time - May be secondary to the steroids she was receiving. At this time there is no evidence of active infection Dispo - pending US guided thryoid nodule biopsy and monitoring of platelet count for at least 1-2 more days Problems: Consultation Date/Type/Reason Admit Date/Time Aug 19, 2016 at 05:00 Initial Consult Date 08/19/16 Type of Consultation: Hematology Referring Provider: ERICA MARAVILLA MD 24 HR Interval Summary Free Text/Dictation Patient doing well, no bleeding. Exam/Review of Systems Vital Signs Vitals Vital Signs Date Time Temp Pulse Resp B/P Pulse Ox O2 Delivery O2 Flow Rate FiO2 08/23/16 07:47 97.4 79 18 127/59 96 08/21/16 05:30 Room Air Intake and Output 08/22/16 08/22/16 08/23/16 15:00 23:00 07:00 Intake Total 700 ml 570 ml Balance 700 ml 570 ml Exam Constitutional: alert, oriented Head: atraumatic, normocephalic Eyes: left conjunctival hemorrhage, resolving ENMT: nl external ears & nose Neck: non-tender, supple Respiratory: clear to auscultation, normal air movement Cardiovascular: nl pulses, regular rate and rhythm Gastrointestinal: soft Musculoskeletal: nl extremities to inspection, nl gait and stance Extremities: other (petichael rash over her BLE and BLE as well as trunk, improved) Results Result Diagram: 08/23/1692408/23/1625 Results 24 hrs Laboratory Tests Test 08/22/16 16:45 08/22/16 22:11 08/23/16 02:25 08/23/16 08:51 Bedside Glucose 153 188 138 137 Test 08/23/16 09:25 08/23/16 12:30 White Blood Count 9.2 # Red Blood Count 4.31 Hemoglobin 12.7 Hematocrit 38.7 Mean Corpuscular Volume 89.8 Mean Corpuscular Hemoglobin 29.5 Mean Corpuscular Hemoglobin Concent 32.8 Red Cell Distribution Width 14.9 H Platelet Count 69 #L Mean Platelet Volume 12.2 H Neutrophils % 56.7 Lymphocytes % 29.4 Monocytes % 11.8 H Eosinophils % 0.9 Basophils % 1.0 Nucleated Red Blood Cells % 0.0 Neutrophils # 5.2 Lymphocytes # 2.7 Monocytes # 1.1 H Eosinophils # 0.1 Basophils # 0.1 Nucleated Red Blood Cells # 0.0 Sodium Level 133 L Potassium Level 4.1 Chloride Level 99 Carbon Dioxide Level 25 Anion Gap 13 Blood Urea Nitrogen 15 Creatinine 0.64 Glucose Level 323 H Calcium Level 8.8 Total Bilirubin 0.4 Direct Bilirubin 0.00 Indirect Bilirubin 0.4 Aspartate Amino Transf (AST/SGOT) 35 Alanine Aminotransferase (ALT/SGPT) 32 Alkaline Phosphatase 78 Total Protein 8.6 H Albumin 3.7 Globulin 4.90 H Albumin/Globulin Ratio 0.75 Bedside Glucose 205 Medications Medications Current Medications Levothyroxine Sodium (Synthroid) 100 mcg DAILY@06 PO Last administered on 06:34; Admin Dose 100 MCG; Start 08/19/16 at 07:30 Lisinopril (Zestril) 5 mg DAILY PO Last administered on 08/23/16 08:53; Admin Dose 5 MG; Start 08/19/16 at 09:00 Metoprolol Tartrate (Lopressor) 25 mg BID PO Last administered on 08/23/16 08: 54; Admin Dose 25 MG; Start 08/19/16 at 09:00 Acetaminophen (Tylenol Tab) 650 mg Q6H PRN PO PAIN AND OR ELEVATED TEMP Last administered on 08/19/16 12:05; Admin Dose 650 MG; Start 08/19/16 at 07:30 Ondansetron HCl (Zofran Inj) 4 mg Q6H PRN IV NAUSEA AND/OR VOMITING; Start 08/19 at 07:30 Pantoprazole (Protonix Tab) 40 mg DAILY@06 PO Last administered on 08/23/16 06 :34; Admin Dose 40 MG; Start 08/19/16 at 07:30 Miscellaneous Information 1 ea NOTE XX ; Start 08/19/16 at 07:30 Glucose (Glutose) 15 gm Q15M PRN PO DECREASED GLUCOSE; Start 08/19/16 at 07:30 Glucose (Glutose) 22.5 gm Q15M PRN PO DECREASED GLUCOSE; Start 08/19/16 at 07:30 Dextrose (D50w Syringe) 25 ml Q15M PRN IV DECREASED GLUCOSE; Start 08/19/16 at 07:30 Dextrose (D50w Syringe) 50 ml Q15M PRN IV DECREASED GLUCOSE; Start 08/19/16 at 07:30 Glucagon (Glucagen) 1 mg Q15M PRN IM DECREASED GLUCOSE; Start 08/19/16 at 07:30 Glucose (Glutose) 15 gm Q15M PRN BUCCAL DECREASED GLUCOSE; Start 08/19/16 at 07: 30 Patient Own Medication 1 ea DAILY PO Last administered on 08/23/16 08:54; Admin Dose 1 EA; Start 08/21/16 at 09:00 Diphenhydramine HCl (Benadryl) 25 mg TID PRN PO ITCHING Last administered on 20:31; Admin Dose 25 MG; Start 08/20/16 at 20:30 Insulin Glargine (Lantus) 50 unit DAILY SC Last administered on 08/23/16 08:59 ; Admin Dose 50 UNIT; Start 08/22/16 at 09:00 Aspirin (Aspirin) 81 mg DAILY PO ; Start 08/24/16 at 09:00 DA ROJAS MD Aug 23, 2016 15:28
[2016-08-23 19:51] VITALS: BP 126/60; RESP 18
[2016-08-23 19:52] VITALS: Ht 152.4 cm; Wt 52.0 kg
--- NOTE | 2016-08-23 22:13 | PN ---
Date/Time of Note Date/Time of Note DATE: 08/23/16 TIME: 22:12 Assessment/Plan VTE Prophylaxis VTE Prophylaxis Intervention: other Lines/Catheters IV [facility] Saline Lock Assessment/Plan Chief Complaint/Hosp Course IMPRESSION: Thrombocytopenia, diabetes mellitus, peripheral vascular disease, hypertension and history of idiopathic thrombocytopenic purpura.,throid mass plan ivig and prednisone, lantus promacta yhyroid biopsy Problems: Subjective 24 Hr Interval Summary Respiratory: no complaints Cardiovascular: no complaints Gastrointestinal: no complaints Exam/Review of Systems Vital Signs Vitals Vital Signs Date Time Temp Pulse Resp B/P Pulse Ox O2 Delivery O2 Flow Rate FiO2 08/23/16 19:51 97.9 79 18 126/60 95 08/21/16 05:30 Room Air Intake and Output 08/22/16 08/22/16 08/23/16 15:00 23:00 07:00 Intake Total 700 ml 570 ml Balance 700 ml 570 ml Exam Respiratory: clear to auscultation Cardiovascular: regular rate and rhythm Gastrointestinal: soft Musculoskeletal: nl extremities to inspection Results Result Diagram: 08/23/1625 08/23/16 0925 Results 24 hrs Laboratory Tests Test 08/23/16 02:25 08/23/16 08:51 08/23/16 09:25 08/23/16 12:30 Bedside Glucose 138 137 205 White Blood Count 9.2 # Red Blood Count 4.31 Hemoglobin 12.7 Hematocrit 38.7 Mean Corpuscular Volume 89.8 Mean Corpuscular Hemoglobin 29.5 Mean Corpuscular Hemoglobin Concent 32.8 Red Cell Distribution Width 14.9 H Platelet Count 69 #L Mean Platelet Volume 12.2 H Neutrophils % 56.7 Lymphocytes % 29.4 Monocytes % 11.8 H Eosinophils % 0.9 Basophils % 1.0 Nucleated Red Blood Cells % 0.0 Neutrophils # 5.2 Lymphocytes # 2.7 Monocytes # 1.1 H Eosinophils # 0.1 Basophils # 0.1 Nucleated Red Blood Cells # 0.0 Sodium Level 133 L Potassium Level 4.1 Chloride Level 99 Carbon Dioxide Level 25 Anion Gap 13 Blood Urea Nitrogen 15 Creatinine 0.64 Glucose Level 323 H Hemoglobin A1c 9.5 H Calcium Level 8.8 Total Bilirubin 0.4 Direct Bilirubin 0.00 Indirect Bilirubin 0.4 Aspartate Amino Transf (AST/SGOT) 35 Alanine Aminotransferase (ALT/SGPT) 32 Alkaline Phosphatase 78 Total Protein 8.6 H Albumin 3.7 Globulin 4.90 H Albumin/Globulin Ratio 0.75 Test 08/23/16 17:33 08/23/16 20:32 Bedside Glucose 149 117 Medications Medications Current Medications Levothyroxine Sodium (Synthroid) 100 mcg DAILY@06 PO Last administered on 06:34; Admin Dose 100 MCG; Start 08/19/16 at 07:30 Lisinopril (Zestril) 5 mg DAILY PO Last administered on 08/23/16 08:53; Admin Dose 5 MG; Start 08/19/16 at 09:00 Metoprolol Tartrate (Lopressor) 25 mg BID PO Last administered on 08/23/16 20: 31; Admin Dose 25 MG; Start 08/19/16 at 09:00 Acetaminophen (Tylenol Tab) 650 mg Q6H PRN PO PAIN AND OR ELEVATED TEMP Last administered on 08/19/16 12:05; Admin Dose 650 MG; Start 08/19/16 at 07:30 Ondansetron HCl (Zofran Inj) 4 mg Q6H PRN IV NAUSEA AND/OR VOMITING; Start 08/19 at 07:30 Pantoprazole (Protonix Tab) 40 mg DAILY@06 PO Last administered on 08/23/16 06 :34; Admin Dose 40 MG; Start 08/19/16 at 07:30 Miscellaneous Information 1 ea NOTE XX ; Start 08/19/16 at 07:30 Glucose (Glutose) 15 gm Q15M PRN PO DECREASED GLUCOSE; Start 08/19/16 at 07:30 Glucose (Glutose) 22.5 gm Q15M PRN PO DECREASED GLUCOSE; Start 08/19/16 at 07:30 Dextrose (D50w Syringe) 25 ml Q15M PRN IV DECREASED GLUCOSE; Start 08/19/16 at 07:30 Dextrose (D50w Syringe) 50 ml Q15M PRN IV DECREASED GLUCOSE; Start 08/19/16 at 07:30 Glucagon (Glucagen) 1 mg Q15M PRN IM DECREASED GLUCOSE; Start 08/19/16 at 07:30 Glucose (Glutose) 15 gm Q15M PRN BUCCAL DECREASED GLUCOSE; Start 08/19/16 at 07: 30 Patient Own Medication 1 ea DAILY PO Last administered on 08/23/16 08:54; Admin Dose 1 EA; Start 08/21/16 at 09:00 Diphenhydramine HCl (Benadryl) 25 mg TID PRN PO ITCHING Last administered on 20:31; Admin Dose 25 MG; Start 08/20/16 at 20:30 Insulin Glargine (Lantus) 50 unit DAILY SC Last administered on 08/23/16 08:59 ; Admin Dose 50 UNIT; Start 08/22/16 at 09:00 Aspirin 81 mg 81 mg DAILY PO ; Start 08/24/16 at 17:00 Dextrose/Sodium Chloride (D5-1/2ns) 1,000 ml @ 50 mls/hr Q20H IV ; Start at 00:00 ERICA MARAVILLA MD Aug 23, 2016 22:13
[2016-08-23 23:18] LABS: FREE T3 5.15 pg/ml (2.77-5.27)
[2016-08-23 23:31] LABS: THYROID STIMULATING HORMONE 0.445 MIU/L (0.465-4.680); TRIIODOTHYRONINE 1.62 ng/ml (0.97-1.69)
[2016-08-24] VITALS (7 sets, daily range): BP systolic 119–141; BP diastolic 53–66; PULSE 75–85; RESP 17–20
[2016-08-24] MEDS ORDERED: DEXTROSE 5%-0.45% NACL 1,000 ML IV SCH
[2016-08-24 05:00] LABS: ADD SCAN DIFF NO
[2016-08-24 05:05] LABS: BASOPHIL # 0.1 10^3/ul (0.0-0.1); EOSINOPHILS # 0.1 10^3/ul (0.0-0.5); EOSINOPHILS % 1.1 % (0.0-7.0); HEMATOCRIT 38.8 % (37.0-47.0); HEMOGLOBIN 12.9 g/dl (12.0-16.0); LYMPHOCYTES # 4.4 10^3/ul (0.8-2.9); LYMPHOCYTES % 38.2 % (15.0-51.0); MEAN CORPUSCULAR HEMOGLOBIN 29.6 pg (29.0-33.0); MEAN CORPUSCULAR HGB CONC 33.2 g/dl (32.0-37.0); MEAN PLATELET VOLUME 11.9 fl (7.4-10.4); MONOCYTE # 1.4 10^3/ul (0.3-0.9); MONOCYTES % 12.1 % (0.0-11.0); NEUTROPHIL # 5.4 10^3/ul (1.6-7.5); NEUTROPHILS % 47.2 % (39.0-77.0); PLATELET COUNT 107 10^3/UL (140-415); RED BLOOD COUNT 4.36 10^6/ul (4.20-5.40); RED CELL DISTRIBUTION WIDTH 14.6 % (11.5-14.5); WHITE BLOOD COUNT 11.5 10^3/ul (4.8-10.8)
[2016-08-24 05:14] LABS: INR 1.01; PROTIME 13.3 Sec (12.2-14.2)
[2016-08-24 05:21] LABS: ALBUMIN 3.8 g/dl (3.3-4.9)
[2016-08-24 05:22] LABS: POTASSIUM 3.7 mmol/L (3.5-5.1)
[2016-08-24 05:24] LABS: ALBUMIN/GLOBULIN RATIO 0.73; BILIRUBIN,INDIRECT 0.5 mg/dl (0-1.1); BILIRUBIN,TOTAL 0.5 mg/dl (0.2-1.3); CREATININE 0.63 mg/dl (0.44-1.00)
[2016-08-24 05:25] LABS: CALCIUM 9.1 mg/dl (8.4-10.2)
[2016-08-24] MEDS: LEVOTHYROXINE 100 MCG TAB PO SCH (05:53)
[2016-08-24] MEDS: PANTOPRAZOLE (EC) 40 MG TAB PO SCH (05:53)
[2016-08-24] MEDS: INSULIN ASPART [NOVOLOG] 3 ML PEN SC SCH ×4 (07:50→20:21)
[2016-08-24] MEDS: INSULIN GLARGINE [LANtus] 3 ML PEN SC SCH (08:56)
[2016-08-24] MEDS ORDERED: ASPIRIN 81 MG TAB PO SCH (09:00)
--- NOTE | 2016-08-24 10:46 | RADRPT ---
PROCEDURE: Ultrasound guided thyroid biopsy. CLINICAL INDICATION: Mass in the left thyroid bed. History of total thyroidectomy. TECHNIQUE: Prior to the procedure, informed consent was obtained. Risks including bleeding and in fection were explained to the patient. The patient understood was willing to proceed. A procedural pause was performed. The patient's name, date of , and procedure to be performed were verifie d. Using local anesthetic, sterile technique and ultrasound guidance, a 25-gauge needle was advanced in to the mass in the left thyroid bed. Multiple passes were made. Adequate tissue was obtained and s ent for pathologic analysis. The pathologist indicated there was adequate tissue for diagnostic pur poses. The patient tolerated the procedure well. COMPARISON: Ultrasound dated 08/23/2016. FINDINGS: Images demonstrate the needle within the mass in question. IMPRESSION: 1. Satisfactory ultrasound-guided biopsy of the mass in the left thyroid bed. RPTAT: QQ .Jimmy Butler MD, MD Date Time Electronically viewed and signed by .Jimmy Butler MD, MD on 08/24/2016 10:45 .R/
[2016-08-24] MEDS: LISINOPRIL 5 MG TAB PO SCH (11:48)
[2016-08-24] MEDS: PROMACTA 12.5 MG PO SCH (11:48)
[2016-08-24] MEDS: METOPROLOL 25 MG TAB PO SCH ×2 (11:49→20:19)
--- NOTE | 2016-08-24 16:57 | CONS ---
Date/Time of Note Date/Time of Note DATE: 08/24/16 TIME: 16:52 Assessment/Plan Assessment/Plan Chief Complaint/Hosp Course 64yo with # IITP- pt was off promacta and her platelet count fell to <4K. She was given 1 dose of prednisone 1mg/kg in the ER. This morning she has bleeding in her left sclera and complains of neck/ear pain though now improved. - s/p 3 days of IVIG 0.5 gm/kg 08/19/16-08/21/16, with 1 unit of platelets on . Plt now improved to 107 from 69 from 39. - Given rapid rise in platelet count with concern for thrombosis, will hold Promacta at this point and monitor platelet count and monitor for thrombosis. - Now that platelet count is >50K, will need to start ASA 81mg. - Will stop steroids given patient has severe diabetes # L neck mass - Non-contrast head and neck CT was obtained to rule out bleed. CT head 08/20/16 showed 1. Limited examination secondary to motion artifact. 2. Otherwise, no acute intracranial pathology. 3. Right frontal calvarial exostosis. CT neck with and without contrast showed 1. There is a 2.3 x 2.1 x 3.1 cm heterogeneous solid nodule in the left lobe of the thyroid gland with 2 coarse calcifications. This can be followed with ultrasound and possible FNA. 2. 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 3. Otherwise, grossly unremarkable noncontrast CT of the soft tissues of the neck. Discussed with Dr. Butler, intraosseous hemangioma is benign and thyroid nodule and hemangioma are incidental findings. Otherwise unremarkable CT head and neck. - US neck 08/23/16 showed 1. Status post thyroidectomy. 2. Solid heterogeneous mass in the left side of the neck measuring 3.7 x 2.1 x 2.2 cm. Ultrasound-guided biopsy should be considered. Now s/p US guided biopsy of left thyroid bed 08/24/16, pending results. # Ischemia to Bilateral feet and toes - this was likely secondary to the rapid increase in platelet count from the promacta. - This has dramatically improved since last admission - As stated above, cannot start Aspirin until patient's platelet count is consistently greater than 50K - Note, angiography done during last admission reveals arteries of the lower extremities are widely patent bilaterally with good three-vessel runoff to the level of the ankles. 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 Her baseline WBC count is 10-11. Now resolved. - No intervention to be done for this condition at this time - May be secondary to the steroids she was receiving. At this time there is no evidence of active infection Dispo - pending monitoring of platelet count for at least 1-2 more days to ensure does not rise too quickly due to risk of thrombosis Problems: Consultation Date/Type/Reason Admit Date/Time Aug 19, 2016 at 05:00 Initial Consult Date 08/19/16 Type of Consultation: Hematology Referring Provider: ERICA MARAVILLA MD 24 HR Interval Summary Free Text/Dictation The patient is doing well, no bleeding, no complaints. She had the biopsy of the left thyroid bed today. Exam/Review of Systems Vital Signs Vitals Vital Signs Date Time Temp Pulse Resp B/P Pulse Ox O2 Delivery O2 Flow Rate FiO2 08/24/16 11:15 98.0 81 20 130/58 94 Room Air Intake and Output 08/23/16 08/23/16 08/24/16 15:00 23:00 07:00 Intake Total 960 ml 1100 ml Output Total 1100 ml Balance 960 ml 0 ml Exam Constitutional: alert, oriented Head: atraumatic, normocephalic Eyes: left conjunctival hemorrhage, resolving ENMT: nl external ears & nose Neck: non-tender, supple Respiratory: clear to auscultation, normal air movement Cardiovascular: nl pulses, regular rate and rhythm Gastrointestinal: soft Musculoskeletal: nl extremities to inspection, nl gait and stance Extremities: other (petichael rash over her BLE and BLE as well as trunk, improved) Results Result Diagram: 08/24/16 0446 08/24/166 Results 24 hrs Laboratory Tests Test 08/23/16 17:33 08/23/16 20:32 08/23/16 22:18 08/24/16 04:46 Bedside Glucose 149 117 Thyroid Stimulating Hormone (TSH) 0.445 L Free Thyroxine 2.11 Thyroxine (T4) 17.0 H Free Triiodothyronine (T3) pg/mL 5.15 Total Triiodothyronine 1.62 White Blood Count 11.5 #H Red Blood Count 4.36 Hemoglobin 12.9 Hematocrit 38.8 Mean Corpuscular Volume 89.0 Mean Corpuscular Hemoglobin 29.6 Mean Corpuscular Hemoglobin Concent 33.2 Red Cell Distribution Width 14.6 H Platelet Count 107 #L Mean Platelet Volume 11.9 H Neutrophils % 47.2 Lymphocytes % 38.2 Monocytes % 12.1 H Eosinophils % 1.1 Basophils % 1.0 Nucleated Red Blood Cells % 0.0 Neutrophils # 5.4 Lymphocytes # 4.4 H Monocytes # 1.4 H Eosinophils # 0.1 Basophils # 0.1 Nucleated Red Blood Cells # 0.0 Prothrombin Time 13.3 Prothrombin Time Ratio 1.0 INR International Normalized Ratio 1.01 Activated Partial Thromboplast Time 25.9 Sodium Level 138 Potassium Level 3.7 Chloride Level 99 Carbon Dioxide Level 28 Anion Gap 15 Blood Urea Nitrogen 14 Creatinine 0.63 Glucose Level 136 # Calcium Level 9.1 Total Bilirubin 0.5 Direct Bilirubin 0.00 Indirect Bilirubin 0.5 Aspartate Amino Transf (AST/SGOT) 33 Alanine Aminotransferase (ALT/SGPT) 27 Alkaline Phosphatase 82 Total Protein 9.0 H Albumin 3.8 Globulin 5.20 H Albumin/Globulin Ratio 0.73 Test 08/24/16 08:09 08/24/16 11:46 Bedside Glucose 137 227 H Medications Medications Current Medications Levothyroxine Sodium (Synthroid) 100 mcg DAILY@06 PO Last administered on 06:34; Admin Dose 100 MCG; Start 08/19/16 at 07:30 Lisinopril (Zestril) 5 mg DAILY PO Last administered on 08/24/16 11:48; Admin Dose 5 MG; Start 08/19/16 at 09:00 Metoprolol Tartrate (Lopressor) 25 mg BID PO Last administered on 08/24/16 11: 49; Admin Dose 25 MG; Start 08/19/16 at 09:00 Acetaminophen (Tylenol Tab) 650 mg Q6H PRN PO PAIN AND OR ELEVATED TEMP Last administered on 08/19/16 12:05; Admin Dose 650 MG; Start 08/19/16 at 07:30 Ondansetron HCl (Zofran Inj) 4 mg Q6H PRN IV NAUSEA AND/OR VOMITING; Start 08/19 at 07:30 Pantoprazole (Protonix Tab) 40 mg DAILY@06 PO Last administered on 08/23/16 06 :34; Admin Dose 40 MG; Start 08/19/16 at 07:30 Miscellaneous Information 1 ea NOTE XX ; Start 08/19/16 at 07:30 Glucose (Glutose) 15 gm Q15M PRN PO DECREASED GLUCOSE; Start 08/19/16 at 07:30 Glucose (Glutose) 22.5 gm Q15M PRN PO DECREASED GLUCOSE; Start 08/19/16 at 07:30 Dextrose (D50w Syringe) 25 ml Q15M PRN IV DECREASED GLUCOSE; Start 08/19/16 at 07:30 Dextrose (D50w Syringe) 50 ml Q15M PRN IV DECREASED GLUCOSE; Start 08/19/16 at 07:30 Glucagon (Glucagen) 1 mg Q15M PRN IM DECREASED GLUCOSE; Start 08/19/16 at 07:30 Glucose (Glutose) 15 gm Q15M PRN BUCCAL DECREASED GLUCOSE; Start 08/19/16 at 07: 30 Patient Own Medication 1 ea DAILY PO Last administered on 08/24/16 11:48; Admin Dose 1 EA; Start 08/21/16 at 09:00 Diphenhydramine HCl (Benadryl) 25 mg TID PRN PO ITCHING Last administered on 20:31; Admin Dose 25 MG; Start 08/20/16 at 20:30 Insulin Glargine (Lantus) 50 unit DAILY SC Last administered on 08/24/16 08:56 ; Admin Dose 50 UNIT; Start 08/22/16 at 09:00 Aspirin (Aspirin) 81 mg DAILY PO ; Start 08/24/16 at 17:00 TODA MD Aug 24, 2016 16:57
[2016-08-24] MEDS: ASPIRIN 81 MG TAB PO SCH (17:43)
--- NOTE | 2016-08-24 19:36 | PN ---
Date/Time of Note Date/Time of Note DATE: 08/24/16 TIME: 19:34 Assessment/Plan VTE Prophylaxis VTE Prophylaxis Intervention: other Lines/Catheters IV [facility]from [facility] Saline Lock Urinary Cath still in place: No Assessment/Plan Chief Complaint/Hosp Course IMPRESSION: Thrombocytopenia,better diabetes mellitus, peripheral vascular disease, hypertension and history of idiopathic thrombocytopenic purpura., thyroid mass plan ivig and prednisone, lantus promacta tyhyroid biopsy done Problems: Subjective 24 Hr Interval Summary Subjective hx not possible: other (s/p neck mass biopsy) Respiratory: no complaints Cardiovascular: no complaints Exam/Review of Systems Vital Signs Vitals Vital Signs Date Time Temp Pulse Resp B/P Pulse Ox O2 Delivery O2 Flow Rate FiO2 08/24/16 19:24 98.4 78 19 119/57 100 08/24/16 11:15 Room Air Intake and Output 08/23/16 08/23/16 08/24/16 15:00 23:00 07:00 Intake Total 960 ml 1100 ml Output Total 1100 ml Balance 960 ml 0 ml Exam Respiratory: clear to auscultation Cardiovascular: regular rate and rhythm Gastrointestinal: soft Musculoskeletal: nl extremities to inspection Extremities: normal pulses Results Result Diagram: 08/24/16 0446 08/24/16 0446 Results 24 hrs Laboratory Tests Test 08/23/16 20:32 08/23/16 22:18 08/24/16 04:46 08/24/16 08:09 Bedside Glucose 117 137 Thyroid Stimulating Hormone (TSH) 0.445 L Free Thyroxine 2.11 Thyroxine (T4) 17.0 H Free Triiodothyronine (T3) pg/mL 5.15 Total Triiodothyronine 1.62 White Blood Count 11.5 #H Red Blood Count 4.36 Hemoglobin 12.9 Hematocrit 38.8 Mean Corpuscular Volume 89.0 Mean Corpuscular Hemoglobin 29.6 Mean Corpuscular Hemoglobin Concent 33.2 Red Cell Distribution Width 14.6 H Platelet Count 107 #L Mean Platelet Volume 11.9 H Neutrophils % 47.2 Lymphocytes % 38.2 Monocytes % 12.1 H Eosinophils % 1.1 Basophils % 1.0 Nucleated Red Blood Cells % 0.0 Neutrophils # 5.4 Lymphocytes # 4.4 H Monocytes # 1.4 H Eosinophils # 0.1 Basophils # 0.1 Nucleated Red Blood Cells # 0.0 Prothrombin Time 13.3 Prothrombin Time Ratio 1.0 INR International Normalized Ratio 1.01 Activated Partial Thromboplast Time 25.9 Sodium Level 138 Potassium Level 3.7 Chloride Level 99 Carbon Dioxide Level 28 Anion Gap 15 Blood Urea Nitrogen 14 Creatinine 0.63 Glucose Level 136 # Calcium Level 9.1 Total Bilirubin 0.5 Direct Bilirubin 0.00 Indirect Bilirubin 0.5 Aspartate Amino Transf (AST/SGOT) 33 Alanine Aminotransferase (ALT/SGPT) 27 Alkaline Phosphatase 82 Total Protein 9.0 H Albumin 3.8 Globulin 5.20 H Albumin/Globulin Ratio 0.73 Test 08/24/16 11:46 08/24/16 17:38 Bedside Glucose 227 H 157 Medications Medications Current Medications Levothyroxine Sodium (Synthroid) 100 mcg DAILY@06 PO Last administered on 06:34; Admin Dose 100 MCG; Start 08/19/16 at 07:30 Lisinopril (Zestril) 5 mg DAILY PO Last administered on 08/24/16 11:48; Admin Dose 5 MG; Start 08/19/16 at 09:00 Metoprolol Tartrate (Lopressor) 25 mg BID PO Last administered on 08/24/16 11: 49; Admin Dose 25 MG; Start 08/19/16 at 09:00 Acetaminophen (Tylenol Tab) 650 mg Q6H PRN PO PAIN AND OR ELEVATED TEMP Last administered on 08/19/16 12:05; Admin Dose 650 MG; Start 08/19/16 at 07:30 Ondansetron HCl (Zofran Inj) 4 mg Q6H PRN IV NAUSEA AND/OR VOMITING; Start 08/19 at 07:30 Pantoprazole (Protonix Tab) 40 mg DAILY@06 PO Last administered on 08/23/16 06 :34; Admin Dose 40 MG; Start 08/19/16 at 07:30 Miscellaneous Information 1 ea NOTE XX ; Start 08/19/16 at 07:30 Glucose (Glutose) 15 gm Q15M PRN PO DECREASED GLUCOSE; Start 08/19/16 at 07:30 Glucose (Glutose) 22.5 gm Q15M PRN PO DECREASED GLUCOSE; Start 08/19/16 at 07:30 Dextrose (D50w Syringe) 25 ml Q15M PRN IV DECREASED GLUCOSE; Start 4/7/17 at 07:30 Dextrose (D50w Syringe) 50 ml Q15M PRN IV DECREASED GLUCOSE; Start 08/19/16 at 07:30 Glucagon (Glucagen) 1 mg Q15M PRN IM DECREASED GLUCOSE; Start 08/19/16 at 07:30 Glucose (Glutose) 15 gm Q15M PRN BUCCAL DECREASED GLUCOSE; Start 08/19/16 at 07: 30 Diphenhydramine HCl (Benadryl) 25 mg TID PRN PO ITCHING Last administered on 20:31; Admin Dose 25 MG; Start 08/20/16 at 20:30 Insulin Glargine (Lantus) 50 unit DAILY SC Last administered on 08/24/16 08:56 ; Admin Dose 50 UNIT; Start 08/22/16 at 09:00 Aspirin (Aspirin) 81 mg DAILY PO Last administered on 08/24/16 17:43; Admin Dose 81 MG; Start 08/24/16 at 17:00 ERICA MARAVILLA MD Aug 24, 2016 19:36
[2016-08-25 05:11] LABS: ADD SCAN DIFF NO
[2016-08-25 05:24] LABS: ABNORMAL IP MESSAGE 1; HEMATOCRIT 40.2 % (37.0-47.0); HEMOGLOBIN 13.4 g/dl (12.0-16.0); MEAN CORPUSCULAR HEMOGLOBIN 29.8 pg (29.0-33.0); MEAN CORPUSCULAR HGB CONC 33.3 g/dl (32.0-37.0); MEAN CORPUSCULAR VOLUME 89.5 fl (82.0-101.0); MEAN PLATELET VOLUME 11.4 fl (7.4-10.4); RED BLOOD COUNT 4.49 10^6/ul (4.20-5.40); RED CELL DISTRIBUTION WIDTH 14.6 % (11.5-14.5); WHITE BLOOD COUNT 11.8 10^3/ul (4.8-10.8)
[2016-08-25 05:28] LABS: PLATELET COUNT 29 10^3/UL (140-415)
[2016-08-25 05:32] LABS: ALBUMIN 4.1 g/dl (3.3-4.9); ALBUMIN/GLOBULIN RATIO 0.82; BILIRUBIN,INDIRECT 0.3 mg/dl (0-1.1); BILIRUBIN,TOTAL 0.3 mg/dl (0.2-1.3); CALCIUM 9.2 mg/dl (8.4-10.2); CREATININE 0.65 mg/dl (0.44-1.00); TOTAL PROTEIN 9.1 g/dl (6.1-8.1)
[2016-08-25] MEDS: PANTOPRAZOLE (EC) 40 MG TAB PO SCH (05:45)
[2016-08-25] MEDS: LEVOTHYROXINE 100 MCG TAB PO SCH (05:45)
[2016-08-25] MEDS: INSULIN ASPART [NOVOLOG] 3 ML PEN SC SCH ×4 (07:50→20:26)
[2016-08-25 08:07] VITALS: BP 168/76; RESP 18
[2016-08-25 08:07] LABS: ADD SCAN DIFF NO
[2016-08-25 08:14] LABS: ABNORMAL IP MESSAGE 1; BASOPHIL # 0.1 10^3/ul (0.0-0.1); EOSINOPHILS # 0.1 10^3/ul (0.0-0.5); EOSINOPHILS % 0.9 % (0.0-7.0); HEMATOCRIT 43.6 % (37.0-47.0); LYMPHOCYTES # 5.8 10^3/ul (0.8-2.9); LYMPHOCYTES % 47.1 % (15.0-51.0); MEAN CORPUSCULAR HEMOGLOBIN 29.1 pg (29.0-33.0); MEAN CORPUSCULAR HGB CONC 32.1 g/dl (32.0-37.0); MEAN CORPUSCULAR VOLUME 90.6 fl (82.0-101.0); MEAN PLATELET VOLUME 11.6 fl (7.4-10.4); MONOCYTE # 1.3 10^3/ul (0.3-0.9); MONOCYTES % 10.7 % (0.0-11.0); NEUTROPHILS % 40.1 % (39.0-77.0); PLATELET COUNT 51 10^3/UL (140-415); RED BLOOD COUNT 4.81 10^6/ul (4.20-5.40); RED CELL DISTRIBUTION WIDTH 14.7 % (11.5-14.5); WHITE BLOOD COUNT 12.4 10^3/ul (4.8-10.8)
[2016-08-25] MEDS: LISINOPRIL 5 MG TAB PO SCH (08:37)
[2016-08-25] MEDS: METOPROLOL 25 MG TAB PO SCH ×2 (08:38→20:23)
[2016-08-25 08:43] LABS: EOSINOPHILS # 0.4 10^3/ul (0.0-0.5); LYMPHOCYTES # 7.6 10^3/ul (0.8-2.9); MONOCYTE # 0.8 10^3/ul (0.3-0.9)
[2016-08-25 08:45] LABS: PLATELETS CLUMPS FEW
[2016-08-25] MEDS: INSULIN GLARGINE [LANtus] 3 ML PEN SC SCH (08:51)
[2016-08-25] MEDS: ASPIRIN 81 MG TAB PO SCH (12:13)
--- NOTE | 2016-08-25 13:45 | CONS ---
Date/Time of Note Date/Time of Note DATE: 08/25/16 TIME: 13:43 Assessment/Plan Assessment/Plan Chief Complaint/Hosp Course 64yo with # IITP- pt was off promacta and her platelet count fell to <4K. She was given 1 dose of prednisone 1mg/kg in the ER. This morning she has bleeding in her left sclera and complains of neck/ear pain though now improved. - s/p 3 days of IVIG 0.5 gm/kg 08/19/16-08/21/16, with 1 unit of platelets on . As of yesterday, plt improved to 107 from 69 from 39. Given rapid rise in platelet count with concern for thrombosis, held Promacta though patient did receive a dose yesterday 08/24/16. Platelet count this a.m. was 29, however re- check revealed a platelet count of 51. Will hold promacta today and monitor platelet count and monitor for thrombosis. - Now that platelet count is >50K, will continue ASA 81mg. Hold aspirin if platelet count less than 50. - Will stop steroids given patient has severe diabetes # L neck mass - Non-contrast head and neck CT was obtained to rule out bleed. CT head 08/20/16 showed 1. Limited examination secondary to motion artifact. 2. Otherwise, no acute intracranial pathology. 3. Right frontal calvarial exostosis. CT neck with and without contrast showed 1. There is a 2.3 x 2.1 x 3.1 cm heterogeneous solid nodule in the left lobe of the thyroid gland with 2 coarse calcifications. This can be followed with ultrasound and possible FNA. 2. 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 3. Otherwise, grossly unremarkable noncontrast CT of the soft tissues of the neck. Discussed with Dr. Butler, intraosseous hemangioma is benign and thyroid nodule and hemangioma are incidental findings. Otherwise unremarkable CT head and neck. - US neck 08/23/16 showed 1. Status post thyroidectomy. 2. Solid heterogeneous mass in the left side of the neck measuring 3.7 x 2.1 x 2.2 cm. Ultrasound-guided biopsy should be considered. Now s/p US guided biopsy of left thyroid bed 08/24/16, pending results. # Ischemia to Bilateral feet and toes - this was likely secondary to the rapid increase in platelet count from the promacta. - This has dramatically improved since last admission - As stated above, cannot start Aspirin until patient's platelet count is consistently greater than 50K - Note, angiography done during last admission reveals arteries of the lower extremities are widely patent bilaterally with good three-vessel runoff to the level of the ankles. 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 Her baseline WBC count is 10-11. Now resolved. - No intervention to be done for this condition at this time - May be secondary to the steroids she was receiving. At this time there is no evidence of active infection Dispo - pending monitoring of platelet count for at least 1-2 more days to ensure does not rise too quickly due to risk of thrombosis Problems: Consultation Date/Type/Reason Admit Date/Time Aug 19, 2016 at 05:00 Initial Consult Date 08/19/16 Type of Consultation: Hematology Referring Provider: ERICA MARAVILLA MD 24 HR Interval Summary Free Text/Dictation Patient doing well. No bleeding. Pending results of biopsy. Exam/Review of Systems Vital Signs Vitals Vital Signs Date Time Temp Pulse Resp B/P Pulse Ox O2 Delivery O2 Flow Rate FiO2 08/25/16 08:07 97.9 78 18 168/76 08/24/16 19:24 100 08/24/16 11:15 Room Air Intake and Output 08/24/16 08/24/16 08/25/16 15:00 23:00 07:00 Intake Total 1090 ml 900 ml Output Total 700 ml 8100 ml Balance 390 ml -7200 ml Exam Constitutional: alert, oriented Head: atraumatic, normocephalic Eyes: left conjunctival hemorrhage, resolving ENMT: nl external ears & nose Neck: non-tender, supple Respiratory: clear to auscultation, normal air movement Cardiovascular: nl pulses, regular rate and rhythm Gastrointestinal: soft Musculoskeletal: nl extremities to inspection, nl gait and stance Extremities: other (petechial rash over her BLE and BLE as well as trunk, improved) Results Result Diagram: 08/25/16 0750 08/25/16 0418 Results 24 hrs Laboratory Tests Test 08/24/16 17:38 08/24/16 20:20 08/25/16 04:18 08/25/16 07:50 Bedside Glucose 157 180 White Blood Count 11.8 H 12.4 H Red Blood Count 4.49 4.81 Hemoglobin 13.4 14.0 Hematocrit 40.2 43.6 Mean Corpuscular Volume 89.5 90.6 Mean Corpuscular Hemoglobin 29.8 29.1 Mean Corpuscular Hemoglobin Concent 33.3 32.1 Red Cell Distribution Width 14.6 H 14.7 H Platelet Count 29 #*L 51 #L Mean Platelet Volume 11.4 H 11.6 H Neutrophils % 25.0 L 40.1 Lymphocytes % 64.0 H 47.1 Reactive Lymphocytes % 1.0 Monocytes % 7.0 10.7 Eosinophils % 3.0 0.9 Neutrophils # 3.0 5.0 Lymphocytes # 7.6 H 5.8 H Monocytes # 0.8 1.3 H Eosinophils # 0.4 0.1 Clumped Platelets FEW Sodium Level 138 Potassium Level 4.0 Chloride Level 100 Carbon Dioxide Level 28 Anion Gap 14 Blood Urea Nitrogen 18 Creatinine 0.65 Glucose Level 125 Calcium Level 9.2 Total Bilirubin 0.3 Direct Bilirubin 0.00 Indirect Bilirubin 0.3 Aspartate Amino Transf (AST/SGOT) 35 Alanine Aminotransferase (ALT/SGPT) 30 Alkaline Phosphatase 89 Total Protein 9.1 H Albumin 4.1 Globulin 5.00 H Albumin/Globulin Ratio 0.82 Basophils % 1.0 Nucleated Red Blood Cells % 0.0 Basophils # 0.1 Nucleated Red Blood Cells # 0.0 Test 08/25/16 08:13 08/25/16 12:12 Bedside Glucose 139 125 Medications Medications Current Medications Levothyroxine Sodium (Synthroid) 100 mcg DAILY@06 PO Last administered on 05:45; Admin Dose 100 MCG; Start 08/19/16 at 07:30 Lisinopril (Zestril) 5 mg DAILY PO Last administered on 08/25/16 08:37; Admin Dose 5 MG; Start 08/19/16 at 09:00 Metoprolol Tartrate (Lopressor) 25 mg BID PO Last administered on 08/25/16 08: 38; Admin Dose 25 MG; Start 08/19/16 at 09:00 Acetaminophen (Tylenol Tab) 650 mg Q6H PRN PO PAIN AND OR ELEVATED TEMP Last administered on 08/19/16 12:05; Admin Dose 650 MG; Start 08/19/16 at 07:30 Ondansetron HCl (Zofran Inj) 4 mg Q6H PRN IV NAUSEA AND/OR VOMITING; Start 08/19 at 07:30 Pantoprazole (Protonix Tab) 40 mg DAILY@06 PO Last administered on 08/25/16 05 :45; Admin Dose 40 MG; Start 08/19/16 at 07:30 Miscellaneous Information 1 ea NOTE XX ; Start 08/19/16 at 07:30 Glucose (Glutose) 15 gm Q15M PRN PO DECREASED GLUCOSE; Start 08/19/16 at 07:30 Glucose (Glutose) 22.5 gm Q15M PRN PO DECREASED GLUCOSE; Start 08/19/16 at 07:30 Dextrose (D50w Syringe) 25 ml Q15M PRN IV DECREASED GLUCOSE; Start 08/19/16 at 07:30 Dextrose (D50w Syringe) 50 ml Q15M PRN IV DECREASED GLUCOSE; Start 08/19/16 at 07:30 Glucagon (Glucagen) 1 mg Q15M PRN IM DECREASED GLUCOSE; Start 08/19/16 at 07:30 Glucose (Glutose) 15 gm Q15M PRN BUCCAL DECREASED GLUCOSE; Start 08/19/16 at 07: 30 Diphenhydramine HCl (Benadryl) 25 mg TID PRN PO ITCHING Last administered on 20:31; Admin Dose 25 MG; Start 08/20/16 at 20:30 Insulin Glargine (Lantus) 50 unit DAILY SC Last administered on 08/25/16 08:51 ; Admin Dose 50 UNIT; Start 08/22/16 at 09:00 Aspirin (Aspirin) 81 mg DAILY PO Last administered on 08/25/16 12:13; Admin Dose 81 MG; Start 08/24/16 at 17:00 DA ROJAS MD Aug 25, 2016 13:44
[2016-08-25 19:27] VITALS: BP 164/72; RESP 18
[2016-08-26] MEDS: PANTOPRAZOLE (EC) 40 MG TAB PO SCH (04:41)
[2016-08-26] MEDS: LEVOTHYROXINE 100 MCG TAB PO SCH (04:41)
[2016-08-26 07:43] VITALS: BP 133/61; RESP 18
[2016-08-26] MEDS: INSULIN ASPART [NOVOLOG] 3 ML PEN SC SCH ×4 (07:50→21:00)
[2016-08-26] MEDS: LISINOPRIL 5 MG TAB PO SCH (08:34)
[2016-08-26] MEDS: METOPROLOL 25 MG TAB PO SCH ×2 (08:35→21:57)
[2016-08-26] MEDS: INSULIN GLARGINE [LANtus] 3 ML PEN SC SCH (08:42)
[2016-08-26 10:07] LABS: ADD SCAN DIFF NO
[2016-08-26 10:08] LABS: ABNORMAL IP MESSAGE 1; HEMATOCRIT 40.5 % (37.0-47.0); MEAN CORPUSCULAR HEMOGLOBIN 29.4 pg (29.0-33.0); MEAN CORPUSCULAR HGB CONC 32.1 g/dl (32.0-37.0); MEAN CORPUSCULAR VOLUME 91.6 fl (82.0-101.0); MEAN PLATELET VOLUME 13.1 fl (7.4-10.4); PLATELET COUNT 69 10^3/UL (140-415); RED BLOOD COUNT 4.42 10^6/ul (4.20-5.40); RED CELL DISTRIBUTION WIDTH 14.6 % (11.5-14.5); WHITE BLOOD COUNT 9.3 10^3/ul (4.8-10.8)
[2016-08-26] MEDS: ASPIRIN 81 MG TAB PO SCH (10:23)
[2016-08-26 11:23] LABS: EOSINOPHILS # 0.1 10^3/ul (0.0-0.5); LYMPHOCYTES # 3.6 10^3/ul (0.8-2.9); MONOCYTE # 1.2 10^3/ul (0.3-0.9); NEUTROPHIL # 4.4 10^3/ul (1.6-7.5); PLATELET ESTIMATE PLT APPEAR DECREASED
--- NOTE | 2016-08-26 14:45 | PN ---
Date/Time of Note Date/Time of Note DATE: 08/26/16 TIME: 14:44 Assessment/Plan VTE Prophylaxis VTE Prophylaxis Intervention: other Lines/Catheters IV Catheter Type (from [facility]): [facility] Urinary Cath still in place: No Assessment/Plan Chief Complaint/Hosp Course IMPRESSION: Thrombocytopenia,better diabetes mellitus, peripheral vascular disease, hypertension and history of idiopathic thrombocytopenic purpura., thyroid mass plan ivig and prednisone, lantus promacta tyhyroid biopsy seen per dr to Problems: Subjective 24 Hr Interval Summary Cardiovascular: no complaints Gastrointestinal: no complaints Exam/Review of Systems Vital Signs Vitals Vital Signs Date Time Temp Pulse Resp B/P Pulse Ox O2 Delivery O2 Flow Rate FiO2 08/26/16 07:43 98.1 77 18 133/61 08/24/16 19:24 100 08/24/16 11:15 Room Air Intake and Output 08/25/16 08/25/16 08/26/16 15:00 23:00 07:00 Intake Total 1120 ml 800 ml Output Total 800 ml 740 ml Balance 320 ml 60 ml Exam Respiratory: clear to auscultation Cardiovascular: regular rate and rhythm Gastrointestinal: soft Musculoskeletal: nl extremities to inspection Extremities: normal pulses Results Result Diagram: 08/26/16 0950 08/25/16 0418 Results 24 hrs Laboratory Tests Test 08/25/16 17:28 08/25/16 20:24 08/26/16 08:33 08/26/16 09:50 Bedside Glucose 263 H 105 129 White Blood Count 9.3 # Red Blood Count 4.42 Hemoglobin 13.0 Hematocrit 40.5 Mean Corpuscular Volume 91.6 Mean Corpuscular Hemoglobin 29.4 Mean Corpuscular Hemoglobin Concent 32.1 Red Cell Distribution Width 14.6 H Platelet Count 69 #L Mean Platelet Volume 13.1 H Neutrophils % 47.0 Lymphocytes % 39.0 Monocytes % 13.0 H Eosinophils % 1.0 Neutrophils # 4.4 Lymphocytes # 3.6 H Monocytes # 1.2 H Eosinophils # 0.1 Platelet Estimate PLT APPEAR DECREASED Test 08/26/16 11:42 08/26/16 12:33 Bedside Glucose 243 H 203 Medications Medications Current Medications Levothyroxine Sodium (Synthroid) 100 mcg DAILY@06 PO Last administered on t 04:41; Admin Dose 100 MCG; Start 08/19/16 at 07:30 Lisinopril (Zestril) 5 mg DAILY PO Last administered on 08/26/16 08:34; Admin Dose 5 MG; Start 08/19/16 at 09:00 Metoprolol Tartrate (Lopressor) 25 mg BID PO Last administered on 08/26/16 08: 35; Admin Dose 25 MG; Start 08/19/16 at 09:00 Acetaminophen (Tylenol Tab) 650 mg Q6H PRN PO PAIN AND OR ELEVATED TEMP Last administered on 08/19/16 12:05; Admin Dose 650 MG; Start 08/19/16 at 07:30 Ondansetron HCl (Zofran Inj) 4 mg Q6H PRN IV NAUSEA AND/OR VOMITING; Start 08/19 at 07:30 Pantoprazole (Protonix Tab) 40 mg DAILY@06 PO Last administered on 08/26/16 04 :41; Admin Dose 40 MG; Start 08/19/16 at 07:30 Miscellaneous Information 1 ea NOTE XX ; Start 08/19/16 at 07:30 Glucose (Glutose) 15 gm Q15M PRN PO DECREASED GLUCOSE; Start 08/19/16 at 07:30 Glucose (Glutose) 22.5 gm Q15M PRN PO DECREASED GLUCOSE; Start 08/19/16 at 07:30 Dextrose (D50w Syringe) 25 ml Q15M PRN IV DECREASED GLUCOSE; Start 08/19/16 at 07:30 Dextrose (D50w Syringe) 50 ml Q15M PRN IV DECREASED GLUCOSE; Start 08/19/16 at 07:30 Glucagon (Glucagen) 1 mg Q15M PRN IM DECREASED GLUCOSE; Start 08/19/16 at 07:30 Glucose (Glutose) 15 gm Q15M PRN BUCCAL DECREASED GLUCOSE; Start 08/19/16 at 07: 30 Diphenhydramine HCl (Benadryl) 25 mg TID PRN PO ITCHING Last administered on 20:31; Admin Dose 25 MG; Start 08/20/16 at 20:30 Insulin Glargine (Lantus) 50 unit DAILY SC Last administered on 08/26/16 08:42 ; Admin Dose 50 UNIT; Start 08/22/16 at 09:00 Aspirin (Aspirin) 81 mg DAILY PO Last administered on 08/26/16 10:23; Admin Dose 81 MG; Start 08/24/16 at 17:00 ERICA MARAVILLA MD Aug 26, 2016 14:45
--- NOTE | 2016-08-26 18:50 | CONS ---
Date/Time of Note Date/Time of Note DATE: 08/26/16 TIME: 18:46 Assessment/Plan Assessment/Plan Chief Complaint/Hosp Course 64yo with # IITP- pt was off promacta and her platelet count fell to <4K. She was given 1 dose of prednisone 1mg/kg in the ER. This morning she has bleeding in her left sclera and complains of neck/ear pain though now improved. - s/p 3 days of IVIG 0.5 gm/kg 08/19/16-08/21/16, with 1 unit of platelets on . As of yesterday, plt improved to 107 from 69 from 39. Given rapid rise in platelet count with concern for thrombosis, held Promacta though patient did receive a dose yesterday 08/24/16. Platelet count 07/25/16 was 29, however re- check revealed a platelet count of 51 and now 69,000 without further promacta. Will hold promacta today and monitor platelet count and monitor for thrombosis. - Now that platelet count is >50K, will continue ASA 81mg. Hold aspirin if platelet count less than 50. - Will stop steroids given patient has severe diabetes # L neck mass - Non-contrast head and neck CT was obtained to rule out bleed. CT head 08/20/16 showed 1. Limited examination secondary to motion artifact. 2. Otherwise, no acute intracranial pathology. 3. Right frontal calvarial exostosis. CT neck with and without contrast showed 1. There is a 2.3 x 2.1 x 3.1 cm heterogeneous solid nodule in the left lobe of the thyroid gland with 2 coarse calcifications. This can be followed with ultrasound and possible FNA. 2. 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 3. Otherwise, grossly unremarkable noncontrast CT of the soft tissues of the neck. Discussed with Dr. Butler, intraosseous hemangioma is benign and thyroid nodule and hemangioma are incidental findings. Otherwise unremarkable CT head and neck. - US neck 08/23/16 showed 1. Status post thyroidectomy. 2. Solid heterogeneous mass in the left side of the neck measuring 3.7 x 2.1 x 2.2 cm. Ultrasound-guided biopsy should be considered. Now s/p US guided biopsy of left thyroid bed 08/24/16 showing nodular goiter. Follow up with endocrinology. Path: Left thyroid nodule, ultrasound-guided fine needle aspiration: -- Compatible with nodular goiter, [place] system category II. # Ischemia to Bilateral feet and toes - this was likely secondary to the rapid increase in platelet count from the promacta. - This has dramatically improved since last admission - As stated above, cannot start Aspirin until patient's platelet count is consistently greater than 50K - Note, angiography done during last admission reveals arteries of the lower extremities are widely patent bilaterally with good three-vessel runoff to the level of the ankles. - Hypercoag workup ordered during last admission, will follow up. So far no evidence of lupus anticoagulant, beta2 glycoprotein IgM or IgG or anticardiolipin positivity (only beta2 glycoprotein IgA > 150 which is not included in criteria for antiphospholipid syndrome; consider repeating in 12 weeks). Protein C and ATIII levels noted to be low however likely to have been affected by coumadin and heparin therapy, respectively. Factor V Leiden and prothrombin gene mutations were not detected. Consider repeating as outpatient. 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 Her baseline WBC count is 10-11. Now resolved. - No intervention to be done for this condition at this time - May be secondary to the steroids she was receiving. At this time there is no evidence of active infection Dispo - pending monitoring of platelet count for at least 1-2 more days to ensure does not rise too quickly due to risk of thrombosis Problems: Consultation Date/Type/Reason Admit Date/Time Aug 19, 2016 at 05:00 Initial Consult Date 08/19/16 Type of Consultation: Hematology Referring Provider: ERICA MARAVILLA MD 24 HR Interval Summary Free Text/Dictation Patient doing well. No bleeding except slight epistaxis per patient. Exam/Review of Systems Vital Signs Vitals Vital Signs Date Time Temp Pulse Resp B/P Pulse Ox O2 Delivery O2 Flow Rate FiO2 08/26/16 07:43 98.1 77 18 133/61 08/24/16 19:24 100 08/24/16 11:15 Room Air Intake and Output 08/25/16 08/25/16 08/26/16 14:59 22:59 06:59 Intake Total 1120 ml 800 ml Output Total 800 ml 740 ml Balance 320 ml 60 ml Exam Constitutional: alert, oriented Head: atraumatic, normocephalic Eyes: left conjunctival hemorrhage, resolved ENMT: nl external ears & nose Neck: non-tender, supple Respiratory: clear to auscultation, normal air movement Cardiovascular: nl pulses, regular rate and rhythm Gastrointestinal: soft Musculoskeletal: nl extremities to inspection, nl gait and stance Extremities: other (petechial rash over her BLE and BLE as well as trunk, improved) Results Result Diagram: 08/26/16 0950 08/25/16 0418 Results 24 hrs Laboratory Tests Test 08/25/16 20:24 08/26/16 08:33 08/26/16 09:50 08/26/16 11:42 Bedside Glucose 105 129 243 H White Blood Count 9.3 # Red Blood Count 4.42 Hemoglobin 13.0 Hematocrit 40.5 Mean Corpuscular Volume 91.6 Mean Corpuscular Hemoglobin 29.4 Mean Corpuscular Hemoglobin Concent 32.1 Red Cell Distribution Width 14.6 H Platelet Count 69 #L Mean Platelet Volume 13.1 H Neutrophils % 47.0 Lymphocytes % 39.0 Monocytes % 13.0 H Eosinophils % 1.0 Neutrophils # 4.4 Lymphocytes # 3.6 H Monocytes # 1.2 H Eosinophils # 0.1 Platelet Estimate PLT APPEAR DECREASED Test 08/26/16 12:33 08/26/16 17:20 Bedside Glucose 203 123 Medications Medications Current Medications Levothyroxine Sodium (Synthroid) 100 mcg DAILY@06 PO Last administered on 04:41; Admin Dose 100 MCG; Start 08/19/16 at 07:30 Lisinopril (Zestril) 5 mg DAILY PO Last administered on 08/26/16 08:34; Admin Dose 5 MG; Start 08/19/16 at 09:00 Metoprolol Tartrate (Lopressor) 25 mg BID PO Last administered on 08/26/16 08: 35; Admin Dose 25 MG; Start 08/19/16 at 09:00 Acetaminophen (Tylenol Tab) 650 mg Q6H PRN PO PAIN AND OR ELEVATED TEMP Last administered on 08/19/16 12:05; Admin Dose 650 MG; Start 08/19/16 at 07:30 Ondansetron HCl (Zofran Inj) 4 mg Q6H PRN IV NAUSEA AND/OR VOMITING; Start 08/19 at 07:30 Pantoprazole (Protonix Tab) 40 mg DAILY@06 PO Last administered on 08/26/16 04 :41; Admin Dose 40 MG; Start 08/19/16 at 07:30 Miscellaneous Information 1 ea NOTE XX ; Start 08/19/16 at 07:30 Glucose (Glutose) 15 gm Q15M PRN PO DECREASED GLUCOSE; Start 08/19/16 at 07:30 Glucose (Glutose) 22.5 gm Q15M PRN PO DECREASED GLUCOSE; Start 08/19/16 at 07:30 Dextrose (D50w Syringe) 25 ml Q15M PRN IV DECREASED GLUCOSE; Start 08/19/16 at 07:30 Dextrose (D50w Syringe) 50 ml Q15M PRN IV DECREASED GLUCOSE; Start 08/19/16 at 07:30 Glucagon (Glucagen) 1 mg Q15M PRN IM DECREASED GLUCOSE; Start 08/19/16 at 07:30 Glucose (Glutose) 15 gm Q15M PRN BUCCAL DECREASED GLUCOSE; Start 08/19/16 at 07: 30 Diphenhydramine HCl (Benadryl) 25 mg TID PRN PO ITCHING Last administered on 20:31; Admin Dose 25 MG; Start 08/20/16 at 20:30 Insulin Glargine (Lantus) 50 unit DAILY SC Last administered on 08/26/16 08:42 ; Admin Dose 50 UNIT; Start 08/22/16 at 09:00 Aspirin (Aspirin) 81 mg DAILY PO Last administered on 08/26/16 10:23; Admin Dose 81 MG; Start 08/24/16 at 17:00 DA ROJAS MD Aug 26, 2016 18:50
[2016-08-26 20:01] VITALS: BP 127/60; RESP 18
[2016-08-27] MEDS: LEVOTHYROXINE 100 MCG TAB PO SCH (05:40)
[2016-08-27] MEDS: PANTOPRAZOLE (EC) 40 MG TAB PO SCH (05:40)
[2016-08-27 05:50] LABS: ADD SCAN DIFF NO
[2016-08-27 05:52] LABS: ABNORMAL IP MESSAGE 1; HEMATOCRIT 40.3 % (37.0-47.0); HEMOGLOBIN 13.1 g/dl (12.0-16.0); MEAN CORPUSCULAR HEMOGLOBIN 29.5 pg (29.0-33.0); MEAN CORPUSCULAR HGB CONC 32.5 g/dl (32.0-37.0); MEAN CORPUSCULAR VOLUME 90.8 fl (82.0-101.0); MEAN PLATELET VOLUME 12.2 fl (7.4-10.4); RED BLOOD COUNT 4.44 10^6/ul (4.20-5.40); RED CELL DISTRIBUTION WIDTH 14.5 % (11.5-14.5); WHITE BLOOD COUNT 13.1 10^3/ul (4.8-10.8)
[2016-08-27 07:00] VITALS: BP 128/60; RESP 18
[2016-08-27] MEDS: ASPIRIN 81 MG TAB PO SCH (08:24)
[2016-08-27] MEDS: LISINOPRIL 5 MG TAB PO SCH (08:26)
[2016-08-27] MEDS: METOPROLOL 25 MG TAB PO SCH ×2 (08:27→20:43)
[2016-08-27] MEDS: INSULIN ASPART [NOVOLOG] 3 ML PEN SC SCH ×4 (08:29→20:43)
[2016-08-27] MEDS: INSULIN GLARGINE [LANtus] 3 ML PEN SC SCH (08:32)
[2016-08-27 09:07] LABS: LYMPHOCYTES # 5.2 10^3/ul (0.8-2.9); NEUTROPHIL # 6.3 10^3/ul (1.6-7.5)
[2016-08-27 09:08] LABS: PLATELET ESTIMATE PLT APPEAR DECREASED; PLATELETS CLUMPS OCCASIONAL
[2016-08-27] MEDS ORDERED: PROMACTA 50 MG PO ONE (11:00)
--- NOTE | 2016-08-27 11:02 | PN ---
Date/Time of Note Date/Time of Note DATE: 08/27/16 TIME: 10:56 Assessment/Plan VTE Prophylaxis VTE Prophylaxis Intervention: anti-embolic stocking Lines/Catheters IV Catheter Type (from [facility]): [facility] Urinary Cath still in place: No Assessment/Plan Assessment/Plan 64yo with # ITP- pt was off promacta and her platelet count fell to <4K. She was given 1 dose of prednisone 1mg/kg in the ER. This morning she has bleeding in her left sclera and complains of neck/ear pain though now improved. - s/p 3 days of IVIG 0.5 gm/kg 08/19/16-08/21/16, with 1 unit of platelets on . Now platelets dropped to 14. Patient has her own meds at 50 mg dose promacta and will give one dose of 1/2 the tab at 25 mg today. since no signs of bleeding or neurological compromise will hold off on transfusion. # L neck mass - US neck 08/23/16 showed 1. Status post thyroidectomy. 2. Solid heterogeneous mass in the left side of the neck measuring 3.7 x 2.1 x 2.2 cm. Ultrasound-guided biopsy should be considered. Now s/p US guided biopsy of left thyroid bed 08/24/16 showing nodular goiter. Follow up with endocrinology. Path: Left thyroid nodule, ultrasound-guided fine needle aspiration: -- Compatible with nodular goiter, [place] system category II. # Ischemia to Bilateral feet and toes - this was likely secondary to the rapid increase in platelet count from the promacta. - This has dramatically improved since last admission - As stated before, holding Aspirin until patient's platelet count is consistently greater than 50K. - Note, angiography done during last admission reveals arteries of the lower extremities are widely patent bilaterally with good three-vessel runoff to the level of the ankles. - Hypercoag workup with no evidence of lupus anticoagulant, beta2 glycoprotein IgM or IgG or anticardiolipin positivity (only beta2 glycoprotein IgA > 150 which is not included in criteria for antiphospholipid syndrome; consider repeating in 12 weeks). Protein C and ATIII levels noted to be low however likely to have been affected by coumadin and heparin therapy, respectively. Factor V Leiden and prothrombin gene mutations were not detected. # Left and Right foot Cellulitis - This has resolved - Need to keep tight control of blood sugars #l Leukocytosis wbc 13, reactive. d/w To and nursing staff as well as daughter Genet Subjective 24 Hr Interval Summary Free Text/Dictation no c/o per nursing staff. no epistaxis or AMS. Exam/Review of Systems Vital Signs Vitals Vital Signs Date Time Temp Pulse Resp B/P Pulse Ox O2 Delivery O2 Flow Rate FiO2 08/27/16 07:00 97.7 76 18 128/60 95 08/24/16 11:15 Room Air Intake and Output 08/26/16 08/26/16 08/27/16 15:00 23:00 07:00 Intake Total 840 ml 960 ml Output Total 900 ml Balance -60 ml 960 ml Exam Constitutional: alert, oriented Psych: no complaints Eyes: nl conjunctiva Neck: supple Respiratory: normal air movement Results Result Diagram: 08/27/16 0502 08/25/16 0418 Results 24 hrs Laboratory Tests Test 08/26/16 11:42 08/26/16 12:33 08/26/16 17:20 08/26/16 21:56 Bedside Glucose 243 H 203 123 109 Test 08/27/16 05:02 08/27/16 07:56 White Blood Count 13.1 #H Red Blood Count 4.44 Hemoglobin 13.1 Hematocrit 40.3 Mean Corpuscular Volume 90.8 Mean Corpuscular Hemoglobin 29.5 Mean Corpuscular Hemoglobin Concent 32.5 Red Cell Distribution Width 14.5 Platelet Count 14 #*L Mean Platelet Volume 12.2 H Neutrophils % 48.0 Band Neutrophils % 1.0 Lymphocytes % 40.0 Reactive Lymphocytes % 3.0 Monocytes % 8.0 Neutrophils # 6.3 Lymphocytes # 5.2 H Monocytes # 1.0 H Platelet Estimate PLT APPEAR DECREASED Clumped Platelets OCCASIONAL Large Platelets RARE Bedside Glucose 248 H Medications Medications Current Medications Levothyroxine Sodium (Synthroid) 100 mcg DAILY@06 PO Last administered on 05:40; Admin Dose 100 MCG; Start 08/19/16 at 07:30 Lisinopril (Zestril) 5 mg DAILY PO Last administered on 08/27/16 08:26; Admin Dose 5 MG; Start 08/19/16 at 09:00 Metoprolol Tartrate (Lopressor) 25 mg BID PO Last administered on 08/27/16 08: 27; Admin Dose 25 MG; Start 08/19/16 at 09:00 Acetaminophen (Tylenol Tab) 650 mg Q6H PRN PO PAIN AND OR ELEVATED TEMP Last administered on 08/19/16 12:05; Admin Dose 650 MG; Start 08/19/16 at 07:30 Ondansetron HCl (Zofran Inj) 4 mg Q6H PRN IV NAUSEA AND/OR VOMITING; Start 08/19 at 07:30 Pantoprazole (Protonix Tab) 40 mg DAILY@06 PO Last administered on 08/27/16 05 :40; Admin Dose 40 MG; Start 08/19/16 at 07:30 Miscellaneous Information 1 ea NOTE XX ; Start 08/19/16 at 07:30 Glucose (Glutose) 15 gm Q15M PRN PO DECREASED GLUCOSE; Start 08/19/16 at 07:30 Glucose (Glutose) 22.5 gm Q15M PRN PO DECREASED GLUCOSE; Start 08/19/16 at 07:30 Dextrose (D50w Syringe) 25 ml Q15M PRN IV DECREASED GLUCOSE; Start 08/19/16 at 07:30 Dextrose (D50w Syringe) 50 ml Q15M PRN IV DECREASED GLUCOSE; Start 08/19/16 at 07:30 Glucagon (Glucagen) 1 mg Q15M PRN IM DECREASED GLUCOSE; Start 08/19/16 at 07:30 Glucose (Glutose) 15 gm Q15M PRN BUCCAL DECREASED GLUCOSE; Start 08/19/16 at 07: 30 Diphenhydramine HCl (Benadryl) 25 mg TID PRN PO ITCHING Last administered on 20:31; Admin Dose 25 MG; Start 08/20/16 at 20:30 Insulin Glargine (Lantus) 50 unit DAILY SC Last administered on 08/27/16 08:32 ; Admin Dose 50 UNIT; Start 08/22/16 at 09:00 Aspirin (Aspirin) 81 mg DAILY PO Last administered on 08/26/16 10:23; Admin Dose 81 MG; Start 08/24/16 at 17:00 Patient Own Medication 0.5 ea ONCE ONCE PO ; Start 08/27/16 at 11:00; Stop at 11:01 FRANCIS DEVLIN MD Aug 27, 2016 11:02
[2016-08-27] MEDS ORDERED: PROMACTA 12.5 MG PO ONE (14:00)
--- NOTE | 2016-08-27 17:12 | PN ---
Date/Time of Note Date/Time of Note DATE: 08/27/16 TIME: 17:12 Assessment/Plan VTE Prophylaxis VTE Prophylaxis Intervention: other Lines/Catheters IV [facility] Type [facility]from [facility] Saline Lock Urinary Cath still in place: No Assessment/Plan Chief Complaint/Hosp Course IMPRESSION: Thrombocytopenia,better diabetes mellitus, peripheral vascular disease, hypertension and history of idiopathic thrombocytopenic purpura., thyroid mass plan ivig and prednisone, lantus promacta tyhyroid biopsy seen per dr to Problems: Subjective 24 Hr Interval Summary Cardiovascular: no complaints Gastrointestinal: no complaints Exam/Review of Systems Vital Signs Vitals Vital Signs Date Time Temp Pulse Resp B/P Pulse Ox O2 Delivery O2 Flow Rate FiO2 08/27/16 07:00 97.7 76 18 128/60 95 08/24/16 11:15 Room Air Intake and Output 08/26/16 08/26/16 08/27/16 15:00 23:00 07:00 Intake Total 840 ml 960 ml Output Total 900 ml Balance -60 ml 960 ml Exam Respiratory: clear to auscultation Cardiovascular: regular rate and rhythm Gastrointestinal: soft Musculoskeletal: nl extremities to inspection Extremities: normal pulses Results Result Diagram: 08/27/16 0502 08/25/16 0418 Results 24 hrs Laboratory Tests Test 08/26/16 17:20 08/26/16 21:56 08/27/16 05:02 08/27/16 07:56 Bedside Glucose 123 109 248 H White Blood Count 13.1 #H Red Blood Count 4.44 Hemoglobin 13.1 Hematocrit 40.3 Mean Corpuscular Volume 90.8 Mean Corpuscular Hemoglobin 29.5 Mean Corpuscular Hemoglobin Concent 32.5 Red Cell Distribution Width 14.5 Platelet Count 14 #*L Mean Platelet Volume 12.2 H Neutrophils % 48.0 Band Neutrophils % 1.0 Lymphocytes % 40.0 Reactive Lymphocytes % 3.0 Monocytes % 8.0 Neutrophils # 6.3 Lymphocytes # 5.2 H Monocytes # 1.0 H Platelet Estimate PLT APPEAR DECREASED Clumped Platelets OCCASIONAL Large Platelets RARE Test 08/27/16 12:10 Bedside Glucose 132 Medications Medications Current Medications Levothyroxine Sodium (Synthroid) 100 mcg DAILY@06 PO Last administered on t 05:40; Admin Dose 100 MCG; Start 08/19/16 at 07:30 Lisinopril (Zestril) 5 mg DAILY PO Last administered on 08/27/16 08:26; Admin Dose 5 MG; Start 08/19/16 at 09:00 Metoprolol Tartrate (Lopressor) 25 mg BID PO Last administered on 08/27/16 08: 27; Admin Dose 25 MG; Start 08/19/16 at 09:00 Acetaminophen (Tylenol Tab) 650 mg Q6H PRN PO PAIN AND OR ELEVATED TEMP Last administered on 08/19/16 12:05; Admin Dose 650 MG; Start 08/19/16 at 07:30 Ondansetron HCl (Zofran Inj) 4 mg Q6H PRN IV NAUSEA AND/OR VOMITING; Start 08/19 at 07:30 Pantoprazole (Protonix Tab) 40 mg DAILY@06 PO Last administered on 08/27/16 05 :40; Admin Dose 40 MG; Start 08/19/16 at 07:30 Miscellaneous Information 1 ea NOTE XX ; Start 08/19/16 at 07:30 Glucose (Glutose) 15 gm Q15M PRN PO DECREASED GLUCOSE; Start 08/19/16 at 07:30 Glucose (Glutose) 22.5 gm Q15M PRN PO DECREASED GLUCOSE; Start 08/19/16 at 07:30 Dextrose (D50w Syringe) 25 ml Q15M PRN IV DECREASED GLUCOSE; Start 08/19/16 at 07:30 Dextrose (D50w Syringe) 50 ml Q15M PRN IV DECREASED GLUCOSE; Start 08/19/16 at 07:30 Glucagon (Glucagen) 1 mg Q15M PRN IM DECREASED GLUCOSE; Start 08/19/16 at 07:30 Glucose (Glutose) 15 gm Q15M PRN BUCCAL DECREASED GLUCOSE; Start 08/19/16 at 07: 30 Diphenhydramine HCl (Benadryl) 25 mg TID PRN PO ITCHING Last administered on 20:31; Admin Dose 25 MG; Start 08/20/16 at 20:30 Insulin Glargine (Lantus) 50 unit DAILY SC Last administered on 08/27/16 08:32 ; Admin Dose 50 UNIT; Start 08/22/16 at 09:00 Aspirin (Aspirin) 81 mg DAILY PO Last administered on 08/26/16 10:23; Admin Dose 81 MG; Start 08/24/16 at 17:00 Miscellaneous Information Patients own medicat... BID@ XX ; Start 08/28/16 at 10:00 ERICA MARAVILLA MD Aug 27, 2016 17:12
[2016-08-27 19:19] VITALS: BP 137/64; RESP 21
[2016-08-28 05:23] LABS: ADD SCAN DIFF NO
[2016-08-28 05:35] LABS: CALCIUM 9.2 mg/dl (8.4-10.2); CREATININE 0.66 mg/dl (0.44-1.00); POTASSIUM 4.1 mmol/L (3.5-5.1)
[2016-08-28 05:47] LABS: ABNORMAL IP MESSAGE 1; HEMATOCRIT 40.2 % (37.0-47.0); HEMOGLOBIN 13.2 g/dl (12.0-16.0); MEAN CORPUSCULAR HEMOGLOBIN 29.3 pg (29.0-33.0); MEAN CORPUSCULAR HGB CONC 32.8 g/dl (32.0-37.0); MEAN CORPUSCULAR VOLUME 89.3 fl (82.0-101.0); RED CELL DISTRIBUTION WIDTH 14.3 % (11.5-14.5); WHITE BLOOD COUNT 10.5 10^3/ul (4.8-10.8)
[2016-08-28] MEDS: LEVOTHYROXINE 100 MCG TAB PO SCH (05:51)
[2016-08-28] MEDS: PANTOPRAZOLE (EC) 40 MG TAB PO SCH (05:51)
[2016-08-28 06:47] LABS: PLATELET COUNT 17 10^3/UL (140-415)
[2016-08-28 07:35] VITALS: BP 125/64; RESP 20
[2016-08-28] MEDS: LISINOPRIL 5 MG TAB PO SCH (08:29)
[2016-08-28] MEDS: METOPROLOL 25 MG TAB PO SCH ×2 (08:30→21:01)
[2016-08-28] MEDS: INSULIN GLARGINE [LANtus] 3 ML PEN SC SCH (08:32)
[2016-08-28] MEDS: ASPIRIN 81 MG TAB PO SCH (08:33)
[2016-08-28] MEDS: INSULIN ASPART [NOVOLOG] 3 ML PEN SC SCH ×4 (08:33→21:00)
[2016-08-28 09:52] LABS: BASOPHIL # 0.1 10^3/ul (0.0-0.1); EOSINOPHILS # 0.1 10^3/ul (0.0-0.5); LYMPHOCYTES # 4.4 10^3/ul (0.8-2.9); MONOCYTE # 1.4 10^3/ul (0.3-0.9); NEUTROPHIL # 4.5 10^3/ul (1.6-7.5); PLATELET ESTIMATE PLT APPEAR DECREASED
[2016-08-28 09:53] LABS: PLATELETS CLUMPS OCCASIONAL
--- NOTE | 2016-08-28 11:31 | PN ---
Date/Time of Note Date/Time of Note DATE: 08/28/16 TIME: 11:30 Assessment/Plan VTE Prophylaxis VTE Prophylaxis Intervention: contraindicated Lines/Catheters IV Catheter Type (from [facility]): Saline Lock Urinary Cath still in place: No Assessment/Plan Assessment/Plan 64yo with # ITP- pt was off promacta and her platelet count fell to <4K. She was given 1 dose of prednisone 1mg/kg in the ER. This morning she has bleeding in her left sclera and complains of neck/ear pain though now improved. - s/p 3 days of IVIG 0.5 gm/kg 08/19/16-08/21/16, with 1 unit of platelets on . Now platelets dropped to 14. Patient had 12.5 mg yesterday and another dose for today because of plt 17 since no signs of bleeding or neurological compromise will hold off on transfusion. # L neck mass - US neck 08/23/16 showed 1. Status post thyroidectomy. 2. Solid heterogeneous mass in the left side of the neck measuring 3.7 x 2.1 x 2.2 cm. Ultrasound-guided biopsy should be considered. Now s/p US guided biopsy of left thyroid bed 08/24/16 showing nodular goiter. Follow up with endocrinology. Path: Left thyroid nodule, ultrasound-guided fine needle aspiration: -- Compatible with nodular goiter, [place] system category II. # Ischemia to Bilateral feet and toes - this was likely secondary to the rapid increase in platelet count from the promacta. - This has dramatically improved since last admission - As stated before, holding Aspirin until patient's platelet count is consistently greater than 50K. - Note, angiography done during last admission reveals arteries of the lower extremities are widely patent bilaterally with good three-vessel runoff to the level of the ankles. - Hypercoag workup with no evidence of lupus anticoagulant, beta2 glycoprotein IgM or IgG or anticardiolipin positivity (only beta2 glycoprotein IgA > 150 which is not included in criteria for antiphospholipid syndrome; consider repeating in 12 weeks). Protein C and ATIII levels noted to be low however likely to have been affected by coumadin and heparin therapy, respectively. Factor V Leiden and prothrombin gene mutations were not detected. # Left and Right foot Cellulitis - This has resolved - Need to keep tight control of blood sugars #l Leukocytosis wbc 10.5, reactive. Subjective 24 Hr Interval Summary Constitutional: no complaints Eyes: no complaints Gastrointestinal: no complaints Exam/Review of Systems Vital Signs Vitals Vital Signs Date Time Temp Pulse Resp B/P Pulse Ox O2 Delivery O2 Flow Rate FiO2 08/28/16 07:35 98.4 71 20 125/64 98 08/24/16 11:15 Room Air Intake and Output 08/27/16 08/27/16 08/28/16 14:59 22:59 06:59 Intake Total 1620 ml 360 ml Output Total 800 ml Balance 820 ml 360 ml Exam Constitutional: alert, oriented Eyes: nl conjunctiva Neck: supple Respiratory: normal air movement Extremities: cyanosis Results Result Diagram: 08/28/16 0430 08/28/16 0430 Results 24 hrs Laboratory Tests Test 08/27/16 12:10 08/27/16 17:17 08/27/16 20:40 08/28/16 04:30 Bedside Glucose 132 105 140 White Blood Count 10.5 Red Blood Count 4.50 Hemoglobin 13.2 Hematocrit 40.2 Mean Corpuscular Volume 89.3 Mean Corpuscular Hemoglobin 29.3 Mean Corpuscular Hemoglobin Concent 32.8 Red Cell Distribution Width 14.3 Platelet Count 17 #*L Mean Platelet Volume Neutrophils % 43.0 Lymphocytes % 42.0 Monocytes % 13.0 H Eosinophils % 1.0 Basophils % 1.0 Neutrophils # 4.5 Lymphocytes # 4.4 H Monocytes # 1.4 H Eosinophils # 0.1 Basophils # 0.1 Platelet Estimate PLT APPEAR DECREASED Clumped Platelets OCCASIONAL Sodium Level 136 Potassium Level 4.1 Chloride Level 99 Carbon Dioxide Level 29 Anion Gap 12 Blood Urea Nitrogen 18 Creatinine 0.66 Glucose Level 137 Calcium Level 9.2 Test 08/28/16 08:25 Bedside Glucose 152 Medications Medications Current Medications Levothyroxine Sodium (Synthroid) 100 mcg DAILY@06 PO Last administered on 05:51; Admin Dose 100 MCG; Start 08/19/16 at 07:30 Lisinopril (Zestril) 5 mg DAILY PO Last administered on 08/28/16 08:29; Admin Dose 5 MG; Start 08/19/16 at 09:00 Metoprolol Tartrate (Lopressor) 25 mg BID PO Last administered on 08/28/16 08: 30; Admin Dose 25 MG; Start 08/19/16 at 09:00 Acetaminophen (Tylenol Tab) 650 mg Q6H PRN PO PAIN AND OR ELEVATED TEMP Last administered on 08/19/16 12:05; Admin Dose 650 MG; Start 08/19/16 at 07:30 Ondansetron HCl (Zofran Inj) 4 mg Q6H PRN IV NAUSEA AND/OR VOMITING; Start 08/19 at 07:30 Pantoprazole (Protonix Tab) 40 mg DAILY@06 PO Last administered on 08/28/16 05 :51; Admin Dose 40 MG; Start 08/19/16 at 07:30 Miscellaneous Information 1 ea NOTE XX ; Start 08/19/16 at 07:30 Glucose (Glutose) 15 gm Q15M PRN PO DECREASED GLUCOSE; Start 08/19/16 at 07:30 Glucose (Glutose) 22.5 gm Q15M PRN PO DECREASED GLUCOSE; Start 08/19/16 at 07:30 Dextrose (D50w Syringe) 25 ml Q15M PRN IV DECREASED GLUCOSE; Start 08/19/16 at 07:30 Dextrose (D50w Syringe) 50 ml Q15M PRN IV DECREASED GLUCOSE; Start 08/19/16 at 07:30 Glucagon (Glucagen) 1 mg Q15M PRN IM DECREASED GLUCOSE; Start 08/19/16 at 07:30 Glucose (Glutose) 15 gm Q15M PRN BUCCAL DECREASED GLUCOSE; Start 08/19/16 at 07: 30 Diphenhydramine HCl (Benadryl) 25 mg TID PRN PO ITCHING Last administered on 20:31; Admin Dose 25 MG; Start 08/20/16 at 20:30 Insulin Glargine (Lantus) 50 unit DAILY SC Last administered on 08/28/16 08:32 ; Admin Dose 50 UNIT; Start 08/22/16 at 09:00 Aspirin (Aspirin) 81 mg DAILY PO Last administered on 08/26/16 10:23; Admin Dose 81 MG; Start 08/24/16 at 17:00 Miscellaneous Information Patients own medicat... BID@ XX Last administered on 08/28/16 10:47; Admin Dose 1 EA; Start 08/28/16 at 10:00 Miscellaneous Information (* Miscellaneous Pharmacy Order) 1 ea ONCE ONCE PO ; Start 08/28/16 at 11:30; Stop 08/28/16 at 11:31; Status UNV FRANCIS DEVLIN MD Aug 28, 2016 11:31
[2016-08-28] MEDS ORDERED: PROMACTA PO ONE (12:30)
--- NOTE | 2016-08-28 14:16 | PN ---
Date/Time of Note Date/Time of Note DATE: 08/28/16 TIME: 14:15 Assessment/Plan VTE Prophylaxis VTE Prophylaxis Intervention: other Lines/Catheters IV [facility] Type (from [facility] Saline Lock Urinary Cath still in place: No Assessment/Plan Chief Complaint/Hosp Course IMPRESSION: Thrombocytopenia,better diabetes mellitus, peripheral vascular disease, hypertension and history of idiopathic thrombocytopenic purpura., thyroid mass plan ivig and prednisone, lantus promacta thyroid biopsy seen per dr to Problems: Subjective 24 Hr Interval Summary Respiratory: no complaints Cardiovascular: no complaints Gastrointestinal: no complaints Skin: no complaints Exam/Review of Systems Vital Signs Vitals Vital Signs Date Time Temp Pulse Resp B/P Pulse Ox O2 Delivery O2 Flow Rate FiO2 08/28/16 07:35 98.4 71 20 125/64 98 08/24/16 11:15 Room Air Intake and Output 08/27/16 08/27/16 08/28/16 15:00 23:00 07:00 Intake Total 1620 ml 360 ml Output Total 800 ml Balance 820 ml 360 ml Exam Respiratory: clear to auscultation Cardiovascular: regular rate and rhythm Gastrointestinal: soft Musculoskeletal: nl extremities to inspection Extremities: normal pulses Results Result Diagram: 08/28/16 0430 08/28/16 0430 Results 24 hrs Laboratory Tests Test 08/27/16 17:17 08/27/16 20:40 08/28/16 04:30 08/28/16 08:25 Bedside Glucose 105 140 152 White Blood Count 10.5 Red Blood Count 4.50 Hemoglobin 13.2 Hematocrit 40.2 Mean Corpuscular Volume 89.3 Mean Corpuscular Hemoglobin 29.3 Mean Corpuscular Hemoglobin Concent 32.8 Red Cell Distribution Width 14.3 Platelet Count 17 #*L Mean Platelet Volume Neutrophils % 43.0 Lymphocytes % 42.0 Monocytes % 13.0 H Eosinophils % 1.0 Basophils % 1.0 Neutrophils # 4.5 Lymphocytes # 4.4 H Monocytes # 1.4 H Eosinophils # 0.1 Basophils # 0.1 Platelet Estimate PLT APPEAR DECREASED Clumped Platelets OCCASIONAL Sodium Level 136 Potassium Level 4.1 Chloride Level 99 Carbon Dioxide Level 29 Anion Gap 12 Blood Urea Nitrogen 18 Creatinine 0.66 Glucose Level 137 Calcium Level 9.2 Test 08/28/16 12:14 Bedside Glucose 274 H Medications Medications Current Medications Levothyroxine Sodium (Synthroid) 100 mcg DAILY@06 PO Last administered on 05:51; Admin Dose 100 MCG; Start 08/19/16 at 07:30 Lisinopril (Zestril) 5 mg DAILY PO Last administered on 08/28/16 08:29; Admin Dose 5 MG; Start 08/19/16 at 09:00 Metoprolol Tartrate (Lopressor) 25 mg BID PO Last administered on 08/28/16 08: 30; Admin Dose 25 MG; Start 08/19/16 at 09:00 Acetaminophen (Tylenol Tab) 650 mg Q6H PRN PO PAIN AND OR ELEVATED TEMP Last administered on 08/19/16 12:05; Admin Dose 650 MG; Start 08/19/16 at 07:30 Ondansetron HCl (Zofran Inj) 4 mg Q6H PRN IV NAUSEA AND/OR VOMITING; Start 08/19 at 07:30 Pantoprazole (Protonix Tab) 40 mg DAILY@06 PO Last administered on 08/28/16 05 :51; Admin Dose 40 MG; Start 08/19/16 at 07:30 Miscellaneous Information 1 ea NOTE XX ; Start 08/19/16 at 07:30 Glucose (Glutose) 15 gm Q15M PRN PO DECREASED GLUCOSE; Start 08/19/16 at 07:30 Glucose (Glutose) 22.5 gm Q15M PRN PO DECREASED GLUCOSE; Start 08/19/16 at 07:30 Dextrose (D50w Syringe) 25 ml Q15M PRN IV DECREASED GLUCOSE; Start 08/19/16 at 07:30 Dextrose (D50w Syringe) 50 ml Q15M PRN IV DECREASED GLUCOSE; Start 08/19/16 at 07:30 Glucagon (Glucagen) 1 mg Q15M PRN IM DECREASED GLUCOSE; Start 08/19/16 at 07:30 Glucose (Glutose) 15 gm Q15M PRN BUCCAL DECREASED GLUCOSE; Start 08/19/16 at 07: 30 Diphenhydramine HCl (Benadryl) 25 mg TID PRN PO ITCHING Last administered on 20:31; Admin Dose 25 MG; Start 08/20/16 at 20:30 Insulin Glargine (Lantus) 50 unit DAILY SC Last administered on 08/28/16 08:32 ; Admin Dose 50 UNIT; Start 08/22/16 at 09:00 Aspirin (Aspirin) 81 mg DAILY PO Last administered on 08/26/16 10:23; Admin Dose 81 MG; Start 08/24/16 at 17:00 Miscellaneous Information Patients own medicat... BID@ XX Last administered on 08/28/16 10:47; Admin Dose 1 EA; Start 08/28/16 at 10:00 ERICA MARAVILLA MD Aug 28, 2016 14:16
[2016-08-28 20:01] VITALS: BP 114/61; RESP 16
[2016-08-29 05:04] LABS: ADD SCAN DIFF NO
[2016-08-29 05:16] LABS: ABNORMAL IP MESSAGE 1; BASOPHIL # 0.1 10^3/ul (0.0-0.1); BASOPHILS % 1.1 % (0.0-2.0); EOSINOPHILS # 0.2 10^3/ul (0.0-0.5); EOSINOPHILS % 1.3 % (0.0-7.0); HEMATOCRIT 39.4 % (37.0-47.0); LYMPHOCYTES # 5.2 10^3/ul (0.8-2.9); LYMPHOCYTES % 42.6 % (15.0-51.0); MEAN CORPUSCULAR HEMOGLOBIN 29.5 pg (29.0-33.0); MEAN CORPUSCULAR VOLUME 89.3 fl (82.0-101.0); MONOCYTE # 1.3 10^3/ul (0.3-0.9); MONOCYTES % 10.6 % (0.0-11.0); NEUTROPHIL # 5.4 10^3/ul (1.6-7.5); NEUTROPHILS % 44.2 % (39.0-77.0); RED BLOOD COUNT 4.41 10^6/ul (4.20-5.40); RED CELL DISTRIBUTION WIDTH 14.1 % (11.5-14.5); WHITE BLOOD COUNT 12.2 10^3/ul (4.8-10.8)
[2016-08-29 05:32] LABS: CALCIUM 9.2 mg/dl (8.4-10.2); CREATININE 0.72 mg/dl (0.44-1.00); POTASSIUM 4.1 mmol/L (3.5-5.1)
[2016-08-29 05:33] LABS: PLATELET COUNT 9 10^3/UL (140-415)
[2016-08-29] MEDS: LEVOTHYROXINE 100 MCG TAB PO SCH (06:23)
[2016-08-29] MEDS: PANTOPRAZOLE (EC) 40 MG TAB PO SCH (06:23)
[2016-08-29] MEDS: INSULIN ASPART [NOVOLOG] 3 ML PEN SC SCH ×4 (07:50→21:00)
[2016-08-29 07:52] VITALS: BP 136/74; RESP 18
[2016-08-29] MEDS: ASPIRIN 81 MG TAB PO SCH (08:24)
[2016-08-29] MEDS: METOPROLOL 25 MG TAB PO SCH ×2 (08:25→20:42)
[2016-08-29] MEDS: LISINOPRIL 5 MG TAB PO SCH (08:25)
[2016-08-29] MEDS: INSULIN GLARGINE [LANtus] 3 ML PEN SC SCH (08:27)
[2016-08-29] MEDS ORDERED: PROMACTA 12.5 MG PO SCH (11:30)
[2016-08-29] MEDS ORDERED: [UNRECOGNIZED DRUG - OTHER] XX SCH (15:00)
--- NOTE | 2016-08-29 15:30 | CONS ---
Date/Time of Note Date/Time of Note DATE: 08/29/16 TIME: 15:26 Assessment/Plan Assessment/Plan Chief Complaint/Hosp Course Problems: (1) Chronic ITP (idiopathic thrombocytopenia) Status: Chronic Additional Assessment/Plan 64yo with # ITP- pt was off promacta and her platelet count fell to <4K. She was given 1 dose of prednisone 1mg/kg in the ER. This morning she has bleeding in her left sclera and complains of neck/ear pain though now improved. - s/p 3 days of IVIG 0.5 gm/kg 08/19/16-08/21/16, with 1 unit of platelets on .Pt was on Prmacta 12.5 mg q day but platelets dropped again - restart Promacta 25 mg q day # L neck mass - US neck 08/23/16 showed 1. Status post thyroidectomy. 2. Solid heterogeneous mass in the left side of the neck measuring 3.7 x 2.1 x 2.2 cm. Ultrasound-guided biopsy should be considered. Now s/p US guided biopsy of left thyroid bed 08/24/16 showing nodular goiter. Follow up with endocrinology. Path: Left thyroid nodule, ultrasound-guided fine needle aspiration: -- Compatible with nodular goiter, [place] system category II. # Ischemia to Bilateral feet and toes - this was likely secondary to the rapid increase in platelet count from the promacta. - This has dramatically improved since last admission - As stated before, holding Aspirin until patient's platelet count is consistently greater than 50K. - Note, angiography done during last admission reveals arteries of the lower extremities are widely patent bilaterally with good three-vessel runoff to the level of the ankles. - Hypercoag workup with no evidence of lupus anticoagulant, beta2 glycoprotein IgM or IgG or anticardiolipin positivity (only beta2 glycoprotein IgA > 150 which is not included in criteria for antiphospholipid syndrome; consider repeating in 12 weeks). Protein C and ATIII levels noted to be low however likely to have been affected by coumadin and heparin therapy, respectively. Factor V Leiden and prothrombin gene mutations were not detected. # Left and Right foot Cellulitis - This has resolved - Need to keep tight control of blood sugars #l Leukocytosis wbc 10.5, reactive.n. Consultation Date/Type/Reason Admit Date/Time Aug 19, 2016 at 05:00 Initial Consult Date 08/19/16 Type of Consultation: Hematology Reason for Consultation ITP Referring Provider: ERICA MARAVILLA MD 24 HR Interval Summary Free Text/Dictation platelets fell to 9 yesterday. no bleeding. Hg stable. no left foot pain Exam/Review of Systems Vital Signs Vitals Vital Signs Date Time Temp Pulse Resp B/P Pulse Ox O2 Delivery O2 Flow Rate FiO2 08/29/16 07:52 97.8 88 18 136/74 98 Intake and Output 08/28/16 08/28/16 08/29/16 15:00 23:00 07:00 Intake Total 1100 ml 600 ml Output Total 1200 ml 2 ml Balance -100 ml 598 ml Exam Constitutional: alert Psych: nl mood/affect, no complaints Head: atraumatic, normocephalic Eyes: nl conjunctiva ENMT: nl external ears & nose Neck: non-tender, supple Respiratory: clear to auscultation, normal air movement Cardiovascular: nl pulses, regular rate and rhythm Gastrointestinal: soft Extremities: normal pulses Neurological: PLANT TECH II-XII intact Results Result Diagram: 08/29/16 0420 08/29/16 0420 Results 24 hrs Laboratory Tests Test 08/28/16 17:40 08/28/16 20:59 08/29/16 04:20 08/29/16 08:03 Bedside Glucose 105 129 112 White Blood Count 12.2 H Red Blood Count 4.41 Hemoglobin 13.0 Hematocrit 39.4 Mean Corpuscular Volume 89.3 Mean Corpuscular Hemoglobin 29.5 Mean Corpuscular Hemoglobin Concent 33.0 Red Cell Distribution Width 14.1 Platelet Count 9 #*L Mean Platelet Volume Neutrophils % 44.2 Lymphocytes % 42.6 Monocytes % 10.6 Eosinophils % 1.3 Basophils % 1.1 Nucleated Red Blood Cells % 0.0 Neutrophils # 5.4 Lymphocytes # 5.2 H Monocytes # 1.3 H Eosinophils # 0.2 Basophils # 0.1 Nucleated Red Blood Cells # 0.0 Sodium Level 134 L Potassium Level 4.1 Chloride Level 99 Carbon Dioxide Level 28 Anion Gap 11 Blood Urea Nitrogen 23 H Creatinine 0.72 Glucose Level 125 Calcium Level 9.2 Test 08/29/16 11:27 Bedside Glucose 235 H Medications Medications Current Medications Levothyroxine Sodium (Synthroid) 100 mcg DAILY@06 PO Last administered on t 06:23; Admin Dose 100 MCG; Start 08/19/16 at 07:30 Lisinopril (Zestril) 5 mg DAILY PO Last administered on 08/29/16 08:25; Admin Dose 5 MG; Start 08/19/16 at 09:00 Metoprolol Tartrate (Lopressor) 25 mg BID PO Last administered on 08/29/16 08: 25; Admin Dose 25 MG; Start 08/19/16 at 09:00 Acetaminophen (Tylenol Tab) 650 mg Q6H PRN PO PAIN AND OR ELEVATED TEMP Last administered on 08/19/16 12:05; Admin Dose 650 MG; Start 08/19/16 at 07:30 Ondansetron HCl (Zofran Inj) 4 mg Q6H PRN IV NAUSEA AND/OR VOMITING; Start 08/19 at 07:30 Pantoprazole (Protonix Tab) 40 mg DAILY@06 PO Last administered on 08/29/16 06 :23; Admin Dose 40 MG; Start 08/19/16 at 07:30 Miscellaneous Information 1 ea NOTE XX ; Start 08/19/16 at 07:30 Glucose (Glutose) 15 gm Q15M PRN PO DECREASED GLUCOSE; Start 08/19/16 at 07:30 Glucose (Glutose) 22.5 gm Q15M PRN PO DECREASED GLUCOSE; Start 08/19/16 at 07:30 Dextrose (D50w Syringe) 25 ml Q15M PRN IV DECREASED GLUCOSE; Start 08/19/16 at 07:30 Dextrose (D50w Syringe) 50 ml Q15M PRN IV DECREASED GLUCOSE; Start 08/19/16 at 07:30 Glucagon (Glucagen) 1 mg Q15M PRN IM DECREASED GLUCOSE; Start 08/19/16 at 07:30 Glucose (Glutose) 15 gm Q15M PRN BUCCAL DECREASED GLUCOSE; Start 08/19/16 at 07: 30 Diphenhydramine HCl (Benadryl) 25 mg TID PRN PO ITCHING Last administered on 20:31; Admin Dose 25 MG; Start 08/20/16 at 20:30 Insulin Glargine (Lantus) 50 unit DAILY SC Last administered on 08/29/16 08:27 ; Admin Dose 50 UNIT; Start 08/22/16 at 09:00 Aspirin (Aspirin) 81 mg DAILY PO Last administered on 08/26/16 10:23; Admin Dose 81 MG; Start 08/24/16 at 17:00 Miscellaneous Information Patients own medicat... BID@ XX Last administered on 08/29/16 11:54; Admin Dose 2 EA; Start 08/28/16 at 10:00 Patient Own Medication 2 ea DAILY PO ; Start 08/30/16 at 09:00 MILADY FONG M.D. Aug 29, 2016 15:29
[2016-08-29 16:04] LABS: PLATELET COUNT 14 10^3/UL (140-415)
--- NOTE | 2016-08-29 17:25 | PN ---
Date/Time of Note Date/Time of Note DATE: 08/29/16 TIME: 17:24 Assessment/Plan VTE Prophylaxis VTE Prophylaxis Intervention: other Lines/Catheters [facility] Urinary Cath still in place: No Assessment/Plan Chief Complaint/Hosp Course IMPRESSION: Thrombocytopenia, diabetes mellitus, peripheral vascular disease, hypertension and history of idiopathic thrombocytopenic purpura.,thyroid mass , hyponatremia plan s/p ivig and prednisone, lantus promacta thyroid biopsy seen per dr to Problems: Subjective 24 Hr Interval Summary Cardiovascular: no complaints Gastrointestinal: no complaints Genitourinary: no complaints Exam/Review of Systems Vital Signs Vitals Vital Signs Date Time Temp Pulse Resp B/P Pulse Ox O2 Delivery O2 Flow Rate FiO2 08/29/16 07:52 97.8 88 18 136/74 98 Intake and Output 08/28/16 08/28/16 08/29/16 14:59 22:59 06:59 Intake Total 1100 ml 600 ml Output Total 1200 ml 2 ml Balance -100 ml 598 ml Exam Cardiovascular: regular rate and rhythm Gastrointestinal: soft Musculoskeletal: nl extremities to inspection Extremities: normal pulses Results Result Diagram: 08/29/16 0420 08/29/16 0420 Results 24 hrs Laboratory Tests Test 08/28/16 17:40 08/28/16 20:59 08/29/16 04:20 08/29/16 08:03 Bedside Glucose 105 129 112 White Blood Count 12.2 H Red Blood Count 4.41 Hemoglobin 13.0 Hematocrit 39.4 Mean Corpuscular Volume 89.3 Mean Corpuscular Hemoglobin 29.5 Mean Corpuscular Hemoglobin Concent 33.0 Red Cell Distribution Width 14.1 Platelet Count 9 #*L Mean Platelet Volume Neutrophils % 44.2 Lymphocytes % 42.6 Monocytes % 10.6 Eosinophils % 1.3 Basophils % 1.1 Nucleated Red Blood Cells % 0.0 Neutrophils # 5.4 Lymphocytes # 5.2 H Monocytes # 1.3 H Eosinophils # 0.2 Basophils # 0.1 Nucleated Red Blood Cells # 0.0 Sodium Level 134 L Potassium Level 4.1 Chloride Level 99 Carbon Dioxide Level 28 Anion Gap 11 Blood Urea Nitrogen 23 H Creatinine 0.72 Glucose Level 125 Calcium Level 9.2 Test 08/29/16 11:27 08/29/16 17:07 Bedside Glucose 235 H 107 Medications Medications Current Medications Levothyroxine Sodium (Synthroid) 100 mcg DAILY@06 PO Last administered on 06:23; Admin Dose 100 MCG; Start 08/19/16 at 07:30 Lisinopril (Zestril) 5 mg DAILY PO Last administered on 08/29/16 08:25; Admin Dose 5 MG; Start 08/19/16 at 09:00 Metoprolol Tartrate (Lopressor) 25 mg BID PO Last administered on 08/29/16 08: 25; Admin Dose 25 MG; Start 08/19/16 at 09:00 Acetaminophen (Tylenol Tab) 650 mg Q6H PRN PO PAIN AND OR ELEVATED TEMP Last administered on 08/19/16 12:05; Admin Dose 650 MG; Start 08/19/16 at 07:30 Ondansetron HCl (Zofran Inj) 4 mg Q6H PRN IV NAUSEA AND/OR VOMITING; Start 08/19 at 07:30 Pantoprazole (Protonix Tab) 40 mg DAILY@06 PO Last administered on 08/29/16 06 :23; Admin Dose 40 MG; Start 08/19/16 at 07:30 Miscellaneous Information 1 ea NOTE XX ; Start 08/19/16 at 07:30 Glucose (Glutose) 15 gm Q15M PRN PO DECREASED GLUCOSE; Start 08/19/16 at 07:30 Glucose (Glutose) 22.5 gm Q15M PRN PO DECREASED GLUCOSE; Start 08/19/16 at 07:30 Dextrose (D50w Syringe) 25 ml Q15M PRN IV DECREASED GLUCOSE; Start 08/19/16 at 07:30 Dextrose (D50w Syringe) 50 ml Q15M PRN IV DECREASED GLUCOSE; Start 08/19/16 at 07:30 Glucagon (Glucagen) 1 mg Q15M PRN IM DECREASED GLUCOSE; Start 08/19/16 at 07:30 Glucose (Glutose) 15 gm Q15M PRN BUCCAL DECREASED GLUCOSE; Start 08/19/16 at 07: 30 Diphenhydramine HCl (Benadryl) 25 mg TID PRN PO ITCHING Last administered on 20:31; Admin Dose 25 MG; Start 08/20/16 at 20:30 Insulin Glargine (Lantus) 50 unit DAILY SC Last administered on 08/29/16 08:27 ; Admin Dose 50 UNIT; Start 08/22/16 at 09:00 Aspirin (Aspirin) 81 mg DAILY PO Last administered on 08/26/16 10:23; Admin Dose 81 MG; Start 08/24/16 at 17:00 Miscellaneous Information Patients own medicat... BID@10,16 XX Last administered on 08/29/16 17:10; Admin Dose 1 EA; Start 08/28/16 at 10:00 Patient Own Medication 2 ea DAILY PO ; Start 08/30/16 at 09:00 ERICA MARAVILLA MD Aug 29, 2016 17:25
[2016-08-29 19:15] VITALS: BP 112/55; RESP 18
[2016-08-30] MEDS: PANTOPRAZOLE (EC) 40 MG TAB PO SCH (06:59)
[2016-08-30] MEDS: LEVOTHYROXINE 100 MCG TAB PO SCH (06:59)
[2016-08-30 07:00] VITALS: BP 133/62; RESP 20
[2016-08-30] MEDS: INSULIN ASPART [NOVOLOG] 3 ML PEN SC SCH ×4 (07:50→21:00)
[2016-08-30] MEDS: ASPIRIN 81 MG TAB PO SCH (09:59)
[2016-08-30] MEDS: LISINOPRIL 5 MG TAB PO SCH (10:01)
[2016-08-30] MEDS: METOPROLOL 25 MG TAB PO SCH ×2 (10:02→21:18)
[2016-08-30] MEDS: INSULIN GLARGINE [LANtus] 3 ML PEN SC SCH (10:06)
[2016-08-30] MEDS: PROMACTA 12.5 MG PO SCH (11:40)
[2016-08-30 11:59] LABS: ADD SCAN DIFF NO
[2016-08-30 12:10] LABS: ABNORMAL IP MESSAGE 1; HEMATOCRIT 40.7 % (37.0-47.0); HEMOGLOBIN 12.9 g/dl (12.0-16.0); MEAN CORPUSCULAR HEMOGLOBIN 29.2 pg (29.0-33.0); MEAN CORPUSCULAR HGB CONC 31.7 g/dl (32.0-37.0); MEAN CORPUSCULAR VOLUME 92.1 fl (82.0-101.0); POTASSIUM 4.1 mmol/L (3.5-5.1); RED BLOOD COUNT 4.42 10^6/ul (4.20-5.40); RED CELL DISTRIBUTION WIDTH 14.3 % (11.5-14.5); WHITE BLOOD COUNT 12.3 10^3/ul (4.8-10.8)
[2016-08-30 12:12] LABS: CREATININE 0.57 mg/dl (0.44-1.00)
[2016-08-30 12:17] LABS: PLATELET COUNT 2 10^3/UL (140-415)
[2016-08-30 13:30] LABS: EOSINOPHILS # 0.1 10^3/ul (0.0-0.5); MONOCYTE # 1.1 10^3/ul (0.3-0.9); NEUTROPHIL # 5.9 10^3/ul (1.6-7.5); PLATELET ESTIMATE PLT APPEAR DECREASED
--- NOTE | 2016-08-30 14:51 | CONS ---
Date/Time of Note Date/Time of Note DATE: 08/30/16 TIME: 14:49 Assessment/Plan Assessment/Plan Chief Complaint/Hosp Course 64yo with # ITP- pt was off promacta and her platelet count fell to <4K. She was given 1 dose of prednisone 1mg/kg in the ER. - s/p 3 days of IVIG 0.5 gm/kg 08/19/16-08/21/16, with 1 unit of platelets on .Pt was on Promacta 12.5 mg q day but platelets dropped again - continue Promacta 25 mg q day -will start IVIG 25 grams x 2 days. first dose to be given today # L neck mass - US neck 08/23/16 showed 1. Status post thyroidectomy. 2. Solid heterogeneous mass in the left side of the neck measuring 3.7 x 2.1 x 2.2 cm. Ultrasound-guided biopsy should be considered. Now s/p US guided biopsy of left thyroid bed 08/24/16 showing nodular goiter. Follow up with endocrinology. Path: Left thyroid nodule, ultrasound-guided fine needle aspiration: -- Compatible with nodular goiter, [place] system category II. # Ischemia to Bilateral feet and toes - this was likely secondary to the rapid increase in platelet count from the promacta. - This has dramatically improved since last admission - As stated before, holding Aspirin until patient's platelet count is consistently greater than 50K. - Note, angiography done during last admission reveals arteries of the lower extremities are widely patent bilaterally with good three-vessel runoff to the level of the ankles. - Hypercoag workup with no evidence of lupus anticoagulant, beta2 glycoprotein IgM or IgG or anticardiolipin positivity (only beta2 glycoprotein IgA > 150 which is not included in criteria for antiphospholipid syndrome; consider repeating in 12 weeks). Protein C and ATIII levels noted to be low however likely to have been affected by coumadin and heparin therapy, respectively. Factor V Leiden and prothrombin gene mutations were not detected. # Left and Right foot Cellulitis - This has resolved - Need to keep tight control of blood sugars #l Leukocytosis wbc 10.5, reactive.n. Problems: Consultation Date/Type/Reason Admit Date/Time Aug 19, 2016 at 05:00 Initial Consult Date 08/19/16 Type of Consultation: Hematology Reason for Consultation ITP Referring Provider: ERICA MARAVILLA MD 24 HR Interval Summary Free Text/Dictation no clinical bleeding. platelet count has dropped to 2K Exam/Review of Systems Vital Signs Vitals Vital Signs Date Time Temp Pulse Resp B/P Pulse Ox O2 Delivery O2 Flow Rate FiO2 08/30/16 07:00 97.2 69 20 133/62 97 Intake and Output 08/29/16 08/29/16 08/30/16 15:00 23:00 07:00 Intake Total 720 ml Balance 720 ml Exam Constitutional: alert, oriented Head: atraumatic, normocephalic Eyes: nl conjunctiva ENMT: nl external ears & nose Neck: non-tender, supple Respiratory: clear to auscultation, normal air movement Cardiovascular: nl pulses, regular rate and rhythm Gastrointestinal: soft Musculoskeletal: nl extremities to inspection, nl gait and stance Extremities: other (Left foot ischemia and cellulitis has improved. still with 2 black digits at tip) Results Result Diagram: 08/30/16 1140 08/30/16 1140 Results 24 hrs Laboratory Tests Test 08/29/16 17:07 08/29/16 20:43 08/30/16 07:58 08/30/16 11:40 Bedside Glucose 107 74 94 White Blood Count 12.3 H Red Blood Count 4.42 Hemoglobin 12.9 Hematocrit 40.7 Mean Corpuscular Volume 92.1 Mean Corpuscular Hemoglobin 29.2 Mean Corpuscular Hemoglobin Concent 31.7 L Red Cell Distribution Width 14.3 Platelet Count 2 #*L Mean Platelet Volume 10.0 Neutrophils % 48.0 Band Neutrophils % 1.0 Lymphocytes % 41.0 Monocytes % 9.0 Eosinophils % 1.0 Neutrophils # 5.9 Lymphocytes # 5.0 H Monocytes # 1.1 H Eosinophils # 0.1 Platelet Estimate PLT APPEAR DECREASED Sodium Level 138 Potassium Level 4.1 Chloride Level 101 Carbon Dioxide Level 23 Anion Gap 18 #H Blood Urea Nitrogen 20 Creatinine 0.57 Glucose Level 198 Calcium Level 9.0 Test 08/30/16 12:19 Bedside Glucose 172 Medications Medications Current Medications Levothyroxine Sodium (Synthroid) 100 mcg DAILY@06 PO Last administered on 06:59; Admin Dose 100 MCG; Start 08/19/16 at 07:30 Lisinopril (Zestril) 5 mg DAILY PO Last administered on 08/30/16 10:01; Admin Dose 5 MG; Start 08/19/16 at 09:00 Metoprolol Tartrate (Lopressor) 25 mg BID PO Last administered on 08/30/16 10: 02; Admin Dose 25 MG; Start 08/19/16 at 09:00 Acetaminophen (Tylenol Tab) 650 mg Q6H PRN PO PAIN AND OR ELEVATED TEMP Last administered on 08/19/16 12:05; Admin Dose 650 MG; Start 08/19/16 at 07:30 Ondansetron HCl (Zofran Inj) 4 mg Q6H PRN IV NAUSEA AND/OR VOMITING; Start 08/19 at 07:30 Pantoprazole (Protonix Tab) 40 mg DAILY@06 PO Last administered on 08/30/16 06 :59; Admin Dose 40 MG; Start 08/19/16 at 07:30 Miscellaneous Information 1 ea NOTE XX ; Start 08/19/16 at 07:30 Glucose (Glutose) 15 gm Q15M PRN PO DECREASED GLUCOSE; Start 08/19/16 at 07:30 Glucose (Glutose) 22.5 gm Q15M PRN PO DECREASED GLUCOSE; Start 08/19/16 at 07:30 Dextrose (D50w Syringe) 25 ml Q15M PRN IV DECREASED GLUCOSE; Start 08/19/16 at 07:30 Dextrose (D50w Syringe) 50 ml Q15M PRN IV DECREASED GLUCOSE; Start 08/19/16 at 07:30 Glucagon (Glucagen) 1 mg Q15M PRN IM DECREASED GLUCOSE; Start 08/19/16 at 07:30 Glucose (Glutose) 15 gm Q15M PRN BUCCAL DECREASED GLUCOSE; Start 08/19/16 at 07: 30 Diphenhydramine HCl (Benadryl) 25 mg TID PRN PO ITCHING Last administered on 20:31; Admin Dose 25 MG; Start 08/20/16 at 20:30 Insulin Glargine (Lantus) 50 unit DAILY SC Last administered on 08/30/16 10:06 ; Admin Dose 50 UNIT; Start 08/22/16 at 09:00 Aspirin (Aspirin) 81 mg DAILY PO Last administered on 08/30/16 09:59; Admin Dose 81 MG; Start 08/24/16 at 17:00 Miscellaneous Information Patients own medicat... BID@ XX Last administered on 08/30/16 10:00; Admin Dose 1 EA; Start 08/28/16 at 10:00 Patient Own Medication 2 ea DAILY PO Last administered on 08/30/16 11:40; Admin Dose 2 EA; Start 08/30/16 at 09:00 MILADY FONG M.D. Aug 30, 2016 14:51
[2016-08-30] MEDS ORDERED: IMMUNE GLOBULIN IV SCH (17:30)
[2016-08-30] MEDS ORDERED: WATER STERILE FOR IV SCH (17:30)
--- NOTE | 2016-08-30 18:17 | PN ---
Date/Time of Note Date/Time of Note DATE: 08/30/16 TIME: 18:16 Assessment/Plan VTE Prophylaxis VTE Prophylaxis Intervention: other Lines/Catheters [facility] Sal[facility] Lock Urinary Cath still in place: No Assessment/Plan Chief Complaint/Hosp Course IMPRESSION: Thrombocytopenia, diabetes mellitus, peripheral vascular disease, hypertension and history of idiopathic thrombocytopenic purpura.,thyroid mass , hyponatremia plan per dr neha wright thyroid biopsy seen per dr perez/dr solomon Problems: Subjective 24 Hr Interval Summary Respiratory: no complaints Gastrointestinal: no complaints Exam/Review of Systems Vital Signs Vitals Vital Signs Date Time Temp Pulse Resp B/P Pulse Ox O2 Delivery O2 Flow Rate FiO2 08/30/16 07:00 97.2 69 20 133/62 97 Intake and Output 08/29/16 08/29/16 08/30/16 15:00 23:00 07:00 Intake Total 720 ml Balance 720 ml Exam Respiratory: clear to auscultation Cardiovascular: regular rate and rhythm Gastrointestinal: soft Musculoskeletal: nl extremities to inspection Extremities: normal pulses Results Result Diagram: 08/30/16 1140 08/30/16 1140 Results 24 hrs Laboratory Tests Test 08/29/16 20:43 08/30/16 07:58 08/30/16 11:40 08/30/16 12:19 Bedside Glucose 74 94 172 White Blood Count 12.3 H Red Blood Count 4.42 Hemoglobin 12.9 Hematocrit 40.7 Mean Corpuscular Volume 92.1 Mean Corpuscular Hemoglobin 29.2 Mean Corpuscular Hemoglobin Concent 31.7 L Red Cell Distribution Width 14.3 Platelet Count 2 #*L Mean Platelet Volume 10.0 Neutrophils % 48.0 Band Neutrophils % 1.0 Lymphocytes % 41.0 Monocytes % 9.0 Eosinophils % 1.0 Neutrophils # 5.9 Lymphocytes # 5.0 H Monocytes # 1.1 H Eosinophils # 0.1 Platelet Estimate PLT APPEAR DECREASED Sodium Level 138 Potassium Level 4.1 Chloride Level 101 Carbon Dioxide Level 23 Anion Gap 18 #H Blood Urea Nitrogen 20 Creatinine 0.57 Glucose Level 198 Calcium Level 9.0 Test 08/30/16 17:44 Bedside Glucose 126 Medications Medications Current Medications Levothyroxine Sodium (Synthroid) 100 mcg DAILY@06 PO Last administered on t 06:59; Admin Dose 100 MCG; Start 08/19/16 at 07:30 Lisinopril (Zestril) 5 mg DAILY PO Last administered on 08/30/16 10:01; Admin Dose 5 MG; Start 08/19/16 at 09:00 Metoprolol Tartrate (Lopressor) 25 mg BID PO Last administered on 08/30/16 10: 02; Admin Dose 25 MG; Start 08/19/16 at 09:00 Acetaminophen (Tylenol Tab) 650 mg Q6H PRN PO PAIN AND OR ELEVATED TEMP Last administered on 08/19/16 12:05; Admin Dose 650 MG; Start 08/19/16 at 07:30 Ondansetron HCl (Zofran Inj) 4 mg Q6H PRN IV NAUSEA AND/OR VOMITING; Start 08/19 at 07:30 Pantoprazole (Protonix Tab) 40 mg DAILY@06 PO Last administered on 08/30/16 06 :59; Admin Dose 40 MG; Start 08/19/16 at 07:30 Miscellaneous Information 1 ea NOTE XX ; Start 08/19/16 at 07:30 Glucose (Glutose) 15 gm Q15M PRN PO DECREASED GLUCOSE; Start 08/19/16 at 07:30 Glucose (Glutose) 22.5 gm Q15M PRN PO DECREASED GLUCOSE; Start 08/19/16 at 07:30 Dextrose (D50w Syringe) 25 ml Q15M PRN IV DECREASED GLUCOSE; Start 08/19/16 at 07:30 Dextrose (D50w Syringe) 50 ml Q15M PRN IV DECREASED GLUCOSE; Start 08/19/16 at 07:30 Glucagon (Glucagen) 1 mg Q15M PRN IM DECREASED GLUCOSE; Start 08/19/16 at 07:30 Glucose (Glutose) 15 gm Q15M PRN BUCCAL DECREASED GLUCOSE; Start 08/19/16 at 07: 30 Diphenhydramine HCl (Benadryl) 25 mg TID PRN PO ITCHING Last administered on 20:31; Admin Dose 25 MG; Start 08/20/16 at 20:30 Insulin Glargine (Lantus) 50 unit DAILY SC Last administered on 08/30/16 10:06 ; Admin Dose 50 UNIT; Start 08/22/16 at 09:00 Aspirin (Aspirin) 81 mg DAILY PO Last administered on 08/30/16 09:59; Admin Dose 81 MG; Start 08/24/16 at 17:00 Miscellaneous Information Patients own medicat... BID@, XX Last administered on 08/30/16 16:00; Admin Dose 1 EA; Start 08/28/16 at 10:00 Patient Own Medication 2 ea 2 ea DAILY PO Last administered on 08/30/16 11:40 ; Admin Dose 2 EA; Start 08/30/16 at 09:00 Immune Globulin/ Sterile Water ([place] Nf/ Water Sterile For Inj) 800 ml @ 50 mls/hr Q24H IV ; Start 08/30/16 at 17:30; Stop 09/01/16 at 09:29 ERICA MARAVILLA MD Aug 30, 2016 18:17
[2016-08-30 19:07] VITALS: BP 143/63; RESP 18
[2016-08-31] VITALS (7 sets, daily range): BP systolic 129–161; BP diastolic 61–69; PULSE 65–74; RESP 18–20
[2016-08-31] MEDS: PANTOPRAZOLE (EC) 40 MG TAB PO SCH (06:07)
[2016-08-31] MEDS: LEVOTHYROXINE 100 MCG TAB PO SCH (06:07)
[2016-08-31] MEDS: INSULIN ASPART [NOVOLOG] 3 ML PEN SC SCH ×4 (07:50→20:41)
[2016-08-31 08:09] LABS: ADD SCAN DIFF NO
[2016-08-31 08:14] LABS: ABNORMAL IP MESSAGE 1; HEMATOCRIT 39.1 % (37.0-47.0); HEMOGLOBIN 12.7 g/dl (12.0-16.0); MEAN CORPUSCULAR HEMOGLOBIN 29.3 pg (29.0-33.0); MEAN CORPUSCULAR HGB CONC 32.5 g/dl (32.0-37.0); MEAN CORPUSCULAR VOLUME 90.3 fl (82.0-101.0); MEAN PLATELET VOLUME 11.4 fl (7.4-10.4); PLATELET COUNT 55 10^3/UL (140-415); RED BLOOD COUNT 4.33 10^6/ul (4.20-5.40); RED CELL DISTRIBUTION WIDTH 14.1 % (11.5-14.5); WHITE BLOOD COUNT 11.4 10^3/ul (4.8-10.8)
[2016-08-31 08:37] LABS: POTASSIUM 3.9 mmol/L (3.5-5.1)
[2016-08-31 08:39] LABS: CREATININE 0.56 mg/dl (0.44-1.00)
[2016-08-31 08:40] LABS: CALCIUM 9.1 mg/dl (8.4-10.2)
[2016-08-31] MEDS ORDERED: IMMUNE GLOBULIN (HUMAN) 6 GM INJ IV SCH (09:00)
[2016-08-31] MEDS: ASPIRIN 81 MG TAB PO SCH (09:00)
[2016-08-31] MEDS: METOPROLOL 25 MG TAB PO SCH ×2 (09:28→20:22)
[2016-08-31] MEDS: PROMACTA 12.5 MG PO SCH (09:29)
[2016-08-31] MEDS: LISINOPRIL 5 MG TAB PO SCH (09:29)
[2016-08-31] MEDS: INSULIN GLARGINE [LANtus] 3 ML PEN SC SCH (09:37)
[2016-08-31 10:19] LABS: LYMPHOCYTES # 5.1 10^3/ul (0.8-2.9); MONOCYTE # 0.7 10^3/ul (0.3-0.9); NEUTROPHIL # 5.6 10^3/ul (1.6-7.5); PLATELET ESTIMATE PLT APPEAR DECREASED; PLATELETS CLUMPS FEW
--- NOTE | 2016-08-31 12:47 | PN ---
Date/Time of Note Date/Time of Note DATE: 08/31/16 TIME: 12:46 Assessment/Plan VTE Prophylaxis VTE Prophylaxis Intervention: other Lines/Catheters [facility] Saline Lock Urinary Cath still in place: No Assessment/Plan Chief Complaint/Hosp Course IMPRESSION: Thrombocytopenia, diabetes mellitus, peripheral vascular disease, hypertension and history of idiopathic thrombocytopenic purpura.,thyroid mass s/ p biopsy,hyponatremia stable plan per dr solomon lantus promacta/ivig thyroid biopsy seen per dr perez/dr solomon Problems: Subjective 24 Hr Interval Summary Respiratory: no complaints Cardiovascular: no complaints Gastrointestinal: no complaints Skin: other (neg) Exam/Review of Systems Vital Signs Vitals Vital Signs Date Time Temp Pulse Resp B/P Pulse Ox O2 Delivery O2 Flow Rate FiO2 08/31/16 07:00 97.6 156 20 156/67 98 08/31/16 03:21 Room Air Intake and Output 08/30/16 08/30/16 08/31/16 15:00 23:00 07:00 Intake Total 350 ml 1300 ml 1653 ml Output Total 1200 ml Balance 350 ml 100 ml 1653 ml Exam Neck: supple Respiratory: clear to auscultation Cardiovascular: regular rate and rhythm Gastrointestinal: soft Musculoskeletal: nl extremities to inspection Extremities: normal pulses Results Result Diagram: 08/31/16 0745 08/31/16 0745 Results 24 hrs Laboratory Tests Test 08/30/16 17:44 08/30/16 21:17 08/31/16 07:45 08/31/16 08:10 Bedside Glucose 126 162 95 White Blood Count 11.4 H Red Blood Count 4.33 Hemoglobin 12.7 Hematocrit 39.1 Mean Corpuscular Volume 90.3 Mean Corpuscular Hemoglobin 29.3 Mean Corpuscular Hemoglobin Concent 32.5 Red Cell Distribution Width 14.1 Platelet Count 55 #L Mean Platelet Volume 11.4 H Neutrophils % 49.0 Lymphocytes % 45.0 Monocytes % 6.0 Neutrophils # 5.6 Lymphocytes # 5.1 H Monocytes # 0.7 Platelet Estimate PLT APPEAR DECREASED Clumped Platelets FEW Sodium Level 140 Potassium Level 3.9 Chloride Level 103 Carbon Dioxide Level 27 Anion Gap 14 Blood Urea Nitrogen 13 Creatinine 0.56 Glucose Level 101 # Calcium Level 9.1 Test 08/31/16 11:39 Bedside Glucose 195 Medications Medications Current Medications Levothyroxine Sodium (Synthroid) 100 mcg DAILY@06 PO Last administered on 06:07; Admin Dose 100 MCG; Start 08/19/16 at 07:30 Lisinopril (Zestril) 5 mg DAILY PO Last administered on 08/31/16 09:29; Admin Dose 5 MG; Start 08/19/16 at 09:00 Metoprolol Tartrate (Lopressor) 25 mg BID PO Last administered on 08/31/16 09: 28; Admin Dose 25 MG; Start 08/19/16 at 09:00 Acetaminophen (Tylenol Tab) 650 mg Q6H PRN PO PAIN AND OR ELEVATED TEMP Last administered on 08/19/16 12:05; Admin Dose 650 MG; Start 08/19/16 at 07:30 Ondansetron HCl (Zofran Inj) 4 mg Q6H PRN IV NAUSEA AND/OR VOMITING; Start 08/19 at 07:30 Pantoprazole (Protonix Tab) 40 mg DAILY@06 PO Last administered on 08/31/16 06 :07; Admin Dose 40 MG; Start 08/19/16 at 07:30 Miscellaneous Information 1 ea NOTE XX ; Start 08/19/16 at 07:30 Glucose (Glutose) 15 gm Q15M PRN PO DECREASED GLUCOSE; Start 08/19/16 at 07:30 Glucose (Glutose) 22.5 gm Q15M PRN PO DECREASED GLUCOSE; Start 08/19/16 at 07:30 Dextrose (D50w Syringe) 25 ml Q15M PRN IV DECREASED GLUCOSE; Start 08/19/16 at 07:30 Dextrose (D50w Syringe) 50 ml Q15M PRN IV DECREASED GLUCOSE; Start 08/19/16 at 07:30 Glucagon (Glucagen) 1 mg Q15M PRN IM DECREASED GLUCOSE; Start 08/19/16 at 07:30 Glucose (Glutose) 15 gm Q15M PRN BUCCAL DECREASED GLUCOSE; Start 08/19/16 at 07: 30 Diphenhydramine HCl (Benadryl) 25 mg TID PRN PO ITCHING Last administered on 20:31; Admin Dose 25 MG; Start 08/20/16 at 20:30 Insulin Glargine (Lantus) 50 unit DAILY SC Last administered on 08/31/16 09:37 ; Admin Dose 50 UNIT; Start 08/22/16 at 09:00 Aspirin (Aspirin) 81 mg DAILY PO Last administered on 08/30/16 09:59; Admin Dose 81 MG; Start 08/24/16 at 17:00 Miscellaneous Information Patients own medicat... BID@16 XX Last administered on 08/30/16 16:00; Admin Dose 1 EA; Start 08/28/16 at 10:00 Patient Own Medication 2 ea DAILY PO Last administered on 08/31/16 09:29; Admin Dose 2 EA; Start 08/30/16 at 09:00 ERICA MARAVILLA MD Aug 31, 2016 12:47
--- NOTE | 2016-08-31 15:09 | CONS ---
Date/Time of Note Date/Time of Note DATE: 08/31/16 TIME: 15:06 Assessment/Plan Assessment/Plan Chief Complaint/Hosp Course 64yo with # ITP- pt was given 1 dose of IVIG and platelets yesterday. The goal is to get patient on a stable dose of Promacta that keeps her platelets > 50K, without the help of IVIG, and to start asa at that time -will hold on more doses of IVIG at this time -cont Promacta 25 mg for now -if platelets are stable and > 50K tomorrow will give ASA 81at that time # L neck mass - US neck 08/23/16 showed 1. Status post thyroidectomy. 2. Solid heterogeneous mass in the left side of the neck measuring 3.7 x 2.1 x 2.2 cm. Ultrasound-guided biopsy should be considered. Now s/p US guided biopsy of left thyroid bed 08/24/16 showing nodular goiter. Follow up with endocrinology. Path: Left thyroid nodule, ultrasound-guided fine needle aspiration: -- Compatible with nodular goiter, [place] system category II. # Ischemia to Bilateral feet and toes - this was likely secondary to the rapid increase in platelet count from the promacta. - This has dramatically improved since last admission - As stated before, holding Aspirin until patient's platelet count is consistently greater than 50K. - Note, angiography done during last admission reveals arteries of the lower extremities are widely patent bilaterally with good three-vessel runoff to the level of the ankles. - Hypercoag workup with no evidence of lupus anticoagulant, beta2 glycoprotein IgM or IgG or anticardiolipin positivity (only beta2 glycoprotein IgA > 150 which is not included in criteria for antiphospholipid syndrome; consider repeating in 12 weeks). Protein C and ATIII levels noted to be low however likely to have been affected by coumadin and heparin therapy, respectively. Factor V Leiden and prothrombin gene mutations were not detected. 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 this is her baseline wbc count Problems: Consultation Date/Type/Reason Admit Date/Time Aug 19, 2016 at 05:00 Initial Consult Date 08/19/16 Type of Consultation: Hematology Reason for Consultation ITP Referring Provider: ERICA MARAVILLA MD 24 HR Interval Summary Free Text/Dictation pt received platelets and 1 dose of IVIG yesterday. platelets diana to 55K this morning. Exam/Review of Systems Vital Signs Vitals Vital Signs Date Time Temp Pulse Resp B/P Pulse Ox O2 Delivery O2 Flow Rate FiO2 08/31/16 07:00 97.6 156 20 156/67 98 08/31/16 03:21 Room Air Intake and Output 08/30/16 08/30/16 08/31/16 15:00 23:00 07:00 Intake Total 350 ml 1300 ml 1653 ml Output Total 1200 ml Balance 350 ml 100 ml 1653 ml Exam Constitutional: alert, oriented Psych: no complaints Head: atraumatic, normocephalic Eyes: nl conjunctiva ENMT: nl external ears & nose Neck: non-tender, supple Respiratory: clear to auscultation Cardiovascular: nl pulses, regular rate and rhythm Gastrointestinal: soft Musculoskeletal: nl extremities to inspection, nl gait and stance Extremities: normal pulses Results Result Diagram: 08/31/16 0745 08/31/16 0745 Results 24 hrs Laboratory Tests Test 08/30/16 17:44 08/30/16 21:17 08/31/16 07:45 08/31/16 08:10 Bedside Glucose 126 162 95 White Blood Count 11.4 H Red Blood Count 4.33 Hemoglobin 12.7 Hematocrit 39.1 Mean Corpuscular Volume 90.3 Mean Corpuscular Hemoglobin 29.3 Mean Corpuscular Hemoglobin Concent 32.5 Red Cell Distribution Width 14.1 Platelet Count 55 #L Mean Platelet Volume 11.4 H Neutrophils % 49.0 Lymphocytes % 45.0 Monocytes % 6.0 Neutrophils # 5.6 Lymphocytes # 5.1 H Monocytes # 0.7 Platelet Estimate PLT APPEAR DECREASED Clumped Platelets FEW Sodium Level 140 Potassium Level 3.9 Chloride Level 103 Carbon Dioxide Level 27 Anion Gap 14 Blood Urea Nitrogen 13 Creatinine 0.56 Glucose Level 101 # Calcium Level 9.1 Test 08/31/16 11:39 Bedside Glucose 195 Medications Medications Current Medications Levothyroxine Sodium (Synthroid) 100 mcg DAILY@06 PO Last administered on 06:07; Admin Dose 100 MCG; Start 08/19/16 at 07:30 Lisinopril (Zestril) 5 mg DAILY PO Last administered on 08/31/16 09:29; Admin Dose 5 MG; Start 08/19/16 at 09:00 Metoprolol Tartrate (Lopressor) 25 mg BID PO Last administered on 08/31/16 09: 28; Admin Dose 25 MG; Start 08/19/16 at 09:00 Acetaminophen (Tylenol Tab) 650 mg Q6H PRN PO PAIN AND OR ELEVATED TEMP Last administered on 08/19/16 12:05; Admin Dose 650 MG; Start 08/19/16 at 07:30 Ondansetron HCl (Zofran Inj) 4 mg Q6H PRN IV NAUSEA AND/OR VOMITING; Start 08/19 at 07:30 Pantoprazole (Protonix Tab) 40 mg DAILY@06 PO Last administered on 08/31/16 06 :07; Admin Dose 40 MG; Start 08/19/16 at 07:30 Miscellaneous Information 1 ea NOTE XX ; Start 08/19/16 at 07:30 Glucose (Glutose) 15 gm Q15M PRN PO DECREASED GLUCOSE; Start 08/19/16 at 07:30 Glucose (Glutose) 22.5 gm Q15M PRN PO DECREASED GLUCOSE; Start 08/19/16 at 07:30 Dextrose (D50w Syringe) 25 ml Q15M PRN IV DECREASED GLUCOSE; Start 08/19/16 at 07:30 Dextrose (D50w Syringe) 50 ml Q15M PRN IV DECREASED GLUCOSE; Start 08/19/16 at 07:30 Glucagon (Glucagen) 1 mg Q15M PRN IM DECREASED GLUCOSE; Start 08/19/16 at 07:30 Glucose (Glutose) 15 gm Q15M PRN BUCCAL DECREASED GLUCOSE; Start 08/19/16 at 07: 30 Diphenhydramine HCl (Benadryl) 25 mg TID PRN PO ITCHING Last administered on 20:31; Admin Dose 25 MG; Start 08/20/16 at 20:30 Insulin Glargine (Lantus) 50 unit DAILY SC Last administered on 08/31/16 09:37 ; Admin Dose 50 UNIT; Start 08/22/16 at 09:00 Aspirin (Aspirin) 81 mg DAILY PO Last administered on 08/30/16 09:59; Admin Dose 81 MG; Start 08/24/16 at 17:00 Miscellaneous Information Patients own medicat... BID@10,16 XX Last administered on 08/30/16 16:00; Admin Dose 1 EA; Start 08/28/16 at 10:00 Patient Own Medication 2 ea DAILY PO Last administered on 08/31/16 09:29; Admin Dose 2 EA; Start 08/30/16 at 09:00 MILADY FONG M.D. Aug 31, 2016 15:09
[2016-09-01] MEDS: PANTOPRAZOLE (EC) 40 MG TAB PO SCH (05:22)
[2016-09-01] MEDS: LEVOTHYROXINE 100 MCG TAB PO SCH (05:22)
[2016-09-01 07:42] VITALS: BP 133/63; RESP 18
[2016-09-01 08:21] LABS: ADD SCAN DIFF NO
[2016-09-01 08:23] LABS: ABNORMAL IP MESSAGE 1; HEMATOCRIT 38.1 % (37.0-47.0); HEMOGLOBIN 12.7 g/dl (12.0-16.0); MEAN CORPUSCULAR HGB CONC 33.3 g/dl (32.0-37.0); MEAN CORPUSCULAR VOLUME 89.9 fl (82.0-101.0); MEAN PLATELET VOLUME 12.9 fl (7.4-10.4); PLATELET COUNT 39 10^3/UL (140-415); RED BLOOD COUNT 4.24 10^6/ul (4.20-5.40); RED CELL DISTRIBUTION WIDTH 13.9 % (11.5-14.5); WHITE BLOOD COUNT 10.2 10^3/ul (4.8-10.8)
[2016-09-01] MEDS: ASPIRIN 81 MG TAB PO SCH (09:00)
[2016-09-01] MEDS: METOPROLOL 25 MG TAB PO SCH ×2 (09:30→20:54)
[2016-09-01] MEDS: LISINOPRIL 5 MG TAB PO SCH (09:30)
[2016-09-01] MEDS: INSULIN ASPART [NOVOLOG] 3 ML PEN SC SCH ×6 (09:35→20:56)
[2016-09-01] MEDS: INSULIN GLARGINE [LANtus] 3 ML PEN SC SCH (09:37)
--- NOTE | 2016-09-01 11:14 | CONS ---
Date/Time of Note Date/Time of Note DATE: 09/01/16 TIME: 11:12 Assessment/Plan Assessment/Plan Chief Complaint/Hosp Course 64yo with # ITP- pt was given 1 dose of IVIG and platelets 08/30.. The goal is to get patient on a stable dose of Promacta that keeps her platelets > 50K, without the help of IVIG, and to start asa at that time -cont Promacta 25 mg for now -if platelets are stable and > 50K tomorrow will give ASA 81at that time # L neck mass - US neck 08/23/16 showed 1. Status post thyroidectomy. 2. Solid heterogeneous mass in the left side of the neck measuring 3.7 x 2.1 x 2.2 cm. Ultrasound-guided biopsy should be considered. Now s/p US guided biopsy of left thyroid bed 08/24/16 showing nodular goiter. Follow up with endocrinology. Path: Left thyroid nodule, ultrasound-guided fine needle aspiration: -- Compatible with nodular goiter, [place] system category II. # Ischemia to Bilateral feet and toes - this was likely secondary to the rapid increase in platelet count from the promacta. - This has dramatically improved since last admission - As stated before, holding Aspirin until patient's platelet count is consistently greater than 50K. - Note, angiography done during last admission reveals arteries of the lower extremities are widely patent bilaterally with good three-vessel runoff to the level of the ankles. - Hypercoag workup with no evidence of lupus anticoagulant, beta2 glycoprotein IgM or IgG or anticardiolipin positivity (only beta2 glycoprotein IgA > 150 which is not included in criteria for antiphospholipid syndrome; consider repeating in 12 weeks). Protein C and ATIII levels noted to be low however likely to have been affected by coumadin and heparin therapy, respectively. Factor V Leiden and prothrombin gene mutations were not detected. 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 this is her baseline wbc count Problems: Consultation Date/Type/Reason Admit Date/Time Aug 19, 2016 at 05:00 Initial Consult Date 08/19/16 Type of Consultation: Hematology Reason for Consultation ITP Referring Provider: ERICA MARAVILLA MD 24 HR Interval Summary Free Text/Dictation IVIG held yesterday. pt continues on Promacta 25 mg q day. platelets did fall to 39 today. no evidence of bleed or clot at this time Exam/Review of Systems Vital Signs Vitals Vital Signs Date Time Temp Pulse Resp B/P Pulse Ox O2 Delivery O2 Flow Rate FiO2 09/01/16 07:42 98.0 66 18 133/63 96 08/31/16 03:21 Room Air Intake and Output 08/31/16 08/31/16 09/01/16 15:00 23:00 07:00 Intake Total 1240 ml 500 ml Output Total 1500 ml 500 ml Balance -260 ml 0 ml Exam Constitutional: alert, oriented Psych: no complaints Head: atraumatic, normocephalic Eyes: nl conjunctiva ENMT: nl external ears & nose Neck: non-tender, supple Respiratory: clear to auscultation, normal air movement Cardiovascular: nl pulses, regular rate and rhythm Gastrointestinal: soft Musculoskeletal: nl extremities to inspection, nl gait and stance Extremities: other (no e/o infection. ) Results Result Diagram: 09/01/16 0810 08/31/16 0745 Results 24 hrs Laboratory Tests Test 08/31/16 11:39 08/31/16 17:37 08/31/16 20:35 09/01/16 02:07 Bedside Glucose 195 167 219 229 H Test 09/01/16 08:08 09/01/16 08:10 Bedside Glucose 234 H White Blood Count 10.2 Red Blood Count 4.24 Hemoglobin 12.7 Hematocrit 38.1 Mean Corpuscular Volume 89.9 Mean Corpuscular Hemoglobin 30.0 Mean Corpuscular Hemoglobin Concent 33.3 Red Cell Distribution Width 13.9 Platelet Count 39 #L Mean Platelet Volume 12.9 H Neutrophils % Lymphocytes % Monocytes % Neutrophils # Lymphocytes # Monocytes # Medications Medications Current Medications Levothyroxine Sodium (Synthroid) 100 mcg DAILY@06 PO Last administered on 05:22; Admin Dose 100 MCG; Start 08/19/16 at 07:30 Lisinopril (Zestril) 5 mg DAILY PO Last administered on 09/01/16 09:30; Admin Dose 5 MG; Start 08/19/16 at 09:00 Metoprolol Tartrate (Lopressor) 25 mg BID PO Last administered on 09/01/16 09: 30; Admin Dose 25 MG; Start 08/19/16 at 09:00 Acetaminophen (Tylenol Tab) 650 mg Q6H PRN PO PAIN AND OR ELEVATED TEMP Last administered on 08/19/16 12:05; Admin Dose 650 MG; Start 08/19/16 at 07:30 Ondansetron HCl (Zofran Inj) 4 mg Q6H PRN IV NAUSEA AND/OR VOMITING; Start 08/19 at 07:30 Pantoprazole (Protonix Tab) 40 mg DAILY@06 PO Last administered on 09/01/16 05 :22; Admin Dose 40 MG; Start 08/19/16 at 07:30 Miscellaneous Information 1 ea NOTE XX ; Start 08/19/16 at 07:30 Glucose (Glutose) 15 gm Q15M PRN PO DECREASED GLUCOSE; Start 08/19/16 at 07:30 Glucose (Glutose) 22.5 gm Q15M PRN PO DECREASED GLUCOSE; Start 08/19/16 at 07:30 Dextrose (D50w Syringe) 25 ml Q15M PRN IV DECREASED GLUCOSE; Start 08/19/16 at 07:30 Dextrose (D50w Syringe) 50 ml Q15M PRN IV DECREASED GLUCOSE; Start 08/19/16 at 07:30 Glucagon (Glucagen) 1 mg Q15M PRN IM DECREASED GLUCOSE; Start 08/19/16 at 07:30 Glucose (Glutose) 15 gm Q15M PRN BUCCAL DECREASED GLUCOSE; Start 08/19/16 at 07: 30 Diphenhydramine HCl (Benadryl) 25 mg TID PRN PO ITCHING Last administered on 20:31; Admin Dose 25 MG; Start 08/20/16 at 20:30 Insulin Glargine (Lantus) 50 unit DAILY SC Last administered on 09/01/16 09:37 ; Admin Dose 50 UNIT; Start 08/22/16 at 09:00 Aspirin (Aspirin) 81 mg DAILY PO Last administered on 08/30/16 09:59; Admin Dose 81 MG; Start 08/24/16 at 17:00 Miscellaneous Information Patients own medicat... BID@10,16 XX Last administered on 08/30/16 16:00; Admin Dose 1 EA; Start 08/28/16 at 10:00 Patient Own Medication 2 ea DAILY PO Last administered on 4/19/17at 09:29; Admin Dose 2 EA; Start 08/30/16 at 09:00 MILADY FONG M.D. Sep 01, 2016 11:14
[2016-09-01] MEDS: PROMACTA 12.5 MG PO SCH (11:42)
[2016-09-01 13:43] LABS: LYMPHOCYTES # 4.4 10^3/ul (0.8-2.9); MONOCYTE # 0.8 10^3/ul (0.3-0.9); NEUTROPHIL # 4.9 10^3/ul (1.6-7.5)
[2016-09-01 13:44] LABS: PLATELETS CLUMPS FEW
--- NOTE | 2016-09-01 19:35 | PN ---
Date/Time of Note Date/Time of Note DATE: 09/01/16 TIME: 19:34 Assessment/Plan VTE Prophylaxis VTE Prophylaxis Intervention: other Lines/Catheters IV Catheter Type (from Nrsg): Saline Lock Central line still needed: Yes Urinary Cath still in place: No Reason Cath still needed: other (indicate) Assessment/Plan Chief Complaint/Hosp Course IMPRESSION: Thrombocytopenia, diabetes mellitus, peripheral vascular disease, hypertension and history of idiopathic thrombocytopenic purpura.,thyroid mass s/ p biopsy,hyponatremia stable plan per dr solomon lantus promacta/ivig thyroid biopsy seen per dr perez/dr solomon ck labs Problems: Subjective 24 Hr Interval Summary Cardiovascular: no complaints Gastrointestinal: no complaints Exam/Review of Systems Vital Signs Vitals Vital Signs Date Time Temp Pulse Resp B/P Pulse Ox O2 Delivery O2 Flow Rate FiO2 09/01/16 07:42 98.0 66 18 133/63 96 08/31/16 03:21 Room Air Intake and Output 08/31/16 08/31/16 09/01/16 15:00 23:00 07:00 Intake Total 1240 ml 500 ml Output Total 1500 ml 500 ml Balance -260 ml 0 ml Exam Respiratory: clear to auscultation Cardiovascular: regular rate and rhythm Gastrointestinal: soft Musculoskeletal: nl extremities to inspection Extremities: normal pulses Results Result Diagram: 09/01/16 0810 08/31/16 0745 Results 24 hrs Laboratory Tests Test 08/31/16 20:35 09/01/16 02:07 09/01/16 08:08 09/01/16 08:10 Bedside Glucose 219 229 H 234 H White Blood Count 10.2 Red Blood Count 4.24 Hemoglobin 12.7 Hematocrit 38.1 Mean Corpuscular Volume 89.9 Mean Corpuscular Hemoglobin 30.0 Mean Corpuscular Hemoglobin Concent 33.3 Red Cell Distribution Width 13.9 Platelet Count 39 #L Mean Platelet Volume 12.9 H Neutrophils % 48.0 Band Neutrophils % 1.0 Lymphocytes % 43.0 Monocytes % 8.0 Neutrophils # 4.9 Lymphocytes # 4.4 H Monocytes # 0.8 Clumped Platelets FEW Test 09/01/16 12:33 09/01/16 17:12 Bedside Glucose 309 H 220 Medications Medications Current Medications Levothyroxine Sodium (Synthroid) 100 mcg DAILY@06 PO Last administered on t 05:22; Admin Dose 100 MCG; Start 08/19/16 at 07:30 Lisinopril (Zestril) 5 mg DAILY PO Last administered on 09/01/16 09:30; Admin Dose 5 MG; Start 08/19/16 at 09:00 Metoprolol Tartrate (Lopressor) 25 mg BID PO Last administered on 09/01/16 09: 30; Admin Dose 25 MG; Start 08/19/16 at 09:00 Acetaminophen (Tylenol Tab) 650 mg Q6H PRN PO PAIN AND OR ELEVATED TEMP Last administered on 08/19/16 12:05; Admin Dose 650 MG; Start 08/19/16 at 07:30 Ondansetron HCl (Zofran Inj) 4 mg Q6H PRN IV NAUSEA AND/OR VOMITING; Start 08/19 at 07:30 Pantoprazole (Protonix Tab) 40 mg DAILY@06 PO Last administered on 09/01/16 05 :22; Admin Dose 40 MG; Start 08/19/16 at 07:30 Miscellaneous Information 1 ea NOTE XX ; Start 08/19/16 at 07:30 Glucose (Glutose) 15 gm Q15M PRN PO DECREASED GLUCOSE; Start 08/19/16 at 07:30 Glucose (Glutose) 22.5 gm Q15M PRN PO DECREASED GLUCOSE; Start 08/19/16 at 07:30 Dextrose (D50w Syringe) 25 ml Q15M PRN IV DECREASED GLUCOSE; Start 08/19/16 at 07:30 Dextrose (D50w Syringe) 50 ml Q15M PRN IV DECREASED GLUCOSE; Start 08/19/16 at 07:30 Glucagon (Glucagen) 1 mg Q15M PRN IM DECREASED GLUCOSE; Start 08/19/16 at 07:30 Glucose (Glutose) 15 gm Q15M PRN BUCCAL DECREASED GLUCOSE; Start 08/19/16 at 07: 30 Diphenhydramine HCl (Benadryl) 25 mg TID PRN PO ITCHING Last administered on 20:31; Admin Dose 25 MG; Start 08/20/16 at 20:30 Insulin Glargine (Lantus) 50 unit DAILY SC Last administered on 09/01/16 09:37 ; Admin Dose 50 UNIT; Start 08/22/16 at 09:00 Aspirin (Aspirin) 81 mg DAILY PO Last administered on 08/30/16 09:59; Admin Dose 81 MG; Start 08/24/16 at 17:00 Miscellaneous Information Patients own medicat... BID@ XX Last administered on 08/30/16 16:00; Admin Dose 1 EA; Start 08/28/16 at 10:00 Patient Own Medication 2 ea DAILY PO Last administered on 09/01/16 11:42; Admin Dose 2 EA; Start 08/30/16 at 09:00 ERICA MARAVILLA MD Sep 01, 2016 19:35
[2016-09-01 19:40] VITALS: BP 133/61; RESP 18
[2016-09-02] MEDS: LEVOTHYROXINE 100 MCG TAB PO SCH (05:39)
[2016-09-02] MEDS: PANTOPRAZOLE (EC) 40 MG TAB PO SCH (05:39)
[2016-09-02 08:00] VITALS: BP 137/64; RESP 20
[2016-09-02 08:23] LABS: ABNORMAL IP MESSAGE 1; HEMATOCRIT 38.2 % (37.0-47.0); HEMOGLOBIN 12.6 g/dl (12.0-16.0); MEAN CORPUSCULAR HEMOGLOBIN 29.5 pg (29.0-33.0); MEAN CORPUSCULAR VOLUME 89.5 fl (82.0-101.0); RED BLOOD COUNT 4.27 10^6/ul (4.20-5.40); RED CELL DISTRIBUTION WIDTH 13.8 % (11.5-14.5)
[2016-09-02] MEDS: LISINOPRIL 5 MG TAB PO SCH (08:36)
[2016-09-02 08:37] LABS: PLATELET COUNT 18 10^3/UL (140-415)
[2016-09-02] MEDS: METOPROLOL 25 MG TAB PO SCH ×2 (08:37→21:36)
[2016-09-02] MEDS: ASPIRIN 81 MG TAB PO SCH (08:38)
[2016-09-02] MEDS: INSULIN GLARGINE [LANtus] 3 ML PEN SC SCH (08:43)
[2016-09-02] MEDS: INSULIN ASPART [NOVOLOG] 3 ML PEN SC SCH ×7 (08:44→21:00)
--- NOTE | 2016-09-02 10:55 | PN ---
Date/Time of Note Date/Time of Note DATE: 09/02/16 TIME: 10:53 Assessment/Plan VTE Prophylaxis VTE Prophylaxis Intervention: ambulation Lines/Catheters [facility] Saline Lock Central line still needed: No Urinary Cath still in place: No Assessment/Plan Chief Complaint/Hosp Course 1. Thrombocytopenia, 2.diabetes mellitus, 3. peripheral vascular disease, 4.hypertension 5. history of idiopathic thrombocytopenic purpura., 6. thyroid mass s/p biopsy, 7. hyponatremia stable Problems: Assessment/Plan 1. Plan per dr Schimtt Subjective 24 Hr Interval Summary Constitutional: no complaints Eyes: no complaints ENT: no complaints Respiratory: no complaints Cardiovascular: no complaints Gastrointestinal: no complaints Genitourinary: no complaints Musculoskeletal: no complaints Exam/Review of Systems Vital Signs Vitals Vital Signs Date Time Temp Pulse Resp B/P Pulse Ox O2 Delivery O2 Flow Rate FiO2 09/02/16 08:00 98.1 70 20 137/64 97 08/31/16 03:21 Room Air Intake and Output 09/01/16 09/01/16 09/02/16 15:00 23:00 07:00 Intake Total 940 ml 480 ml Balance 940 ml 480 ml Exam Constitutional: alert, oriented, well developed Psych: no complaints Head: atraumatic, normocephalic Eyes: nl conjunctiva ENMT: nl external ears & nose Neck: supple Respiratory: clear to auscultation, normal air movement Cardiovascular: nl pulses, regular rate and rhythm Gastrointestinal: soft Genitourinary - Female: nl external genitalia Musculoskeletal: nl extremities to inspection Extremities: normal pulses Results Result Diagram: 09/02/16 0700 08/31/16 0745 Results 24 hrs Laboratory Tests Test 09/01/16 12:33 09/01/16 17:12 09/01/16 20:05 09/02/16 01:45 Bedside Glucose 309 H 220 221 H 183 Test 09/02/16 07:00 09/02/16 08:03 White Blood Count 11.0 H Red Blood Count 4.27 Hemoglobin 12.6 Hematocrit 38.2 Mean Corpuscular Volume 89.5 Mean Corpuscular Hemoglobin 29.5 Mean Corpuscular Hemoglobin Concent 33.0 Red Cell Distribution Width 13.8 Platelet Count 18 #*L Mean Platelet Volume Bedside Glucose 174 Medications Medications Current Medications Levothyroxine Sodium (Synthroid) 100 mcg DAILY@06 PO Last administered on 05:39; Admin Dose 100 MCG; Start 08/19/16 at 07:30 Lisinopril (Zestril) 5 mg DAILY PO Last administered on 09/02/16 08:36; Admin Dose 5 MG; Start 08/19/16 at 09:00 Metoprolol Tartrate (Lopressor) 25 mg BID PO Last administered on 09/02/16 08: 37; Admin Dose 25 MG; Start 08/19/16 at 09:00 Acetaminophen (Tylenol Tab) 650 mg Q6H PRN PO PAIN AND OR ELEVATED TEMP Last administered on 08/19/16 12:05; Admin Dose 650 MG; Start 08/19/16 at 07:30 Ondansetron HCl (Zofran Inj) 4 mg Q6H PRN IV NAUSEA AND/OR VOMITING; Start 08/19 at 07:30 Pantoprazole (Protonix Tab) 40 mg DAILY@06 PO Last administered on 09/02/16 05 :39; Admin Dose 40 MG; Start 08/19/16 at 07:30 Miscellaneous Information 1 ea NOTE XX ; Start 08/19/16 at 07:30 Glucose (Glutose) 15 gm Q15M PRN PO DECREASED GLUCOSE; Start 08/19/16 at 07:30 Glucose (Glutose) 22.5 gm Q15M PRN PO DECREASED GLUCOSE; Start 08/19/16 at 07:30 Dextrose (D50w Syringe) 25 ml Q15M PRN IV DECREASED GLUCOSE; Start 08/19/16 at 07:30 Dextrose (D50w Syringe) 50 ml Q15M PRN IV DECREASED GLUCOSE; Start 08/19/16 at 07:30 Glucagon (Glucagen) 1 mg Q15M PRN IM DECREASED GLUCOSE; Start 08/19/16 at 07:30 Glucose (Glutose) 15 gm Q15M PRN BUCCAL DECREASED GLUCOSE; Start 08/19/16 at 07: 30 Diphenhydramine HCl (Benadryl) 25 mg TID PRN PO ITCHING Last administered on 20:31; Admin Dose 25 MG; Start 08/20/16 at 20:30 Insulin Glargine (Lantus) 50 unit DAILY SC Last administered on 09/02/16 08:43 ; Admin Dose 50 UNIT; Start 08/22/16 at 09:00 Aspirin (Aspirin) 81 mg DAILY PO Last administered on 08/30/16 09:59; Admin Dose 81 MG; Start 08/24/16 at 17:00 Miscellaneous Information Patients own medicat... BID@ XX Last administered on 08/30/16 16:00; Admin Dose 1 EA; Start 08/28/16 at 10:00 Patient Own Medication 2 ea DAILY PO Last administered on 09/01/16 11:42; Admin Dose 2 EA; Start 08/30/16 at 09:00 BRANDON GREGORY Sep 02, 2016 10:55
[2016-09-02] MEDS: PROMACTA 12.5 MG PO SCH (11:59)
--- NOTE | 2016-09-02 12:52 | CONS ---
Date/Time of Note Date/Time of Note DATE: 09/02/16 TIME: 12:50 Assessment/Plan Assessment/Plan Chief Complaint/Hosp Course 64yo with # ITP- pt was given 1 dose of IVIG and platelets 08/30.. The goal is to get patient on a stable dose of Promacta that keeps her platelets > 50K, without the help of IVIG, and to start asa at that time -platelets have dropped to 18 today -cont Promacta 25 mg for now -if platelets are stable and > 50K tomorrow will give ASA 81at that time # L neck mass - US neck 08/23/16 showed 1. Status post thyroidectomy. 2. Solid heterogeneous mass in the left side of the neck measuring 3.7 x 2.1 x 2.2 cm. Ultrasound-guided biopsy should be considered. Now s/p US guided biopsy of left thyroid bed 08/24/16 showing nodular goiter. Follow up with endocrinology. Path: Left thyroid nodule, ultrasound-guided fine needle aspiration: -- Compatible with nodular goiter, [place] system category II. # Ischemia to Bilateral feet and toes - this was likely secondary to the rapid increase in platelet count from the promacta. - This has dramatically improved since last admission - As stated before, holding Aspirin until patient's platelet count is consistently greater than 50K. - Note, angiography done during last admission reveals arteries of the lower extremities are widely patent bilaterally with good three-vessel runoff to the level of the ankles. - Hypercoag workup with no evidence of lupus anticoagulant, beta2 glycoprotein IgM or IgG or anticardiolipin positivity (only beta2 glycoprotein IgA > 150 which is not included in criteria for antiphospholipid syndrome; consider repeating in 12 weeks). Protein C and ATIII levels noted to be low however likely to have been affected by coumadin and heparin therapy, respectively. Factor V Leiden and prothrombin gene mutations were not detected. 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 this is her baseline wbc count Problems: Consultation Date/Type/Reason Admit Date/Time Aug 19, 2016 at 05:00 Initial Consult Date 08/19/16 Type of Consultation: Hematology Reason for Consultation ITP Referring Provider: ERICA MARAVILLA MD 24 HR Interval Summary Free Text/Dictation platelets did drop to 18. no over bleeding Exam/Review of Systems Vital Signs Vitals Vital Signs Date Time Temp Pulse Resp B/P Pulse Ox O2 Delivery O2 Flow Rate FiO2 09/02/16 08:00 98.1 70 20 137/64 97 08/31/16 03:21 Room Air Intake and Output 09/01/16 09/01/16 09/02/16 15:00 23:00 07:00 Intake Total 940 ml 480 ml Balance 940 ml 480 ml Exam Constitutional: alert, oriented Psych: no complaints Head: atraumatic, normocephalic Eyes: nl conjunctiva ENMT: nl external ears & nose, nl lips & teeth Neck: non-tender, supple Respiratory: clear to auscultation, normal air movement Cardiovascular: nl pulses, regular rate and rhythm Gastrointestinal: soft Musculoskeletal: nl extremities to inspection, nl gait and stance, other (L foot no infection. toes unchanged. ) Results Result Diagram: 09/02/16 0700 08/31/16 0745 Results 24 hrs Laboratory Tests Test 09/01/16 17:12 09/01/16 20:05 09/02/16 01:45 09/02/16 07:00 Bedside Glucose 220 221 H 183 White Blood Count 11.0 H Red Blood Count 4.27 Hemoglobin 12.6 Hematocrit 38.2 Mean Corpuscular Volume 89.5 Mean Corpuscular Hemoglobin 29.5 Mean Corpuscular Hemoglobin Concent 33.0 Red Cell Distribution Width 13.8 Platelet Count 18 #*L Mean Platelet Volume Test 09/02/16 08:03 09/02/16 12:36 Bedside Glucose 174 140 Medications Medications Current Medications Levothyroxine Sodium (Synthroid) 100 mcg DAILY@06 PO Last administered on 05:39; Admin Dose 100 MCG; Start 08/19/16 at 07:30 Lisinopril (Zestril) 5 mg DAILY PO Last administered on 09/02/16 08:36; Admin Dose 5 MG; Start 08/19/16 at 09:00 Metoprolol Tartrate (Lopressor) 25 mg BID PO Last administered on 09/02/16 08: 37; Admin Dose 25 MG; Start 08/19/16 at 09:00 Acetaminophen (Tylenol Tab) 650 mg Q6H PRN PO PAIN AND OR ELEVATED TEMP Last administered on 08/19/16 12:05; Admin Dose 650 MG; Start 08/19/16 at 07:30 Ondansetron HCl (Zofran Inj) 4 mg Q6H PRN IV NAUSEA AND/OR VOMITING; Start 08/19 at 07:30 Pantoprazole (Protonix Tab) 40 mg DAILY@06 PO Last administered on 09/02/16 05 :39; Admin Dose 40 MG; Start 08/19/16 at 07:30 Miscellaneous Information 1 ea NOTE XX ; Start 08/19/16 at 07:30 Glucose (Glutose) 15 gm Q15M PRN PO DECREASED GLUCOSE; Start 08/19/16 at 07:30 Glucose (Glutose) 22.5 gm Q15M PRN PO DECREASED GLUCOSE; Start 08/19/16 at 07:30 Dextrose (D50w Syringe) 25 ml Q15M PRN IV DECREASED GLUCOSE; Start 08/19/16 at 07:30 Dextrose (D50w Syringe) 50 ml Q15M PRN IV DECREASED GLUCOSE; Start 08/19/16 at 07:30 Glucagon (Glucagen) 1 mg Q15M PRN IM DECREASED GLUCOSE; Start 08/19/16 at 07:30 Glucose (Glutose) 15 gm Q15M PRN BUCCAL DECREASED GLUCOSE; Start 08/19/16 at 07: 30 Diphenhydramine HCl (Benadryl) 25 mg TID PRN PO ITCHING Last administered on 20:31; Admin Dose 25 MG; Start 08/20/16 at 20:30 Insulin Glargine (Lantus) 50 unit DAILY SC Last administered on 09/02/16 08:43 ; Admin Dose 50 UNIT; Start 08/22/16 at 09:00 Aspirin (Aspirin) 81 mg DAILY PO Last administered on 08/30/16 09:59; Admin Dose 81 MG; Start 08/24/16 at 17:00 Miscellaneous Information Patients own medicat... BID@ XX Last administered on 08/30/16 16:00; Admin Dose 1 EA; Start 08/28/16 at 10:00 Patient Own Medication 2 ea DAILY PO Last administered on 09/02/16 11:59; Admin Dose 2 EA; Start 08/30/16 at 09:00 MILADY FONG M.D. Sep 02, 2016 12:52
[2016-09-02 13:30] LABS: EOSINOPHILS # 0.3 10^3/ul (0.0-0.5); LYMPHOCYTES # 4.2 10^3/ul (0.8-2.9); MONOCYTE # 0.4 10^3/ul (0.3-0.9); MYELOCYTES # 0.3; NEUTROPHIL # 5.6 10^3/ul (1.6-7.5)
[2016-09-02 19:30] VITALS: BP 141/65; RESP 20
[2016-09-03] MEDS: LEVOTHYROXINE 100 MCG TAB PO SCH (05:54)
[2016-09-03] MEDS: PANTOPRAZOLE (EC) 40 MG TAB PO SCH (05:54)
[2016-09-03 07:00] VITALS: BP 139/63; RESP 18
[2016-09-03 07:35] LABS: ADD SCAN DIFF NO
[2016-09-03 07:46] LABS: ABNORMAL IP MESSAGE 1; BASOPHIL # 0.1 10^3/ul (0.0-0.1); EOSINOPHILS # 0.2 10^3/ul (0.0-0.5); EOSINOPHILS % 1.6 % (0.0-7.0); HEMATOCRIT 41.4 % (37.0-47.0); HEMOGLOBIN 13.4 g/dl (12.0-16.0); LYMPHOCYTES # 5.1 10^3/ul (0.8-2.9); LYMPHOCYTES % 43.6 % (15.0-51.0); MEAN CORPUSCULAR HEMOGLOBIN 29.1 pg (29.0-33.0); MEAN CORPUSCULAR HGB CONC 32.4 g/dl (32.0-37.0); MEAN PLATELET VOLUME 12.8 fl (7.4-10.4); MONOCYTE # 1.2 10^3/ul (0.3-0.9); MONOCYTES % 10.1 % (0.0-11.0); NEUTROPHIL # 5.1 10^3/ul (1.6-7.5); NEUTROPHILS % 43.5 % (39.0-77.0); WHITE BLOOD COUNT 11.7 10^3/ul (4.8-10.8)
[2016-09-03 08:10] LABS: PLATELET COUNT 16 10^3/UL (140-415)
[2016-09-03] MEDS: METOPROLOL 25 MG TAB PO SCH ×2 (08:32→20:41)
[2016-09-03] MEDS: LISINOPRIL 5 MG TAB PO SCH (08:32)
[2016-09-03] MEDS: INSULIN GLARGINE [LANtus] 3 ML PEN SC SCH (08:33)
[2016-09-03] MEDS: INSULIN ASPART [NOVOLOG] 3 ML PEN SC SCH ×7 (08:34→20:43)
[2016-09-03] MEDS: ASPIRIN 81 MG TAB PO SCH (08:35)
[2016-09-03] MEDS: PROMACTA 12.5 MG PO SCH (10:05)
--- NOTE | 2016-09-03 15:18 | PN ---
Date/Time of Note Date/Time of Note DATE: 09/03/16 TIME: 15:17 Assessment/Plan VTE Prophylaxis VTE Prophylaxis Intervention: ambulation Lines/Catheters IV C[facility]ter Type (from [facility]): [place] Urinary Cath still in place: No Assessment/Plan Chief Complaint/Hosp Course 1. Thrombocytopenia, 2.diabetes mellitus, 3. peripheral vascular disease, 4.hypertension 5. history of idiopathic thrombocytopenic purpura., 6. thyroid mass s/p biopsy, 7. hyponatremia stable Problems: Assessment/Plan 1. Continue treatment per dr carlton Subjective 24 Hr Interval Summary Constitutional: no complaints Exam/Review of Systems Vital Signs Vitals Vital Signs Date Time Temp Pulse Resp B/P Pulse Ox O2 Delivery O2 Flow Rate FiO2 09/03/16 07:00 98.2 75 18 139/63 96 08/31/16 03:21 Room Air Intake and Output 09/02/16 09/02/16 09/03/16 15:00 23:00 07:00 Intake Total 1360 ml 660 ml Output Total 1500 ml Balance -140 ml 660 ml Exam Constitutional: alert, oriented Psych: no complaints Neck: supple Cardiovascular: regular rate and rhythm Results Result Diagram: 09/03/16 0609 08/31/16 0745 Results 24 hrs Laboratory Tests Test 09/02/16 17:15 09/02/16 21:35 09/03/16 06:09 09/03/16 07:41 Bedside Glucose 116 110 145 White Blood Count 11.7 H Red Blood Count 4.60 Hemoglobin 13.4 Hematocrit 41.4 Mean Corpuscular Volume 90.0 Mean Corpuscular Hemoglobin 29.1 Mean Corpuscular Hemoglobin Concent 32.4 Red Cell Distribution Width 14.0 Platelet Count 16 *L Mean Platelet Volume 12.8 H Neutrophils % 43.5 Lymphocytes % 43.6 Monocytes % 10.1 Eosinophils % 1.6 Basophils % 1.0 Nucleated Red Blood Cells % 0.0 Neutrophils # 5.1 Lymphocytes # 5.1 H Monocytes # 1.2 H Eosinophils # 0.2 Basophils # 0.1 Nucleated Red Blood Cells # 0.0 Test 09/03/16 11:33 Bedside Glucose 189 Medications Medications Current Medications Levothyroxine Sodium (Synthroid) 100 mcg DAILY@06 PO Last administered on t 05:54; Admin Dose 100 MCG; Start 08/19/16 at 07:30 Lisinopril (Zestril) 5 mg DAILY PO Last administered on 09/03/16 08:32; Admin Dose 5 MG; Start 08/19/16 at 09:00 Metoprolol Tartrate (Lopressor) 25 mg BID PO Last administered on 09/03/16 08: 32; Admin Dose 25 MG; Start 08/19/16 at 09:00 Acetaminophen (Tylenol Tab) 650 mg Q6H PRN PO PAIN AND OR ELEVATED TEMP Last administered on 08/19/16 12:05; Admin Dose 650 MG; Start 08/19/16 at 07:30 Ondansetron HCl (Zofran Inj) 4 mg Q6H PRN IV NAUSEA AND/OR VOMITING; Start 08/19 at 07:30 Pantoprazole (Protonix Tab) 40 mg DAILY@06 PO Last administered on 09/03/16 05 :54; Admin Dose 40 MG; Start 08/19/16 at 07:30 Miscellaneous Information 1 ea NOTE XX ; Start 08/19/16 at 07:30 Glucose (Glutose) 15 gm Q15M PRN PO DECREASED GLUCOSE; Start 08/19/16 at 07:30 Glucose (Glutose) 22.5 gm Q15M PRN PO DECREASED GLUCOSE; Start 08/19/16 at 07:30 Dextrose (D50w Syringe) 25 ml Q15M PRN IV DECREASED GLUCOSE; Start 08/19/16 at 07:30 Dextrose (D50w Syringe) 50 ml Q15M PRN IV DECREASED GLUCOSE; Start 08/19/16 at 07:30 Glucagon (Glucagen) 1 mg Q15M PRN IM DECREASED GLUCOSE; Start 08/19/16 at 07:30 Glucose (Glutose) 15 gm Q15M PRN BUCCAL DECREASED GLUCOSE; Start 08/19/16 at 07: 30 Diphenhydramine HCl (Benadryl) 25 mg TID PRN PO ITCHING Last administered on 20:31; Admin Dose 25 MG; Start 08/20/16 at 20:30 Insulin Glargine (Lantus) 50 unit DAILY SC Last administered on 09/03/16 08:33 ; Admin Dose 50 UNIT; Start 08/22/16 at 09:00 Aspirin (Aspirin) 81 mg DAILY PO Last administered on 08/30/16 09:59; Admin Dose 81 MG; Start 08/24/16 at 17:00 Miscellaneous Information Patients own medicat... BID@ XX Last administered on 08/30/16 16:00; Admin Dose 1 EA; Start 08/28/16 at 10:00 Patient Own Medication 2 ea DAILY PO Last administered on 09/03/16 10:05; Admin Dose 2 EA; Start 08/30/16 at 09:00 BRANDON GREGORY Sep 03, 2016 15:18
--- NOTE | 2016-09-03 15:30 | CONS ---
Date/Time of Note Date/Time of Note DATE: 09/03/16 TIME: 15:29 Assessment/Plan Assessment/Plan Chief Complaint/Hosp Course 64yo with # ITP- pt was given 1 dose of IVIG and platelets 08/30.. The goal is to get patient on a stable dose of Promacta that keeps her platelets > 50K, without the help of IVIG, and to start asa at that time -platelets have dropped to 16 today from 18 yesterday -cont Promacta 25 mg for now -will only give IVIG if platelets < 10. No platelet transfusion unless patient bleeding. -if platelets are stable and > 50K tomorrow will give ASA 81at that time # L neck mass - US neck 08/23/16 showed 1. Status post thyroidectomy. 2. Solid heterogeneous mass in the left side of the neck measuring 3.7 x 2.1 x 2.2 cm. Ultrasound-guided biopsy should be considered. Now s/p US guided biopsy of left thyroid bed 08/24/16 showing nodular goiter. Follow up with endocrinology. Path: Left thyroid nodule, ultrasound-guided fine needle aspiration: -- Compatible with nodular goiter, [place] system category II. # Ischemia to Bilateral feet and toes - this was likely secondary to the rapid increase in platelet count from the promacta. - This has dramatically improved since last admission - As stated before, holding Aspirin until patient's platelet count is consistently greater than 50K. - Note, angiography done during last admission reveals arteries of the lower extremities are widely patent bilaterally with good three-vessel runoff to the level of the ankles. - Hypercoag workup with no evidence of lupus anticoagulant, beta2 glycoprotein IgM or IgG or anticardiolipin positivity (only beta2 glycoprotein IgA > 150 which is not included in criteria for antiphospholipid syndrome; consider repeating in 12 weeks). Protein C and ATIII levels noted to be low however likely to have been affected by coumadin and heparin therapy, respectively. Factor V Leiden and prothrombin gene mutations were not detected. 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 this is her baseline wbc count Problems: Consultation Date/Type/Reason Admit Date/Time Aug 19, 2016 at 05:00 Initial Consult Date 08/19/16 Type of Consultation: Hematology Referring Provider: ERICA MARAVILLA MD 24 HR Interval Summary Free Text/Dictation No bleeding. No complaints. Exam/Review of Systems Vital Signs Vitals Vital Signs Date Time Temp Pulse Resp B/P Pulse Ox O2 Delivery O2 Flow Rate FiO2 09/03/16 07:00 98.2 75 18 139/63 96 08/31/16 03:21 Room Air Intake and Output 09/02/16 09/02/16 09/03/16 15:00 23:00 07:00 Intake Total 1360 ml 660 ml Output Total 1500 ml Balance -140 ml 660 ml Exam Constitutional: alert, oriented Psych: no complaints Head: atraumatic, normocephalic Eyes: nl conjunctiva ENMT: nl external ears & nose, nl lips & teeth Neck: non-tender, supple Respiratory: clear to auscultation, normal air movement Cardiovascular: nl pulses, regular rate and rhythm Gastrointestinal: soft Musculoskeletal: nl extremities to inspection, nl gait and stance, other (L foot no infection. toes unchanged) Results Result Diagram: 09/03/16 0609 08/31/16 0745 Results 24 hrs Laboratory Tests Test 09/02/16 17:15 09/02/16 21:35 09/03/16 06:09 09/03/16 07:41 Bedside Glucose 116 110 145 White Blood Count 11.7 H Red Blood Count 4.60 Hemoglobin 13.4 Hematocrit 41.4 Mean Corpuscular Volume 90.0 Mean Corpuscular Hemoglobin 29.1 Mean Corpuscular Hemoglobin Concent 32.4 Red Cell Distribution Width 14.0 Platelet Count 16 *L Mean Platelet Volume 12.8 H Neutrophils % 43.5 Lymphocytes % 43.6 Monocytes % 10.1 Eosinophils % 1.6 Basophils % 1.0 Nucleated Red Blood Cells % 0.0 Neutrophils # 5.1 Lymphocytes # 5.1 H Monocytes # 1.2 H Eosinophils # 0.2 Basophils # 0.1 Nucleated Red Blood Cells # 0.0 Test 09/03/16 11:33 Bedside Glucose 189 Medications Medications Current Medications Levothyroxine Sodium (Synthroid) 100 mcg DAILY@06 PO Last administered on 05:54; Admin Dose 100 MCG; Start 08/19/16 at 07:30 Lisinopril (Zestril) 5 mg DAILY PO Last administered on 09/03/16 08:32; Admin Dose 5 MG; Start 08/19/16 at 09:00 Metoprolol Tartrate (Lopressor) 25 mg BID PO Last administered on 09/03/16 08: 32; Admin Dose 25 MG; Start 08/19/16 at 09:00 Acetaminophen (Tylenol Tab) 650 mg Q6H PRN PO PAIN AND OR ELEVATED TEMP Last administered on 08/19/16 12:05; Admin Dose 650 MG; Start 08/19/16 at 07:30 Ondansetron HCl (Zofran Inj) 4 mg Q6H PRN IV NAUSEA AND/OR VOMITING; Start 08/19 at 07:30 Pantoprazole (Protonix Tab) 40 mg DAILY@06 PO Last administered on 09/03/16 05 :54; Admin Dose 40 MG; Start 08/19/16 at 07:30 Miscellaneous Information 1 ea NOTE XX ; Start 08/19/16 at 07:30 Glucose (Glutose) 15 gm Q15M PRN PO DECREASED GLUCOSE; Start 08/19/16 at 07:30 Glucose (Glutose) 22.5 gm Q15M PRN PO DECREASED GLUCOSE; Start 08/19/16 at 07:30 Dextrose (D50w Syringe) 25 ml Q15M PRN IV DECREASED GLUCOSE; Start 08/19/16 at 07:30 Dextrose (D50w Syringe) 50 ml Q15M PRN IV DECREASED GLUCOSE; Start 08/19/16 at 07:30 Glucagon (Glucagen) 1 mg Q15M PRN IM DECREASED GLUCOSE; Start 08/19/16 at 07:30 Glucose (Glutose) 15 gm Q15M PRN BUCCAL DECREASED GLUCOSE; Start 08/19/16 at 07: 30 Diphenhydramine HCl (Benadryl) 25 mg TID PRN PO ITCHING Last administered on 20:31; Admin Dose 25 MG; Start 08/20/16 at 20:30 Insulin Glargine (Lantus) 50 unit DAILY SC Last administered on 09/03/16 08:33 ; Admin Dose 50 UNIT; Start 08/22/16 at 09:00 Aspirin (Aspirin) 81 mg DAILY PO Last administered on 08/30/16 09:59; Admin Dose 81 MG; Start 08/24/16 at 17:00 Miscellaneous Information Patients own medicat... BID@10,16 XX Last administered on 08/30/16 16:00; Admin Dose 1 EA; Start 08/28/16 at 10:00 Patient Own Medication 2 ea DAILY PO Last administered on 09/03/16 10:05; Admin Dose 2 EA; Start 08/30/16 at 09:00 TODA MD Sep 03, 2016 15:30
[2016-09-03 19:15] VITALS: BP 115/55; RESP 18
[2016-09-04] MEDS: LEVOTHYROXINE 100 MCG TAB PO SCH (05:21)
[2016-09-04] MEDS: PANTOPRAZOLE (EC) 40 MG TAB PO SCH (05:21)
[2016-09-04] MEDS: INSULIN ASPART [NOVOLOG] 3 ML PEN SC SCH ×7 (07:50→21:00)
[2016-09-04 08:20] VITALS: BP 131/67; RESP 18
[2016-09-04] MEDS: ASPIRIN 81 MG TAB PO SCH (09:00)
[2016-09-04] MEDS: INSULIN GLARGINE [LANtus] 3 ML PEN SC SCH (09:10)
[2016-09-04] MEDS: LISINOPRIL 5 MG TAB PO SCH (09:11)
[2016-09-04] MEDS: METOPROLOL 25 MG TAB PO SCH ×2 (09:12→21:45)
[2016-09-04] MEDS: PROMACTA 12.5 MG PO SCH (09:55)
[2016-09-04 11:59] LABS: ADD SCAN DIFF NO
[2016-09-04 12:22] LABS: ABNORMAL IP MESSAGE 1; BASOPHIL # 0.1 10^3/ul (0.0-0.1); BASOPHILS % 0.8 % (0.0-2.0); EOSINOPHILS # 0.1 10^3/ul (0.0-0.5); HEMATOCRIT 41.6 % (37.0-47.0); HEMOGLOBIN 13.7 g/dl (12.0-16.0); LYMPHOCYTES # 5.2 10^3/ul (0.8-2.9); LYMPHOCYTES % 42.8 % (15.0-51.0); MEAN CORPUSCULAR HEMOGLOBIN 29.2 pg (29.0-33.0); MEAN CORPUSCULAR HGB CONC 32.9 g/dl (32.0-37.0); MEAN CORPUSCULAR VOLUME 88.7 fl (82.0-101.0); MEAN PLATELET VOLUME 14.6 fl (7.4-10.4); MONOCYTE # 1.3 10^3/ul (0.3-0.9); MONOCYTES % 10.7 % (0.0-11.0); NEUTROPHIL # 5.4 10^3/ul (1.6-7.5); NEUTROPHILS % 44.2 % (39.0-77.0); RED BLOOD COUNT 4.69 10^6/ul (4.20-5.40); RED CELL DISTRIBUTION WIDTH 13.8 % (11.5-14.5); WHITE BLOOD COUNT 12.2 10^3/ul (4.8-10.8)
[2016-09-04 12:38] LABS: PLATELET COUNT 17 10^3/UL (140-415)
--- NOTE | 2016-09-04 13:52 | CONS ---
Date/Time of Note Date/Time of Note DATE: 09/04/16 TIME: 13:51 Assessment/Plan Assessment/Plan Chief Complaint/Hosp Course 64yo with # ITP- pt was given 1 dose of IVIG and platelets 08/30.. The goal is to get patient on a stable dose of Promacta that keeps her platelets > 50K, without the help of IVIG, and to start asa at that time -platelets 17,000 today, fairly stable from yesterday -cont Promacta 25 mg for now -will only give IVIG if platelets < 10. No platelet transfusion unless patient bleeding. -if platelets are stable and > 50K tomorrow will give ASA 81at that time # L neck mass - US neck 08/23/16 showed 1. Status post thyroidectomy. 2. Solid heterogeneous mass in the left side of the neck measuring 3.7 x 2.1 x 2.2 cm. Ultrasound-guided biopsy should be considered. Now s/p US guided biopsy of left thyroid bed 08/24/16 showing nodular goiter. Follow up with endocrinology. Path: Left thyroid nodule, ultrasound-guided fine needle aspiration: -- Compatible with nodular goiter, [place] system category II. # Ischemia to Bilateral feet and toes - this was likely secondary to the rapid increase in platelet count from the promacta. - This has dramatically improved since last admission - As stated before, holding Aspirin until patient's platelet count is consistently greater than 50K. - Note, angiography done during last admission reveals arteries of the lower extremities are widely patent bilaterally with good three-vessel runoff to the level of the ankles. - Hypercoag workup with no evidence of lupus anticoagulant, beta2 glycoprotein IgM or IgG or anticardiolipin positivity (only beta2 glycoprotein IgA > 150 which is not included in criteria for antiphospholipid syndrome; consider repeating in 12 weeks). Protein C and ATIII levels noted to be low however likely to have been affected by coumadin and heparin therapy, respectively. Factor V Leiden and prothrombin gene mutations were not detected. 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 This is her baseline wbc count Problems: Consultation Date/Type/Reason Admit Date/Time Aug 19, 2016 at 05:00 Initial Consult Date 08/19/16 Type of Consultation: Hematology Referring Provider: ERICA MARAVILLA MD 24 HR Interval Summary Free Text/Dictation No complaints. No bleeding. Exam/Review of Systems Vital Signs Vitals Vital Signs Date Time Temp Pulse Resp B/P Pulse Ox O2 Delivery O2 Flow Rate FiO2 09/04/16 08:20 98.1 75 18 131/67 96 Intake and Output 09/03/16 09/03/16 09/04/16 15:00 23:00 07:00 Intake Total 1240 ml 700 ml Output Total 1200 ml Balance 40 ml 700 ml Exam Constitutional: alert, oriented Psych: no complaints Head: atraumatic, normocephalic Eyes: nl conjunctiva ENMT: nl external ears & nose, nl lips & teeth Neck: non-tender, supple Respiratory: clear to auscultation, normal air movement Cardiovascular: nl pulses, regular rate and rhythm Gastrointestinal: soft Musculoskeletal: nl extremities to inspection, nl gait and stance, other (L foot no infection. toes unchanged) Results Result Diagram: 09/04/16 1130 08/31/16 0745 Results 24 hrs Laboratory Tests Test 09/03/16 17:18 09/03/16 20:42 09/04/16 08:15 09/04/16 11:30 Bedside Glucose 135 152 101 White Blood Count 12.2 H Red Blood Count 4.69 Hemoglobin 13.7 Hematocrit 41.6 Mean Corpuscular Volume 88.7 Mean Corpuscular Hemoglobin 29.2 Mean Corpuscular Hemoglobin Concent 32.9 Red Cell Distribution Width 13.8 Platelet Count 17 *L Mean Platelet Volume 14.6 H Neutrophils % 44.2 Lymphocytes % 42.8 Monocytes % 10.7 Eosinophils % 1.0 Basophils % 0.8 Nucleated Red Blood Cells % 0.0 Neutrophils # 5.4 Lymphocytes # 5.2 H Monocytes # 1.3 H Eosinophils # 0.1 Basophils # 0.1 Nucleated Red Blood Cells # 0.0 Test 09/04/16 12:14 Bedside Glucose 153 Medications Medications Current Medications Levothyroxine Sodium (Synthroid) 100 mcg DAILY@06 PO Last administered on 05:21; Admin Dose 100 MCG; Start 08/19/16 at 07:30 Lisinopril (Zestril) 5 mg DAILY PO Last administered on 09/04/16 09:11; Admin Dose 5 MG; Start 08/19/16 at 09:00 Metoprolol Tartrate (Lopressor) 25 mg BID PO Last administered on 09/04/16 09: 12; Admin Dose 25 MG; Start 08/19/16 at 09:00 Acetaminophen (Tylenol Tab) 650 mg Q6H PRN PO PAIN AND OR ELEVATED TEMP Last administered on 08/19/16 12:05; Admin Dose 650 MG; Start 08/19/16 at 07:30 Ondansetron HCl (Zofran Inj) 4 mg Q6H PRN IV NAUSEA AND/OR VOMITING; Start 08/19 at 07:30 Pantoprazole (Protonix Tab) 40 mg DAILY@06 PO Last administered on 09/04/16 05 :21; Admin Dose 40 MG; Start 08/19/16 at 07:30 Miscellaneous Information 1 ea NOTE XX ; Start 08/19/16 at 07:30 Glucose (Glutose) 15 gm Q15M PRN PO DECREASED GLUCOSE; Start 08/19/16 at 07:30 Glucose (Glutose) 22.5 gm Q15M PRN PO DECREASED GLUCOSE; Start 08/19/16 at 07:30 Dextrose (D50w Syringe) 25 ml Q15M PRN IV DECREASED GLUCOSE; Start 08/19/16 at 07:30 Dextrose (D50w Syringe) 50 ml Q15M PRN IV DECREASED GLUCOSE; Start 08/19/16 at 07:30 Glucagon (Glucagen) 1 mg Q15M PRN IM DECREASED GLUCOSE; Start 08/19/16 at 07:30 Glucose (Glutose) 15 gm Q15M PRN BUCCAL DECREASED GLUCOSE; Start 08/19/16 at 07: 30 Diphenhydramine HCl (Benadryl) 25 mg TID PRN PO ITCHING Last administered on 20:31; Admin Dose 25 MG; Start 08/20/16 at 20:30 Insulin Glargine (Lantus) 50 unit DAILY SC Last administered on 09/04/16 09:10 ; Admin Dose 50 UNIT; Start 08/22/16 at 09:00 Aspirin (Aspirin) 81 mg DAILY PO Last administered on 08/30/16 09:59; Admin Dose 81 MG; Start 08/24/16 at 17:00 Miscellaneous Information Patients own medicat... BID@10,16 XX Last administered on 08/30/16 16:00; Admin Dose 1 EA; Start 08/28/16 at 10:00 Patient Own Medication 2 ea DAILY PO Last administered on 09/04/16 09:55; Admin Dose 2 EA; Start 08/30/16 at 09:00 TODA MD Sep 04, 2016 13:52
[2016-09-04 20:19] VITALS: BP 112/67; RESP 20
[2016-09-05] MEDS: LEVOTHYROXINE 100 MCG TAB PO SCH (05:22)
[2016-09-05] MEDS: PANTOPRAZOLE (EC) 40 MG TAB PO SCH (05:22)
[2016-09-05 07:35] LABS: ADD SCAN DIFF NO
[2016-09-05 07:46] LABS: HEMATOCRIT 40.6 % (37.0-47.0); MEAN CORPUSCULAR HEMOGLOBIN 28.7 pg (29.0-33.0); MEAN CORPUSCULAR VOLUME 89.6 fl (82.0-101.0); RED BLOOD COUNT 4.53 10^6/ul (4.20-5.40); WHITE BLOOD COUNT 10.9 10^3/ul (4.8-10.8)
[2016-09-05 07:47] LABS: ABNORMAL IP MESSAGE 1
[2016-09-05 08:02] LABS: PLATELET COUNT 11 10^3/UL (140-415)
[2016-09-05 08:53] VITALS: BP 140/63; RESP 20
[2016-09-05] MEDS: ASPIRIN 81 MG TAB PO SCH (09:00)
[2016-09-05] MEDS: METOPROLOL 25 MG TAB PO SCH ×2 (09:34→20:58)
[2016-09-05] MEDS: LISINOPRIL 5 MG TAB PO SCH (09:34)
[2016-09-05] MEDS: INSULIN GLARGINE [LANtus] 3 ML PEN SC SCH (09:36)
[2016-09-05] MEDS: INSULIN ASPART [NOVOLOG] 3 ML PEN SC SCH ×7 (09:37→20:57)
[2016-09-05] MEDS: PROMACTA 12.5 MG PO SCH (11:27)
[2016-09-05 13:01] LABS: BASOPHIL # 0.1 10^3/ul (0.0-0.1); EOSINOPHILS # 0.1 10^3/ul (0.0-0.5); LYMPHOCYTES # 3.6 10^3/ul (0.8-2.9); MONOCYTE # 1.4 10^3/ul (0.3-0.9); NEUTROPHIL # 5.6 10^3/ul (1.6-7.5); PLATELET ESTIMATE PLT APPEAR DECREASED
--- NOTE | 2016-09-05 13:06 | CONS ---
Date/Time of Note Date/Time of Note DATE: 09/05/16 TIME: 13:01 Assessment/Plan Assessment/Plan Chief Complaint/Hosp Course 64yo with # ITP- pt was given 1 dose of IVIG and platelets 08/30.. The goal is to get patient on a stable dose of Promacta that keeps her platelets > 50K, without the help of IVIG, and to start asa at that time -platelets have dropped to 11 today -cont Promacta 25 mg for now. will not given more IVIG or platelet at this time -if platelets are stable and > 50K tomorrow will give ASA 81at that time -once platelets are up trending, pt will be safe for discharge. # L neck mass - US neck 08/23/16 showed 1. Status post thyroidectomy. 2. Solid heterogeneous mass in the left side of the neck measuring 3.7 x 2.1 x 2.2 cm. Ultrasound-guided biopsy should be considered. Now s/p US guided biopsy of left thyroid bed 08/24/16 showing nodular goiter. Follow up with endocrinology. Path: Left thyroid nodule, ultrasound-guided fine needle aspiration: -- Compatible with nodular goiter, [place] system category II. # Ischemia to Bilateral feet and toes - this was likely secondary to the rapid increase in platelet count from the promacta. - This has dramatically improved since last admission - As stated before, holding Aspirin until patient's platelet count is consistently greater than 50K. - Note, angiography done during last admission reveals arteries of the lower extremities are widely patent bilaterally with good three-vessel runoff to the level of the ankles. - Hypercoag workup with no evidence of lupus anticoagulant, beta2 glycoprotein IgM or IgG or anticardiolipin positivity (only beta2 glycoprotein IgA > 150 which is not included in criteria for antiphospholipid syndrome; consider repeating in 12 weeks). Protein C and ATIII levels noted to be low however likely to have been affected by coumadin and heparin therapy, respectively. Factor V Leiden and prothrombin gene mutations were not detected. 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 this is her baseline wbc count Problems: Consultation Date/Type/Reason Admit Date/Time Aug 19, 2016 at 05:00 Initial Consult Date 08/19/16 Type of Consultation: Hematology Reason for Consultation ITP Referring Provider: ERICA MARAVILLA MD 24 HR Interval Summary Free Text/Dictation patient continues on promacta. platelets did drop to 11 but there is no evidence of bleeding Exam/Review of Systems Vital Signs Vitals Vital Signs Date Time Temp Pulse Resp B/P Pulse Ox O2 Delivery O2 Flow Rate FiO2 09/05/16 08:53 97.8 74 20 140/63 95 Intake and Output 09/04/16 09/04/16 09/05/16 15:00 23:00 07:00 Intake Total 600 ml 460 ml Balance 600 ml 460 ml Exam Constitutional: alert, oriented Psych: no complaints Head: normocephalic Eyes: nl conjunctiva ENMT: nl external ears & nose, nl lips & teeth Neck: non-tender, supple Respiratory: clear to auscultation, normal air movement Cardiovascular: nl pulses, regular rate and rhythm Gastrointestinal: soft Musculoskeletal: nl extremities to inspection Results Result Diagram: 09/05/16 0608 Results 24 hrs Laboratory Tests Test 09/04/16 17:27 09/04/16 21:43 09/05/16 06:08 09/05/16 08:10 Bedside Glucose 89 105 151 White Blood Count 10.9 H Red Blood Count 4.53 Hemoglobin 13.0 Hematocrit 40.6 Mean Corpuscular Volume 89.6 Mean Corpuscular Hemoglobin 28.7 L Mean Corpuscular Hemoglobin Concent 32.0 Red Cell Distribution Width 14.0 Platelet Count 11 #*L Mean Platelet Volume Test 09/05/16 12:46 Bedside Glucose 223 H Medications Medications Current Medications Levothyroxine Sodium (Synthroid) 100 mcg DAILY@06 PO Last administered on 05:22; Admin Dose 100 MCG; Start 08/19/16 at 07:30 Lisinopril (Zestril) 5 mg DAILY PO Last administered on 09/05/16 09:34; Admin Dose 5 MG; Start 08/19/16 at 09:00 Metoprolol Tartrate (Lopressor) 25 mg BID PO Last administered on 09/05/16 09: 34; Admin Dose 25 MG; Start 08/19/16 at 09:00 Acetaminophen (Tylenol Tab) 650 mg Q6H PRN PO PAIN AND OR ELEVATED TEMP Last administered on 08/19/16 12:05; Admin Dose 650 MG; Start 08/19/16 at 07:30 Ondansetron HCl (Zofran Inj) 4 mg Q6H PRN IV NAUSEA AND/OR VOMITING; Start 08/19 at 07:30 Pantoprazole (Protonix Tab) 40 mg DAILY@06 PO Last administered on 09/05/16 05 :22; Admin Dose 40 MG; Start 08/19/16 at 07:30 Miscellaneous Information 1 ea NOTE XX ; Start 08/19/16 at 07:30 Glucose (Glutose) 15 gm Q15M PRN PO DECREASED GLUCOSE; Start 08/19/16 at 07:30 Glucose (Glutose) 22.5 gm Q15M PRN PO DECREASED GLUCOSE; Start 08/19/16 at 07:30 Dextrose (D50w Syringe) 25 ml Q15M PRN IV DECREASED GLUCOSE; Start 08/19/16 at 07:30 Dextrose (D50w Syringe) 50 ml Q15M PRN IV DECREASED GLUCOSE; Start 08/19/16 at 07:30 Glucagon (Glucagen) 1 mg Q15M PRN IM DECREASED GLUCOSE; Start 08/19/16 at 07:30 Glucose (Glutose) 15 gm Q15M PRN BUCCAL DECREASED GLUCOSE; Start 08/19/16 at 07: 30 Diphenhydramine HCl (Benadryl) 25 mg TID PRN PO ITCHING Last administered on 20:31; Admin Dose 25 MG; Start 08/20/16 at 20:30 Insulin Glargine (Lantus) 50 unit DAILY SC Last administered on 09/05/16 09:36 ; Admin Dose 50 UNIT; Start 08/22/16 at 09:00 Aspirin (Aspirin) 81 mg DAILY PO Last administered on 08/30/16 09:59; Admin Dose 81 MG; Start 08/24/16 at 17:00 Miscellaneous Information Patients own medicat... BID@ XX Last administered on 08/30/16 16:00; Admin Dose 1 EA; Start 08/28/16 at 10:00 Patient Own Medication 2 ea DAILY PO Last administered on 09/05/16 11:27; Admin Dose 2 EA; Start 08/30/16 at 09:00 MILADY FONG M.D. Sep 05, 2016 13:06
--- NOTE | 2016-09-05 16:43 | PN ---
Date/Time of Note Date/Time of Note DATE: 09/05/16 TIME: 16:43 Assessment/Plan VTE Prophylaxis VTE Prophylaxis Intervention: other Lines/Catheters [facility]from [facility] Urinary Cath still in place: No Assessment/Plan Chief Complaint/Hosp Course IMPRESSION: Thrombocytopenia, diabetes mellitus, peripheral vascular disease, hypertension and history of idiopathic thrombocytopenic purpura.,thyroid mass s/ p biopsy,hyponatremia stable plan per dr solomon lanselmaus promacta/ivig thyroid biopsy seen per dr perez/dr solomon ck labs Problems: Subjective 24 Hr Interval Summary Subjective hx not possible: other (seen yesterday note not done) Exam/Review of Systems Vital Signs Vitals Vital Signs Date Time Temp Pulse Resp B/P Pulse Ox O2 Delivery O2 Flow Rate FiO2 09/05/16 08:53 97.8 74 20 140/63 95 Intake and Output 09/04/16 09/04/16 09/05/16 15:00 23:00 07:00 Intake Total 600 ml 460 ml Balance 600 ml 460 ml Exam Respiratory: clear to auscultation Cardiovascular: regular rate and rhythm Gastrointestinal: soft Results Result Diagram: 09/05/16 0608 Results 24 hrs Laboratory Tests Test 09/04/16 17:27 09/04/16 21:43 09/05/16 06:08 09/05/16 08:10 Bedside Glucose 89 105 151 White Blood Count 10.9 H Red Blood Count 4.53 Hemoglobin 13.0 Hematocrit 40.6 Mean Corpuscular Volume 89.6 Mean Corpuscular Hemoglobin 28.7 L Mean Corpuscular Hemoglobin Concent 32.0 Red Cell Distribution Width 14.0 Platelet Count 11 #*L Mean Platelet Volume Neutrophils % 51.0 Lymphocytes % 33.0 Reactive Lymphocytes % 1.0 Monocytes % 13.0 H Eosinophils % 1.0 Basophils % 1.0 Neutrophils # 5.6 Lymphocytes # 3.6 H Monocytes # 1.4 H Eosinophils # 0.1 Basophils # 0.1 Platelet Estimate PLT APPEAR DECREASED Test 09/05/16 12:46 Bedside Glucose 223 H Medications Medications Current Medications Levothyroxine Sodium (Synthroid) 100 mcg DAILY@06 PO Last administered on 05:22; Admin Dose 100 MCG; Start 08/19/16 at 07:30 Lisinopril (Zestril) 5 mg DAILY PO Last administered on 09/05/16 09:34; Admin Dose 5 MG; Start 08/19/16 at 09:00 Metoprolol Tartrate (Lopressor) 25 mg BID PO Last administered on 09/05/16 09: 34; Admin Dose 25 MG; Start 08/19/16 at 09:00 Acetaminophen (Tylenol Tab) 650 mg Q6H PRN PO PAIN AND OR ELEVATED TEMP Last administered on 08/19/16 12:05; Admin Dose 650 MG; Start 08/19/16 at 07:30 Ondansetron HCl (Zofran Inj) 4 mg Q6H PRN IV NAUSEA AND/OR VOMITING; Start 08/19 at 07:30 Pantoprazole (Protonix Tab) 40 mg DAILY@06 PO Last administered on 09/05/16 05 :22; Admin Dose 40 MG; Start 08/19/16 at 07:30 Miscellaneous Information 1 ea NOTE XX ; Start 08/19/16 at 07:30 Glucose (Glutose) 15 gm Q15M PRN PO DECREASED GLUCOSE; Start 08/19/16 at 07:30 Glucose (Glutose) 22.5 gm Q15M PRN PO DECREASED GLUCOSE; Start 08/19/16 at 07:30 Dextrose (D50w Syringe) 25 ml Q15M PRN IV DECREASED GLUCOSE; Start 08/19/16 at 07:30 Dextrose (D50w Syringe) 50 ml Q15M PRN IV DECREASED GLUCOSE; Start 08/19/16 at 07:30 Glucagon (Glucagen) 1 mg Q15M PRN IM DECREASED GLUCOSE; Start 08/19/16 at 07:30 Glucose (Glutose) 15 gm Q15M PRN BUCCAL DECREASED GLUCOSE; Start 08/19/16 at 07: 30 Diphenhydramine HCl (Benadryl) 25 mg TID PRN PO ITCHING Last administered on 20:31; Admin Dose 25 MG; Start 08/20/16 at 20:30 Insulin Glargine (Lantus) 50 unit DAILY SC Last administered on 09/05/16 09:36 ; Admin Dose 50 UNIT; Start 08/22/16 at 09:00 Aspirin (Aspirin) 81 mg DAILY PO Last administered on 08/30/16 09:59; Admin Dose 81 MG; Start 08/24/16 at 17:00 Miscellaneous Information Patients own medicat... BID@ XX Last administered on 08/30/16 16:00; Admin Dose 1 EA; Start 08/28/16 at 10:00 Patient Own Medication 2 ea DAILY PO Last administered on 09/05/16 11:27; Admin Dose 2 EA; Start 08/30/16 at 09:00 ERICA MARAVILLA MD Sep 05, 2016 16:43
--- NOTE | 2016-09-05 16:46 | PN ---
Date/Time of Note Date/Time of Note DATE: 09/05/16 TIME: 16:45 Assessment/Plan VTE Prophylaxis VTE Prophylaxis Intervention: other Lines/Catheters IV [facility] Urinary Cath still in place: No Assessment/Plan Chief Complaint/Hosp Course IMPRESSION: Thrombocytopenia, diabetes mellitus, peripheral vascular disease, hypertension and history of idiopathic thrombocytopenic purpura.,thyroid mass s/ p biopsy,hyponatremia stable plan per dr neha amador promacta/ivig thyroid biopsy seen per dr neha white soon ck labs Problems: Subjective 24 Hr Interval Summary Respiratory: no complaints Cardiovascular: no complaints Gastrointestinal: no complaints Genitourinary: no complaints Exam/Review of Systems Vital Signs Vitals Vital Signs Date Time Temp Pulse Resp B/P Pulse Ox O2 Delivery O2 Flow Rate FiO2 09/05/16 08:53 97.8 74 20 140/63 95 Intake and Output 09/04/16 09/04/16 09/05/16 15:00 23:00 07:00 Intake Total 600 ml 460 ml Balance 600 ml 460 ml Exam Respiratory: clear to auscultation Cardiovascular: regular rate and rhythm Gastrointestinal: soft Musculoskeletal: nl extremities to inspection Results Result Diagram: 09/05/16 0608 Results 24 hrs Laboratory Tests Test 09/04/16 17:27 09/04/16 21:43 09/05/16 06:08 09/05/16 08:10 Bedside Glucose 89 105 151 White Blood Count 10.9 H Red Blood Count 4.53 Hemoglobin 13.0 Hematocrit 40.6 Mean Corpuscular Volume 89.6 Mean Corpuscular Hemoglobin 28.7 L Mean Corpuscular Hemoglobin Concent 32.0 Red Cell Distribution Width 14.0 Platelet Count 11 #*L Mean Platelet Volume Neutrophils % 51.0 Lymphocytes % 33.0 Reactive Lymphocytes % 1.0 Monocytes % 13.0 H Eosinophils % 1.0 Basophils % 1.0 Neutrophils # 5.6 Lymphocytes # 3.6 H Monocytes # 1.4 H Eosinophils # 0.1 Basophils # 0.1 Platelet Estimate PLT APPEAR DECREASED Test 09/05/16 12:46 Bedside Glucose 223 H Medications Medications Current Medications Levothyroxine Sodium (Synthroid) 100 mcg DAILY@06 PO Last administered on t 05:22; Admin Dose 100 MCG; Start 08/19/16 at 07:30 Lisinopril (Zestril) 5 mg DAILY PO Last administered on 09/05/16 09:34; Admin Dose 5 MG; Start 08/19/16 at 09:00 Metoprolol Tartrate (Lopressor) 25 mg BID PO Last administered on 09/05/16 09: 34; Admin Dose 25 MG; Start 08/19/16 at 09:00 Acetaminophen (Tylenol Tab) 650 mg Q6H PRN PO PAIN AND OR ELEVATED TEMP Last administered on 08/19/16 12:05; Admin Dose 650 MG; Start 08/19/16 at 07:30 Ondansetron HCl (Zofran Inj) 4 mg Q6H PRN IV NAUSEA AND/OR VOMITING; Start 08/19 at 07:30 Pantoprazole (Protonix Tab) 40 mg DAILY@06 PO Last administered on 09/05/16 05 :22; Admin Dose 40 MG; Start 08/19/16 at 07:30 Miscellaneous Information 1 ea NOTE XX ; Start 08/19/16 at 07:30 Glucose (Glutose) 15 gm Q15M PRN PO DECREASED GLUCOSE; Start 08/19/16 at 07:30 Glucose (Glutose) 22.5 gm Q15M PRN PO DECREASED GLUCOSE; Start 08/19/16 at 07:30 Dextrose (D50w Syringe) 25 ml Q15M PRN IV DECREASED GLUCOSE; Start 08/19/16 at 07:30 Dextrose (D50w Syringe) 50 ml Q15M PRN IV DECREASED GLUCOSE; Start 08/19/16 at 07:30 Glucagon (Glucagen) 1 mg Q15M PRN IM DECREASED GLUCOSE; Start 08/19/16 at 07:30 Glucose (Glutose) 15 gm Q15M PRN BUCCAL DECREASED GLUCOSE; Start 08/19/16 at 07: 30 Diphenhydramine HCl (Benadryl) 25 mg TID PRN PO ITCHING Last administered on 20:31; Admin Dose 25 MG; Start 08/20/16 at 20:30 Insulin Glargine (Lantus) 50 unit DAILY SC Last administered on 09/05/16 09:36 ; Admin Dose 50 UNIT; Start 08/22/16 at 09:00 Aspirin (Aspirin) 81 mg DAILY PO Last administered on 08/30/16 09:59; Admin Dose 81 MG; Start 08/24/16 at 17:00 Miscellaneous Information Patients own medicat... BID@ XX Last administered on 08/30/16 16:00; Admin Dose 1 EA; Start 08/28/16 at 10:00 Patient Own Medication 2 ea DAILY PO Last administered on 09/05/16 11:27; Admin Dose 2 EA; Start 08/30/16 at 09:00 ERICA MARAVILLA MD Sep 05, 2016 16:45
[2016-09-05 20:14] VITALS: BP 141/65; RESP 18
[2016-09-06] MEDS: PANTOPRAZOLE (EC) 40 MG TAB PO SCH (05:20)
[2016-09-06] MEDS: LEVOTHYROXINE 100 MCG TAB PO SCH (05:20)
[2016-09-06 06:13] LABS: ADD SCAN DIFF NO
[2016-09-06 06:27] LABS: ABNORMAL IP MESSAGE 1; BASOPHIL # 0.1 10^3/ul (0.0-0.1); EOSINOPHILS # 0.2 10^3/ul (0.0-0.5); EOSINOPHILS % 1.8 % (0.0-7.0); HEMATOCRIT 40.8 % (37.0-47.0); HEMOGLOBIN 13.6 g/dl (12.0-16.0); LYMPHOCYTES # 4.8 10^3/ul (0.8-2.9); LYMPHOCYTES % 45.9 % (15.0-51.0); MEAN CORPUSCULAR HEMOGLOBIN 29.8 pg (29.0-33.0); MEAN CORPUSCULAR HGB CONC 33.3 g/dl (32.0-37.0); MEAN CORPUSCULAR VOLUME 89.3 fl (82.0-101.0); MONOCYTE # 1.4 10^3/ul (0.3-0.9); NEUTROPHILS % 38.1 % (39.0-77.0); RED BLOOD COUNT 4.57 10^6/ul (4.20-5.40); RED CELL DISTRIBUTION WIDTH 13.7 % (11.5-14.5); WHITE BLOOD COUNT 10.4 10^3/ul (4.8-10.8)
[2016-09-06 06:33] LABS: PLATELET COUNT 6 10^3/UL (140-415)
[2016-09-06] MEDS: ASPIRIN 81 MG TAB PO SCH (07:26)
[2016-09-06 08:30] VITALS: BP 145/66; RESP 20
[2016-09-06] MEDS ORDERED: PROMACTA 12.5 MG PO SCH (08:30)
[2016-09-06] MEDS ORDERED: PATIENT'S OWN MEDICATION PO SCH (09:00)
[2016-09-06] MEDS: PROMACTA 12.5 MG PO SCH (09:19)
[2016-09-06] MEDS: LISINOPRIL 5 MG TAB PO SCH (09:20)
[2016-09-06] MEDS: METOPROLOL 25 MG TAB PO SCH ×2 (09:20→20:42)
[2016-09-06] MEDS: INSULIN GLARGINE [LANtus] 3 ML PEN SC SCH (09:29)
[2016-09-06] MEDS: INSULIN ASPART [NOVOLOG] 3 ML PEN SC SCH ×7 (09:33→21:00)
--- NOTE | 2016-09-06 09:49 | CONS ---
Date/Time of Note Date/Time of Note DATE: 09/06/16 TIME: 09:45 Assessment/Plan Assessment/Plan Chief Complaint/Hosp Course 64yo with # ITP-PLATELETS HAVE DROPPED TO 6 TODAY ON PROMACTA 25MG Q DAY. no evidence of bleed -given patient has been on Promacta for more than 2 weeks now on the 25 mg dose , we will need to increase to 50mg q day as 25mg is not able to maintain her platelet count . - not pt was given 1 dose of IVIG and platelets 08/30.. The goal is to get patient on a stable dose of Promacta that keeps her platelets > 50K, without the help of IVIG, and to start asa at that time -if platelets are stable and > 50K tomorrow will give ASA 81at that time -once platelets are up trending, pt will be safe for discharge. # L neck mass - US neck 08/23/16 showed 1. Status post thyroidectomy. 2. Solid heterogeneous mass in the left side of the neck measuring 3.7 x 2.1 x 2.2 cm. Ultrasound-guided biopsy should be considered. Now s/p US guided biopsy of left thyroid bed 08/24/16 showing nodular goiter. Follow up with endocrinology. Path: Left thyroid nodule, ultrasound-guided fine needle aspiration: -- Compatible with nodular goiter, [place] system category II. # Ischemia to Bilateral feet and toes - this was likely secondary to the rapid increase in platelet count from the promacta. - This has dramatically improved since last admission - As stated before, holding Aspirin until patient's platelet count is consistently greater than 50K. - Note, angiography done during last admission reveals arteries of the lower extremities are widely patent bilaterally with good three-vessel runoff to the level of the ankles. - Hypercoag workup with no evidence of lupus anticoagulant, beta2 glycoprotein IgM or IgG or anticardiolipin positivity (only beta2 glycoprotein IgA > 150 which is not included in criteria for antiphospholipid syndrome; consider repeating in 12 weeks). Protein C and ATIII levels noted to be low however likely to have been affected by coumadin and heparin therapy, respectively. Factor V Leiden and prothrombin gene mutations were not detected. 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 this is her baseline wbc count Problems: Consultation Date/Type/Reason Admit Date/Time Aug 19, 2016 at 05:00 Initial Consult Date 08/19/16 Type of Consultation: Hematology Reason for Consultation ITP Referring Provider: ERICA MARAVILLA MD 24 HR Interval Summary Free Text/Dictation patient's platelet count fell to 6 today. there is no evidence of bleeding. pt was accidentally given 100mg Promacta last night as wrong dose was dispensed by pharmacy. event report was done. pt feels well this morning and has no complaints Exam/Review of Systems Vital Signs Vitals Vital Signs Date Time Temp Pulse Resp B/P Pulse Ox O2 Delivery O2 Flow Rate FiO2 09/06/16 08:30 98.1 79 20 145/66 97 Intake and Output 09/05/16 09/05/16 09/06/16 15:00 23:00 07:00 Intake Total 700 ml 340 ml Balance 700 ml 340 ml Exam Constitutional: oriented Psych: no complaints Head: atraumatic, normocephalic Eyes: nl conjunctiva ENMT: nl external ears & nose Neck: non-tender, supple Respiratory: clear to auscultation, normal air movement Cardiovascular: regular rate and rhythm Gastrointestinal: soft Musculoskeletal: other (L foot no infection, no cyanosis) Results Result Diagram: 09/06/16 0500 Results 24 hrs Laboratory Tests Test 09/05/16 12:46 09/05/16 17:32 09/05/16 20:56 09/06/16 05:00 Bedside Glucose 223 H 177 177 White Blood Count 10.4 Red Blood Count 4.57 Hemoglobin 13.6 Hematocrit 40.8 Mean Corpuscular Volume 89.3 Mean Corpuscular Hemoglobin 29.8 Mean Corpuscular Hemoglobin Concent 33.3 Red Cell Distribution Width 13.7 Platelet Count 6 #*L Mean Platelet Volume Neutrophils % 38.1 L Lymphocytes % 45.9 Monocytes % 13.0 H Eosinophils % 1.8 Basophils % 1.0 Nucleated Red Blood Cells % 0.0 Neutrophils # 4.0 Lymphocytes # 4.8 H Monocytes # 1.4 H Eosinophils # 0.2 Basophils # 0.1 Nucleated Red Blood Cells # 0.0 Test 09/06/16 07:57 Bedside Glucose 164 Medications Medications Current Medications Levothyroxine Sodium (Synthroid) 100 mcg DAILY@06 PO Last administered on 05:20; Admin Dose 100 MCG; Start 08/19/16 at 07:30 Lisinopril (Zestril) 5 mg DAILY PO Last administered on 09/06/16 09:20; Admin Dose 5 MG; Start 08/19/16 at 09:00 Metoprolol Tartrate (Lopressor) 25 mg BID PO Last administered on 09/06/16 09: 20; Admin Dose 25 MG; Start 08/19/16 at 09:00 Acetaminophen (Tylenol Tab) 650 mg Q6H PRN PO PAIN AND OR ELEVATED TEMP Last administered on 08/19/16 12:05; Admin Dose 650 MG; Start 08/19/16 at 07:30 Ondansetron HCl (Zofran Inj) 4 mg Q6H PRN IV NAUSEA AND/OR VOMITING; Start 08/19 at 07:30 Pantoprazole (Protonix Tab) 40 mg DAILY@06 PO Last administered on 09/06/16 05 :20; Admin Dose 40 MG; Start 08/19/16 at 07:30 Miscellaneous Information 1 ea NOTE XX ; Start 08/19/16 at 07:30 Glucose (Glutose) 15 gm Q15M PRN PO DECREASED GLUCOSE; Start 08/19/16 at 07:30 Glucose (Glutose) 22.5 gm Q15M PRN PO DECREASED GLUCOSE; Start 08/19/16 at 07:30 Dextrose (D50w Syringe) 25 ml Q15M PRN IV DECREASED GLUCOSE; Start 08/19/16 at 07:30 Dextrose (D50w Syringe) 50 ml Q15M PRN IV DECREASED GLUCOSE; Start 08/19/16 at 07:30 Glucagon (Glucagen) 1 mg Q15M PRN IM DECREASED GLUCOSE; Start 08/19/16 at 07:30 Glucose (Glutose) 15 gm Q15M PRN BUCCAL DECREASED GLUCOSE; Start 08/19/16 at 07: 30 Diphenhydramine HCl (Benadryl) 25 mg TID PRN PO ITCHING Last administered on 20:31; Admin Dose 25 MG; Start 08/20/16 at 20:30 Insulin Glargine (Lantus) 50 unit DAILY SC Last administered on 09/06/16 09:29 ; Admin Dose 50 UNIT; Start 08/22/16 at 09:00 Aspirin (Aspirin) 81 mg DAILY PO Last administered on 08/30/16 09:59; Admin Dose 81 MG; Start 08/24/16 at 17:00 Miscellaneous Information Patients own medicat... BID@ XX Last administered on 08/30/16 16:00; Admin Dose 1 EA; Start 08/28/16 at 10:00 Patient Own Medication 2 ea DAILY PO Last administered on 09/06/16 09:19; Admin Dose 2 EA; Start 08/30/16 at 09:00 Patient Own Medication 4 ea DAILY PO ; Start 09/07/16 at 09:00 Patient Own Medication 2 ea ONCE PO ; Start 09/06/16 at 08:30; Stop 09/06/16 at 13:00 MILADY FONG M.D. Sep 06, 2016 09:49
[2016-09-06] MEDS: [UNRECOGNIZED DRUG - REMARK] XX SCH ×2 (10:30→18:14)
[2016-09-06] MEDS: PROMACTA 50 MG PO SCH (11:32)
--- NOTE | 2016-09-06 19:09 | PN ---
Date/Time of Note Date/Time of Note DATE: 09/06/16 TIME: 19:08 Assessment/Plan VTE Prophylaxis VTE Prophylaxis Intervention: other Lines/Catheters IV C[facility]ter Type (from [facility] Sal[facility] Lock Urinary Cath still in place: No Assessment/Plan Chief Complaint/Hosp Course IMPRESSION: Thrombocytopenia, diabetes mellitus, peripheral vascular disease, hypertension and history of idiopathic thrombocytopenic purpura.,thyroid mass s/ p biopsy,hyponatremia stable plan per dr solomon lanselmaus promacta/ivig per dr solomon ck labs Problems: Subjective 24 Hr Interval Summary Subjective hx not possible: other Eyes: no complaints ENT: no complaints Respiratory: no complaints Cardiovascular: no complaints Exam/Review of Systems Vital Signs Vitals Vital Signs Date Time Temp Pulse Resp B/P Pulse Ox O2 Delivery O2 Flow Rate FiO2 09/06/16 08:30 98.1 79 20 145/66 97 Intake and Output 09/05/16 09/05/16 09/06/16 15:00 23:00 07:00 Intake Total 700 ml 340 ml Balance 700 ml 340 ml Exam Neck: supple Respiratory: clear to auscultation Cardiovascular: regular rate and rhythm Gastrointestinal: soft Musculoskeletal: nl extremities to inspection Results Result Diagram: 09/06/16 0500 Results 24 hrs Laboratory Tests Test 09/05/16 20:56 09/06/16 05:00 09/06/16 07:57 09/06/16 12:09 Bedside Glucose 177 164 155 White Blood Count 10.4 Red Blood Count 4.57 Hemoglobin 13.6 Hematocrit 40.8 Mean Corpuscular Volume 89.3 Mean Corpuscular Hemoglobin 29.8 Mean Corpuscular Hemoglobin Concent 33.3 Red Cell Distribution Width 13.7 Platelet Count 6 #*L Mean Platelet Volume Neutrophils % 38.1 L Lymphocytes % 45.9 Monocytes % 13.0 H Eosinophils % 1.8 Basophils % 1.0 Nucleated Red Blood Cells % 0.0 Neutrophils # 4.0 Lymphocytes # 4.8 H Monocytes # 1.4 H Eosinophils # 0.2 Basophils # 0.1 Nucleated Red Blood Cells # 0.0 Test 09/06/16 17:15 Bedside Glucose 121 Medications Medications Current Medications Levothyroxine Sodium (Synthroid) 100 mcg DAILY@06 PO Last administered on t 05:20; Admin Dose 100 MCG; Start 08/19/16 at 07:30 Lisinopril (Zestril) 5 mg DAILY PO Last administered on 09/06/16 09:20; Admin Dose 5 MG; Start 08/19/16 at 09:00 Metoprolol Tartrate (Lopressor) 25 mg BID PO Last administered on 09/06/16 09: 20; Admin Dose 25 MG; Start 08/19/16 at 09:00 Acetaminophen (Tylenol Tab) 650 mg Q6H PRN PO PAIN AND OR ELEVATED TEMP Last administered on 08/19/16 12:05; Admin Dose 650 MG; Start 08/19/16 at 07:30 Ondansetron HCl (Zofran Inj) 4 mg Q6H PRN IV NAUSEA AND/OR VOMITING; Start 08/19 at 07:30 Pantoprazole (Protonix Tab) 40 mg DAILY@06 PO Last administered on 09/06/16 05 :20; Admin Dose 40 MG; Start 08/19/16 at 07:30 Miscellaneous Information 1 ea NOTE XX ; Start 08/19/16 at 07:30 Glucose (Glutose) 15 gm Q15M PRN PO DECREASED GLUCOSE; Start 08/19/16 at 07:30 Glucose (Glutose) 22.5 gm Q15M PRN PO DECREASED GLUCOSE; Start 08/19/16 at 07:30 Dextrose (D50w Syringe) 25 ml Q15M PRN IV DECREASED GLUCOSE; Start 08/19/16 at 07:30 Dextrose (D50w Syringe) 50 ml Q15M PRN IV DECREASED GLUCOSE; Start 08/19/16 at 07:30 Glucagon (Glucagen) 1 mg Q15M PRN IM DECREASED GLUCOSE; Start 08/19/16 at 07:30 Glucose (Glutose) 15 gm Q15M PRN BUCCAL DECREASED GLUCOSE; Start 08/19/16 at 07: 30 Diphenhydramine HCl (Benadryl) 25 mg TID PRN PO ITCHING Last administered on 20:31; Admin Dose 25 MG; Start 08/20/16 at 20:30 Insulin Glargine (Lantus) 50 unit DAILY SC Last administered on 09/06/16 09:29 ; Admin Dose 50 UNIT; Start 08/22/16 at 09:00 Aspirin (Aspirin) 81 mg DAILY PO Last administered on 08/30/16 09:59; Admin Dose 81 MG; Start 08/24/16 at 17:00 Miscellaneous Information Patients own medicat... BID@ XX Last administered on 08/30/16 16:00; Admin Dose 1 EA; Start 08/28/16 at 10:00 Patient Own Medication 1 ea DAILY PO Last administered on 09/06/16 11:32; Admin Dose 1 EA; Start 09/07/16 at 09:00 Miscellaneous Information (*Order Clarification Bulletin) MEDICATION REQUIRES CLARIFICATION: Q8H XX ; Start 09/06/16 at 10:30; Stop 09/07/16 at 09:00 ERICA MARAVILLA MD Sep 06, 2016 19:09
[2016-09-06 20:11] VITALS: BP 111/56; RESP 20
[2016-09-07] MEDS: [UNRECOGNIZED DRUG - REMARK] XX SCH (02:30)
[2016-09-07] MEDS: LEVOTHYROXINE 100 MCG TAB PO SCH (05:57)
[2016-09-07] MEDS: PANTOPRAZOLE (EC) 40 MG TAB PO SCH (05:57)
[2016-09-07 07:47] LABS: ADD SCAN DIFF NO
[2016-09-07 07:50] LABS: ABNORMAL IP MESSAGE 1; HEMATOCRIT 42.3 % (37.0-47.0); HEMOGLOBIN 13.7 g/dl (12.0-16.0); MEAN CORPUSCULAR HEMOGLOBIN 28.8 pg (29.0-33.0); MEAN CORPUSCULAR HGB CONC 32.4 g/dl (32.0-37.0); MEAN CORPUSCULAR VOLUME 89.1 fl (82.0-101.0); RED BLOOD COUNT 4.75 10^6/ul (4.20-5.40); RED CELL DISTRIBUTION WIDTH 13.8 % (11.5-14.5); WHITE BLOOD COUNT 10.6 10^3/ul (4.8-10.8)
[2016-09-07] MEDS: INSULIN ASPART [NOVOLOG] 3 ML PEN SC SCH ×7 (07:50→21:00)
[2016-09-07 08:05] VITALS: BP 135/64; RESP 19
[2016-09-07 08:27] LABS: PLATELET COUNT 7 10^3/UL (140-415)
[2016-09-07] MEDS: ASPIRIN 81 MG TAB PO SCH (09:00)
[2016-09-07] MEDS: LISINOPRIL 5 MG TAB PO SCH (09:25)
[2016-09-07] MEDS: METOPROLOL 25 MG TAB PO SCH ×2 (09:25→20:41)
[2016-09-07] MEDS: INSULIN GLARGINE [LANtus] 3 ML PEN SC SCH (09:29)
--- NOTE | 2016-09-07 10:20 | RADRPT ---
PROCEDURE: CT Brain without contrast. CLINICAL INDICATION: Headache. Severe thrombocytopenia. Evaluate for intracranial bleed. TECHNIQUE: A CT of the brain was performed on a multidetector CT scanner utilizing axial sections from the skull base through the vertex without contrast. Images were reviewed on a high-resolution [id number] workstation. Exam CTDI = 44.11 mGy and the DLP = 630.20 mGy-cm. One or more of the following dose reduction techniques were used: Automated exposure control Adjustment of the mA and/or kV according to patient size. Use of iterative reconstruction technique. COMPARISON: CT head 08/20/2016 FINDINGS: There is age appropriate mild generalized volume loss. There is no evidence of intracranial hemorrh age, mass effect or midline shift. No abnormal intra-axial or extra-axial fluid collections are see n. The density of the brain is normal and the baig/white matter differentiation is well preserved. The osseous structures are unremarkable. There is a small osteoma on the outer table of the right f rontal bone. IMPRESSION: 1. No intracranial hemorrhage, mass effect or midline shift. 2. Mild microangiopathic ischemic change. RPTAT: BB .Anatoly Cunningham MD, Date Time Electronically viewed and signed by .Anatoly Cunningham MD, on 09/07/2016 10:20 .O/
[2016-09-07] MEDS: PROMACTA 50 MG PO SCH (10:47)
[2016-09-07 11:22] LABS: EOSINOPHILS # 0.3 10^3/ul (0.0-0.5); LYMPHOCYTES # 3.6 10^3/ul (0.8-2.9); MONOCYTE # 1.3 10^3/ul (0.3-0.9); MYELOCYTES # 0.1; NEUTROPHIL # 5.3 10^3/ul (1.6-7.5); PLATELET ESTIMATE PLT APPEAR DECREASED
--- NOTE | 2016-09-07 11:43 | CONS ---
Date/Time of Note Date/Time of Note DATE: 09/07/16 TIME: 11:40 Assessment/Plan Assessment/Plan Chief Complaint/Hosp Course 64yo with # ITP-PLATELETS INCREASED TO 7 TODAY ON PROMACTA 50MG Q DAY. no evidence of intracranial bleed on stat CT brain - continue Promacta 50mg q day as 25mg is not able to maintain her platelet count . - not pt was given 1 dose of IVIG and platelets 08/30.. The goal is to get patient on a stable dose of Promacta that keeps her platelets > 50K, without the help of IVIG, and to start asa at that time -if platelets are stable and > 50K tomorrow will give ASA 81at that time -once platelets are up trending, pt will be safe for discharge. # L neck mass - US neck 08/23/16 showed 1. Status post thyroidectomy. 2. Solid heterogeneous mass in the left side of the neck measuring 3.7 x 2.1 x 2.2 cm. Ultrasound-guided biopsy should be considered. Now s/p US guided biopsy of left thyroid bed 08/24/16 showing nodular goiter. Follow up with endocrinology. Path: Left thyroid nodule, ultrasound-guided fine needle aspiration: -- Compatible with nodular goiter, [place] system category II. # Ischemia to Bilateral feet and toes - this was likely secondary to the rapid increase in platelet count from the promacta. - This has dramatically improved since last admission - As stated before, holding Aspirin until patient's platelet count is consistently greater than 50K. - Note, angiography done during last admission reveals arteries of the lower extremities are widely patent bilaterally with good three-vessel runoff to the level of the ankles. - Hypercoag workup with no evidence of lupus anticoagulant, beta2 glycoprotein IgM or IgG or anticardiolipin positivity (only beta2 glycoprotein IgA > 150 which is not included in criteria for antiphospholipid syndrome; consider repeating in 12 weeks). Protein C and ATIII levels noted to be low however likely to have been affected by coumadin and heparin therapy, respectively. Factor V Leiden and prothrombin gene mutations were not detected. 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 this is her baseline wbc count Approximately 40 min were spent at patient's bedside, in coordination of her care and speaking with her daughter Genet Problems: Consultation Date/Type/Reason Admit Date/Time Aug 19, 2016 at 05:00 Initial Consult Date 08/19/16 Type of Consultation: Hematology Reason for Consultation ITP Referring Provider: ERICA MARAVILLA MD 24 HR Interval Summary Free Text/Dictation pt c/o headache this morning. stat Brain CT was done which was negative for intracranial bleed Exam/Review of Systems Vital Signs Vitals Vital Signs Date Time Temp Pulse Resp B/P Pulse Ox O2 Delivery O2 Flow Rate FiO2 09/07/16 08:05 98.0 71 19 135/64 98 Intake and Output 09/06/16 09/06/16 09/07/16 15:00 23:00 07:00 Intake Total 840 ml Balance 840 ml Exam Constitutional: alert, oriented Psych: other (headache) Head: atraumatic, normocephalic Eyes: nl conjunctiva ENMT: nl external ears & nose Neck: non-tender, supple Respiratory: clear to auscultation Cardiovascular: nl pulses, regular rate and rhythm Gastrointestinal: soft Musculoskeletal: nl extremities to inspection, nl gait and stance Extremities: normal pulses Results Result Diagram: 09/07/16 0708 Results 24 hrs Laboratory Tests Test 09/06/16 12:09 09/06/16 17:15 09/06/16 20:44 09/07/16 07:08 Bedside Glucose 155 121 135 White Blood Count 10.6 Red Blood Count 4.75 Hemoglobin 13.7 Hematocrit 42.3 Mean Corpuscular Volume 89.1 Mean Corpuscular Hemoglobin 28.8 L Mean Corpuscular Hemoglobin Concent 32.4 Red Cell Distribution Width 13.8 Platelet Count 7 *L Mean Platelet Volume Neutrophils % 50.0 Lymphocytes % 34.0 Monocytes % 12.0 H Eosinophils % 3.0 Myelocytes % 1.0 H Neutrophils # 5.3 Lymphocytes # 3.6 H Monocytes # 1.3 H Eosinophils # 0.3 Myelocytes # 0.1 Differential Comment MANUAL DIFF Platelet Estimate PLT APPEAR DECREASED Giant Platelets OCCASIONAL Test 09/07/16 07:41 Bedside Glucose 111 Medications Medications Current Medications Levothyroxine Sodium (Synthroid) 100 mcg DAILY@06 PO Last administered on t 05:57; Admin Dose 100 MCG; Start 08/19/16 at 07:30 Lisinopril (Zestril) 5 mg DAILY PO Last administered on 09/07/16 09:25; Admin Dose 5 MG; Start 08/19/16 at 09:00 Metoprolol Tartrate (Lopressor) 25 mg BID PO Last administered on 09/07/16 09: 25; Admin Dose 25 MG; Start 08/19/16 at 09:00 Acetaminophen (Tylenol Tab) 650 mg Q6H PRN PO PAIN AND OR ELEVATED TEMP Last administered on 08/19/16 12:05; Admin Dose 650 MG; Start 08/19/16 at 07:30 Ondansetron HCl (Zofran Inj) 4 mg Q6H PRN IV NAUSEA AND/OR VOMITING; Start 08/19 at 07:30 Pantoprazole (Protonix Tab) 40 mg DAILY@06 PO Last administered on 09/07/16 05 :57; Admin Dose 40 MG; Start 08/19/16 at 07:30 Miscellaneous Information 1 ea NOTE XX ; Start 08/19/16 at 07:30 Glucose (Glutose) 15 gm Q15M PRN PO DECREASED GLUCOSE; Start 08/19/16 at 07:30 Glucose (Glutose) 22.5 gm Q15M PRN PO DECREASED GLUCOSE; Start 08/19/16 at 07:30 Dextrose (D50w Syringe) 25 ml Q15M PRN IV DECREASED GLUCOSE; Start 08/19/16 at 07:30 Dextrose (D50w Syringe) 50 ml Q15M PRN IV DECREASED GLUCOSE; Start 08/19/16 at 07:30 Glucagon (Glucagen) 1 mg Q15M PRN IM DECREASED GLUCOSE; Start 08/19/16 at 07:30 Glucose (Glutose) 15 gm Q15M PRN BUCCAL DECREASED GLUCOSE; Start 08/19/16 at 07: 30 Diphenhydramine HCl (Benadryl) 25 mg TID PRN PO ITCHING Last administered on 20:31; Admin Dose 25 MG; Start 08/20/16 at 20:30 Insulin Glargine (Lantus) 50 unit DAILY SC Last administered on 09/07/16 09:29 ; Admin Dose 50 UNIT; Start 08/22/16 at 09:00 Aspirin (Aspirin) 81 mg DAILY PO Last administered on 08/30/16 09:59; Admin Dose 81 MG; Start 08/24/16 at 17:00 Miscellaneous Information Patients own medicat... BID@ XX Last administered on 08/30/16t 16:00; Admin Dose 1 EA; Start 08/28/16 at 10:00 Eltrombopag (Promacta) 50 mg DAILY PO ; Start 09/08/16 at 09:00 MILADY FONG M.D. Sep 07, 2016 11:43
[2016-09-07 20:20] VITALS: BP 122/58; RESP 20
--- NOTE | 2016-09-07 23:14 | PN ---
Date/Time of Note Date/Time of Note DATE: 09/07/16 TIME: 23:14 Assessment/Plan VTE Prophylaxis VTE Prophylaxis Intervention: other Lines/Catheters [facility] Saline Lock Urinary Cath still in place: No Assessment/Plan Chief Complaint/Hosp Course IMPRESSION: Thrombocytopenia, diabetes mellitus, peripheral vascular disease, hypertension and history of idiopathic thrombocytopenic purpura.,thyroid mass s/ p biopsy,hyponatremia stable plan per dr neha amador promacta/ivig per dr solomon ck labs hold asa Problems: Subjective 24 Hr Interval Summary Cardiovascular: no complaints Gastrointestinal: no complaints Exam/Review of Systems Vital Signs Vitals Vital Signs Date Time Temp Pulse Resp B/P Pulse Ox O2 Delivery O2 Flow Rate FiO2 09/07/16 20:20 98.1 81 20 122/58 96 Intake and Output 09/06/16 09/06/16 09/07/16 15:00 23:00 07:00 Intake Total 840 ml Balance 840 ml Exam Respiratory: clear to auscultation Cardiovascular: regular rate and rhythm Gastrointestinal: soft Genitourinary - Female: nl adnexae Musculoskeletal: nl extremities to inspection Results Result Diagram: 09/07/16 0708 Results 24 hrs Laboratory Tests Test 09/07/16 07:08 09/07/16 07:41 09/07/16 12:31 09/07/16 17:23 White Blood Count 10.6 Red Blood Count 4.75 Hemoglobin 13.7 Hematocrit 42.3 Mean Corpuscular Volume 89.1 Mean Corpuscular Hemoglobin 28.8 L Mean Corpuscular Hemoglobin Concent 32.4 Red Cell Distribution Width 13.8 Platelet Count 7 *L Mean Platelet Volume Neutrophils % 50.0 Lymphocytes % 34.0 Monocytes % 12.0 H Eosinophils % 3.0 Myelocytes % 1.0 H Neutrophils # 5.3 Lymphocytes # 3.6 H Monocytes # 1.3 H Eosinophils # 0.3 Myelocytes # 0.1 Differential Comment MANUAL DIFF Platelet Estimate PLT APPEAR DECREASED Giant Platelets OCCASIONAL Bedside Glucose 111 153 265 H Test 09/07/16 20:29 Bedside Glucose 129 Medications Medications Current Medications Levothyroxine Sodium (Synthroid) 100 mcg DAILY@06 PO Last administered on t 05:57; Admin Dose 100 MCG; Start 08/19/16 at 07:30 Lisinopril (Zestril) 5 mg DAILY PO Last administered on 09/07/16 09:25; Admin Dose 5 MG; Start 08/19/16 at 09:00 Metoprolol Tartrate (Lopressor) 25 mg BID PO Last administered on 09/07/16 20: 41; Admin Dose 25 MG; Start 08/19/16 at 09:00 Acetaminophen (Tylenol Tab) 650 mg Q6H PRN PO PAIN AND OR ELEVATED TEMP Last administered on 08/19/16 12:05; Admin Dose 650 MG; Start 08/19/16 at 07:30 Ondansetron HCl (Zofran Inj) 4 mg Q6H PRN IV NAUSEA AND/OR VOMITING; Start 08/19 at 07:30 Pantoprazole (Protonix Tab) 40 mg DAILY@06 PO Last administered on 09/07/16 05 :57; Admin Dose 40 MG; Start 08/19/16 at 07:30 Miscellaneous Information 1 ea NOTE XX ; Start 08/19/16 at 07:30 Glucose (Glutose) 15 gm Q15M PRN PO DECREASED GLUCOSE; Start 08/19/16 at 07:30 Glucose (Glutose) 22.5 gm Q15M PRN PO DECREASED GLUCOSE; Start 08/19/16 at 07:30 Dextrose (D50w Syringe) 25 ml Q15M PRN IV DECREASED GLUCOSE; Start 08/19/16 at 07:30 Dextrose (D50w Syringe) 50 ml Q15M PRN IV DECREASED GLUCOSE; Start 08/19/16 at 07:30 Glucagon (Glucagen) 1 mg Q15M PRN IM DECREASED GLUCOSE; Start 08/19/16 at 07:30 Glucose (Glutose) 15 gm Q15M PRN BUCCAL DECREASED GLUCOSE; Start 08/19/16 at 07: 30 Diphenhydramine HCl (Benadryl) 25 mg TID PRN PO ITCHING Last administered on 20:31; Admin Dose 25 MG; Start 08/20/16 at 20:30 Insulin Glargine (Lantus) 50 unit DAILY SC Last administered on 09/07/16 09:29 ; Admin Dose 50 UNIT; Start 08/22/16 at 09:00 Aspirin (Aspirin) 81 mg DAILY PO Last administered on 08/30/16 09:59; Admin Dose 81 MG; Start 08/24/16 at 17:00 Miscellaneous Information Patients own medicat... BID@ XX Last administered on 08/30/16t 16:00; Admin Dose 1 EA; Start 08/28/16 at 10:00 Eltrombopag (Promacta) 50 mg DAILY PO ; Start 09/08/16 at 09:00 ERICA MARAVILLA MD Sep 07, 2016 23:14
[2016-09-08] MEDS: PANTOPRAZOLE (EC) 40 MG TAB PO SCH (05:28)
[2016-09-08] MEDS: LEVOTHYROXINE 100 MCG TAB PO SCH (05:28)
[2016-09-08 07:38] LABS: ADD SCAN DIFF NO
[2016-09-08 07:44] LABS: ABNORMAL IP MESSAGE 1; HEMATOCRIT 41.8 % (37.0-47.0); HEMOGLOBIN 13.5 g/dl (12.0-16.0); MEAN CORPUSCULAR HEMOGLOBIN 28.9 pg (29.0-33.0); MEAN CORPUSCULAR HGB CONC 32.3 g/dl (32.0-37.0); MEAN CORPUSCULAR VOLUME 89.5 fl (82.0-101.0); RED BLOOD COUNT 4.67 10^6/ul (4.20-5.40); RED CELL DISTRIBUTION WIDTH 13.8 % (11.5-14.5); WHITE BLOOD COUNT 11.8 10^3/ul (4.8-10.8)
[2016-09-08 08:08] LABS: PLATELET COUNT 5 10^3/UL (140-415)
[2016-09-08 08:16] VITALS: BP 127/60; RESP 18
[2016-09-08] MEDS: METOPROLOL 25 MG TAB PO SCH ×2 (08:59→20:15)
[2016-09-08] MEDS: LISINOPRIL 5 MG TAB PO SCH (09:00)
[2016-09-08] MEDS: INSULIN ASPART [NOVOLOG] 3 ML PEN SC SCH ×7 (09:01→20:14)
[2016-09-08] MEDS: INSULIN GLARGINE [LANtus] 3 ML PEN SC SCH (09:06)
[2016-09-08] MEDS: ELTROMBOPAG OLAMINE 25 MG PO SCH (09:26)
[2016-09-08 11:57] LABS: BASOPHIL # 0.2 10^3/ul (0.0-0.1); EOSINOPHILS # 0.4 10^3/ul (0.0-0.5); MONOCYTE # 1.3 10^3/ul (0.3-0.9); MYELOCYTES # 0.1; NEUTROPHIL # 4.6 10^3/ul (1.6-7.5)
--- NOTE | 2016-09-08 12:45 | CONS ---
Date/Time of Note Date/Time of Note DATE: 09/08/16 TIME: 12:44 Assessment/Plan Assessment/Plan Chief Complaint/Hosp Course 64yo with # ITP-PLATELETS DECREASED TO 5 TODAY ON PROMACTA 50MG Q DAY. no evidence of intracranial bleed on stat CT brain -will hold on prednisone for now as patient has diabetes. if platelet count drops below 5 tomorrow will start prednisone - continue Promacta 50mg q day as 25mg is not able to maintain her platelet count . - pt was given 1 dose of IVIG and platelets 08/30.. The goal is to get patient on a stable dose of Promacta that keeps her platelets > 50K, without the help of IVIG, and to start asa at that time -if platelets are stable and > 50K tomorrow will give ASA 81at that time -once platelets are up trending, pt will be safe for discharge. # L neck mass - US neck 08/23/16 showed 1. Status post thyroidectomy. 2. Solid heterogeneous mass in the left side of the neck measuring 3.7 x 2.1 x 2.2 cm. Ultrasound-guided biopsy should be considered. Now s/p US guided biopsy of left thyroid bed 08/24/16 showing nodular goiter. Follow up with endocrinology. Path: Left thyroid nodule, ultrasound-guided fine needle aspiration: -- Compatible with nodular goiter, [place] system category II. # Ischemia to Bilateral feet and toes - this was likely secondary to the rapid increase in platelet count from the promacta. - This has dramatically improved since last admission - As stated before, holding Aspirin until patient's platelet count is consistently greater than 50K. - Note, angiography done during last admission reveals arteries of the lower extremities are widely patent bilaterally with good three-vessel runoff to the level of the ankles. - Hypercoag workup with no evidence of lupus anticoagulant, beta2 glycoprotein IgM or IgG or anticardiolipin positivity (only beta2 glycoprotein IgA > 150 which is not included in criteria for antiphospholipid syndrome; consider repeating in 12 weeks). Protein C and ATIII levels noted to be low however likely to have been affected by coumadin and heparin therapy, respectively. Factor V Leiden and prothrombin gene mutations were not detected. 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 this is her baseline wbc count Approximately 40 min were spent at patient's bedside, in coordination of her care and speaking with her daughter Genet Problems: Consultation Date/Type/Reason Admit Date/Time Aug 19, 2016 at 05:00 Initial Consult Date 08/19/16 Type of Consultation: Hematology Reason for Consultation ITP Referring Provider: ERICA MARAVILLA MD 24 HR Interval Summary Free Text/Dictation no bleeding. platelets continue to drop. headache improved Exam/Review of Systems Vital Signs Vitals Vital Signs Date Time Temp Pulse Resp B/P Pulse Ox O2 Delivery O2 Flow Rate FiO2 09/08/16 08:16 97.9 75 18 127/60 98 Intake and Output 09/07/16 09/07/16 09/08/16 15:00 23:00 07:00 Intake Total 420 ml 450 ml Balance 420 ml 450 ml Exam Constitutional: alert, oriented Psych: no complaints Head: normocephalic Eyes: nl conjunctiva ENMT: nl external ears & nose Neck: non-tender, supple Respiratory: clear to auscultation, normal air movement Cardiovascular: regular rate and rhythm Gastrointestinal: soft Musculoskeletal: nl extremities to inspection Results Result Diagram: 09/08/16 0654 Results 24 hrs Laboratory Tests Test 09/07/16 17:23 09/07/16 20:29 09/08/16 06:54 09/08/16 08:00 Bedside Glucose 265 H 129 171 White Blood Count 11.8 H Red Blood Count 4.67 Hemoglobin 13.5 Hematocrit 41.8 Mean Corpuscular Volume 89.5 Mean Corpuscular Hemoglobin 28.9 L Mean Corpuscular Hemoglobin Concent 32.3 Red Cell Distribution Width 13.8 Platelet Count 5 #*L Mean Platelet Volume Neutrophils % 39.0 Band Neutrophils % 1.0 Lymphocytes % 42.0 Monocytes % 11.0 Eosinophils % 3.0 Basophils % 2.0 Metamyelocytes % 1.0 H Myelocytes % 1.0 H Neutrophils # 4.6 Lymphocytes # 5.0 H Monocytes # 1.3 H Eosinophils # 0.4 Basophils # 0.2 H Metamyelocytes # 0.1 Myelocytes # 0.1 Test 09/08/16 11:50 Bedside Glucose 199 Medications Medications Current Medications Levothyroxine Sodium (Synthroid) 100 mcg DAILY@06 PO Last administered on t 05:28; Admin Dose 100 MCG; Start 08/19/16 at 07:30 Lisinopril (Zestril) 5 mg DAILY PO Last administered on 09/08/16 09:00; Admin Dose 5 MG; Start 08/19/16 at 09:00 Metoprolol Tartrate (Lopressor) 25 mg BID PO Last administered on 09/08/16 08: 59; Admin Dose 25 MG; Start 08/19/16 at 09:00 Acetaminophen (Tylenol Tab) 650 mg Q6H PRN PO PAIN AND OR ELEVATED TEMP Last administered on 08/19/16 12:05; Admin Dose 650 MG; Start 08/19/16 at 07:30 Ondansetron HCl (Zofran Inj) 4 mg Q6H PRN IV NAUSEA AND/OR VOMITING; Start 08/19 at 07:30 Pantoprazole (Protonix Tab) 40 mg DAILY@06 PO Last administered on 09/08/16 05 :28; Admin Dose 40 MG; Start 08/19/16 at 07:30 Miscellaneous Information 1 ea NOTE XX ; Start 08/19/16 at 07:30 Glucose (Glutose) 15 gm Q15M PRN PO DECREASED GLUCOSE; Start 08/19/16 at 07:30 Glucose (Glutose) 22.5 gm Q15M PRN PO DECREASED GLUCOSE; Start 08/19/16 at 07:30 Dextrose (D50w Syringe) 25 ml Q15M PRN IV DECREASED GLUCOSE; Start 08/19/16 at 07:30 Dextrose (D50w Syringe) 50 ml Q15M PRN IV DECREASED GLUCOSE; Start 08/19/16 at 07:30 Glucagon (Glucagen) 1 mg Q15M PRN IM DECREASED GLUCOSE; Start 08/19/16 at 07:30 Glucose (Glutose) 15 gm Q15M PRN BUCCAL DECREASED GLUCOSE; Start 08/19/16 at 07: 30 Diphenhydramine HCl (Benadryl) 25 mg TID PRN PO ITCHING Last administered on 20:31; Admin Dose 25 MG; Start 08/20/16 at 20:30 Insulin Glargine (Lantus) 50 unit DAILY SC Last administered on 09/08/16 09:06 ; Admin Dose 50 UNIT; Start 08/22/16 at 09:00 Aspirin (Aspirin) 81 mg DAILY PO Last administered on 08/30/16 09:59; Admin Dose 81 MG; Start 08/24/16 at 17:00; Status Future Hold Miscellaneous Information Patients own medicat... BID@ XX Last administered on 09/08/16 10:28; Admin Dose 1 EA; Start 08/28/16 at 10:00 Eltrombopag (Promacta) 50 mg DAILY PO Last administered on 09/08/16 09:26; Admin Dose 50 MG; Start 09/08/16 at 09:00 MILADY FONG M.D. Sep 08, 2016 12:45
--- NOTE | 2016-09-08 18:40 | PN ---
Date/Time of Note Date/Time of Note DATE: 09/08/16 TIME: 18:39 Assessment/Plan VTE Prophylaxis VTE Prophylaxis Intervention: other Lines/Catheters [facility] Saline Lock Urinary Cath still in place: No Assessment/Plan Chief Complaint/Hosp Course IMPRESSION: Thrombocytopenia, diabetes mellitus, peripheral vascular disease, hypertension and history of idiopathic thrombocytopenic purpura.,thyroid mass s/ p biopsy,hyponatremia stable plan per dr neha amador promacta/ivig per dr solomon ck labs hold asa Problems: Subjective 24 Hr Interval Summary Respiratory: no complaints Cardiovascular: no complaints Exam/Review of Systems Vital Signs Vitals Vital Signs Date Time Temp Pulse Resp B/P Pulse Ox O2 Delivery O2 Flow Rate FiO2 09/08/16 08:16 97.9 75 18 127/60 98 Intake and Output 09/07/16 09/07/16 09/08/16 15:00 23:00 07:00 Intake Total 420 ml 450 ml Balance 420 ml 450 ml Exam Neck: supple Respiratory: clear to auscultation Cardiovascular: regular rate and rhythm Gastrointestinal: soft Genitourinary - Female: nl adnexae Musculoskeletal: nl extremities to inspection Extremities: normal pulses Results Result Diagram: 09/08/16 0654 Results 24 hrs Laboratory Tests Test 09/07/16 20:29 09/08/16 06:54 09/08/16 08:00 09/08/16 11:50 Bedside Glucose 129 171 199 White Blood Count 11.8 H Red Blood Count 4.67 Hemoglobin 13.5 Hematocrit 41.8 Mean Corpuscular Volume 89.5 Mean Corpuscular Hemoglobin 28.9 L Mean Corpuscular Hemoglobin Concent 32.3 Red Cell Distribution Width 13.8 Platelet Count 5 #*L Mean Platelet Volume Neutrophils % 39.0 Band Neutrophils % 1.0 Lymphocytes % 42.0 Monocytes % 11.0 Eosinophils % 3.0 Basophils % 2.0 Metamyelocytes % 1.0 H Myelocytes % 1.0 H Neutrophils # 4.6 Lymphocytes # 5.0 H Monocytes # 1.3 H Eosinophils # 0.4 Basophils # 0.2 H Metamyelocytes # 0.1 Myelocytes # 0.1 Test 09/08/16 17:12 Bedside Glucose 163 Medications Medications Current Medications Levothyroxine Sodium (Synthroid) 100 mcg DAILY@06 PO Last administered on t 05:28; Admin Dose 100 MCG; Start 08/19/16 at 07:30 Lisinopril (Zestril) 5 mg DAILY PO Last administered on 09/08/16 09:00; Admin Dose 5 MG; Start 08/19/16 at 09:00 Metoprolol Tartrate (Lopressor) 25 mg BID PO Last administered on 09/08/16 08: 59; Admin Dose 25 MG; Start 08/19/16 at 09:00 Acetaminophen (Tylenol Tab) 650 mg Q6H PRN PO PAIN AND OR ELEVATED TEMP Last administered on 08/19/16 12:05; Admin Dose 650 MG; Start 08/19/16 at 07:30 Ondansetron HCl (Zofran Inj) 4 mg Q6H PRN IV NAUSEA AND/OR VOMITING; Start 08/19 at 07:30 Pantoprazole (Protonix Tab) 40 mg DAILY@06 PO Last administered on 09/08/16 05 :28; Admin Dose 40 MG; Start 08/19/16 at 07:30 Miscellaneous Information 1 ea NOTE XX ; Start 08/19/16 at 07:30 Glucose (Glutose) 15 gm Q15M PRN PO DECREASED GLUCOSE; Start 08/19/16 at 07:30 Glucose (Glutose) 22.5 gm Q15M PRN PO DECREASED GLUCOSE; Start 08/19/16 at 07:30 Dextrose (D50w Syringe) 25 ml Q15M PRN IV DECREASED GLUCOSE; Start 08/19/16 at 07:30 Dextrose (D50w Syringe) 50 ml Q15M PRN IV DECREASED GLUCOSE; Start 08/19/16 at 07:30 Glucagon (Glucagen) 1 mg Q15M PRN IM DECREASED GLUCOSE; Start 08/19/16 at 07:30 Glucose (Glutose) 15 gm Q15M PRN BUCCAL DECREASED GLUCOSE; Start 08/19/16 at 07: 30 Diphenhydramine HCl (Benadryl) 25 mg TID PRN PO ITCHING Last administered on 20:31; Admin Dose 25 MG; Start 08/20/16 at 20:30 Insulin Glargine (Lantus) 50 unit DAILY SC Last administered on 09/08/16 09:06 ; Admin Dose 50 UNIT; Start 08/22/16 at 09:00 Aspirin (Aspirin) 81 mg DAILY PO Last administered on 08/30/16 09:59; Admin Dose 81 MG; Start 08/24/16 at 17:00; Status Future Hold Miscellaneous Information Patients own medicat... BID@ XX Last administered on 08/30/16 16:00; Admin Dose 1 EA; Start 08/28/16 at 10:00 Eltrombopag (Promacta) 50 mg DAILY PO Last administered on 09/08/16 09:26; Admin Dose 50 MG; Start 09/08/16 at 09:00 ERICA MARAVILLA MD Sep 08, 2016 18:40
[2016-09-08 20:29] VITALS: BP 124/58; RESP 20
[2016-09-09] MEDS: LEVOTHYROXINE 100 MCG TAB PO SCH (05:36)
[2016-09-09] MEDS: PANTOPRAZOLE (EC) 40 MG TAB PO SCH (05:36)
[2016-09-09 07:00] VITALS: BP 139/63; RESP 20
[2016-09-09 07:21] LABS: ADD SCAN DIFF NO
[2016-09-09 07:29] LABS: ABNORMAL IP MESSAGE 1; BASOPHIL # 0.1 10^3/ul (0.0-0.1); BASOPHILS % 0.9 % (0.0-2.0); EOSINOPHILS # 0.2 10^3/ul (0.0-0.5); EOSINOPHILS % 1.8 % (0.0-7.0); HEMATOCRIT 39.5 % (37.0-47.0); HEMOGLOBIN 12.9 g/dl (12.0-16.0); LYMPHOCYTES # 4.3 10^3/ul (0.8-2.9); LYMPHOCYTES % 40.2 % (15.0-51.0); MEAN CORPUSCULAR HEMOGLOBIN 29.1 pg (29.0-33.0); MEAN CORPUSCULAR HGB CONC 32.7 g/dl (32.0-37.0); MEAN CORPUSCULAR VOLUME 89.2 fl (82.0-101.0); MONOCYTE # 1.3 10^3/ul (0.3-0.9); MONOCYTES % 11.8 % (0.0-11.0); NEUTROPHIL # 4.9 10^3/ul (1.6-7.5); NEUTROPHILS % 45.1 % (39.0-77.0); RED BLOOD COUNT 4.43 10^6/ul (4.20-5.40); RED CELL DISTRIBUTION WIDTH 13.6 % (11.5-14.5); WHITE BLOOD COUNT 10.8 10^3/ul (4.8-10.8)
[2016-09-09 07:59] LABS: PLATELET COUNT 8 10^3/UL (140-415)
[2016-09-09] MEDS: INSULIN ASPART [NOVOLOG] 3 ML PEN SC SCH ×7 (09:06→21:00)
[2016-09-09] MEDS: INSULIN GLARGINE [LANtus] 3 ML PEN SC SCH (09:07)
[2016-09-09] MEDS: LISINOPRIL 5 MG TAB PO SCH (09:44)
[2016-09-09] MEDS: METOPROLOL 25 MG TAB PO SCH ×2 (09:45→21:17)
[2016-09-09] MEDS: ELTROMBOPAG OLAMINE 25 MG PO SCH (10:48)
--- NOTE | 2016-09-09 13:41 | CONS ---
Date/Time of Note Date/Time of Note DATE: 09/09/16 TIME: 13:40 Assessment/Plan Assessment/Plan Chief Complaint/Hosp Course 64yo with # ITP-PLATELETS DECREASED TO 8 TODAY ON PROMACTA 50MG Q DAY. no evidence of intracranial bleed on stat CT brain -will hold on prednisone for now as patient has diabetes. platelet count is on the rise - continue Promacta 50mg q day as 25mg is not able to maintain her platelet count . - pt was given 1 dose of IVIG and platelets 08/30.. The goal is to get patient on a stable dose of Promacta that keeps her platelets > 50K, without the help of IVIG, and to start asa at that time -if platelets are stable and > 50K tomorrow will give ASA 81at that time -once platelets are up trending, pt will be safe for discharge. # L neck mass - US neck 08/23/16 showed 1. Status post thyroidectomy. 2. Solid heterogeneous mass in the left side of the neck measuring 3.7 x 2.1 x 2.2 cm. Ultrasound-guided biopsy should be considered. Now s/p US guided biopsy of left thyroid bed 08/24/16 showing nodular goiter. Follow up with endocrinology. Path: Left thyroid nodule, ultrasound-guided fine needle aspiration: -- Compatible with nodular goiter, [place] system category II. # Ischemia to Bilateral feet and toes - this was likely secondary to the rapid increase in platelet count from the promacta. - This has dramatically improved since last admission - As stated before, holding Aspirin until patient's platelet count is consistently greater than 50K. - Note, angiography done during last admission reveals arteries of the lower extremities are widely patent bilaterally with good three-vessel runoff to the level of the ankles. - Hypercoag workup with no evidence of lupus anticoagulant, beta2 glycoprotein IgM or IgG or anticardiolipin positivity (only beta2 glycoprotein IgA > 150 which is not included in criteria for antiphospholipid syndrome; consider repeating in 12 weeks). Protein C and ATIII levels noted to be low however likely to have been affected by Coumadin and heparin therapy, respectively. Factor V Leiden and prothrombin gene mutations were not detected. 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 this is her baseline wbc count Approximately 40 min were spent at patient's bedside, in coordination of her care and speaking with her daughter Genet Problems: Consultation Date/Type/Reason Admit Date/Time Aug 19, 2016 at 05:00 Initial Consult Date 08/19/16 Type of Consultation: Hematology Reason for Consultation ITP Referring Provider: ERICA MARAVILLA MD 24 HR Interval Summary Free Text/Dictation no bleeding. patient's Platelet count diana to 8 today. headaches are improved Exam/Review of Systems Vital Signs Vitals Vital Signs Date Time Temp Pulse Resp B/P Pulse Ox O2 Delivery O2 Flow Rate FiO2 09/09/16 07:00 98.1 74 20 139/63 95 Intake and Output 09/08/16 09/08/16 09/09/16 15:00 23:00 07:00 Intake Total 1000 ml 350 ml Balance 1000 ml 350 ml Exam Constitutional: alert, oriented Psych: nl mood/affect, no complaints Head: normocephalic Eyes: nl conjunctiva ENMT: nl external ears & nose Neck: non-tender, supple Respiratory: clear to auscultation, normal air movement Cardiovascular: regular rate and rhythm Gastrointestinal: soft Musculoskeletal: nl extremities to inspection Results Result Diagram: 09/09/16 0640 Results 24 hrs Laboratory Tests Test 09/08/16 17:12 09/08/16 20:13 09/09/16 06:40 09/09/16 08:09 Bedside Glucose 163 176 210 White Blood Count 10.8 Red Blood Count 4.43 Hemoglobin 12.9 Hematocrit 39.5 Mean Corpuscular Volume 89.2 Mean Corpuscular Hemoglobin 29.1 Mean Corpuscular Hemoglobin Concent 32.7 Red Cell Distribution Width 13.6 Platelet Count 8 #*L Mean Platelet Volume Neutrophils % 45.1 Lymphocytes % 40.2 Monocytes % 11.8 H Eosinophils % 1.8 Basophils % 0.9 Nucleated Red Blood Cells % 0.0 Neutrophils # 4.9 Lymphocytes # 4.3 H Monocytes # 1.3 H Eosinophils # 0.2 Basophils # 0.1 Nucleated Red Blood Cells # 0.0 Test 09/09/16 12:11 Bedside Glucose 212 Medications Medications Current Medications Levothyroxine Sodium (Synthroid) 100 mcg DAILY@06 PO Last administered on t 05:36; Admin Dose 100 MCG; Start 08/19/16 at 07:30 Lisinopril (Zestril) 5 mg DAILY PO Last administered on 09/09/16 09:44; Admin Dose 5 MG; Start 08/19/16 at 09:00 Metoprolol Tartrate (Lopressor) 25 mg BID PO Last administered on 09/09/16 09: 45; Admin Dose 25 MG; Start 08/19/16 at 09:00 Acetaminophen (Tylenol Tab) 650 mg Q6H PRN PO PAIN AND OR ELEVATED TEMP Last administered on 08/19/16 12:05; Admin Dose 650 MG; Start 08/19/16 at 07:30 Ondansetron HCl (Zofran Inj) 4 mg Q6H PRN IV NAUSEA AND/OR VOMITING; Start 08/19 at 07:30 Pantoprazole (Protonix Tab) 40 mg DAILY@06 PO Last administered on 09/09/16 05 :36; Admin Dose 40 MG; Start 08/19/16 at 07:30 Miscellaneous Information 1 ea NOTE XX ; Start 08/19/16 at 07:30 Glucose (Glutose) 15 gm Q15M PRN PO DECREASED GLUCOSE; Start 08/19/16 at 07:30 Glucose (Glutose) 22.5 gm Q15M PRN PO DECREASED GLUCOSE; Start 08/19/16 at 07:30 Dextrose (D50w Syringe) 25 ml Q15M PRN IV DECREASED GLUCOSE; Start 08/19/16 at 07:30 Dextrose (D50w Syringe) 50 ml Q15M PRN IV DECREASED GLUCOSE; Start 08/19/16 at 07:30 Glucagon (Glucagen) 1 mg Q15M PRN IM DECREASED GLUCOSE; Start 08/19/16 at 07:30 Glucose (Glutose) 15 gm Q15M PRN BUCCAL DECREASED GLUCOSE; Start 08/19/16 at 07: 30 Diphenhydramine HCl (Benadryl) 25 mg TID PRN PO ITCHING Last administered on 20:31; Admin Dose 25 MG; Start 08/20/16 at 20:30 Aspirin (Aspirin) 81 mg DAILY PO Last administered on 08/30/16 09:59; Admin Dose 81 MG; Start 08/24/16 at 17:00; Status Future Hold Miscellaneous Information Patients own medicat... BID@10,16 XX Last administered on 09/09/16 10:50; Admin Dose 1 EA; Start 08/28/16 at 10:00 Eltrombopag (Promacta) 50 mg DAILY PO Last administered on 09/09/16 10:48; Admin Dose 50 MG; Start 09/08/16 at 09:00 Insulin Glargine (Lantus) 50 unit DAILY@08 SC ; Start 09/10/16 at 08:00 MILADY FONG M.D. Sep 09, 2016 13:41
--- NOTE | 2016-09-09 17:07 | PN ---
Date/Time of Note Date/Time of Note DATE: 09/09/16 TIME: 17:05 Assessment/Plan VTE Prophylaxis VTE Prophylaxis Intervention: ambulation Lines/Catheters IV [facility] Type (from [facility]): [facility] Urinary Cath still in place: No Assessment/Plan Chief Complaint/Hosp Course 1. Thrombocytopenia, 2.diabetes mellitus, 3. peripheral vascular disease, 4.hypertension 5. history of idiopathic thrombocytopenic purpura., 6. thyroid mass s/p biopsy, 7. hyponatremia stable Problems: Subjective 24 Hr Interval Summary Constitutional: no complaints Eyes: no complaints ENT: no complaints Respiratory: no complaints Cardiovascular: no complaints Skin: bruising Exam/Review of Systems Vital Signs Vitals Vital Signs Date Time Temp Pulse Resp B/P Pulse Ox O2 Delivery O2 Flow Rate FiO2 09/09/16 07:00 98.1 74 20 139/63 95 Intake and Output 09/08/16 09/08/16 09/09/16 15:00 23:00 07:00 Intake Total 1000 ml 350 ml Balance 1000 ml 350 ml Exam Constitutional: alert Psych: no complaints Results Result Diagram: 09/09/16 0640 Results 24 hrs Laboratory Tests Test 09/08/16 17:12 09/08/16 20:13 09/09/16 06:40 09/09/16 08:09 Bedside Glucose 163 176 210 White Blood Count 10.8 Red Blood Count 4.43 Hemoglobin 12.9 Hematocrit 39.5 Mean Corpuscular Volume 89.2 Mean Corpuscular Hemoglobin 29.1 Mean Corpuscular Hemoglobin Concent 32.7 Red Cell Distribution Width 13.6 Platelet Count 8 #*L Mean Platelet Volume Neutrophils % 45.1 Lymphocytes % 40.2 Monocytes % 11.8 H Eosinophils % 1.8 Basophils % 0.9 Nucleated Red Blood Cells % 0.0 Neutrophils # 4.9 Lymphocytes # 4.3 H Monocytes # 1.3 H Eosinophils # 0.2 Basophils # 0.1 Nucleated Red Blood Cells # 0.0 Test 09/09/16 12:11 Bedside Glucose 212 Medications Medications Current Medications Levothyroxine Sodium (Synthroid) 100 mcg DAILY@06 PO Last administered on 05:36; Admin Dose 100 MCG; Start 08/19/16 at 07:30 Lisinopril (Zestril) 5 mg DAILY PO Last administered on 09/09/16 09:44; Admin Dose 5 MG; Start 08/19/16 at 09:00 Metoprolol Tartrate (Lopressor) 25 mg BID PO Last administered on 09/09/16 09: 45; Admin Dose 25 MG; Start 08/19/16 at 09:00 Acetaminophen (Tylenol Tab) 650 mg Q6H PRN PO PAIN AND OR ELEVATED TEMP Last administered on 08/19/16 12:05; Admin Dose 650 MG; Start 08/19/16 at 07:30 Ondansetron HCl (Zofran Inj) 4 mg Q6H PRN IV NAUSEA AND/OR VOMITING; Start 08/19 at 07:30 Pantoprazole (Protonix Tab) 40 mg DAILY@06 PO Last administered on 09/09/16 05 :36; Admin Dose 40 MG; Start 08/19/16 at 07:30 Miscellaneous Information 1 ea NOTE XX ; Start 08/19/16 at 07:30 Glucose (Glutose) 15 gm Q15M PRN PO DECREASED GLUCOSE; Start 08/19/16 at 07:30 Glucose (Glutose) 22.5 gm Q15M PRN PO DECREASED GLUCOSE; Start 08/19/16 at 07:30 Dextrose (D50w Syringe) 25 ml Q15M PRN IV DECREASED GLUCOSE; Start 08/19/16 at 07:30 Dextrose (D50w Syringe) 50 ml Q15M PRN IV DECREASED GLUCOSE; Start 08/19/16 at 07:30 Glucagon (Glucagen) 1 mg Q15M PRN IM DECREASED GLUCOSE; Start 08/19/16 at 07:30 Glucose (Glutose) 15 gm Q15M PRN BUCCAL DECREASED GLUCOSE; Start 08/19/16 at 07: 30 Diphenhydramine HCl (Benadryl) 25 mg TID PRN PO ITCHING Last administered on 20:31; Admin Dose 25 MG; Start 08/20/16 at 20:30 Aspirin (Aspirin) 81 mg DAILY PO Last administered on 08/30/16 09:59; Admin Dose 81 MG; Start 08/24/16 at 17:00; Status Future Hold Miscellaneous Information Patients own medicat... BID@10,16 XX Last administered on 09/09/16 16:20; Admin Dose 1 EA; Start 08/28/16 at 10:00 Eltrombopag (Promacta) 50 mg DAILY PO Last administered on 09/09/16t 10:48; Admin Dose 50 MG; Start 09/08/16 at 09:00 Insulin Glargine (Lantus) 50 unit DAILY@08 SC ; Start 09/10/16 at 08:00 BRANDON GREGORY Sep 09, 2016 17:07
[2016-09-09 20:46] VITALS: BP 135/62; RESP 20
[2016-09-10] MEDS ORDERED: DIPHENHYDRAMINE 25 MG CAP PO ONE
[2016-09-10] MEDS: ACETAMINOPHEN 325 MG TAB PO PRN (04:34)
[2016-09-10] MEDS: LEVOTHYROXINE 100 MCG TAB PO SCH (06:27)
[2016-09-10] MEDS: PANTOPRAZOLE (EC) 40 MG TAB PO SCH (06:27)
[2016-09-10 07:00] VITALS: BP 136/68; RESP 18
[2016-09-10] MEDS: INSULIN ASPART [NOVOLOG] 3 ML PEN SC SCH ×7 (07:50→21:00)
[2016-09-10] MEDS: INSULIN GLARGINE [LANtus] 3 ML PEN SC SCH (08:50)
[2016-09-10] MEDS: LISINOPRIL 5 MG TAB PO SCH (09:16)
[2016-09-10] MEDS: METOPROLOL 25 MG TAB PO SCH ×2 (09:16→21:19)
[2016-09-10] MEDS: ELTROMBOPAG OLAMINE 25 MG PO SCH (11:05)
--- NOTE | 2016-09-10 13:42 | PN ---
Date/Time of Note Date/Time of Note DATE: 09/10/16 TIME: 13:37 Assessment/Plan VTE Prophylaxis VTE Prophylaxis Intervention: ambulation Lines/Catheters IV Catheter Type (from [facility]): [facility]ine [facility] Urinary Cath still in place: No Assessment/Plan Assessment/Plan # ITP-PLATELETS low ON PROMACTA 50MG Q DAY. no evidence of intracranial bleed on stat CT brain She received 1 unit platelet last night because of increasing purpura on her LE noticed by daughter, check cbc - continue Promacta 50mg q day as 25mg is not able to maintain her platelet count . The goal is to get patient on a stable dose of Promacta that keeps her platelets > 50K -once platelets are up trending, pt will be safe for discharge. # L neck mass - US neck 08/23/16 showed 1. Status post thyroidectomy. 2. Solid heterogeneous mass in the left side of the neck measuring 3.7 x 2.1 x 2.2 cm. Ultrasound-guided biopsy should be considered. Now s/p US guided biopsy of left thyroid bed 08/24/16 showing nodular goiter. Follow up with endocrinology. Path: Left thyroid nodule, ultrasound-guided fine needle aspiration: -- Compatible with nodular goiter, [place] system category II. # Ischemia to Bilateral feet and toes - this maybe likely secondary to the previous rapid increase in platelet count from the promacta. - This has dramatically improved since last admission - As stated before, holding Aspirin until patient's platelet count is consistently greater than 50K. - Note, angiography done during last admission reveals arteries of the lower extremities are widely patent bilaterally with good three-vessel runoff to the level of the ankles. 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 this is her baseline wbc count Subjective 24 Hr Interval Summary Free Text/Dictation refused lab draw earlier, but now has agreed. no ischemia in toes, had purpura noted last night in LE and received 1 unit platelet Exam/Review of Systems Vital Signs Vitals Vital Signs Date Time Temp Pulse Resp B/P Pulse Ox O2 Delivery O2 Flow Rate FiO2 09/10/16 07:00 97.8 76 18 136/68 96 Intake and Output 09/09/16 09/09/16 09/10/16 15:00 23:00 07:00 Intake Total 800 ml 1050 ml Output Total 750 ml Balance 800 ml 300 ml Exam Constitutional: alert, oriented Psych: nl mood/affect Eyes: nl conjunctiva Neck: supple Gastrointestinal: soft Extremities: normal pulses Results Result Diagram: 09/09/16 0640 Results 24 hrs Laboratory Tests Test 09/09/16 17:41 09/09/16 21:13 09/10/16 08:00 09/10/16 12:00 Bedside Glucose 167 145 137 133 Medications Medications Current Medications Levothyroxine Sodium (Synthroid) 100 mcg DAILY@06 PO Last administered on 06:27; Admin Dose 100 MCG; Start 08/19/16 at 07:30 Lisinopril (Zestril) 5 mg DAILY PO Last administered on 09/10/16 09:16; Admin Dose 5 MG; Start 08/19/16 at 09:00 Metoprolol Tartrate (Lopressor) 25 mg BID PO Last administered on 09/10/16 09: 16; Admin Dose 25 MG; Start 08/19/16 at 09:00 Acetaminophen (Tylenol Tab) 650 mg Q6H PRN PO PAIN AND OR ELEVATED TEMP Last administered on 09/10/16 04:34; Admin Dose 650 MG; Start 08/19/16 at 07:30 Ondansetron HCl (Zofran Inj) 4 mg Q6H PRN IV NAUSEA AND/OR VOMITING; Start 08/19 at 07:30 Pantoprazole (Protonix Tab) 40 mg DAILY@06 PO Last administered on 09/10/16 06 :27; Admin Dose 40 MG; Start 08/19/16 at 07:30 Miscellaneous Information 1 ea NOTE XX ; Start 08/19/16 at 07:30 Glucose (Glutose) 15 gm Q15M PRN PO DECREASED GLUCOSE; Start 08/19/16 at 07:30 Glucose (Glutose) 22.5 gm Q15M PRN PO DECREASED GLUCOSE; Start 08/19/16 at 07:30 Dextrose (D50w Syringe) 25 ml Q15M PRN IV DECREASED GLUCOSE; Start 08/19/16 at 07:30 Dextrose (D50w Syringe) 50 ml Q15M PRN IV DECREASED GLUCOSE; Start 08/19/16 at 07:30 Glucagon (Glucagen) 1 mg Q15M PRN IM DECREASED GLUCOSE; Start 08/19/16 at 07:30 Glucose (Glutose) 15 gm Q15M PRN BUCCAL DECREASED GLUCOSE; Start 08/19/16 at 07: 30 Diphenhydramine HCl (Benadryl) 25 mg TID PRN PO ITCHING Last administered on 20:31; Admin Dose 25 MG; Start 08/20/16 at 20:30 Aspirin (Aspirin) 81 mg DAILY PO Last administered on 08/30/16 09:59; Admin Dose 81 MG; Start 08/24/16 at 17:00; Status Future Hold Miscellaneous Information Patients own medicat... BID@,16 XX Last administered on 09/09/16 16:20; Admin Dose 1 EA; Start 08/28/16 at 10:00 Eltrombopag (Promacta) 50 mg DAILY PO Last administered on 09/10/16 11:05; Admin Dose 50 MG; Start 09/08/16 at 09:00 Insulin Glargine (Lantus) 50 unit DAILY@08 SC Last administered on 09/10/16 08 :50; Admin Dose 50 UNIT; Start 09/10/16 at 08:00 FRANCIS DEVLIN MD Sep 10, 2016 13:42
[2016-09-10 14:00] VITALS: BP 132/74; PULSE 78; RESP 18
--- NOTE | 2016-09-10 14:25 | PN ---
Date/Time of Note Date/Time of Note DATE: 09/10/16 TIME: 14:23 Assessment/Plan VTE Prophylaxis VTE Prophylaxis Intervention: ambulation Lines/Catheters IV [facility] Type [facility]from [facility] Urinary Cath still in place: No Assessment/Plan Chief Complaint/Hosp Course 1. Thrombocytopenia, 2.diabetes mellitus, 3. peripheral vascular disease, 4.hypertension 5. history of idiopathic thrombocytopenic purpura., Problems: Assessment/Plan 1. Continue per oncology 2. Keep hospitalized Subjective 24 Hr Interval Summary Constitutional: no complaints Eyes: no complaints ENT: no complaints Exam/Review of Systems Vital Signs Vitals Vital Signs Date Time Temp Pulse Resp B/P Pulse Ox O2 Delivery O2 Flow Rate FiO2 09/10/16 07:00 97.8 76 18 136/68 96 Intake and Output 09/09/16 09/09/16 09/10/16 15:00 23:00 07:00 Intake Total 800 ml 1050 ml Output Total 750 ml Balance 800 ml 300 ml Exam Constitutional: alert ENMT: nl external ears & nose Respiratory: clear to auscultation Cardiovascular: regular rate and rhythm Results Result Diagram: 09/09/16 0640 Results 24 hrs Laboratory Tests Test 09/09/16 17:41 09/09/16 21:13 09/10/16 08:00 09/10/16 12:00 Bedside Glucose 167 145 137 133 Medications Medications Current Medications Levothyroxine Sodium (Synthroid) 100 mcg DAILY@06 PO Last administered on 06:27; Admin Dose 100 MCG; Start 08/19/16 at 07:30 Lisinopril (Zestril) 5 mg DAILY PO Last administered on 09/10/16 09:16; Admin Dose 5 MG; Start 08/19/16 at 09:00 Metoprolol Tartrate (Lopressor) 25 mg BID PO Last administered on 09/10/16 09: 16; Admin Dose 25 MG; Start 08/19/16 at 09:00 Acetaminophen (Tylenol Tab) 650 mg Q6H PRN PO PAIN AND OR ELEVATED TEMP Last administered on 09/10/16 04:34; Admin Dose 650 MG; Start 08/19/16 at 07:30 Ondansetron HCl (Zofran Inj) 4 mg Q6H PRN IV NAUSEA AND/OR VOMITING; Start 08/19 at 07:30 Pantoprazole (Protonix Tab) 40 mg DAILY@06 PO Last administered on 09/10/16 06 :27; Admin Dose 40 MG; Start 08/19/16 at 07:30 Miscellaneous Information 1 ea NOTE XX ; Start 08/19/16 at 07:30 Glucose (Glutose) 15 gm Q15M PRN PO DECREASED GLUCOSE; Start 08/19/16 at 07:30 Glucose (Glutose) 22.5 gm Q15M PRN PO DECREASED GLUCOSE; Start 08/19/16 at 07:30 Dextrose (D50w Syringe) 25 ml Q15M PRN IV DECREASED GLUCOSE; Start 08/19/16 at 07:30 Dextrose (D50w Syringe) 50 ml Q15M PRN IV DECREASED GLUCOSE; Start 08/19/16 at 07:30 Glucagon (Glucagen) 1 mg Q15M PRN IM DECREASED GLUCOSE; Start 08/19/16 at 07:30 Glucose (Glutose) 15 gm Q15M PRN BUCCAL DECREASED GLUCOSE; Start 08/19/16 at 07: 30 Diphenhydramine HCl (Benadryl) 25 mg TID PRN PO ITCHING Last administered on 20:31; Admin Dose 25 MG; Start 08/20/16 at 20:30 Aspirin (Aspirin) 81 mg DAILY PO Last administered on 08/30/16 09:59; Admin Dose 81 MG; Start 08/24/16 at 17:00; Status Future Hold Miscellaneous Information Patients own medicat... BID@10,16 XX Last administered on 09/09/16 16:20; Admin Dose 1 EA; Start 08/28/16 at 10:00 Eltrombopag (Promacta) 50 mg DAILY PO Last administered on 09/10/16 11:05; Admin Dose 50 MG; Start 09/08/16 at 09:00 Insulin Glargine (Lantus) 50 unit DAILY@08 SC Last administered on 09/10/16 08 :50; Admin Dose 50 UNIT; Start 09/10/16 at 08:00 BRANDON GREGORY Sep 10, 2016 14:25
[2016-09-10 15:02] LABS: ADD SCAN DIFF NO
[2016-09-10 15:08] LABS: ABNORMAL IP MESSAGE 1; HEMATOCRIT 42.2 % (37.0-47.0); HEMOGLOBIN 13.4 g/dl (12.0-16.0); MEAN CORPUSCULAR HEMOGLOBIN 29.5 pg (29.0-33.0); MEAN CORPUSCULAR HGB CONC 31.8 g/dl (32.0-37.0); MEAN CORPUSCULAR VOLUME 92.7 fl (82.0-101.0); MEAN PLATELET VOLUME 11.5 fl (7.4-10.4); RED BLOOD COUNT 4.55 10^6/ul (4.20-5.40); WHITE BLOOD COUNT 11.4 10^3/ul (4.8-10.8)
[2016-09-10 20:25] VITALS: BP 118/59; RESP 20
[2016-09-10 21:05] LABS: PLATELET COUNT 81 10^3/UL (140-415)
[2016-09-10 21:09] LABS: EOSINOPHILS # 0.1 10^3/ul (0.0-0.5); LYMPHOCYTES # 4.6 10^3/ul (0.8-2.9); NEUTROPHIL # 5.7 10^3/ul (1.6-7.5)
[2016-09-11 05:46] LABS: ADD SCAN DIFF NO
[2016-09-11 06:02] LABS: ABNORMAL IP MESSAGE 1; BASOPHIL # 0.1 10^3/ul (0.0-0.1); EOSINOPHILS # 0.2 10^3/ul (0.0-0.5); EOSINOPHILS % 1.8 % (0.0-7.0); HEMATOCRIT 39.2 % (37.0-47.0); LYMPHOCYTES # 4.9 10^3/ul (0.8-2.9); LYMPHOCYTES % 43.2 % (15.0-51.0); MEAN CORPUSCULAR HEMOGLOBIN 29.3 pg (29.0-33.0); MEAN CORPUSCULAR HGB CONC 33.2 g/dl (32.0-37.0); MEAN CORPUSCULAR VOLUME 88.5 fl (82.0-101.0); MONOCYTE # 1.3 10^3/ul (0.3-0.9); MONOCYTES % 11.1 % (0.0-11.0); NEUTROPHIL # 4.8 10^3/ul (1.6-7.5); NEUTROPHILS % 42.6 % (39.0-77.0); RED BLOOD COUNT 4.43 10^6/ul (4.20-5.40); RED CELL DISTRIBUTION WIDTH 13.4 % (11.5-14.5); WHITE BLOOD COUNT 11.2 10^3/ul (4.8-10.8)
[2016-09-11 06:19] LABS: POTASSIUM 3.9 mmol/L (3.5-5.1)
[2016-09-11 06:21] LABS: CREATININE 0.58 mg/dl (0.44-1.00)
[2016-09-11 06:22] LABS: CALCIUM 9.5 mg/dl (8.4-10.2)
[2016-09-11 06:37] LABS: PLATELET COUNT 48 10^3/UL (140-415)
[2016-09-11] MEDS: PANTOPRAZOLE (EC) 40 MG TAB PO SCH (06:51)
[2016-09-11] MEDS: LEVOTHYROXINE 100 MCG TAB PO SCH (06:51)
[2016-09-11 08:06] VITALS: BP 148/67; RESP 20
[2016-09-11] MEDS: LISINOPRIL 5 MG TAB PO SCH (08:31)
[2016-09-11] MEDS: METOPROLOL 25 MG TAB PO SCH ×2 (08:31→21:59)
[2016-09-11] MEDS: ELTROMBOPAG OLAMINE 25 MG PO SCH (08:32)
[2016-09-11] MEDS: INSULIN GLARGINE [LANtus] 3 ML PEN SC SCH (08:42)
[2016-09-11] MEDS: INSULIN ASPART [NOVOLOG] 3 ML PEN SC SCH ×7 (08:43→22:04)
--- NOTE | 2016-09-11 12:38 | PN ---
Date/Time of Note Date/Time of Note DATE: 09/11/16 TIME: 12:36 Assessment/Plan VTE Prophylaxis VTE Prophylaxis Intervention: ambulation Lines/Catheters IV C[facility]ter Type (from [facility]): Saline Lock Urinary Cath still in place: No Assessment/Plan Assessment/Plan # ITP-PLATELETS were low ON PROMACTA 50MG Q DAY. no evidence of intracranial bleed on stat CT brain She received 1 unit platelet last night because of increasing purpura on her LE noticed by daughter, check cbc - continue Promacta 50mg q day as 25mg is not able to maintain her platelet count . The goal is to get patient on a stable dose of Promacta that keeps her platelets > 50K -once platelets are up trending, pt will be safe for discharge. Her platelets did respond to transfusion but expect to go lower in next 48 hours. # L neck mass - US neck 08/23/16 showed 1. Status post thyroidectomy. 2. Solid heterogeneous mass in the left side of the neck measuring 3.7 x 2.1 x 2.2 cm. Ultrasound-guided biopsy should be considered. Now s/p US guided biopsy of left thyroid bed 08/24/16 showing nodular goiter. Follow up with endocrinology. Path: Left thyroid nodule, ultrasound-guided fine needle aspiration: -- Compatible with nodular goiter, [place] system category II. # Ischemia to Bilateral feet and toes - this maybe likely secondary to the previous rapid increase in platelet count from the promacta. - This has dramatically improved since last admission and hasn't worsened with platelet improvement now, - As stated before, holding Aspirin until patient's platelet count is consistently greater than 50K. - Note, angiography done during last admission reveals arteries of the lower extremities are widely patent bilaterally with good three-vessel runoff to the level of the ankles. 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 this is her baseline wbc count Subjective 24 Hr Interval Summary Constitutional: no complaints Eyes: no complaints Respiratory: no complaints Cardiovascular: no complaints Exam/Review of Systems Vital Signs Vitals Vital Signs Date Time Temp Pulse Resp B/P Pulse Ox O2 Delivery O2 Flow Rate FiO2 09/11/16 08:06 98.2 85 20 148/67 95 09/10/16 14:00 Room Air Intake and Output 09/10/16 09/10/16 09/11/16 15:00 23:00 07:00 Intake Total 1200 ml 480 ml Output Total 1000 ml Balance 200 ml 480 ml Exam Constitutional: alert, oriented Eyes: nl conjunctiva Neck: supple Respiratory: normal air movement Extremities: normal pulses Results Result Diagram: 09/11/16 0425 09/11/16 0425 Results 24 hrs Laboratory Tests Test 09/10/16 13:30 09/10/16 17:40 09/10/16 21:18 09/11/16 04:25 White Blood Count 11.4 H 11.2 H Red Blood Count 4.55 4.43 Hemoglobin 13.4 13.0 Hematocrit 42.2 39.2 Mean Corpuscular Volume 92.7 88.5 Mean Corpuscular Hemoglobin 29.5 29.3 Mean Corpuscular Hemoglobin Concent 31.8 L 33.2 Red Cell Distribution Width 14.0 13.4 Platelet Count 81 #L 48 #L Mean Platelet Volume 11.5 #H Neutrophils % 50.0 42.6 Lymphocytes % 40.0 43.2 Monocytes % 9.0 11.1 H Eosinophils % 1.0 1.8 Neutrophils # 5.7 4.8 Lymphocytes # 4.6 H 4.9 H Monocytes # 1.0 H 1.3 H Eosinophils # 0.1 0.2 Bedside Glucose 161 166 Basophils % 1.0 Nucleated Red Blood Cells % 0.0 Basophils # 0.1 Nucleated Red Blood Cells # 0.0 Sodium Level 142 Potassium Level 3.9 Chloride Level 102 Carbon Dioxide Level 28 Anion Gap 16 Blood Urea Nitrogen 18 Creatinine 0.58 Glucose Level 115 Calcium Level 9.5 Test 09/11/16 08:29 09/11/16 12:33 Bedside Glucose 142 167 Medications Medications Current Medications Levothyroxine Sodium (Synthroid) 100 mcg DAILY@06 PO Last administered on 06:51; Admin Dose 100 MCG; Start 08/19/16 at 07:30 Lisinopril (Zestril) 5 mg DAILY PO Last administered on 09/11/16 08:31; Admin Dose 5 MG; Start 08/19/16 at 09:00 Metoprolol Tartrate (Lopressor) 25 mg BID PO Last administered on 09/11/16 08: 31; Admin Dose 25 MG; Start 08/19/16 at 09:00 Acetaminophen (Tylenol Tab) 650 mg Q6H PRN PO PAIN AND OR ELEVATED TEMP Last administered on 09/10/16 04:34; Admin Dose 650 MG; Start 08/19/16 at 07:30 Ondansetron HCl (Zofran Inj) 4 mg Q6H PRN IV NAUSEA AND/OR VOMITING; Start 08/19 at 07:30 Pantoprazole (Protonix Tab) 40 mg DAILY@06 PO Last administered on 09/11/16 06 :51; Admin Dose 40 MG; Start 08/19/16 at 07:30 Miscellaneous Information 1 ea NOTE XX ; Start 08/19/16 at 07:30 Glucose (Glutose) 15 gm Q15M PRN PO DECREASED GLUCOSE; Start 08/19/16 at 07:30 Glucose (Glutose) 22.5 gm Q15M PRN PO DECREASED GLUCOSE; Start 08/19/16 at 07:30 Dextrose (D50w Syringe) 25 ml Q15M PRN IV DECREASED GLUCOSE; Start 08/19/16 at 07:30 Dextrose (D50w Syringe) 50 ml Q15M PRN IV DECREASED GLUCOSE; Start 08/19/16 at 07:30 Glucagon (Glucagen) 1 mg Q15M PRN IM DECREASED GLUCOSE; Start 08/19/16 at 07:30 Glucose (Glutose) 15 gm Q15M PRN BUCCAL DECREASED GLUCOSE; Start 08/19/16 at 07: 30 Diphenhydramine HCl (Benadryl) 25 mg TID PRN PO ITCHING Last administered on 20:31; Admin Dose 25 MG; Start 08/20/16 at 20:30 Aspirin (Aspirin) 81 mg DAILY PO Last administered on 08/30/16 09:59; Admin Dose 81 MG; Start 08/24/16 at 17:00; Status Future Hold Miscellaneous Information Patients own medicat... BID@ XX Last administered on 09/11/16 10:00; Admin Dose 2 EA; Start 08/28/16 at 10:00 Eltrombopag (Promacta) 50 mg DAILY PO Last administered on 09/11/16 08:32; Admin Dose 50 MG; Start 09/08/16 at 09:00 Insulin Glargine (Lantus) 50 unit DAILY@08 SC Last administered on 09/11/16t 08 :42; Admin Dose 50 UNIT; Start 09/10/16 at 08:00 FRANCIS DEVLIN MD Sep 11, 2016 12:38
--- NOTE | 2016-09-11 18:16 | PN ---
Date/Time of Note Date/Time of Note DATE: 09/11/16 TIME: 18:15 Assessment/Plan VTE Prophylaxis VTE Prophylaxis Intervention: other Lines/Catheters IV [facility]from [facility] Lock Urinary Cath still in place: No Assessment/Plan Chief Complaint/Hosp Course IMPRESSION: Thrombocytopenia, diabetes mellitus, peripheral vascular disease, hypertension and history of idiopathic thrombocytopenic purpura.,thyroid mass s/ p biopsy,hyponatremia stable plan per dr neha amador promacta/ivig per dr solomon ck labs home when platelet better Problems: Subjective 24 Hr Interval Summary Cardiovascular: no complaints Gastrointestinal: no complaints Exam/Review of Systems Vital Signs Vitals Vital Signs Date Time Temp Pulse Resp B/P Pulse Ox O2 Delivery O2 Flow Rate FiO2 09/11/16 08:06 98.2 85 20 148/67 95 09/10/16 14:00 Room Air Intake and Output 09/10/16 09/10/16 09/11/16 15:00 23:00 07:00 Intake Total 1200 ml 480 ml Output Total 1000 ml Balance 200 ml 480 ml Exam Neck: supple Respiratory: clear to auscultation Cardiovascular: regular rate and rhythm Gastrointestinal: soft Results Result Diagram: 09/11/16 0425 09/11/16 0425 Results 24 hrs Laboratory Tests Test 09/10/16 21:18 09/11/16 04:25 09/11/16 08:29 09/11/16 12:33 Bedside Glucose 166 142 167 White Blood Count 11.2 H Red Blood Count 4.43 Hemoglobin 13.0 Hematocrit 39.2 Mean Corpuscular Volume 88.5 Mean Corpuscular Hemoglobin 29.3 Mean Corpuscular Hemoglobin Concent 33.2 Red Cell Distribution Width 13.4 Platelet Count 48 #L Mean Platelet Volume Neutrophils % 42.6 Lymphocytes % 43.2 Monocytes % 11.1 H Eosinophils % 1.8 Basophils % 1.0 Nucleated Red Blood Cells % 0.0 Neutrophils # 4.8 Lymphocytes # 4.9 H Monocytes # 1.3 H Eosinophils # 0.2 Basophils # 0.1 Nucleated Red Blood Cells # 0.0 Sodium Level 142 Potassium Level 3.9 Chloride Level 102 Carbon Dioxide Level 28 Anion Gap 16 Blood Urea Nitrogen 18 Creatinine 0.58 Glucose Level 115 Calcium Level 9.5 Test 09/11/16 17:38 Bedside Glucose 155 Medications Medications Current Medications Levothyroxine Sodium (Synthroid) 100 mcg DAILY@06 PO Last administered on 06:51; Admin Dose 100 MCG; Start 08/19/16 at 07:30 Lisinopril (Zestril) 5 mg DAILY PO Last administered on 09/11/16 08:31; Admin Dose 5 MG; Start 08/19/16 at 09:00 Metoprolol Tartrate (Lopressor) 25 mg BID PO Last administered on 09/11/16 08: 31; Admin Dose 25 MG; Start 08/19/16 at 09:00 Acetaminophen (Tylenol Tab) 650 mg Q6H PRN PO PAIN AND OR ELEVATED TEMP Last administered on 09/10/16 04:34; Admin Dose 650 MG; Start 08/19/16 at 07:30 Ondansetron HCl (Zofran Inj) 4 mg Q6H PRN IV NAUSEA AND/OR VOMITING; Start 08/19 at 07:30 Pantoprazole (Protonix Tab) 40 mg DAILY@06 PO Last administered on 09/11/16 06 :51; Admin Dose 40 MG; Start 08/19/16 at 07:30 Miscellaneous Information 1 ea NOTE XX ; Start 08/19/16 at 07:30 Glucose (Glutose) 15 gm Q15M PRN PO DECREASED GLUCOSE; Start 08/19/16 at 07:30 Glucose (Glutose) 22.5 gm Q15M PRN PO DECREASED GLUCOSE; Start 08/19/16 at 07:30 Dextrose (D50w Syringe) 25 ml Q15M PRN IV DECREASED GLUCOSE; Start 08/19/16 at 07:30 Dextrose (D50w Syringe) 50 ml Q15M PRN IV DECREASED GLUCOSE; Start 08/19/16 at 07:30 Glucagon (Glucagen) 1 mg Q15M PRN IM DECREASED GLUCOSE; Start 08/19/16 at 07:30 Glucose (Glutose) 15 gm Q15M PRN BUCCAL DECREASED GLUCOSE; Start 08/19/16 at 07: 30 Diphenhydramine HCl (Benadryl) 25 mg TID PRN PO ITCHING Last administered on 20:31; Admin Dose 25 MG; Start 08/20/16 at 20:30 Aspirin (Aspirin) 81 mg DAILY PO Last administered on 08/30/16 09:59; Admin Dose 81 MG; Start 08/24/16 at 17:00; Status Future Hold Miscellaneous Information Patients own medicat... BID@10,16 XX Last administered on 09/11/16 16:00; Admin Dose 1 EA; Start 08/28/16 at 10:00 Eltrombopag (Promacta) 50 mg DAILY PO Last administered on 09/11/16 08:32; Admin Dose 50 MG; Start 09/08/16 at 09:00 Insulin Glargine (Lantus) 50 unit DAILY@08 SC Last administered on 09/11/16 08 :42; Admin Dose 50 UNIT; Start 09/10/16 at 08:00 ERICA MARAVILLA MD Sep 11, 2016 18:16
[2016-09-11 19:30] VITALS: BP 119/56; RESP 20
[2016-09-12 05:27] LABS: ADD SCAN DIFF NO
[2016-09-12 05:36] LABS: ABNORMAL IP MESSAGE 1; BASOPHIL # 0.1 10^3/ul (0.0-0.1); BASOPHILS % 1.1 % (0.0-2.0); EOSINOPHILS # 0.2 10^3/ul (0.0-0.5); EOSINOPHILS % 1.9 % (0.0-7.0); HEMATOCRIT 39.4 % (37.0-47.0); HEMOGLOBIN 12.9 g/dl (12.0-16.0); LYMPHOCYTES # 5.2 10^3/ul (0.8-2.9); LYMPHOCYTES % 45.7 % (15.0-51.0); MEAN CORPUSCULAR HEMOGLOBIN 29.3 pg (29.0-33.0); MEAN CORPUSCULAR HGB CONC 32.7 g/dl (32.0-37.0); MEAN CORPUSCULAR VOLUME 89.3 fl (82.0-101.0); MONOCYTE # 1.5 10^3/ul (0.3-0.9); MONOCYTES % 12.9 % (0.0-11.0); NEUTROPHIL # 4.3 10^3/ul (1.6-7.5); NEUTROPHILS % 38.2 % (39.0-77.0); PLATELET COUNT 65 10^3/UL (140-415); RED BLOOD COUNT 4.41 10^6/ul (4.20-5.40); RED CELL DISTRIBUTION WIDTH 13.6 % (11.5-14.5); WHITE BLOOD COUNT 11.3 10^3/ul (4.8-10.8)
[2016-09-12 05:47] LABS: MEAN PLATELET VOLUME 14.1 fl (7.4-10.4)
[2016-09-12 05:57] LABS: CREATININE 0.59 mg/dl (0.44-1.00)
[2016-09-12 05:58] LABS: CALCIUM 9.4 mg/dl (8.4-10.2)
[2016-09-12] MEDS: PANTOPRAZOLE (EC) 40 MG TAB PO SCH (07:03)
[2016-09-12] MEDS: LEVOTHYROXINE 100 MCG TAB PO SCH (07:03)
[2016-09-12 08:15] VITALS: BP 137/63; RESP 18
[2016-09-12] MEDS: METOPROLOL 25 MG TAB PO SCH (08:21)
[2016-09-12] MEDS: LISINOPRIL 5 MG TAB PO SCH (08:21)
[2016-09-12] MEDS: INSULIN GLARGINE [LANtus] 3 ML PEN SC SCH (08:55)
[2016-09-12] MEDS: INSULIN ASPART [NOVOLOG] 3 ML PEN SC SCH ×2 (08:56)
[2016-09-12] MEDS ORDERED: [UNRECOGNIZED DRUG - REMARK] XX SCH (09:30)
[2016-09-12] MEDS: ELTROMBOPAG OLAMINE 25 MG PO SCH (10:45)
--- NOTE | 2016-09-12 11:06 | CONS ---
Date/Time of Note Date/Time of Note DATE: 09/12/16 TIME: 11:02 Assessment/Plan Assessment/Plan Chief Complaint/Hosp Course 64yo with # ITP-PLATELETS were low ON PROMACTA 50MG Q DAY. no evidence of intracranial bleed on stat CT brain -platelet did go up form yesterday from 48 to >60 without transfusion which suggests the Promacta is working -last platelet transfusion was on 09/09 -continue Promacta 50mg q day as 25mg is not able to maintain her platelet count . -OK for discharge from hematology standpoint given platelets appear to be on the rise -will arrange for home health to perform CBC 2x week -hold on starting asa for now. will start as an out patient once we are sure platelet count is stable and greater than 50K # L neck mass - US neck 08/23/16 showed 1. Status post thyroidectomy. 2. Solid heterogeneous mass in the left side of the neck measuring 3.7 x 2.1 x 2.2 cm. Ultrasound-guided biopsy should be considered. Now s/p US guided biopsy of left thyroid bed 08/24/16 showing nodular goiter. Follow up with endocrinology. Path: Left thyroid nodule, ultrasound-guided fine needle aspiration: -- Compatible with nodular goiter, [place] system category II. # Ischemia to Bilateral feet and toes - this maybe likely secondary to the previous rapid increase in platelet count from the promacta. - This has dramatically improved since last admission and hasn't worsened with platelet improvement now, - As stated before, holding Aspirin until patient's platelet count is consistently greater than 50K. - Note, angiography done during last admission reveals arteries of the lower extremities are widely patent bilaterally with good three-vessel runoff to the level of the ankles. 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 this is her baseline wbc count Problems: Consultation Date/Type/Reason Admit Date/Time Aug 19, 2016 at 05:00 Initial Consult Date 08/19/16 Type of Consultation: Hematology Reason for Consultation itp Referring Provider: ERICA MARAVILLA MD 24 HR Interval Summary Free Text/Dictation no acute overnight events. patient's last platelet transfusion was on 09/09. platelet did go up from yesterday without transfusion Exam/Review of Systems Vital Signs Vitals Vital Signs Date Time Temp Pulse Resp B/P Pulse Ox O2 Delivery O2 Flow Rate FiO2 09/12/16 08:15 97.8 74 18 137/63 95 09/10/16 14:00 Room Air Intake and Output 09/11/16 09/11/16 09/12/16 15:00 23:00 07:00 Intake Total 1160 ml 500 ml Balance 1160 ml 500 ml Exam Constitutional: alert Psych: no complaints Head: atraumatic, normocephalic Eyes: nl conjunctiva ENMT: nl external ears & nose Neck: non-tender, supple Respiratory: clear to auscultation Cardiovascular: nl pulses, regular rate and rhythm Gastrointestinal: soft Musculoskeletal: nl extremities to inspection Extremities: normal pulses Results Result Diagram: 09/12/160 09/12/16 0410 Results 24 hrs Laboratory Tests Test 09/11/16 12:33 09/11/16 17:38 09/11/16 21:59 09/12/16 02:08 Bedside Glucose 167 155 261 H 216 Test 09/12/16 04:10 09/12/16 08:33 White Blood Count 11.3 H Red Blood Count 4.41 Hemoglobin 12.9 Hematocrit 39.4 Mean Corpuscular Volume 89.3 Mean Corpuscular Hemoglobin 29.3 Mean Corpuscular Hemoglobin Concent 32.7 Red Cell Distribution Width 13.6 Platelet Count 65 #L Mean Platelet Volume 14.1 #H Neutrophils % 38.2 L Lymphocytes % 45.7 Monocytes % 12.9 H Eosinophils % 1.9 Basophils % 1.1 Nucleated Red Blood Cells % 0.0 Neutrophils # 4.3 Lymphocytes # 5.2 H Monocytes # 1.5 H Eosinophils # 0.2 Basophils # 0.1 Nucleated Red Blood Cells # 0.0 Sodium Level 138 Potassium Level 4.0 Chloride Level 100 Carbon Dioxide Level 28 Anion Gap 14 Blood Urea Nitrogen 20 Creatinine 0.59 Glucose Level 234 #H Calcium Level 9.4 Bedside Glucose 219 Medications Medications Current Medications Levothyroxine Sodium (Synthroid) 100 mcg DAILY@06 PO Last administered on 07:03; Admin Dose 100 MCG; Start 08/19/16 at 07:30 Lisinopril (Zestril) 5 mg DAILY PO Last administered on 09/12/16 08:21; Admin Dose 5 MG; Start 08/19/16 at 09:00 Metoprolol Tartrate (Lopressor) 25 mg BID PO Last administered on 09/12/16 08: 21; Admin Dose 25 MG; Start 08/19/16 at 09:00 Acetaminophen (Tylenol Tab) 650 mg Q6H PRN PO PAIN AND OR ELEVATED TEMP Last administered on 09/10/16 04:34; Admin Dose 650 MG; Start 08/19/16 at 07:30 Ondansetron HCl (Zofran Inj) 4 mg Q6H PRN IV NAUSEA AND/OR VOMITING; Start 08/19 at 07:30 Pantoprazole (Protonix Tab) 40 mg DAILY@06 PO Last administered on 09/12/16 07: 03; Admin Dose 40 MG; Start 08/19/16 at 07:30 Miscellaneous Information 1 ea NOTE XX ; Start 08/19/16 at 07:30 Glucose (Glutose) 15 gm Q15M PRN PO DECREASED GLUCOSE; Start 08/19/16 at 07:30 Glucose (Glutose) 22.5 gm Q15M PRN PO DECREASED GLUCOSE; Start 08/19/16 at 07:30 Dextrose (D50w Syringe) 25 ml Q15M PRN IV DECREASED GLUCOSE; Start 08/19/16 at 07:30 Dextrose (D50w Syringe) 50 ml Q15M PRN IV DECREASED GLUCOSE; Start 08/19/16 at 07:30 Glucagon (Glucagen) 1 mg Q15M PRN IM DECREASED GLUCOSE; Start 08/19/16 at 07:30 Glucose (Glutose) 15 gm Q15M PRN BUCCAL DECREASED GLUCOSE; Start 08/19/16 at 07: 30 Diphenhydramine HCl (Benadryl) 25 mg TID PRN PO ITCHING Last administered on 20:31; Admin Dose 25 MG; Start 08/20/16 at 20:30 Aspirin (Aspirin) 81 mg DAILY PO Last administered on 08/30/16 09:59; Admin Dose 81 MG; Start 08/24/16 at 17:00; Status Future Hold Miscellaneous Information Patients own medicat... BID@10,16 XX Last administered on 09/12/16 10:45; Admin Dose 1 EA; Start 08/28/16 at 10:00 Eltrombopag (Promacta) 50 mg DAILY PO Last administered on 09/12/16 10:45; Admin Dose 50 MG; Start 09/08/16 at 09:00 Insulin Glargine (Lantus) 50 unit DAILY@08 SC Last administered on 09/12/16 08: 55; Admin Dose 50 UNIT; Start 09/10/16 at 08:00 Miscellaneous Information 1 ea NOTE XX ; Start 09/12/16 at 09:30 MILADY FONG M.D. September 12, 2016 11:06
--- NOTE | 2016-09-12 11:50 | PDOCDIS ---
Discharge Instructions CONDITION Patient Condition: Stable HOME CARE INSTRUCTIONS: Diet Instructions: RegularSpecial Diet: Carb controled diet ACTIVITY: Activity Restrictions: Slowly Increase Activity Rest between Activity Avoid heavy lifting Bathing Restrictions: Shower FOLLOW UP/APPOINTMENTS Appointments SEE OWN PCP [address] FONG 1 WK CBC BY ERICA SWIFT MD September 12, 2016 11:49
[2016-09-12] MEDS ORDERED: ELTR25TA PO (11:51)
--- NOTE | 2016-09-12 17:40 | QN ---
Documentation Comment [id number] ERICA MARAVILLA MD September 12, 2016 17:40
--- NOTE | 2016-09-13 02:27 | DS ---
DATE OF ADMISSION: 08/19/2016 DATE OF DISCHARGE: 09/12/2016 HOSPITAL COURSE: The patient with history of ITP was admitted with thrombocytopenia. Received IVIG , Promacta. The patient was closely monitored by Dr. Carrington and Dr. Fanta Ureña. The patient has d ry gangrene of the tip of the toes which healed. The patient stayed in the hospital longer because the patient dropped the platelet count to 6. CT of the head was done, which was reported as negativ e for any bleed. The patient also has a history of thyroid mass, underwent thyroid mass biopsy. e patient's pathology report came back negative of the biopsy of the thyroid nodule. Today, platele t count of 65, is slowly going up, and Dr. Carrington has agreed to discharge this patient. DISCHARGE DIAGNOSES: 1. Idiopathic thrombocytopenic purpura. 2. The patient also has left neck mass, status post biopsy negative. 3. The patient has gangrene of the tip of the toes, healed. 4. Diabetes. 5. Leukocytosis. DISCHARGE MEDICATIONS: 1. To continue on Promacta ____ recommended by Dr. Carrington. 2. Continue levothyroxine. 3. Lisinopril. 4. Metoprolol. 5. Insulin. DISCHARGE INSTRUCTIONS: The patient to follow with PCP, Dr. Carrington as an outpatient. CBC q. week by PCP and Dr. Carrington. DISPOSITION: The patient is stable at the time of discharge. Dictated By: ERICA MARAVILLA MD BS/NTS Conf#: [id number] DID#: [id number]
== END 2016-09-12 13:17 | disposition home or self-care (01) | DRG 813 ==
LOC: E/R 02:23 → MS1 05:00
PROVIDERS: ADMIT Internal Medicine Nephrology; ATTEND Internal Medicine Nephrology
PROC: 30233R1 Transfusion of Nonautologous Platelets into Peripheral Vein, Percutaneous Approach (ICD-10-PCS; 2016-08-20)
PROC: 0GBG3ZX Excision of Left Thyroid Gland Lobe, Percutaneous Approach, Diagnostic (ICD-10-PCS; principal; 2016-08-24)
DX: D69.3 Immune thrombocytopenic purpura (principal); E11.628 Type 2 diabetes mellitus with other skin complications; E11.52 Type 2 diabetes mellitus with diabetic peripheral angiopathy with gangrene; L03.115 Cellulitis of right lower limb; E87.1 Hypo-osmolality and hyponatremia; L03.116 Cellulitis of left lower limb; E11.51 Type 2 diabetes mellitus with diabetic peripheral angiopathy without gangrene; E11.65 Type 2 diabetes mellitus with hyperglycemia; I10 Essential (primary) hypertension; I99.8 Other disorder of circulatory system; E04.1 Nontoxic single thyroid nodule; R22.1 Localized swelling, mass and lump, neck; H11.32 Conjunctival hemorrhage, left eye; E04.9 Nontoxic goiter, unspecified; Z96.89 Presence of other specified functional implants
CPT/HCPCS: 36430; 70450; 70492; 76536; 80048; 80053; 82962; 83036; 84436; 84439; 84443; 84480; 84481; 85025; 85610; 85730; 86644; 86850; 86870; 86900; 86901; 86902; 86945; 88104; 88307; J1566; J1815; J7042; J7512; P9035

== ENCOUNTER 2018-07-24 09:45 | Day surgery (SDC) | payer OTHER ==
[~2018-07-24] VITALS: Ht 157.5 cm; Wt 52.1 kg
[~2018-07-24 09:45] MED LIST changes: -ASPI-664 PO; -DOXY100T20 PO; +ELTR25TA PO; +LEVO-86 PO; -SYN1 PO
[2018-07-24 10:48] VITALS: Ht 157.5 cm; Wt 52.1 kg
[2018-07-24] MEDS ORDERED: OYSTER CALCIUM (10:55)
[2018-07-24] MEDS ORDERED: ASPIRIN 81 MG (10:55)
[2018-07-24] MEDS ORDERED: JANUVIA (10:55)
[2018-07-24] MEDS ORDERED: VITAMIN D (10:55)
[2018-07-24] MEDS ORDERED: METOPROLOL (11:04)
[2018-07-24] MEDS ORDERED: LISINOPRIL (11:04)
[2018-07-24] MEDS ORDERED: INSULIN GLARGINE (11:04)
[2018-07-24] MEDS ORDERED: LEVOTHYROXINE (11:04)
[2018-07-24] MEDS ORDERED: PROMACTA (11:04)
[2018-07-24] MEDS ORDERED: PROPOFOL 20 ML ONE (11:07)
--- NOTE | 2018-07-24 11:16 | PREAC ---
Date/Time of Note Date/Time of Note DATE: 07/24/18 TIME: 11:14 Anesthesia Eval and Record Evaluation Time Pre-Procedure Interview DATE: 07/24/18 TIME: 11:14 Age 68 Sex female NPO: 8 hrs Preoperative diagnosis Screening Planned procedure Colonoscopy Past Medical History Past Medical History: Includes Cardio: HTN, Dyslipidemia Endo: Hypothyroid Heme: Thrombocytopenia (Hx of ITP on Promacta PO) Surgery & Anesthesia Issues No known issue Meds Anticoagulation: No Beta Christa within 24 hr: No Reason Beta Christa not given: Pt. not on B-Christa Active Scripts Eltrombopag Olamine (Promacta) 25 Mg Tablet, 50 MG PO DAILY for 28 Days, TAB Prov:ERICA MARAVILLA MD 09/12/16 Levothyroxine Sodium (Levothroid) 100 Mcg Tablet, 100 MCG PO DAILY@06 for 14 Days, TAB Prov:ERICA MARAVILAL MD 08/15/16 Insulin Glargine* (Lantus*) 100 Unit/Ml Soln, 45 UNIT SC DAILY for 28 Days Prov:ERICA MARAVILLA MD 08/15/16 Metoprolol Tartrate* (Lopressor*) 25 Mg Tab, 25 MG PO BID for 28 Days, TAB Prov:ERICA MARAVILLA MD 08/15/16 Lisinopril* (Lisinopril*) 5 Mg Tablet, 5 MG PO DAILY for 28 Days, TAB Prov:ERICA MARAVILLA MD 08/15/16 Reported Medications [Promacta] No Conflict Check 07/24/18 [Insulin Glargine] No Conflict Check 07/24/18 [Levothyroxine] No Conflict Check 07/24/18 [Lisinopril] No Conflict Check 07/24/18 [Metoprolol] No Conflict Check 07/24/18 [Vitamin D] No Conflict Check 07/24/18 [Oyster Calcium] No Conflict Check 07/24/18 [Januvia] No Conflict Check 07/24/18 [Aspirin 81 Mg] No Conflict Check 07/24/18 Meds reviewed: Yes Allergies Coded Allergies: Penicillins (Unverified Allergy, Unknown, RASH, 08/09/16) Allergies Reviewed: Yes Labs/Studies Labs Reviewed: Reviewed by anesthesiologist test: N/A Studies: ECG (n/a), CXR (n/a) Pre-procedure Exam Airway: Adequate mouth opening, Adequate thyromental dist Mallampati: Mallampati II Teeth: Normal Lung: Normal Heart: Normal ASA Physical Status ASA physical status: 3 Emergency: None Planned Anesthetic General/MAC: MAC Planned Pain Management Parenteral pain med Pre-operative Attestations Prior to commencing anesthesia and surgery, the patient was re-evaluated, there was verification of: *The patient's identity *The results of appropriate recent lab work and preoperative vital signs *The above evaluation not changing prior to induction *Anesthetic plan, risk benefits, alternative and complications discussed with patient/family; questions answered; patient/family understands, accepts and wishes to proceed. SYED NEVAREZ MD Jul 24, 2018 11:16
[2018-07-24 11:37] VITALS: BP 183/80; PULSE 79; RESP 17
--- NOTE | 2018-07-24 13:11 | PAC ---
Date/Time of Note Date/Time of Note DATE: 07/24/18 TIME: 13:11 Post-Anesthesia Notes Post-Anesthesia Note Last documented vital signs T:98.0 Activity: WNL Respiratory function: WNL Cardiovascular function: WNL Mental status: Baseline Pain reasonably controlled: Yes Hydration appropriate: Yes Nausea/Vomiting absent: Yes SYED NEVAREZ MD Jul 24, 2018 13:11
== END 2018-07-24 15:28 | disposition home or self-care (01) ==
LOC: GIL 09:45
PROVIDERS: ATTEND Internal Medicine Gastroenterology
DX: Z12.11 Encounter for screening for malignant neoplasm of colon (principal); D12.5 Benign neoplasm of sigmoid colon; D12.3 Benign neoplasm of transverse colon; I10 Essential (primary) hypertension; E78.5 Hyperlipidemia, unspecified; E03.9 Hypothyroidism, unspecified
CPT/HCPCS: 45385; 82962; 88305; Z7610